=== PATIENT | female | born 1980 | race Caucasian/White ===

== ENCOUNTER 2016-09-14 19:37 | Inpatient (IN) | payer MEDICARE, MEDICAID ==
[2016-09-14] VITALS (8 sets, daily range): BP systolic 101–141; BP diastolic 59–108
[~2016-09-14] VITALS: Ht 162.6 cm; Wt 75.9 kg
[~2016-09-14 19:37] MED LIST: ACHYD1T PO; ADV1DS; ADV1DS INH; ADV1DS1 IH; ADVAIR; ADVAIR INHALER; ALBU0.8322 INH; ALBU17AE3; ALBU8.5H2 INH; ALBU8.5HRX INH; ALBUTEROL; ALBUTEROL INHALER; ALBUTEROL INHALER INH; ALBUTEROL NEB; ALBUTEROL NEBULIZER; ALEN70TA47 PO; ALPR.25T PO; ALPR0.25 PO; ALPR0.254 PO; ASCO500T6 PO; AZTH250C PO; AZTH50T PO; Acetylcysteine INH; BCTR15O EXT; BECL8.7A5 IH; BECL8.7A5 INH; BUDE0.5A2 IH; BUDE10.22 IH; BUDE6HFA IH; CALC-787 PO; CALC-80 PO; CALC600T PO; CALCIUM PO; CEFD300C PO; CEFP500T4 PO; CEFU500T5 PO; CEPH-38 PO; CEPH500C PO; CFR250T PO; CHOL10003 PO; CHOL2000 PO; CHOL5000 PO; CHOL500014 PO; CLD600T; CLOB15OI2 TOP; CLOB15OI2 TP; CYCL10TA9 PO; CYCL50TA PO; DCS100C PO; DGX.125T PO; DIGO125T PO; DILT30TA PO; DIPH25CA79 PO; DOXY100C2 PO; DOXY100C42 PO; DULO60CA6 PO; ENXP40I.4 SC; FEN12TD TD; FENT1PAT2 TOP; FENT1PAT6 TD; FENT1PAT8 TD; FEXO60TA; FLOVENT; FLUT16SP22 NS; FLUT1DIS26 IH; FLUT1DIS27 IH; FLUT1DIS3 INH; FOLI0.4T2 PO; FRSM40T PO; FURO40TA4 PO; FURO80TA3 PO; Famotidine PO; Fentanyl TD; Fluconazole PO; Folic Acid PO; GABAPENTIN PO; GFN600TCR PO; HDR2A IV; HDR2T PO; HDR4T PO; HYDR-2856 PO; HYDR-2890 PO; HYDR-3458 PO; HYDR-3720 PO; HYDR-700 PO; HYDR1CAP2 PO; HYDR2TAB31 PO; Hydroxyzine Hcl PO; IBP600T1 PO; IBUP-15 PO; IMMU10VI14; IMMU10VI14 IV; IMMU4VIA SC; INDO25CA PO; INSHRV; INSR1U SC; INSU100C4 SQ; INSU100I16 SQ; INSU100I29 SC; INSU100V3 SC; INSU100V5 SQ; INSU100V6 SC; IPRA3AMP11 INH; IPRA3AMP19 IH; Ibuprofen PO; KCL10CCR PO; LACT1CAP72 PO; LEVA1.25 IH; LEVA1.252 IH; LEVAQUIN; LEVO500T80 PO; LEVO750T24 PO; LEVO750T39 PO; LEVO750T6 PO; LEVO750T9 PO; LOSA25TA21 PO; LOSA25TA5 PO; LOSA50TA2 PO; LOSA50TA36 PO; LOSA50TA6 PO; Losartan Potassium PO; MAGN400T39 PO; MAGN400T6 PO; METH25VI19 INJ; METH25VI2 SQ; METH25VI57 SQ; METHOTREXATE PO; METO-333 PO; METO25TA2 PO; METO25TA6 PO; METO50TA2 PO; MNTL10T PO; MULT-974 PO; MULT1TAB63; MUPI22OI2 TOP; MUPI22OI2 TP; MYCO500T34 PO; NF-MYC250C; NITR-65 PO; NOVOLIN; NOVOLOG; NOVOLOG SS; NOXAFIL PO; NYST1000 PO; OMEP-10 PO; OMEP20CA12 PO; OMEP20CA6 PO; ONDA2VIA IV; ONDA4SOL2 PO; ONDA4TAB10 PO; ONDA4TAB11 PO; ONDA8TAB13 PO; OXC5T PO; OXYC-12 PO; OXYC-309 PO; OXYC1CAP3 PO; OXYC1TAB87 PO; OXYC20TA63 PO; OXYC5CAP4 PO; OXYC5TAB PO; OXYC5TAB71 PO; OXYCODONE IR PO; OXYCODONE PO; Oxycodone Hcl PO; PANT20TA2 PO; PANT40TA PO; PHENERGAN; PNV1TABL82 PO; POTA10CA43 PO; POTA10TA86 PO; POTA20TA15 PO; POTA20TA8 PO; PRD10T; PRD10T PO; PRD1T PO; PRD20T; PRD20T PO; PRD50T PO; PRD5T PO; PRED10TA22 PO; PRED20TA PO; PRED50TA PO; PRED5TAB PO; PRENATAL VIT; PRM25T PO; PROM12.59 PO; PROM25SU10 PR; PROM25SU10 RC; PROM25TA14 PO; PROP1TAB77; Pantoprazole Sodium PO; Prednisone PO; RANI75TA30 PO; RMP5C PO; RT-ALBUINH IH; SACU1TAB PO; SACU1TAB7 PO; SCOP1PAT TD; SENN-20 PO; SERT25TA PO; SINGULAIR; SPIR25TA3 PO; SPRN25T PO; SULF-222 PO; SULF1TAB23 PO; SULF1TAB35 PO; SULF1TAB38; SULF1TAB38 PO; SULF1TAB7 PO; Sodium Chloride IV; TIOT18CA IH; TIOT18CA2 INH; TIOT4MIS2 INH; TRM50T PO; Tiotropium Bromide IH; ULTRAM; UMEC1BLS IH; VICODIN 5/500; VIT.D; VITAMIN D PO; [UNRECOGNIZED DRUG - CODE] PO; [UNRECOGNIZED DRUG - OTHER]; [UNRECOGNIZED DRUG - OTHER]; [UNRECOGNIZED DRUG - OTHER]; [UNRECOGNIZED DRUG - OTHER] IH; [UNRECOGNIZED DRUG - OTHER] INH; [UNRECOGNIZED DRUG - REMARK]; albuterol HFA INH; mucomyst INH
--- OUTSIDE RECORDS SUMMARY | 2016-09-14 19:44 | XMS REPORT | Continuity of Care Document ---
Author Author [facility] Organization [facility] Address Unknown Phone Unavailable Care Team Providers Care Freight Clerk Name Role Phone Thomas Aguilar PCP [phone] Source Comments Some departments are not documenting in the electronic medical record. If you do not see the information that you expected, contact Release of Information in the Health Information Management department at [phone] for further assistance in locating additional records.[facility] Active Allergies and Adverse Reactions Allergen Noted Date Severity Reactions Comments Clindamycin 12/09/2012 HIVES Patient states she received on last admission and after 1 day of treatment developed hives Influenza Virus Vaccine 12/09/2012 HIVES, ANGIOEDEMA, EDEMA Patient states she Trival [id number] (18 Yr received the flu vaccine +) this year (oct 2012) and developed hives, swelling and throat tightness. Never had reaction to vaccine in past Morphine 11/10/2013 HIVES, RASH Penicillins 12/22/2007 HIVES, RASH Pneumococcal 23-Valent 12/24/2012 RASH Polysaccharide Vaccine Current Medications Prescription Sig. Disp. Refills Start End Date Status Date vitamins, multiple Cap Take 1 Cap by mouth 0 0 12/25/19 Active Daily. 08 mometasone (NASONEX) 50 Apply 2 Sprays to each 3 Inhaler 1 06/22/20 Active mcg/actuation nasal spray nostril as directed 12 daily. bacitracin 500 unit/g Apply to affected area 1 Container 1 06/22/20 Active topical ointment twice daily. 12 ALPRAZolam (XANAX) 0.25 Take 1 Tab by mouth three 30 Tab 0 06/22/20 Active mg tablet times daily as needed. 12 For anxiety CALCIUM CARBONATE/VITAMIN Take 1 Tab by mouth Active D3 (CALCIUM + D PO) daily. promethazine (PHENERGAN) Take 25 mg by mouth every Active 25 mg tablet 8 hours as needed. sinus rinse (NEILMED Insert 1 Packet into nose Active SINUS) Pack kit as directed daily as needed. potassium chloride SR Take 4 Tabs by mouth 120 Cap 1 12/17/19 Active (K-DUR) 10 mEq tablet daily. 14 albuterol (VENTOLIN HFA, Inhale 2 Puffs by mouth 3 Inhaler 3 04/16/20 Active PROAIR HFA) 90 every 4 hours as needed 14 mcg/actuation inhaler for Wheezing. albuterol-ipratropium Inhale 3 mL solution as 120 Ampule 11 04/16/20 Active (DUO-NEB, DUO-VENT) 0.5 directed every 6 hours as 14 mg-3 mg(2.5 mg base)/3 mL needed for Wheezing. nebulizer solution Syringe (Disposable) 1 mL 27G 5/8" TB syringe to be 12 Syringe 1 05/31 Active syrg used with Methotrexate. 14 insulin detemir(+) Inject 10 Units into Active (LEVEMIR) 100 unit/mL area(s) as directed twice soln daily before meals. cholecalciferol(+) Take 2,000 Units by mouth Active (VITAMIN D-3) 2,000 unit daily. tablet alendronate (FOSAMAX) 70 Take 70 mg by mouth every Active mg tablet 7 days. Patient takes on Saturday hydrOXYzine (ATARAX) 25 Take 50 mg by mouth at Active mg tablet bedtime daily. PANTOPRAZOLE SODIUM Take 1 Tab by mouth. Active (PROTONIX PO) Immune Globulin (Human) Inject 10 g into area(s) 300 mL 6 07/21/20 Active (IGG) (HIZENTRA) 4 as directed every 7 days. 14 gram/20 mL (20 %) soln methotrexate 25 mg/mL Inject 1 mL into area(s) 4 mL 3 01/29/20 Active injection as directed every 7 days. 15 folic acid (FOLVITE) 1 mg Take 1 Tab by mouth 90 Tab 3 01/29/20 Active tablet daily. 15 oxyCODONE (ROXICODONE) 5 Take 5 mg by mouth every Active mg tablet 4 hours as needed for Pain DIGOXIN PO Take 10 mg by mouth twice Active daily. ASCORBATE CALCIUM Take 1,000 mg by mouth. Active (VITAMIN C PO) umeclidinium-vilanterol Inhale 1 Puff by mouth 6 Each 0 05/11/20 Active (ANORO ELLIPTA) 62.5-25 daily. 15 mcg/actuation dsdv fentaNYL (DURAGESIC) 25 Apply 1 Patch to top of Active mcg/hr patch skin as directed every 72 hours metoprolol (LOPRESSOR) 25 Take 12.5 mg by mouth Active mg tablet twice daily. losartan (COZAAR) 25 mg Take 12.5 mg by mouth Active tablet daily. spironolactone Take 25 mg by mouth Active (ALDACTONE) 25 mg tablet daily. furosemide (LASIX) 40 mg Take 2 tablets by mouth Active tablet every morning and 1 tablet in the evening. predniSONE (DELTASONE) 20 Take 20 mg by mouth daily Active mg tablet with breakfast. Active Problems Problem Noted Date Mechanical breakdown of cardiac pulse generator 08/03/2016 Overview: 2016 [facility] Advisory for Premature Battery Depletion Thrush 01/28/2015 Overview: Resolved after tapering prednisone and transitioning from Advair to a steroid free Anoro. - Monitor for recurrence. Renal failure (ARF), acute on chronic (HCC) 01/28/2015 Overview: Cr 1.77 today (01/28/15). Likely multifactorial (EGPA, diuretic use, CHF, Fosamax, and Bactrim). - Rheumatology planning to lower dosing of diuretics. - If this is not helpful, will need to consider stopping Bactrim. - Would also consider stopping her Fosamax, particularly if going forward with palliative care. Chronic rhinitis 01/28/2015 Overview: Currently fairly well controlled with an RCAT score of 23. - Will continue Nasonex. Long-term current use of steroids 07/04/2014 Encounter for long-term (current) use of medications 07/04/2014 Eosinophilia 07/04/2014 Overview: EGPA. Repeat levels recently have all been <500 despite prednisone taper since being started on MTX. 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 It is possible that the IgG level is low due to Rituxan use, but we would expect this IgG level to return to normal after use, which did not happen. Blunted response to vaccination. 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 Although she did not tolerate immunomodulatory dosing of IVIg, she had been tolerating Hizentra (SQ immunoglobulin replacement therapy) without difficulty. Began having increased infections requiring higher doses of prednisone and hospitalization after stopping Hizentra at one point, doing well on it now. Last IgG level 450 01/2016 but had missed several weeks of Hizentra, currently on 10 gm weekly. - Continue Hizentra. - Will continue to monitor her frequency and severity of infections after restarting Hizentra, obtaining IgG levels every 3-6 months (orders provided). Will need to get one at her next visit, which will be back on Hizentra for over 3 months. Sepsis(995.91) 04/10/2013 Chronic combined systolic and diastolic congestive heart failure (HCC) 04/10 RUQ abdominal pain 04/10/2013 Pneumonia 04/08/2013 Recurrent infections 02/03/2013 Overview: Sinopulmonary infections, leading to exacerbations of pulmonary condition and increased steroid use. Likely partly disease and medication (immunosuppression) induced. 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 Also history of Stenotrophamonas. - Will continue Hizentra. - Now off Bactrim ppx due to lowering of steroid dose. 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 Garrett ashley Assessment & Plan: I have had a chance to review her echocardiogram. It shows continued severely decreased LV function. We discussed the results in the office today. I think that an ICD is indicated for primary prevention purposes. Her QRSd is just at 120 msec but she does have some evidence of dyssynchrony on echo. I discussed with the patient at length the procedure of biventricular ICD implantation. We talked about the rationale for the device including the fact that about 30% of patients do not receive clinical benefit from this procedure. All patients receive the significant benefit of sudden cardiac prevention. The risks, benefits, and alternatives to the procedure were reviewed with the patient. We discussed the 1:1000 risk of stroke, heart attack, and including the small risk of cardiac perforation, vessel damage, pneumothorax, infection, and bleeding. We will utilize IV contrast dye in order to view and determine optimal LV lead position within the coronary sinus. LV lead implantation was discussed at length including the approximately 5% risk of unsuccessful endocardial lead placement. In these cases, the patient would be referred for epicardial LV lead implantation. Additionally, I discussed the need for defibrillation testing at the conclusion of the procedure. Post device care and limitations were also reviewed with the patient. All questions were answered and the patient agreed to proceed. 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 In addition, she is going to get her left port out tomorrow. I'd like to wait a couple weeks to make sure we are not dealing with any infection before proceeding with biventricular ICD implantation. Finally, I'd like to keep her at her current doses of prednisone until her procedure is done. We will touch base with her physicians regarding the need for stress dose steroids. Iron deficiency anemia 12/25/2007 Uncomplicated severe persistent asthma 12/25/2007 Overview: She has an elevated IgE (566 in 12/2007) but negative specific IgE testing, so unsure if there is an allergic component. No history of skin testing. More likely attributed to Churg-Ozzy. Hypersensitivity pneumonitis panels were all negative in 2007. Xolair has been considered in the past, but given her lack of positive perennial IgE sensitivity here, it was felt she would not qualify. However, she has outside skin testing that she thinks may have been positive (we have never seen these records). Attempts to qualify her for Xolair and Mepolizumab have been rejected. Currently now on Anoro but wheezing considerably today (presumably from tapering her prednisone). Off ICS due to recurrent refractory thrush (resolved off Advair). 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 Dr. Avilez increased her prednisone back to 20 mg and if she stays on that per Dr. Encinas, they will need to put her back on Bactrim for PCP ppx. - Continue prednisone taper as per rheumatology - Continue to decrease infectious induced exacerbations with the use of Hizentra. 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 Also associated with asthma and cardiomyopathy (now with an ICD). Has failed treatment with chronic steroids, Imuran, Cellcept, and Rituxan in December 2012. High dose IVIg caused intolerable side effects. Currently on MTX and prednisone tapered to 18 mg with control of her eosinophils but still with severe complications. She has been declined for a heart/lung transplant and did not qualify for a mepolizumab study. - Continue follow up with Rheumatology ([place]), Cardiology ([facility]), and Pulmonary ([facility]). - Hope that Dr. Encinas will continue to work on getting her onto a trial of mepolizumab Respiratory failure (HCC) 12/25/2007 Resolved Problems Problem Noted Date Resolved Date ERRONEOUS ENCOUNTER--DISREGARD 06/29/2014 07/22/2014 Hypoxia 12/09/2012 01/01/2013 Dyspnea 10/02/2012 01/01/2013 Pulmonary infiltrates with eosinophilia (HCC) 12/25/2007 01/01/2013 Most Recent Encounters Date Type Specialty Providers Description 09/03/2016 Telephone Allergy,Immunology and Cynthia Brunson DO Prior Authorization - Rheumatology Hizentra 08/14/2016 Telephone Allergy,Immunology and Josiah Rogers MD Appointment Request - Rheumatology cancel 08/03/2016 Telephone Cardiology Clifton Silva RN Follow-up Phone Call - [facility] Advisory 07/31/2016 Telephone Allergy,Immunology and Cynthia Brunson DO Other - Hizentra Rheumatology 07/11/2016 Telephone Allergy,Immunology and Cynthia Brunson DO Medication Follow-up - Rheumatology Hizentra Immunizations Name Dates Previously Given Next Due FLU VACCINE >3YO 11/04/2012 Pneumococcal Vaccine 11/04/2012 (23-Leny Adult) Social History Tobacco Use Types Packs/Day Years Used Date Never Smoker Smokeless Tobacco: Never Used Alcohol Use Drinks/Week oz/Week Comments No Last Filed Vital Signs Vital Sign Reading Time Taken Blood Pressure 114/82 04/18/2016 9:55 AM CDT Pulse 93 04/18/2016 9:55 AM CDT Temperature 36.7 C (98 F) 04/10/2016 8:18 AM CDT Respiratory Rate 18 04/10/2016 8:18 AM CDT Height 1.626 m (5' 4") 04/18/2016 9:55 AM CDT Weight 80.65 kg (177 lb 12.8 oz) 04/18/2016 9:55 AM CDT Body Mass Index 30.5 04/18/2016 9:55 AM CDT Oxygen Saturation 95% 04/18/2016 9:55 AM CDT Plan of Care Health Maintenance Due Date Last Done Comments Physical (Comprehensive) 1989 Exam Pertussis Vaccine 1993 Tetanus Vaccine 1999 Dilated Eye Exam 2000 Foot Exam 2000 Microalbumin 2000 Cervical Cancer Screening 2003 Hba1c 12/08/2014 06/10/2014, 04/09/2013 Influenza Vaccine 05/17/2016 11/04/2012 Pneumonia Vaccine (Dm) Completed 11/04/2012 Results from Last 3 Months Not on file
[2016-09-14] MEDS ORDERED: RT-ALBUTEROL/IPRATROPIUM 3 ML (DUONEB) VIAL INH ONE ×2 (20:15→21:45)
[2016-09-14] MEDS ORDERED: methylPREDNISolone 125 MG (Solu-MEDROL) VIAL IVP ONE (20:15)
[2016-09-14] MEDS ORDERED: DEXAMETHASONE 4 MG/ML SDV (DECADRON) IH ONE (20:15)
--- NOTE | 2016-09-14 20:25 | ED Respiratory ---
General Chief Complaint: Respiratory Problems Stated Complaint: ELEVATED HR/LETHARGIC/NO COGNITION/SORE THROAT Nursing Triage Note: Pt to ED 10 via wheelchair. Pt's father reports pt has been lethargic today with o2 saturations in the mid 80s and heart rate in the 120s. Pt reports she has slept most of today and has only had 1 piece of toast to eat. Source: patient, family (DAD) History of Present Illness Time seen by provider: 20:05 Initial Comments PT ARRIVES VIA POV PT HAS FELT BAD SINCE YESTERDAY INCREASES SHORTNESS OF BREATH LETHARGIC TODAY--SLEPT ALL DAY AND ONLY INTAKE TODAY HAS BEEN A PIECE OF TOAST. ONLY USED NEBULIZER X 1 THIS AM TODAY HAS HAD SWEATS ALL DAY TODAY HAS LOOSE COUGH--NON-PRODUCTIVE + SORE THROAT NO SWELLING IN LEGS/ FEET / HANDS NO CHEST PAIN O2 SATS AT HOME WERE 75-88% AND HEART RATE IN 120'S AT HOME PT HAS BIPAP AT HOME PT ADMITTED 08/16-08/22 FOR [facility]--HAD CHF AT THAT TIME. PCP: DR. PHIPPS Allergies and Home Medications Allergies Coded Allergies: influenza virus vaccine ts [id number] (36 mos+) (Unverified Allergy, Severe , ANAPHYLAXIS, 01/08/15) pneumococcal vaccine (Unverified Allergy, Severe, ANAPHYLAXIS, 01/08/15) Penicillins (Verified Allergy, Mild, PER PT RXN = HIVES, CAN TAKE ROCEPHIN , 01/08/15) clindamycin (Unverified Allergy, Unknown, 01/08/15) morphine (Verified Adverse Reaction, Intermediate, RASH, PT HAS RECEIVED HYDROMORPHONE W/O ISSUE, 04/26/16) MORPHINE IV GIVEN AT ED, PT DEVELOPED RASH AND POSSIBLE HIVES metoclopramide (Verified Adverse Reaction, Unknown, 10/02/15) INCREASED FLUID RETENTION AND BRUISING Home Medications Albuterol/Ipratropium 3 Ml Nebu 3 ML INH Q6H PRN PRN WHEEZING (Reported) Alprazolam 0.25 Mg Tablet 0.25 MG PO 1200,2100 (Reported) Alprazolam 0.25 Mg Tablet 0.25 MG PO BID PRN PRN ANXIETY (Reported) Ascorbic Acid 500 Mg Tablet 500 MG PO 1200 (Reported) Calcium Carbonate/Vitamin D3 1 Each Tablet 1 TAB PO 1200 (Reported) Digoxin 125 Mcg Tablet 125 MCG PO DAILY (Reported) Fentanyl 1 Each Patch.td72 12 MCG TD EVERY 72 HOURS (Reported) Folic Acid 0.4 Mg Tablet 0.4 MG PO HS (Reported) Furosemide 40 Mg Tablet 80 MG PO DAILY (Reported) TAKES 2 (40 MG) TABLETS Furosemide 40 Mg Tablet 40 MG PO HS (Reported) Hydroxyzine HCl 25 Mg Tablet 50 MG PO HS (Reported) TAKES 2 (25MG) TABLETS Immune Globulin,Gamma(IgG) 10 Gm/50 Ml Vial IV We (Reported) Insulin Detemir 100 Unit/1 Ml Insuln.pen 10 UNITS SC BID (Reported) Lactobacillus Combo No.10 1 Each Capsule 1 CAP PO 1200 (Reported) Magnesium Oxide 400 Mg Tablet 400 MG PO BID (Reported) Methotrexate Sodium 25 Mg/1 Ml Vial 1 ML SQ We (Reported) Metoprolol Tartrate 25 Mg Tablet 12.5 MG PO BID (Reported) TAKES 1/2 (25MG) TABLET Nystatin 100,000 Unit/1 Ml Oral.susp 5 ML PO QID PRN PRN THRUSH (Reported) Omeprazole 20 Mg Capsule.dr 20 MG PO 1700 (Reported) Ondansetron 4 Mg Tab.rapdis 4 MG PO Q4H PRN PRN NAUSEA (Reported) Oxycodone HCl 5 Mg Tablet 5-10 MG PO EVERY 4-6 HOURS PRN PRN PAIN (Reported) Pnv with Ca,No.74/Iron/FA 1 Each Tablet 1 TAB PO HS (Reported) Potassium Chloride 20 Meq Tab.er.prt 20 MEQ PO BID (Reported) Prednisone 10 Mg Tab 10 MG PO DAILY (Reported) TAKES ALONG WITH 2 (20MG) TABLETS FOR A TOTAL DAILY DOSE OF 50MG Prednisone 20 Mg Tab 40 MG PO DAILY (Reported) TAKES 2 (20MG) TABLETS ALONG WITH A 10MG TABLET FOR A TOTAL DAILY DOSE OF 50MG Promethazine HCl 25 Mg Tablet 25 MG PO TID PRN PRN NAUSEA (Reported) Sacubitril/Valsartan 1 Each Tablet 1 TAB PO BID (Reported) Scopolamine 1 Each Patch.td72 1 PATCH TD Q72H (Reported) Spironolactone 25 Mg Tablet 25 MG PO DAILY (Reported) Sulfamethoxazole/Trimethoprim 1 Each Tablet 1 TAB PO MoWeFr (Reported) Umeclidinium Brm/Vilanterol Tr 1 Each Blst.w.dev 1 PUFF IH DAILY (Reported) Constitutional: diaphoresis malaise weakness EENTM: throat pain Respiratory: see HPI cough orthopnea short of breath Cardiovascular: no symptoms reportedNo chest pain, No edema Gastrointestinal: no symptoms reported Genitourinary: no symptoms reported Musculoskeletal: no symptoms reported Skin: no symptoms reported Psychiatric/Neurological: No Symptoms Reported Hematologic/Lymphatic: No Symptoms Reported Immunological/Allergic: no symptoms reported Past Hephzax-Iquuzx-Tjqhbi Hx Patient Social History Alcohol Use: Denies Use Recreational Drug Use: No Smoking Status: Never a Smoker 2nd Hand Smoke Exposure: No Recent Foreign Travel: No Contact w/Someone Who Travel: No Recent Infectious Disease Expo: No Recent Hopitalizations: Yes (08/13 for flash pulmonary edema) Physical Abuse Screen: No Sexual Abuse: No Immunizations Up To Date Tetanus Booster (TDap): Unknown PED Vaccines UTD: No Date of Pneumonia Vaccine: Dec 15, 2012 Date of Influenza Vaccine: Dec 15, 2012 Seasonal Allergies Seasonal Allergies: Yes Surgeries HX Surgeries: Yes (2 C-SECTIONS, 2 HERNIA REPAIRS, CRANIOTOMY, 3 PORTS PUT IN AND REMOVED) Surgeries: Abdominal, Section, Defibrillator, Gallbladder, Pacemaker, Vascular Surgery Respiratory Hx Respiratory Disorders: Yes (CHURG CANELO, JEWELL'S GRANULOMATOSIS. CHRONIC HYPOXIA-O2 CONTINUOUS) Respiratory Disorders: Asthma, Pneumonia, Sleep Apnea, COPD Cardiovascular Hx Cardiac Disorders: Yes (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; PACEMAKER AND DEFIBRILLATOR) Cardiac Disorders: Cardiomyopathy Neurological Hx Neurological Disorders: Yes (BRAIN SURGERY R/T MRSA ABSCESS) Neurological Disorders: Headaches /Migraines Reproductive System Hx Reproductive Disorders: No Sexually Transmitted Disease: No HIV/AIDS: No Female Reproductive Disorders: Denies Genitourinary Hx Genitourinary Disorders: No Gastrointestinal Hx Gastrointestinal Disorders: Yes Gastrointestinal Disorders: Gastroesophageal Reflux, Hiatal Hernia, Gall Bladder Disease Musculoskeletal Hx Musculoskeletal Disorders: Yes (STEROID INDUCED MUSCLE MYOPATHY, CHRONIC GENERALIZED PAIN) Musculoskeletal Disorders: Osteoporosis, Arthritis, Back Injury, Chronic Back Pain Endocrine Hx Endocrine Disorders: Yes (CHACHA SYNDROME, CHURG-CANELO SYNDROME) Endocrine Disorders: Diabetes, Insulin dep HEENT HX ENT Disorders: No Loss of Vision: Denies Hearing Impairment: Hard of Hearing Cancer Hx Cancer: No Psychosocial Hx Psychiatric Problems: Yes Behavioral Health Disorders: Sleep Difficulties, Anxiety Integumentary HX Skin/Integumentary Disorder: Yes (wound to lt posterior calf; MRSA) Skin/Integumentary Disorders: Pruritis Blood Transfusions Hx Blood Disorders: No Adverse Reaction to a Blood Tr: No Family Medical History Significant Family History: Asthma, Cancer, Diabetes, Hypertension Family Medial History: Arthritis 03 FATHER Asthma 03 MOTHER Cancer GRANDMOTHER, Onset:50's - 60 Family history: Alzheimer's disease GRANDFATHER, Onset:60 years & older Family history: Diabetes mellitus GRANDMOTHER, Onset:50's - 60 Family history: Hypertension 03 MOTHER, Onset:40's - 50 No Family History of: Stroke Physical Exam Vital Signs Vital Sign - Last 12Hours Capillary Refill : Less Than 3 Seconds General Appearance: mild distress other (LETHARGIC, FREQUENT LOOSE COUGH WITH POOR COUGH EFFORT. CUSHINGOID FEATURES) HEENT: PERRL/EOMI pharyngeal erythema (MILD) Neck: non-tender full range of motion supple normal inspection Respiratory: respiratory distress (MILD) decreased breath sounds accessory muscle use rales (BILATERALLY) rhonchi (BILATERALLY) wheezing (ON RIGHT) Cardiovascular: no edema no murmur tachycardia Gastrointestinal: non tender soft Extremities: no pedal edema Neurologic/Psychiatric: no motor/sensory deficits oriented x 3 other ( LETHARGIC) Skin: normal color warm/dry Progress/Results/Core Measures Results/Orders Lab Results Laboratory Tests Test 09/14/16 20:00 09/14/16 20:40 09/14/16 21:00 Range/Units Victoriano Test YES-POS Arterial Blood Base Excess 0.9 -2.5-2.5 MMOL/L Arterial Blood HCO3 24 23-27 MMOL/L Arterial Blood Oxygen Saturation 91 L 94-100 % Arterial Blood Partial Pressure CO2 33 L 35-45 MMHG Arterial Blood Partial Pressure O2 53 L 79-93 MMHG Arterial Blood Total CO2 25.0 21.0-31.0 MMOL/L Arterial Blood pH 7.48 H 7.37-7.43 Blood Gas Inspired Oxygen 3L Blood Gas Patient Temperature 98.0 Blood Gas Puncture Site RIGHT RADIAL Blood Gas Ventilator Setting NO Group A Streptococcus Screen NEGATIVE NEGATIVE Activated Partial Thromboplast Time 25 24-35 SEC Alanine Aminotransferase (ALT/SGPT) 36 0-55 U/L Albumin 5.1 H 3.2-4.5 G/DL Alkaline Phosphatase 159 H 40-136 U/L Anion Gap 19 H 5-14 MMOL/L Aspartate Amino Transf (AST/SGOT) 28 5-34 U/L B-Type Natriuretic Peptide 2623.5 H <100.0 PG/ML BUN/Creatinine Ratio 12 Band Neutrophils 7 % Basophils # (Auto) 0.1 0.0-0.1 10^3/uL Basophils % (Manual) 0 % Basophils (%) (Auto) 1 0-10 % Blood Morphology Comment NORMAL Blood Urea Nitrogen 12 7-18 MG/DL Calcium Level 10.3 H 8.5-10.1 MG/DL Carbon Dioxide Level 20 L 21-32 MMOL/L Chloride Level 99 98-107 MMOL/L Creatinine 0.99 0.60-1.30 MG/DL Eosinophils # (Auto) 0.4 H 0.0-0.3 10^3/uL Eosinophils % (Manual) 8 % Eosinophils (%) (Auto) 5 0-10 % Estimat Glomerular Filtration Rate > 60 Glucose Level 92 70-105 MG/DL Hematocrit 48 35-52 % Hemoglobin 16.5 H 11.5-16.0 G/DL INR Comment 1.1 0.8-1.4 Lymphocytes # (Auto) 1.1 1.0-4.0 X 10^3 Lymphocytes % (Manual) 24 % Lymphocytes (%) (Auto) 15 12-44 % Magnesium Level 1.8 1.8-2.4 MG/DL Mean Corpuscular Hemoglobin 31 25-34 PG Mean Corpuscular Hemoglobin Concent 34 32-36 G/DL Mean Corpuscular Volume 91 80-99 FL Mean Platelet Volume 11.1 H 7.4-10.4 FL Monocytes # (Auto) 1.5 H 0.0-1.0 X 10^3 Monocytes % (Manual) 15 % Monocytes (%) (Auto) 20 H 0-12 % Neutrophils # (Auto) 4.3 1.8-7.8 X 10^3 Neutrophils % (Manual) 46 % Neutrophils (%) (Auto) 58 42-75 % Platelet Count 209 130-400 10^3/uL Potassium Level 3.6 3.6-5.0 MMOL/L Prothrombin Time 13.8 12.2-14.7 SEC Red Blood Count 5.30 4.35-5.85 10^6/uL Red Cell Distribution Width 18.7 H 10.0-14.5 % Sodium Level 138 135-145 MMOL/L Total Bilirubin 2.5 H 0.1-1.0 MG/DL Total Protein 7.9 6.4-8.2 G/DL Troponin I < 0.30 <0.30 NG/ML White Blood Count 7.3 4.3-11.0 10^3/uL Micro Results Microbiology 09/14/16 Influenza Types A,B Antigen (ALCON) - Final, Complete My Orders Orders-ABHIKAREN Amaya DO O2 (09/14/16 20:05) Cbc And Manual Diff (09/14/16 20:05) Comprehensive Metabolic Panel (09/14/16 20:05) Monitor-Rhythm Ecg Trace Only (09/14/16 20:05) Saline Lock/Iv-Start (09/14/16 20:05) Arterial Blood Gas (09/14/16 20:05) Cbc With Automated Diff (09/14/16 20:05) Hcg,Qualitative Serum (09/14/16 20:05) Lactic Acid Analyzer (09/14/16 20:05) Blood Culture (09/14/16 20:05) Influenza A And B Antigens (09/14/16 20:05) Albuterol/Ipra Inhalation Soln (Duoneb I (09/14/16 20:15) Dexamethasone Injection (Decadron Inject (09/14/16 20:15) Rt Request For Service (09/14/16 20:05) Svn Sm Volume Nebulizer Rt-Rfs (09/14/16 20:05) Methylprednisolone Sod Succ (Solu-Medrol (09/14/16 20:15) Ekg Tracing (09/14/16 20:13) BNP (09/14/16 20:13) Magnesium (09/14/16 20:13) Protime With Inr (09/14/16 20:13) Partial Thromboplastin Time (09/14/16 20:13) Rapid Strep A Screen (09/14/16 20:13) Troponin I (09/14/16 20:13) Albuterol Pre-Mix Nebs (Rt) (Proventil P (09/14/16 20:51) Chest 1 View, Ap/Pa Only (09/14/16 21:09) Albuterol/Ipra Inhalation Soln (Duoneb I (09/14/16 21:45) Albuterol Pre-Mix Nebs (Rt) (Proventil P (09/14/16 21:45) Furosemide Injection (Lasix Injection) (09/14/16 22:30) Levofloxacin 750 Mg/150 Ml Iv (Levaquin (09/14/16 22:41) Catheter(Urinary) Insert & Ass (09/14/16 22:44) Medications Given in ED Current Medications Medications Dose Ordered Sig/Neisha Route Start Time Stop Time Status Last Admin Dose Admin Albuterol/ Ipratropium 3 ml ONCE ONCE INH 09/14/16 20:15 09/14/16 20:16 DC 09/14/16 20:22 3 ML Albuterol/ Ipratropium 3 ml ONCE ONCE INH 09/14/16 21:45 09/14/16 21:46 DC 09/14/16 21:37 3 ML Dexamethasone Sodium Phosphate 30 mg ONCE ONCE IH 09/14/16 20:15 09/14/16 20:16 DC 09/14/16 20:22 30 MG Furosemide 80 mg ONCE ONCE IVP 09/14/16 22:30 09/14/16 22:31 DC 09/14/16 22:43 80 MG Methylprednisolone Sodium Succinate 125 mg ONCE ONCE IVP 09/14/16 20:15 09/14/16 20:16 DC 09/14/16 21:08 125 MG Vital Signs/I&O Vital Sign - Last 12Hours 09/14/16 09/14/16 09/14/16 09/14/16 19:56 19:56 20:23 21:19 Temp 98.0 Pulse 130 102 Resp 26 40 B/P 112/82 Pulse Ox 99 98 92 100 O2 Delivery Nasal Cannula Nasal Cannula Nasal Cannula O2 Flow Rate 3 3 2 40 Blood Pressure Mean: 92 Progress Note : Progress Note O2 SATS UP TO 100% ON BIPAP LUNG SOUNDS IMPROVED AFTER NEBULIZER TREATMENTS AND STARTING ON BIPAP RESPIRATIONS LESS LABORED PT REMAINS LETHARGIC ECG Initial ECG Impression Time: 20:17 Initial ECG Rate: 117 Comment 100% VENTRICULAR PACED Diagnostic Imaging Comments CXR--CARDIOMEGALY, NO ACUTE PROCESS, PER RADIOLOGIST REPORT @ 2140 Reviewed: Reviewed by Me Departure Communication Progress Notes 2229--SPOKE WITH DR. RIBERA, [employer] MAINTE[employer]CE INSPECTOR FOR DR. PHIPPS. ACCEPTS PT FOR ADMIT. Impression Impression: Primary Impression: Acute on chronic respiratory failure Additional Impressions: Acute on chronic congestive heart failure Bronchitis Pharyngitis Disposition: ADMITTED INPATIENT Condition: Improved Decision to Admit Reason: Admit from ER (General) Decision to Admit/Date: Sep 14, 2016 Time/Decision to Admit Time: 22:30 Departure-Patient Inst. Referrals: ALBER PHIPPS MD (PCP/Family) Primary Care Physician KAREN MOE DO Sep 14, 2016 20:25
[2016-09-14 20:41] LABS: ABG BASE EXCESS 0.9 MMOL/L (-2.5-2.5); ABG HCO3 24 MMOL/L (23-27); ABG OXYGEN SATURATION 91 % (94-100); ABG PCO2 33 MMHG (35-45); ABG PH 7.48 (7.37-7.43); ABG PO2 53 MMHG (79-93)
[2016-09-14 20:46] LABS: ALLENS TEST YES-POS
[2016-09-14] MEDS ORDERED: RT-ALBUTEROL SULF 2.5 MG/3 ML PRE-MIX VIAL ONE (20:51)
[2016-09-14 21:13] LABS: BASOPHILS # (AUTO) 0.1 10^3/uL (0.0-0.1); BASOPHILS % (AUTO) 1 % (0-10); EOSINOPHILS # (AUTO) 0.4 10^3/uL (0.0-0.3); EOSINOPHILS % (AUTO) 5 % (0-10); LYMPHOCYTES # (AUTO) 1.1 X 10^3 (1.0-4.0); LYMPHOCYTES % (AUTO) 15 % (12-44); MEAN CORPUSCULAR HEMOGLOBIN 31 PG (25-34); MEAN CORPUSCULAR HGB CONC 34 G/DL (32-36); MEAN CORPUSCULAR VOLUME 91 FL (80-99); MEAN PLATELET VOLUME 11.1 FL (7.4-10.4); MONOCYTES # (AUTO) 1.5 X 10^3 (0.0-1.0); MONOCYTES % (AUTO) 20 % (0-12); NEUTROPHILS # (AUTO) 4.3 X 10^3 (1.8-7.8); NEUTROPHILS % (AUTO) 58 % (42-75); PLATELET COUNT 209 10^3/uL (130-400); RED CELL DISTRIBUTION WIDTH 18.7 % (10.0-14.5); WHITE BLOOD COUNT 7.3 10^3/uL (4.3-11.0)
[2016-09-14 21:25] LABS: BAND NEUTROPHILS 7 %; BASOPHILS % (MANUAL) 0 %; EOSINOPHILS % (MANUAL) 8 %; INR 1.1 (0.8-1.4); LYMPHOCYTES % (MANUAL) 24 %; NEUTROPHILS % (MANUAL) 46 %; PROTHROMBIN TIME PATIENT 13.8 SEC (12.2-14.7)
[2016-09-14 21:34] LABS: TROPONIN I < 0.30 NG/ML (<0.30)
[2016-09-14 21:37] LABS: ALANINE AMINOTRANSFERASE 36 U/L (0-55); ALBUMIN 5.1 G/DL (3.2-4.5); ANION GAP 19 MMOL/L (5-14); ASPARTATE AMINO TRANSFERASE 28 U/L (5-34); BILIRUBIN,TOTAL 2.5 MG/DL (0.1-1.0); BLOOD UREA NITROGEN 12 MG/DL (7-18); BUN/CREATININE RATIO 12; CALCIUM 10.3 MG/DL (8.5-10.1); CARBON DIOXIDE 20 MMOL/L (21-32); CHLORIDE 99 MMOL/L (98-107); CREATININE SERUM 0.99 MG/DL (0.60-1.30); GFR ESTIMATED > 60; GLUCOSE 92 MG/DL (70-105); MAGNESIUM 1.8 MG/DL (1.8-2.4); POTASSIUM 3.6 MMOL/L (3.6-5.0); SODIUM 138 MMOL/L (135-145); TOTAL PROTEIN 7.9 G/DL (6.4-8.2)
--- NOTE | 2016-09-14 21:38 | Diagnostic Imaging Report ---
INDICATION: Lethargy and low O2 sats. COMPARISON: 08/16/2016. EXAMINATION: Upright portable view of the chest was obtained. FINDINGS: Heart size is enlarged but is slightly less prominent than on prior study. There is no significant central venous congestion. No pneumothorax or pleural fluid is suspected. Pacer device over the right chest appears stable. The lungs are clear. IMPRESSION: Cardiomegaly without evidence of failure. No acute abnormality is suspected. Dictated by: Dictated on workstation # [id number]
[2016-09-14] MEDS ORDERED: RT-ALBUTEROL SULF 2.5 MG/3 ML PRE-MIX VIAL INH SCH (21:45)
[2016-09-14] MEDS ORDERED: FUROSEMIDE 40 MG/4 ML INJ (LASIX) IVP ONE (22:30)
[2016-09-14] MEDS ORDERED: LEVOFLOXACIN 750 MG/150 ML IV 150 ML IV STA (22:41)
[2016-09-14] MEDS ORDERED: fentaNYL INJECTION 100 MCG/2 ML AMP IVP STA (23:14)
[2016-09-15] VITALS (32 sets, daily range): BP systolic 72–124; BP diastolic 21–69
[2016-09-15] MEDS ORDERED: ACETAMINOPHEN 500 MG TAB (TYLENOL) ONE (00:09)
[2016-09-15] MEDS ORDERED: CARVEDILOL 3.125 MG (COREG) TABLET ONE (00:10)
[2016-09-15] MEDS ORDERED: 1/2 NS IV SOLUTION 0 ML IV ONE (00:10)
[2016-09-15] MEDS ORDERED: DILTIAZEM 240 MG (CARDIZEM CD) CAP PO ONE (00:10)
[2016-09-15] MEDS ORDERED: inSUlin DETERMIR 1 UNIT/0.01 ML (LEVEMIR) CHARGE PER UNIT SQ ONE (00:21)
[2016-09-15 01:00] LABS: ABG BASE EXCESS -1.9 MMOL/L (-2.5-2.5); ABG HCO3 23 MMOL/L (23-27); ABG OXYGEN SATURATION 96 % (94-100); ABG PCO2 37 MMHG (35-45); ABG PO2 76 MMHG (79-93); ABG TCO2 23.7 MMOL/L (21.0-31.0)
[2016-09-15 01:01] LABS: ALLENS TEST YES-POS; PATIENT TEMP 97.6
[2016-09-15] MEDS ORDERED: HYDROmorphone (DILAUDID) 2 MG/ML VIAL ONE (02:04)
[2016-09-15] MEDS ORDERED: CEFEPIME 2 GM/NS 50 ML IVPB IV SCH ×2 (02:15)
[2016-09-15] MEDS ORDERED: LEVOFLOXACIN 750 MG/150 ML D5W (PRE-MIX) IV SCH (02:15)
[2016-09-15] MEDS ORDERED: VANCOMYCIN 1 GM/NS 250 ML IVPB IV SCH ×2 (02:15)
[2016-09-15] MEDS ORDERED: HYDROmorphone (DILAUDID) 2 MG/ML VIAL IV PRN (02:15)
[2016-09-15] MEDS ORDERED: SODIUM CHLORIDE (ADD-VANTAGE) 250 ML ONE ×2 (02:17→11:51)
[2016-09-15] MEDS ORDERED: VANCOMYCIN 1 GM ADD-VANTAGE VIAL IV ONE ×2 (02:18→11:51)
[2016-09-15 03:20] LABS: BASOPHILS % (AUTO) 0 % (0-10); EOSINOPHILS % (AUTO) 0 % (0-10); LYMPHOCYTES # (AUTO) 0.2 X 10^3 (1.0-4.0); LYMPHOCYTES % (AUTO) 3 % (12-44); MEAN CORPUSCULAR HEMOGLOBIN 31 PG (25-34); MEAN CORPUSCULAR HGB CONC 34 G/DL (32-36); MEAN CORPUSCULAR VOLUME 91 FL (80-99); MEAN PLATELET VOLUME 10.6 FL (7.4-10.4); MONOCYTES # (AUTO) 0.2 X 10^3 (0.0-1.0); MONOCYTES % (AUTO) 3 % (0-12); NEUTROPHILS # (AUTO) 5.7 X 10^3 (1.8-7.8); NEUTROPHILS % (AUTO) 93 % (42-75); PLATELET COUNT 212 10^3/uL (130-400); RED BLOOD COUNT 4.75 10^6/uL (4.35-5.85); RED CELL DISTRIBUTION WIDTH 18.5 % (10.0-14.5); WHITE BLOOD COUNT 6.1 10^3/uL (4.3-11.0)
[2016-09-15 03:41] LABS: ALBUMIN 4.6 G/DL (3.2-4.5); BILIRUBIN,TOTAL 2.1 MG/DL (0.1-1.0); CALCIUM 9.3 MG/DL (8.5-10.1); CREATININE SERUM 1.42 MG/DL (0.60-1.30); MAGNESIUM 1.9 MG/DL (1.8-2.4); PHOSPHORUS 4.3 MG/DL (2.3-4.7); POTASSIUM 2.9 MMOL/L (3.6-5.0); TOTAL PROTEIN 6.9 G/DL (6.4-8.2)
[2016-09-15 03:51] LABS: ABG BASE EXCESS -1.1 MMOL/L (-2.5-2.5); ABG HCO3 23 MMOL/L (23-27); ABG OXYGEN SATURATION 97 % (94-100); ABG PCO2 37 MMHG (35-45); ABG PH 7.42 (7.37-7.43); ABG PO2 86 MMHG (79-93); ABG TCO2 24.4 MMOL/L (21.0-31.0)
[2016-09-15 03:52] LABS: ALLENS TEST YES-POS; PATIENT TEMP 97.2
[2016-09-15] MEDS ORDERED: NS IV 1000 ML 1,000 ML ONE (04:51)
[2016-09-15] MEDS ORDERED: NS IV 1000 ML 1,000 ML IV SCH (05:00)
[2016-09-15] MEDS: KCL 20 MEQ TAB (K-DUR) PO SCH (05:06)
[2016-09-15] MEDS: POTASSIUM CL 10MEQ/50ML IVPB 50 ML IV SCH ×6 (05:09→10:50)
[2016-09-15] MEDS: MAGNESIUM 1 GM/100 ML IVPB 100 ML IV SCH (05:09)
[2016-09-15] MEDS: RT-ALBUTEROL/IPRATROPIUM 3 ML (DUONEB) VIAL INH SCH ×5 (06:00→22:03)
[2016-09-15] MEDS: methylPREDNISolone 125 MG (Solu-MEDROL) VIAL IVP SCH ×3 (06:13→19:51)
--- NOTE | 2016-09-15 06:52 | Pulmonary Consultation ---
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 NO leukocytosis, fever, or productive cough. CXR shows no acute infiltrate. I am consulted for pulmonary management. Allergies and Home Medications Allergies Coded Allergies: influenza virus vaccine ts [id number] (36 mos+) (Unverified Allergy, Severe , ANAPHYLAXIS, 01/08/15) pneumococcal vaccine (Unverified Allergy, Severe, ANAPHYLAXIS, 01/08/15) Penicillins (Verified Allergy, Mild, PER PT RXN = HIVES, CAN TAKE ROCEPHIN , 01/08/15) clindamycin (Unverified Allergy, Unknown, 01/08/15) morphine (Verified Adverse Reaction, Intermediate, RASH, PT HAS RECEIVED HYDROMORPHONE W/O ISSUE, 04/26/16) MORPHINE IV GIVEN AT ED, PT DEVELOPED RASH AND POSSIBLE HIVES metoclopramide (Verified Adverse Reaction, Unknown, 10/02/15) INCREASED FLUID RETENTION AND BRUISING Home Medications Albuterol/Ipratropium 3 Ml Nebu 3 ML INH Q6H PRN PRN WHEEZING (Reported) Alprazolam 0.25 Mg Tablet 0.25 MG PO 1200,2100 (Reported) Alprazolam 0.25 Mg Tablet 0.25 MG PO BID PRN PRN ANXIETY (Reported) Ascorbic Acid 500 Mg Tablet 500 MG PO 1200 (Reported) Calcium Carbonate/Vitamin D3 1 Each Tablet 1 TAB PO 1200 (Reported) Digoxin 125 Mcg Tablet 125 MCG PO DAILY (Reported) Fentanyl 1 Each Patch.td72 12 MCG TD EVERY 72 HOURS (Reported) Folic Acid 0.4 Mg Tablet 0.4 MG PO HS (Reported) Furosemide 40 Mg Tablet 80 MG PO DAILY (Reported) TAKES 2 (40 MG) TABLETS Furosemide 40 Mg Tablet 40 MG PO HS (Reported) Hydroxyzine HCl 25 Mg Tablet 50 MG PO HS (Reported) TAKES 2 (25MG) TABLETS Immune Globulin,Gamma(IgG) 10 Gm/50 Ml Vial IV We (Reported) Insulin Detemir 100 Unit/1 Ml Insuln.pen 10 UNITS SC BID (Reported) Lactobacillus Combo No.10 1 Each Capsule 1 CAP PO 1200 (Reported) Magnesium Oxide 400 Mg Tablet 400 MG PO BID (Reported) Methotrexate Sodium 25 Mg/1 Ml Vial 1 ML SQ We (Reported) Metoprolol Tartrate 25 Mg Tablet 12.5 MG PO BID (Reported) TAKES 1/2 (25MG) TABLET Nystatin 100,000 Unit/1 Ml Oral.susp 5 ML PO QID PRN PRN THRUSH (Reported) Omeprazole 20 Mg Capsule.dr 20 MG PO 1700 (Reported) Ondansetron 4 Mg Tab.rapdis 4 MG PO Q4H PRN PRN NAUSEA (Reported) Oxycodone HCl 5 Mg Tablet 5-10 MG PO EVERY 4-6 HOURS PRN PRN PAIN (Reported) Pnv with Ca,No.74/Iron/FA 1 Each Tablet 1 TAB PO HS (Reported) Potassium Chloride 20 Meq Tab.er.prt 20 MEQ PO BID (Reported) Prednisone 10 Mg Tab 10 MG PO DAILY (Reported) TAKES ALONG WITH 2 (20MG) TABLETS FOR A TOTAL DAILY DOSE OF 50MG Prednisone 20 Mg Tab 40 MG PO DAILY (Reported) TAKES 2 (20MG) TABLETS ALONG WITH A 10MG TABLET FOR A TOTAL DAILY DOSE OF 50MG Promethazine HCl 25 Mg Tablet 25 MG PO TID PRN PRN NAUSEA (Reported) Sacubitril/Valsartan 1 Each Tablet 1 TAB PO BID (Reported) Scopolamine 1 Each Patch.td72 1 PATCH TD Q72H (Reported) Spironolactone 25 Mg Tablet 25 MG PO DAILY (Reported) Sulfamethoxazole/Trimethoprim 1 Each Tablet 1 TAB PO MoWeFr (Reported) Umeclidinium Brm/Vilanterol Tr 1 Each Blst.w.dev 1 PUFF IH DAILY (Reported) Past Qhbxoaw-Xjwkgr-Cssfsh Hx Patient Social History Alcohol Use: Denies Use Recreational Drug Use: No Smoking Status: Never a Smoker 2nd Hand Smoke Exposure: No Recent Foreign Travel: No Contact w/Someone Who Travel: No Recent Infectious Disease Expo: No Recent Hopitalizations: Yes (08/13 for flash pulmonary edema) Physical Abuse Screen: No Sexual Abuse: No Immunizations Up To Date Tetanus Booster (TDap): Unknown PED Vaccines UTD: No Date of Pneumonia Vaccine: Dec 15, 2012 Date of Influenza Vaccine: Dec 15, 2012 Seasonal Allergies Seasonal Allergies: Yes Surgeries HX Surgeries: Yes (2 C-SECTIONS, 2 HERNIA REPAIRS, CRANIOTOMY, 3 PORTS PUT IN AND REMOVED) Surgeries: Abdominal, Section, Defibrillator, Gallbladder, Pacemaker, Vascular Surgery Respiratory Hx Respiratory Disorders: Yes (CHURG CANELO, JEWELL'S GRANULOMATOSIS. CHRONIC HYPOXIA-O2 CONTINUOUS) Respiratory Disorders: Asthma, Pneumonia, Sleep Apnea, COPD Cardiovascular Hx Cardiac Disorders: Yes (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; PACEMAKER AND DEFIBRILLATOR) Cardiac Disorders: Cardiomyopathy Neurological Hx Neurological Disorders: Yes (BRAIN SURGERY R/T MRSA ABSCESS) Neurological Disorders: Headaches /Migraines Reproductive System Hx Reproductive Disorders: No Sexually Transmitted Disease: No HIV/AIDS: No Female Reproductive Disorders: Denies Genitourinary Hx Genitourinary Disorders: No Gastrointestinal Hx Gastrointestinal Disorders: Yes Gastrointestinal Disorders: Gastroesophageal Reflux, Hiatal Hernia, Gall Bladder Disease Musculoskeletal Hx Musculoskeletal Disorders: Yes (STEROID INDUCED MUSCLE MYOPATHY, CHRONIC GENERALIZED PAIN) Musculoskeletal Disorders: Osteoporosis, Arthritis, Back Injury, Chronic Back Pain Endocrine Hx Endocrine Disorders: Yes (CHACHA SYNDROME, CHURG-CANELO SYNDROME) Endocrine Disorders: Diabetes, Insulin dep HEENT HX ENT Disorders: No Loss of Vision: Denies Hearing Impairment: Hard of Hearing Cancer Hx Cancer: No Psychosocial Hx Psychiatric Problems: Yes Behavioral Health Disorders: Sleep Difficulties, Anxiety Integumentary HX Skin/Integumentary Disorder: Yes (wound to lt posterior calf; MRSA) Skin/Integumentary Disorders: Pruritis Blood Transfusions Hx Blood Disorders: No Adverse Reaction to a Blood Tr: No Family Medical History Significant Family History: Asthma, Cancer, Diabetes, Hypertension Family Medial History: Arthritis 03 FATHER Asthma 03 MOTHER Cancer GRANDMOTHER, Onset:50's - 60 Family history: Alzheimer's disease GRANDFATHER, Onset:60 years & older Family history: Diabetes mellitus GRANDMOTHER, Onset:50's - 60 Family history: Hypertension 03 MOTHER, Onset:40's - 50 No Family History of: Stroke Review of Systems Constitutional: : Malaise: Sweats: WeaknessNo: Chills, Fever Eyes: No: Conjunctivae inflammation, Eyelid inflammation, Other, Pain, Redness , Vision change ENT: : Nose congestionNo: Ear discharge, Ear pain, Mouth pain, Mouth swelling, Nose discharge, Nose pain, Other, Throat pain, Throat swelling Respiratory: : Cough: Dry: SOB with excertion: Shortness of breathNo: Sputum, Wheezing Cardiovascular: : Edema: Orthopnea: Palpitations: Paroxysmal Noc. Dyspnea Gastrointestinal: No: Abdominal Pain, Constipation, Diarrhea, Hematochezia, Melena, Nausea, Other, Vomiting Genitourinary: No Dysuria, No Frequency, No Incontinence, No Hematuria, No Retention, No Other Musculoskeletal: : arm pain: back pain Exam Exam Vital Signs Date Time Temp Pulse Resp B/P Pulse Ox O2 Delivery O2 Flow Rate FiO2 09/15/16 06:04 91 Nasal Cannula 4.00 09/15/16 06:00 104 28 87/56 91 NIV/Bilevel 30.00 09/15/16 05:00 133 28 74/62 95 NIV/Bilevel 30.00 09/15/16 04:15 101 30 95 30.00 09/15/16 04:00 NIV/Bilevel 30 09/15/16 04:00 97.2 101 18 95/46 NIV/Bilevel 30.00 09/15/16 03:30 101 32 83/47 92 NIV/Bilevel 30.00 09/15/16 03:17 98.0 09/15/16 03:16 99 09/15/16 03:00 106 22 124/50 96 NIV/Bilevel 30.00 09/15/16 02:53 105 17 99 35.00 09/15/16 02:30 102 36 90/54 98 NIV/Bilevel 30.00 09/15/16 02:15 107 29 82/55 98 NIV/Bilevel 30.00 09/15/16 02:00 110 30 86/58 98 NIV/Bilevel 30.00 09/15/16 01:45 106 21 79/61 98 NIV/Bilevel 30.00 09/15/16 01:43 102 09/15/16 01:30 112 9 72/51 100 NIV/Bilevel 30.00 09/15/16 01:21 118 21 120/57 100 NIV/Bilevel 30.00 09/15/16 01:20 91 NIV Bilevel 30.00 09/15/16 01:10 97.0 118 28 95 NIV/Bilevel 09/15/16 00:49 114 31 94 40 09/15/16 00:45 97.0 116 26 120/69 95 NIV/Bilevel 09/15/16 00:30 118 105/67 09/15/16 00:15 97.0 120 24 101/71 94 NIV/Bilevel 09/15/16 00:00 120 102/48 09/14/16 23:45 97.0 121 22 97/65 93 NIV/Bilevel 09/14/16 23:30 124 101/59 09/14/16 23:15 98.0 125 24 106/76 94 NIV/Bilevel 09/14/16 23:13 130 29 100 40 09/14/16 23:00 129 117/76 09/14/16 22:45 98.0 128 26 114/71 95 NIV/Bilevel 09/14/16 22:30 131 109/68 09/14/16 22:15 98.0 133 24 141/65 93 NIV/Bilevel 09/14/16 22:00 128 138/94 09/14/16 21:45 98.0 126 26 143/106 95 NIV/Bilevel 09/14/16 21:30 124 141/108 09/14/16 21:19 102 40 100 40 09/14/16 21:15 98.0 119 28 130/103 94 NIV/Bilevel 09/14/16 21:00 102 120/99 09/14/16 20:45 98.0 92 28 107/74 94 Nasal Cannula 3 09/14/16 20:30 125 103/73 09/14/16 20:23 92 Nasal Cannula 2 09/14/16 20:15 98.0 120 26 113/82 99 Nasal Cannula 3 09/14/16 19:56 98 Nasal Cannula 3 09/14/16 19:56 98.0 130 26 112/82 99 Nasal Cannula 3 I & O 09/15/16 07:00 Intake Total 600 ml Output Total 325 ml Balance 275 ml General Appearance: No Apparent Distress WD/WN HEENT: PERRL/EOMI TMs Normal Normal ENT Inspection Neck: Full Range of Motion Normal Inspection Non Tender Respiratory: Chest Non Tender No Accessory Muscle Use Crackles Decreased Breath Sounds Cardiovascular: Regular Rate, Rhythm Capillary Refill: Less Than 3 Seconds Gastrointestinal: non tender soft Neurologic/Psychiatric: Alert Skin: Normal Color Warm/Dry Lymphatic: No Adenopathy Results Lab Laboratory Tests 09/14/16 21:00 09/15/16 03:00 Assessment/Plan Assessment/Plan Churg Canelo - steroid dependent with iatrogenic immunocompromised - NOT IN ACUTE EXACERBATION leukocytosis - secondary to steroids Hypotension, tachycardia, metabolic acidosis --- pt is over diuresed -Hold lasix -continue to monitor Hypokalemia - replace Severe Cardiomyopathy EF 15% -consult cardilology Edema Clinical Quality Measures DVT/VTE Risk/Contraindication: Risk Factor Score Per Nursin RFS Level Per Nursing on Admit: 2=Moderate KRISTINE BOJORQUEZ DO Sep 15, 2016 06:52
[2016-09-15] MEDS ORDERED: FUROSEMIDE 40 MG/4 ML INJ (LASIX) IV SCH (07:00)
[2016-09-15] MEDS ORDERED: NS IV 500 ML 500 ML ONE (07:32)
--- NOTE | 2016-09-15 09:26 | History & Physicial ---
History of Present Illness History of Present Illness Reason for visit/HPI patient was brought by father by private vehicle to the emergency room. Patient stated she started really feel bad Patient can hardly move. Patient cannot eat or drink. Patient was short of breath. Surgeries brain for MRSA, 2 C-sections, 2 hernia and gallbladder. Patient's ejection fraction of 15 percent Date of Admission Sep 14, 2016 at 22:30 I consulted on this patient on 09/15/16 09:23 Attending Physician Hodan Aguilar MD Admitting Physician Hodan Aguilar MD Consult Allergies and Home Medications Allergies Coded Allergies: influenza virus vaccine ts [id number] (36 mos+) (Unverified Allergy, Severe , ANAPHYLAXIS, 01/08/15) pneumococcal vaccine (Unverified Allergy, Severe, ANAPHYLAXIS, 01/08/15) Penicillins (Verified Allergy, Mild, PER PT RXN = HIVES, CAN TAKE ROCEPHIN , 01/08/15) clindamycin (Unverified Allergy, Unknown, 01/08/15) morphine (Verified Adverse Reaction, Intermediate, RASH, PT HAS RECEIVED HYDROMORPHONE W/O ISSUE, 04/26/16) MORPHINE IV GIVEN AT ED, PT DEVELOPED RASH AND POSSIBLE HIVES metoclopramide (Verified Adverse Reaction, Unknown, 10/02/15) INCREASED FLUID RETENTION AND BRUISING Home Medications Albuterol/Ipratropium 3 Ml Nebu 3 ML INH Q6H PRN PRN WHEEZING (Reported) Alprazolam 0.25 Mg Tablet 0.25 MG PO 1200,2100 (Reported) Alprazolam 0.25 Mg Tablet 0.25 MG PO BID PRN PRN ANXIETY (Reported) Ascorbic Acid 500 Mg Tablet 500 MG PO 1200 (Reported) Calcium Carbonate/Vitamin D3 1 Each Tablet 1 TAB PO 1200 (Reported) Digoxin 125 Mcg Tablet 125 MCG PO DAILY (Reported) Fentanyl 1 Each Patch.td72 12 MCG TD EVERY 72 HOURS (Reported) Folic Acid 0.4 Mg Tablet 0.4 MG PO HS (Reported) Furosemide 40 Mg Tablet 80 MG PO DAILY (Reported) TAKES 2 (40 MG) TABLETS Furosemide 40 Mg Tablet 40 MG PO HS (Reported) Hydroxyzine HCl 25 Mg Tablet 50 MG PO HS (Reported) TAKES 2 (25MG) TABLETS Immune Globulin,Gamma(IgG) 10 Gm/50 Ml Vial IV We (Reported) Insulin Detemir 100 Unit/1 Ml Insuln.pen 10 UNITS SC BID (Reported) Lactobacillus Combo No.10 1 Each Capsule 1 CAP PO 1200 (Reported) Magnesium Oxide 400 Mg Tablet 400 MG PO BID (Reported) Methotrexate Sodium 25 Mg/1 Ml Vial 1 ML SQ We (Reported) Metoprolol Tartrate 25 Mg Tablet 12.5 MG PO BID (Reported) TAKES 1/2 (25MG) TABLET Nystatin 100,000 Unit/1 Ml Oral.susp 5 ML PO QID PRN PRN THRUSH (Reported) Omeprazole 20 Mg Capsule.dr 20 MG PO 1700 (Reported) Ondansetron 4 Mg Tab.rapdis 4 MG PO Q4H PRN PRN NAUSEA (Reported) Oxycodone HCl 5 Mg Tablet 5-10 MG PO EVERY 4-6 HOURS PRN PRN PAIN (Reported) Pnv with Ca,No.74/Iron/FA 1 Each Tablet 1 TAB PO HS (Reported) Potassium Chloride 20 Meq Tab.er.prt 20 MEQ PO BID (Reported) Prednisone 10 Mg Tab 10 MG PO DAILY (Reported) TAKES ALONG WITH 2 (20MG) TABLETS FOR A TOTAL DAILY DOSE OF 50MG Prednisone 20 Mg Tab 40 MG PO DAILY (Reported) TAKES 2 (20MG) TABLETS ALONG WITH A 10MG TABLET FOR A TOTAL DAILY DOSE OF 50MG Promethazine HCl 25 Mg Tablet 25 MG PO TID PRN PRN NAUSEA (Reported) Sacubitril/Valsartan 1 Each Tablet 1 TAB PO BID (Reported) Scopolamine 1 Each Patch.td72 1 PATCH TD Q72H (Reported) Spironolactone 25 Mg Tablet 25 MG PO DAILY (Reported) Sulfamethoxazole/Trimethoprim 1 Each Tablet 1 TAB PO MoWeFr (Reported) Umeclidinium Brm/Vilanterol Tr 1 Each Blst.w.dev 1 PUFF IH DAILY (Reported) Past Cvoajkj-Qjswel-Etngzf Hx Patient Social History Alcohol Use: Denies Use Recreational Drug Use: No Smoking Status: Never a Smoker 2nd Hand Smoke Exposure: No Physical Abuse Screen: No Sexual Abuse: No Recent Foreign Travel: No Contact w/other who traveled: No Recent Hopitalizations: Yes (08/13 for flash pulmonary edema) Recent Infectious Disease Expo: No Immunizations Up To Date Tetanus Booster (TDap): Unknown Date of Pneumonia Vaccine: Dec 15, 2012 Date of Influenza Vaccine: Dec 15, 2012 Seasonal Allergies Seasonal Allergies: Yes Surgeries HX Surgeries: Yes (2 C-SECTIONS, 2 HERNIA REPAIRS, CRANIOTOMY, 3 PORTS PUT IN AND REMOVED) Surgeries: Abdominal, Section, Defibrillator, Gallbladder, Pacemaker, Vascular Surgery Cardiovascular Hx Cardiovascular Disorders: Yes (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; PACEMAKER AND DEFIBRILLATOR) Cardiac Disorders: Cardiomyopathy Neurological Hx Neurological Disorders: Yes (BRAIN SURGERY R/T MRSA ABSCESS) Neurological Disorders: Headaches /Migraines Reproductive System Hx Reproductive Disorders: No Sexually Transmitted Disease: No HIV/AIDS: No Female Reproductive Disorders: Denies Genitourinary Hx Genitourinary Disorders: No Gastrointestinal Hx Gastrointestinal Disorders: Yes Gastrointestinal Disorders: Gastroesophageal Reflux, Hiatal Hernia, Gall Bladder Disease Musculoskeletal Hx Musculoskeletal Disorders: Yes (STEROID INDUCED MUSCLE MYOPATHY, CHRONIC GENERALIZED PAIN) Musculoskeletal Disorders: Osteoporosis, Arthritis, Back Injury, Chronic Back Pain Endocrine Hx Endocrine Disorders: Yes (CHACHA SYNDROME, CHURG-CANELO SYNDROME) Endocrine Disorders: Diabetes, Insulin dep HEENT HX ENT Disorders: No Loss of Vision: Denies Hearing Impairment: Hard of Hearing Cancer Hx Cancer: No Psychosocial Hx Psychiatric Problems: Yes Behavioral Health Disorders: Sleep Difficulties, Anxiety Integumentary HX Skin/Integumentary Disorder: Yes (wound to lt posterior calf; MRSA) Skin/Integumentary Disorders: Pruritis Blood Transfusions Hx Blood Disorders: No Adverse Reaction to a Blood Tr: No Family Medical History Significant Family History: Asthma, Cancer, Diabetes, Hypertension Family Hx: Arthritis 03 FATHER Asthma 03 MOTHER Cancer GRANDMOTHER, Onset:50's - 60 Family history: Alzheimer's disease GRANDFATHER, Onset:60 years & older Family history: Diabetes mellitus GRANDMOTHER, Onset:50's - 60 Family history: Hypertension 03 MOTHER, Onset:40's - 50 No Family History of: Stroke Constitutional: malaise weakness EENTM: no symptoms reported Respiratory: short of breath Cardiovascular: other (ejection fraction 15 percent) Gastrointestinal: no symptoms reported Genitourinary: no symptoms reported Physical Exam Vital Signs Vital Sign - Last 12Hours 09/15/16 04:00 FiO2 30 Capillary Refill : Less Than 3 Seconds General Appearance: No Apparent Distress Eyes: Bilateral Eye Normal Inspection HEENT: Normal ENT Inspection Neck: Non Tender Respiratory: Decreased Breath Sounds Cardiovascular: Regular Rate, Rhythm Gastrointestinal: Non Tender Soft Assessment/Plan Assessment and Plan acute on chronic respiratory failure. Acute on chronic congestive heart failure. Elevated lactic acid. Bronchitis. Clinical Quality Measures DVT/VTE Risk/Contraindication: Risk Factor Score Per Nursin RFS Level Per Nursing on Admit: 2=Moderate MAIRA RIBERA DO Sep 15, 2016 09:26
[2016-09-15 09:47] LABS: BILIRUBIN,URINE NEGATIVE (NEGATIVE); KETONES,URINE NEGATIVE (NEGATIVE); LEUKOCYTE ESTERASE ,URINE NEGATIVE (NEGATIVE); NITRITE,URINE NEGATIVE (NEGATIVE); PH,URINE 7 (5-9); PROTEIN,URINE NEGATIVE (NEGATIVE); UROBILINOGEN,URINE NORMAL (NORMAL)
[2016-09-15 09:55] LABS: SQUAMOUS EPITHELIAL CELL,UR 0-2 /HPF
--- NOTE | 2016-09-15 10:10 | Diagnostic Imaging Report ---
EXAMINATION: Chest radiograph, portable AP view. DATE: September 15, 2016, at 0535 hours. INDICATION: 36-year-old female, bronchitis. COMPARISON: September 14, 2016. FINDINGS: There is a right-sided cardiac-assist device with multiple leads. The leads appear intact. Stable overall appearance of the cardiomediastinal silhouette. There is no identified pneumothorax. There is no large pleural effusion. There is no identified focal airspace consolidation. IMPRESSION: No identified acute cardiopulmonary abnormality. Dictated by: Dictated on workstation # [id number]
[2016-09-15] MEDS: ENOXAPARIN 40 MG/0.4 ML (LOVENOX) SYR SC SCH (10:25)
[2016-09-15] MEDS: VANCOMYCIN 1 GM/NS 250 ML IVPB IV SCH ×2 (12:06)
[2016-09-15] MEDS ORDERED: ALPRAZolam 0.25 MG (XANAX) TAB PO PRN (12:45)
[2016-09-15] MEDS ORDERED: NYSTATIN ORAL SUSP 5 ML UDC PO PRN (12:45)
[2016-09-15] MEDS ORDERED: PROMETHAZINE 25 MG (PHENERGAN) TAB PO PRN (12:45)
[2016-09-15] MEDS ORDERED: OXYCODONE HCL PO PRN (12:45)
[2016-09-15] MEDS ORDERED: ONDANSETRON 4 MG (ZOFRAN) ORAL DISSOLVE TAB PO PRN (12:45)
--- NOTE | 2016-09-15 15:19 | Consultation-Cardiology ---
HPI-Cardiology Cardiology Consultation: Date of Consultation 09/15/16 Date of Admission Attending Physician Hodan Aguilar MD Admitting Physician Hodan Aguilar MD Consulting Physician Americo PARSONS MD HPI: Chief Complaint: shortness of breath this is a 36-year-old lady who is well-known to the cardiology service. She is a patient of Dr. Cerrato. She has history of COPD, chrug melida disease, severe LV systolic dysfunction. Her ejection fraction is below 15 percent. She presents with recurrent shortness of breath. She's improved with IV steroids. She denies any significant chest pain, syncope, near syncope. Review of Systems-Cardiology Review of Systems Constitutional: No As described under HPI, No no symptoms reported, No chills, No fever, No lightheadedness, No malaise, No tiredness, No weight loss, No weight gain, No other Eyes: No As described under HPI, No no symptoms reported, No blindness, No blurred vision, No contact lenses, No drainage, No decreased acuity, No foreign body sensation, No glasses, No inflammation, No pain, No photophobia, No previous injury, No shadows, No tunnel vision, No other, No vision change Ears/Nose/Throat: No As described under HPI, No no symptoms reported, No chronic hearing loss, No epistaxis, No ear discharge, No ear pain, No loose teeth, No mouth pain, No mouth swelling, No nasal drainage, No nose pain, No recent hearing loss, No throat pain, No throat swelling, No ulcerations, No other Respiratory: orthopnea shortness of breath Cardiovascular: No no symptoms reported, No As described under HPI, No chest pain, No edema, No irregular heart rate, No lightheadedness, No palpitations, No syncope, No other Gastrointestinal: No no symptoms reported, No As described under HPI, No abdomen distended, No abdominal pain, No blood streaked bowels, No constipation , No diarrhea, No difficulty swallowing, No nausea, No poor appetite, No poor fluid intake, No rectal bleeding, No vomiting, No other, No nausea/vomiting/ diarrhea, No stool coloration changes Genitourinary: No no symptoms reported, No As described under HPI, No burning, No dysuria, No discharge, No frequency, No flank pain, No hematuria, No incontinence, No pain, No urgency, No other, No urine frequency changes, No urine coloration changes Musculoskeletal: No no symptoms reported, No As describe under HPI, No back pain, No gout, No joint pain, No joint swelling, No muscle pain, No muscle stiffness, No neck pain, No other DBN-Flrahc-Skikdg Hx Patient Social History Alcohol Use: Denies Use Recreational Drug Use: No Smoking Status: Never a Smoker 2nd Hand Smoke Exposure: No Recent Foreign Travel: No Recent Infectious Disease Expo: No Physical Abuse Screen: No Sexual Abuse: No Immunizations Up To Date Tetanus Booster (TDap): Unknown Date of Pneumonia Vaccine: Dec 15, 2012 Date of Influenza Vaccine: Dec 15, 2012 Past Medical History PMH As described under Assessment. Family Medical History Family History: Arthritis 03 FATHER Asthma 03 MOTHER Cancer GRANDMOTHER, Onset:50's - 60 Family history: Alzheimer's disease GRANDFATHER, Onset:60 years & older Family history: Diabetes mellitus GRANDMOTHER, Onset:50's - 60 Family history: Hypertension 03 MOTHER, Onset:40's - 50 No Family History of: Stroke Allergies and Home Medications Allergies Coded Allergies: influenza virus vaccine ts 8912-1778 (36 mos+) (Unverified Allergy, Severe , ANAPHYLAXIS, 01/08/15) pneumococcal vaccine (Unverified Allergy, Severe, ANAPHYLAXIS, 01/08/15) Penicillins (Verified Allergy, Mild, PER PT RXN = HIVES, CAN TAKE ROCEPHIN , 01/08/15) clindamycin (Unverified Allergy, Unknown, 01/08/15) morphine (Verified Adverse Reaction, Intermediate, RASH, PT HAS RECEIVED HYDROMORPHONE W/O ISSUE, 04/26/16) MORPHINE IV GIVEN AT ED, PT DEVELOPED RASH AND POSSIBLE HIVES metoclopramide (Verified Adverse Reaction, Unknown, 10/02/15) INCREASED FLUID RETENTION AND BRUISING Home Medications Albuterol/Ipratropium 3 Ml Nebu 3 ML INH Q6H PRN PRN WHEEZING (Reported) Alprazolam 0.25 Mg Tablet 0.25 MG PO 1200,2100 (Reported) Alprazolam 0.25 Mg Tablet 0.25 MG PO BID PRN PRN ANXIETY (Reported) Ascorbic Acid 500 Mg Tablet 500 MG PO 1200 (Reported) Calcium Carbonate/Vitamin D3 1 Each Tablet 1 TAB PO 1200 (Reported) Digoxin 125 Mcg Tablet 125 MCG PO DAILY (Reported) Fentanyl 1 Each Patch.td72 12 MCG TD EVERY 72 HOURS (Reported) Folic Acid 0.4 Mg Tablet 0.4 MG PO HS (Reported) Furosemide 40 Mg Tablet 80 MG PO DAILY (Reported) TAKES 2 (40 MG) TABLETS Furosemide 40 Mg Tablet 40 MG PO HS (Reported) Hydroxyzine HCl 25 Mg Tablet 50 MG PO HS (Reported) TAKES 2 (25MG) TABLETS Immune Globulin,Gamma(IgG) 10 Gm/50 Ml Vial IV We (Reported) Insulin Detemir 100 Unit/1 Ml Insuln.pen 10 UNITS SC BID (Reported) Lactobacillus Combo No.10 1 Each Capsule 1 CAP PO 1200 (Reported) Magnesium Oxide 400 Mg Tablet 400 MG PO BID (Reported) Methotrexate Sodium 25 Mg/1 Ml Vial 1 ML SQ We (Reported) Metoprolol Tartrate 25 Mg Tablet 12.5 MG PO BID (Reported) TAKES 1/2 (25MG) TABLET Nystatin 100,000 Unit/1 Ml Oral.susp 5 ML PO QID PRN PRN THRUSH (Reported) Omeprazole 20 Mg Capsule.dr 20 MG PO 1700 (Reported) Ondansetron 4 Mg Tab.rapdis 4 MG PO Q4H PRN PRN NAUSEA (Reported) Oxycodone HCl 5 Mg Tablet 5-10 MG PO EVERY 4-6 HOURS PRN PRN PAIN (Reported) Pnv with Ca,No.74/Iron/FA 1 Each Tablet 1 TAB PO HS (Reported) Potassium Chloride 20 Meq Tab.er.prt 20 MEQ PO BID (Reported) Prednisone 10 Mg Tab 10 MG PO DAILY (Reported) TAKES ALONG WITH 2 (20MG) TABLETS FOR A TOTAL DAILY DOSE OF 50MG Prednisone 20 Mg Tab 40 MG PO DAILY (Reported) TAKES 2 (20MG) TABLETS ALONG WITH A 10MG TABLET FOR A TOTAL DAILY DOSE OF 50MG Promethazine HCl 25 Mg Tablet 25 MG PO TID PRN PRN NAUSEA (Reported) Sacubitril/Valsartan 1 Each Tablet 1 TAB PO BID (Reported) Scopolamine 1 Each Patch.td72 1 PATCH TD Q72H (Reported) Spironolactone 25 Mg Tablet 25 MG PO DAILY (Reported) Sulfamethoxazole/Trimethoprim 1 Each Tablet 1 TAB PO MoWeFr (Reported) Umeclidinium Brm/Vilanterol Tr 1 Each Blst.w.dev 1 PUFF IH DAILY (Reported) Physical Exam-Cardiology Physical Exam Vital Signs/I&O Vital Sign - Last 12Hours 09/15/16 09/15/16 09/15/16 09/15/16 03:30 04:00 04:00 04:15 Temp 97.2 Pulse 101 101 101 Resp 32 18 30 B/P 83/47 95/46 Pulse Ox 92 95 O2 Delivery NIV/Bilevel NIV/Bilevel NIV/Bilevel O2 Flow Rate 30.00 30.00 30.00 FiO2 30 09/15/16 09/15/16 09/15/16 09/15/16 05:00 06:00 06:04 07:00 Pulse 133 104 110 Resp 28 28 B/P 74/62 87/56 Pulse Ox 95 91 91 O2 Delivery NIV/Bilevel NIV/Bilevel Nasal Cannula O2 Flow Rate 30.00 30.00 4.00 09/15/16 09/15/16 09/15/16 09/15/16 09:00 10:01 12:00 12:00 Temp 97.7 Pulse Ox 93 88 95 O2 Delivery Nasal Cannula Nasal Cannula Nasal Cannula O2 Flow Rate 4.00 4.00 4.00 09/15/16 09/15/16 13:00 14:32 Pulse 160 Pulse Ox 88 O2 Delivery Nasal Cannula O2 Flow Rate 4.00 Capillary Refill : Less Than 3 Seconds Constitutional: No appears stated age, No AAO x 3, apparent distressNo PERRL, No well-developed, No well-nourished, No other HEENT: No PERRL, No normal ENT inspection, No TMs normal, No pharynx normal, No scleral icterus (R), No scleral icterus (L), No pale conjunctivae (R), No pale conjunctivae (L), No photophobia, No TM abnormal (R), No TM abnormal (L), No pharyngeal erythema, No tonsillar exudate, No other, No discharge, No EOMI, No hearing is well preserved, No hard of hearing, No oral hygience is good, No ulceration, No xanthelasmas are seen Neck: No non-tender, No full range of motion, No supple, No normal inspection, No carotid bruit, No limited range of motion, No lymphadenopathy (R), No lymphadenopathy (L), No tender lateral, No tender midline, No thyromegaly, No other, No carotid pulses are 2 + bilaterally, No with good upstrokes Respiratory: chest expansion is symmetric chest is bilaterally symmetric other (no wheezing) Cardiovascular: regular rate-rhythm tachycardia S1 and S2 Gastrointestinal: No tender, No soft, No round, No distended, No pulsatile mass , No organomegaly, No guarding, No rebound, No tenderness, No hernia, No mass, No audible bowel sounds, No abnormal bowel sounds, No abdominal bruits, No spleenomegaly, No other Rectal: deferred Extremities: No normal range of motion, No non-tender, No normal inspection, No pedal edema, No calf tenderness, No normal capillary refill, No pelvis stable , No calf tenderness, No inflammation, No pedal edema, No slow capillary refill , No swelling, No other, No abrasion, No clubbing, No cyanosis, No ecchymosis, No laceration, No no lower extremity edema bilateral, No significant edema, No tenderness, No wound Neurologic/Psychiatric: No nursing home administrator II-XII nml as tested, No no motor/sensory deficits, No alert, No normal mood/affect, No oriented x 3, No abnormal cerebellar tests, No abnormal nursing home administrator II-XII, No abnormal gait, No aphasia, No EOM palsy, No facial droop, No motor weakness, No sensory deficit, No depressed affect, No disoriented x 3, No other, No grossly intact, No power is 5/5 both on sides Skin: No normal color, No warm/dry, No cyanosis, No cool, No diaphoresis, No damp, No ecchymosis, No jaundice, No mottled, No pallor, No rash, No tattoos/ piercings, No ulcerations, No rash on exposed areas, No ulcerations on exposed areas, No other Data Review Labs Laboratory Tests 09/14/16 20:00: Victoriano Test YES-POS, Arterial Blood Base Excess 0.9, Arterial Blood HCO3 24, Arterial Blood Oxygen Saturation 91L, Arterial Blood Partial Pressure CO2 33L, Arterial Blood Partial Pressure O2 53L, Arterial Blood Total CO2 25.0, Arterial Blood pH 7.48H, Blood Gas Inspired Oxygen 3L, Blood Gas Patient Temperature 98.0 , Blood Gas Puncture Site RIGHT RADIAL, Blood Gas Ventilator Setting NO 09/14/16 20:40: Group A Streptococcus Screen NEGATIVE 09/14/16 21:00: Activated Partial Thromboplast Time 25, Alanine Aminotransferase (ALT/SGPT) 36, Albumin 5.1H, Alkaline Phosphatase 159H, Anion Gap 19H, Aspartate Amino Transf ( AST/SGOT) 28, B-Type Natriuretic Peptide 2623.5H, BUN/Creatinine Ratio 12, Band Neutrophils 7, Basophils # (Auto) 0.1, Basophils % (Manual) 0, Basophils (%) ( Auto) 1, Blood Morphology Comment NORMAL, Blood Urea Nitrogen 12, Calcium Level 10.3H, Carbon Dioxide Level 20L, Chloride Level 99, Creatinine 0.99, Eosinophils # (Auto) 0.4H, Eosinophils % (Manual) 8, Eosinophils (%) (Auto) 5, Estimat Glomerular Filtration Rate > 60, Glucose Level 92, Hematocrit 48, Hemoglobin 16.5H, INR Comment 1.1, Lymphocytes # (Auto) 1.1, Lymphocytes % ( Manual) 24, Lymphocytes (%) (Auto) 15, Magnesium Level 1.8, Mean Corpuscular Hemoglobin 31, Mean Corpuscular Hemoglobin Concent 34, Mean Corpuscular Volume 91, Mean Platelet Volume 11.1H, Monocytes # (Auto) 1.5H, Monocytes % (Manual) 15 , Monocytes (%) (Auto) 20H, Neutrophils # (Auto) 4.3, Neutrophils % (Manual) 46 , Neutrophils (%) (Auto) 58, Platelet Count 209, Potassium Level 3.6, Prothrombin Time 13.8, Red Blood Count 5.30, Red Cell Distribution Width 18.7H, Sodium Level 138, Total Bilirubin 2.5H, Total Protein 7.9, Troponin I < 0.30, White Blood Count 7.3 09/15/16 00:46: Victoriano Test YES-POS, Arterial Blood Base Excess -1.9, Arterial Blood HCO3 23, Arterial Blood Oxygen Saturation 96, Arterial Blood Partial Pressure CO2 37, Arterial Blood Partial Pressure O2 76L, Arterial Blood Total CO2 23.7, Arterial Blood pH 7.40, Blood Gas Inspired Oxygen 35%, Blood Gas Patient Temperature 97.6 , Blood Gas Puncture Site RIGHT RADIAL, Blood Gas Ventilator Setting NO 09/15/16 03:00: Alanine Aminotransferase (ALT/SGPT) 34, Albumin 4.6H, Alkaline Phosphatase 138H , Anion Gap 22H, Aspartate Amino Transf (AST/SGOT) 19, B-Type Natriuretic Peptide 2065.5H, BUN/Creatinine Ratio 13, Basophils # (Auto) 0.0, Basophils (%) (Auto) 0, Blood Urea Nitrogen 18, Calcium Level 9.3, Carbon Dioxide Level 18L, Chloride Level 99, Creatinine 1.42H, Eosinophils # (Auto) 0.0, Eosinophils (%) ( Auto) 0, Estimat Glomerular Filtration Rate 42, Glucose Level 231H, Hematocrit 43, Hemoglobin 14.7, Lactic Acid Level 5.6*H, Lymphocytes # (Auto) 0.2L, Lymphocytes (%) (Auto) 3L, Magnesium Level 1.9, Mean Corpuscular Hemoglobin 31, Mean Corpuscular Hemoglobin Concent 34, Mean Corpuscular Volume 91, Mean Platelet Volume 10.6H, Monocytes # (Auto) 0.2, Monocytes (%) (Auto) 3, Neutrophils # (Auto) 5.7, Neutrophils (%) (Auto) 93H, Phosphorus Level 4.3, Platelet Count 212, Potassium Level 2.9L, Red Blood Count 4.75, Red Cell Distribution Width 18.5H, Serum Test, Qualitative NEGATIVE, Sodium Level 139, Total Bilirubin 2.1H, Total Protein 6.9, Troponin I < 0.30, White Blood Count 6.1 09/15/16 03:36: Victoriano Test YES-POS, Arterial Blood Base Excess -1.1, Arterial Blood HCO3 23, Arterial Blood Oxygen Saturation 97, Arterial Blood Partial Pressure CO2 37, Arterial Blood Partial Pressure O2 86, Arterial Blood Total CO2 24.4, Arterial Blood pH 7.42, Blood Gas Inspired Oxygen 35%, Blood Gas Patient Temperature 97.2 , Blood Gas Puncture Site RIGHT RADIAL, Blood Gas Ventilator Setting NO 09/15/16 09:40: Urine Bacteria NEGATIVE, Urine Bilirubin NEGATIVE, Urine Casts NONE, Urine Clarity CLEAR, Urine Color YELLOW, Urine Crystals NONE, Urine Culture Indicated NO, Urine Glucose (UA) 2+H, Urine Ketones NEGATIVE, Urine Leukocyte Esterase NEGATIVE, Urine Mucus NEGATIVE, Urine Nitrite NEGATIVE, Urine Protein NEGATIVE, Urine RBC NONE, Urine RBC (Auto) 1+H, Urine Specific [place] 1.010L, Urine Squamous Epithelial Cells 0-2, Urine Urobilinogen NORMAL, Urine WBC NONE, Urine pH 7 09/15/16 11:13: Lactic Acid Level 4.1*H Microbiology 09/14/16 Blood Culture - Preliminary, Resulted No growth 09/14/16 Throat Culture - Preliminary, Resulted No Beta Strep isolated A/P-Cardiology Assessment/Admission Diagnosis Congestive heart failure, acute on chronic left ventricular systolic dysfunction , nonischemic cardiomyopathy COPD Churg-Ozzy syndrome Plan Congestive heart failure, acute on chronic left ventricular systolic dysfunction , nonischemic cardiomyopathy with ejection fraction 15 percent, Hypoxemia, elevated BNP, no significant pulmonary edema, started on IV Lasix. was given IV steroids for COPD exacerbation. Generalized weakness and loss of energy. Nausea and vomiting, abdominal pain, has been having her symptoms for the last month on and off, currently feeling better. History of pedal edema with venous stasis ulcer, her edema is better, the ulcer is healing slowly. History of sinus tachycardia, still borderline tachycardic. 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 Reactive airway disease, Churg-Ozzy disease. Patient was evaluated in the past for possible cardiopulmonary transplant. 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 Chronic renal insufficiency. Continue to monitor renal function Thank you for your consultation. Please call me if you have any questions. Onofre Parsosn MD, FACP, FACC, FSCAI, FHRS, CCDS Interventional Cardiology Cardiac Electrophysiology Vascular Medicine and Endovascular Interventions Clinical Quality Measures DVT/VTE Risk/Contraindication: Risk Factor Score Per Nursin RFS Level Per Nursing on Admit: 2=Moderate Contraindications-Mechi: Other *list below* Americo PARSONS MD Sep 15, 2016 3:19 pm
[2016-09-15] MEDS ORDERED: OMEPRAZOLE 20 MG (PriLOSEC) CAP NON-FORMULARY PO SCH (17:00)
[2016-09-15] MEDS: PANTOPRAZOLE 20 MG TABLET (PROTONIX) PO SCH (19:39)
[2016-09-15] MEDS ORDERED: NON-FORMULARY MEDICATION 1 EA EA (Sacubitril/Valsartan (Entresto 49 mg-51 mg Tablet) 1 TAB PO SCH (21:00)
[2016-09-15] MEDS: MAGNESIUM OXIDE (MAG-OX)400 MG TAB PO SCH (21:22)
[2016-09-15] MEDS: ALPRAZolam 0.25 MG (XANAX) TAB PO SCH (21:22)
[2016-09-15] MEDS: SACUBITRIL/VALSARTAN 24/26 MG (ENTRESTO) TABLET PO SCH (21:26)
[2016-09-15] MEDS ORDERED: TROUGH ORDER-PHARMACY XX NR (23:00)
[2016-09-15] MEDS: LEVOFLOXACIN 750 MG/150 ML D5W (PRE-MIX) IV SCH (23:26)
[2016-09-16] VITALS (21 sets, daily range): BP systolic 80–110; BP diastolic 41–73
[2016-09-16] MEDS ORDERED: VANCOMYCIN 1 GM ADD-VANTAGE VIAL IV ONE (00:31)
[2016-09-16] MEDS ORDERED: SODIUM CHLORIDE (ADD-VANTAGE) 250 ML ONE (00:31)
[2016-09-16] MEDS: VANCOMYCIN 1 GM/NS 250 ML IVPB IV SCH ×2 (00:40)
[2016-09-16] MEDS: methylPREDNISolone 125 MG (Solu-MEDROL) VIAL IVP SCH ×2 (00:41→06:14)
[2016-09-16] MEDS: RT-ALBUTEROL/IPRATROPIUM 3 ML (DUONEB) VIAL INH SCH ×6 (01:55→22:38)
[2016-09-16] MEDS ORDERED: CEFEPIME 2 GM/NS 50 ML IVPB IV SCH ×2 (02:00)
[2016-09-16 04:10] LABS: BASOPHILS % (AUTO) 0 % (0-10); EOSINOPHILS % (AUTO) 0 % (0-10); LYMPHOCYTES # (AUTO) 0.3 X 10^3 (1.0-4.0); LYMPHOCYTES % (AUTO) 2 % (12-44); MEAN CORPUSCULAR HEMOGLOBIN 31 PG (25-34); MEAN CORPUSCULAR HGB CONC 34 G/DL (32-36); MEAN CORPUSCULAR VOLUME 90 FL (80-99); MEAN PLATELET VOLUME 11.5 FL (7.4-10.4); MONOCYTES # (AUTO) 1.2 X 10^3 (0.0-1.0); MONOCYTES % (AUTO) 7 % (0-12); NEUTROPHILS # (AUTO) 14.6 X 10^3 (1.8-7.8); NEUTROPHILS % (AUTO) 91 % (42-75); PLATELET COUNT 202 10^3/uL (130-400); RED BLOOD COUNT 4.39 10^6/uL (4.35-5.85); RED CELL DISTRIBUTION WIDTH 18.4 % (10.0-14.5)
[2016-09-16 04:32] LABS: CALCIUM 8.6 MG/DL (8.5-10.1); CREATININE SERUM 1.08 MG/DL (0.60-1.30); MAGNESIUM 1.5 MG/DL (1.8-2.4); PHOSPHORUS 2.9 MG/DL (2.3-4.7)
[2016-09-16] MEDS: POTASSIUM CL 10MEQ/50ML IVPB 50 ML IV SCH ×5 (05:22→13:48)
[2016-09-16] MEDS: KCL 20 MEQ TAB (K-DUR) PO SCH (05:23)
[2016-09-16] MEDS: MAGNESIUM 1 GM/100 ML IVPB 100 ML IV SCH (05:23)
[2016-09-16] MEDS ORDERED: MAGNESIUM 1 GM/100 ML IVPB 100 ML IV ONE (06:30)
--- NOTE | 2016-09-16 07:13 | Diagnostic Imaging Report ---
EXAMINATION: Chest radiograph, portable AP view. DATE: September 16, 2016, at 0504 hours. INDICATION: 36-year-old female, acute/ chronic respiratory failure. COMPARISON: September 15, 2016. FINDINGS: Stable overall appearance of the cardiomediastinal silhouette. There is no identified pneumothorax. There is no large pleural effusion. There is no definite focal airspace consolidation. Areas of opacity overlying the left lung base may potentially relate to overlap of soft tissues. There is obscuration of the right lung relating to the overlying material. There is a right-sided cardiac-assist device with leads. IMPRESSION: No definite acute cardiopulmonary abnormality noted. Dictated by: Dictated on workstation # [id number]
[2016-09-16] MEDS ORDERED: predniSONE 20 MG TAB PO SCH (08:00)
[2016-09-16] MEDS ORDERED: predniSONE 10 MG TAB PO SCH (08:00)
--- NOTE | 2016-09-16 08:10 | Pulmonary Progress Note ---
Subjective Subjective/Events-last exam PT is doing better. Exam Exam Vital Signs Date Time Temp Pulse Resp B/P Pulse Ox O2 Delivery O2 Flow Rate FiO2 09/16/16 06:13 96 19 94 30.00 09/16/16 06:00 88 21 85/41 93 NIV/Bilevel 30.00 09/16/16 05:00 90 19 87/54 94 NIV/Bilevel 30.00 09/16/16 04:00 88 23 80/50 96 NIV/Bilevel 30.00 09/16/16 04:00 97.3 09/16/16 04:00 95 NIV/Bilevel 30 09/16/16 03:50 94 21 96 30.00 09/16/16 01:55 122 28 93 30.00 09/16/16 01:00 98 09/16/16 01:00 98 25 93/55 91 NIV/Bilevel 30.00 09/16/16 00:00 97.6 09/16/16 00:00 92 Nasal Cannula 3.50 09/16/16 00:00 104 27 88/48 89 Nasal Cannula 3.50 09/15/16 23:00 107 28 97/67 93 Nasal Cannula 3.50 09/15/16 22:03 91 Nasal Cannula 4.00 09/15/16 22:00 102 17 92/54 91 Nasal Cannula 3.50 09/15/16 21:00 101 23 111/62 91 NIV/Bilevel 3.50 09/15/16 20:00 97.8 100 23 91/54 92 Nasal Cannula 3.50 09/15/16 20:00 93 Nasal Cannula 4.00 09/15/16 19:00 105 09/15/16 19:00 105 16 99/54 90 Nasal Cannula 3.50 09/15/16 18:51 90 Nasal Cannula 4.00 09/15/16 18:00 30 84/62 88 NIV/Bilevel 30.00 09/15/16 17:00 29 92/58 100 NIV/Bilevel 30.00 09/15/16 16:00 95 Nasal Cannula 4.00 09/15/16 16:00 109 31 92/67 88 NIV/Bilevel 30.00 09/15/16 15:45 131 29 97/49 90 NIV/Bilevel 30.00 09/15/16 14:32 88 Nasal Cannula 4.00 09/15/16 14:00 100 12 106/54 98 NIV/Bilevel 30.00 09/15/16 13:00 24 108/61 93 NIV/Bilevel 30.00 09/15/16 13:00 160 09/15/16 12:00 95 Nasal Cannula 4.00 09/15/16 12:00 97.7 09/15/16 11:00 99 26 86/55 97 NIV/Bilevel 30.00 09/15/16 10:01 88 Nasal Cannula 4.00 09/15/16 10:00 103 23 92/57 87 NIV/Bilevel 30.00 09/15/16 09:00 98 25 89/45 98 NIV/Bilevel 30.00 09/15/16 09:00 93 Nasal Cannula 4.00 I & O 09/16/16 07:00 Intake Total 3100 ml Output Total 4550 ml Balance -1450 ml General Appearance: No Apparent Distress WD/WN HEENT: PERRL/EOMI TMs Normal Normal ENT Inspection Neck: Full Range of Motion Normal Inspection Non Tender Respiratory: Chest Non Tender No Accessory Muscle Use Crackles Decreased Breath Sounds Cardiovascular: Regular Rate, Rhythm Capillary Refill: Less Than 3 Seconds Gastrointestinal: non tender soft Neurologic/Psychiatric: Alert Skin: Normal Color Warm/Dry Lymphatic: No Adenopathy Results Lab Laboratory Tests 09/14/16 21:00 09/15/16 03:00 09/15/16 11:13 09/16/16 03:29 Assessment/Plan Assessment/Plan 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 Clinical Quality Measures DVT/VTE Risk/Contraindication: Risk Factor Score Per Nursin RFS Level Per Nursing on Admit: 2=Moderate Contraindications-Mechi: Other *list below* KRISTINE BOJORQUEZ DO Sep 16, 2016 08:09
--- NOTE | 2016-09-16 08:47 | Progress Note (SOAP) ---
Subjective Subjective/Events-last exam patient looking better but still not feeling good. White blood cell count 16,000 due to steroids. Churg-Ozzy syndrome. Severe cardiomyopathy. Chest x-ray nothing new Objective Exam Vital Signs Date Time Temp Pulse Resp B/P Pulse Ox O2 Delivery O2 Flow Rate FiO2 09/16/16 06:13 96 19 94 30.00 09/16/16 06:00 88 21 85/41 93 NIV/Bilevel 30.00 09/16/16 05:00 90 19 87/54 94 NIV/Bilevel 30.00 09/16/16 04:00 88 23 80/50 96 NIV/Bilevel 30.00 09/16/16 04:00 97.3 09/16/16 04:00 95 NIV/Bilevel 30 09/16/16 03:50 94 21 96 30.00 09/16/16 01:55 122 28 93 30.00 09/16/16 01:00 98 09/16/16 01:00 98 25 93/55 91 NIV/Bilevel 30.00 09/16/16 00:00 97.6 09/16/16 00:00 92 Nasal Cannula 3.50 09/16/16 00:00 104 27 88/48 89 Nasal Cannula 3.50 09/15/16 23:00 107 28 97/67 93 Nasal Cannula 3.50 09/15/16 22:03 91 Nasal Cannula 4.00 09/15/16 22:00 102 17 92/54 91 Nasal Cannula 3.50 09/15/16 21:00 101 23 111/62 91 NIV/Bilevel 3.50 09/15/16 20:00 97.8 100 23 91/54 92 Nasal Cannula 3.50 09/15/16 20:00 93 Nasal Cannula 4.00 09/15/16 19:00 105 09/15/16 19:00 105 16 99/54 90 Nasal Cannula 3.50 09/15/16 18:51 90 Nasal Cannula 4.00 09/15/16 18:00 30 84/62 88 NIV/Bilevel 30.00 09/15/16 17:00 29 92/58 100 NIV/Bilevel 30.00 09/15/16 16:00 95 Nasal Cannula 4.00 09/15/16 16:00 109 31 92/67 88 NIV/Bilevel 30.00 09/15/16 15:45 131 29 97/49 90 NIV/Bilevel 30.00 09/15/16 14:32 88 Nasal Cannula 4.00 09/15/16 14:00 100 12 106/54 98 NIV/Bilevel 30.00 09/15/16 13:00 24 108/61 93 NIV/Bilevel 30.00 09/15/16 13:00 160 09/15/16 12:00 95 Nasal Cannula 4.00 09/15/16 12:00 97.7 09/15/16 11:00 99 26 86/55 97 NIV/Bilevel 30.00 09/15/16 10:01 88 Nasal Cannula 4.00 09/15/16 10:00 103 23 92/57 87 NIV/Bilevel 30.00 09/15/16 09:00 98 25 89/45 98 NIV/Bilevel 30.00 09/15/16 09:00 93 Nasal Cannula 4.00 I & O 09/16/16 07:00 Intake Total 3100 ml Output Total 4550 ml Balance -1450 ml Capillary Refill : Less Than 3 Seconds General Appearance: No Apparent Distress WD/WN HEENT: Normal ENT Inspection Neck: Normal Inspection Respiratory: No Accessory Muscle Use No Respiratory Distress Cardiovascular: Regular Rate, Rhythm Results Lab Laboratory Tests 09/15/16 11:13 09/16/16 03:29 Laboratory Tests 09/15/16 09:40: Urine Bacteria NEGATIVE, Urine Bilirubin NEGATIVE, Urine Casts NONE, Urine Clarity CLEAR, Urine Color YELLOW, Urine Crystals NONE, Urine Culture Indicated NO, Urine Glucose (UA) 2+H, Urine Ketones NEGATIVE, Urine Leukocyte Esterase NEGATIVE, Urine Mucus NEGATIVE, Urine Nitrite NEGATIVE, Urine Protein NEGATIVE, Urine RBC NONE, Urine RBC (Auto) 1+H, Urine Specific Andrews 1.010L, Urine Squamous Epithelial Cells 0-2, Urine Urobilinogen NORMAL, Urine WBC NONE, Urine pH 7 09/15/16 11:13: Lactic Acid Level 4.1*H, Potassium Level 3.4L 09/15/16 22:57: Vancomycin Level Trough 18.1 09/16/16 03:29: Potassium Level 3.0L, Anion Gap 16H, BUN/Creatinine Ratio 16, Basophils # (Auto ) 0.0, Basophils (%) (Auto) 0, Blood Urea Nitrogen 17, Calcium Level 8.6, Carbon Dioxide Level 19L, Chloride Level 106, Creatinine 1.08, Eosinophils # ( Auto) 0.0, Eosinophils (%) (Auto) 0, Estimat Glomerular Filtration Rate 58, Glucose Level 200H, Hematocrit 40, Hemoglobin 13.5, Lymphocytes # (Auto) 0.3L, Lymphocytes (%) (Auto) 2L, Magnesium Level 1.5L, Mean Corpuscular Hemoglobin 31 , Mean Corpuscular Hemoglobin Concent 34, Mean Corpuscular Volume 90, Mean Platelet Volume 11.5H, Monocytes # (Auto) 1.2H, Monocytes (%) (Auto) 7, Neutrophils # (Auto) 14.6H, Neutrophils (%) (Auto) 91H, Phosphorus Level 2.9, Platelet Count 202, Red Blood Count 4.39, Red Cell Distribution Width 18.4H, Sodium Level 141, White Blood Count 16.0H Microbiology 09/14/16 Blood Culture - Preliminary, Resulted No growth 09/14/16 Throat Culture - Preliminary, Resulted No Beta Strep isolated Assessment/Plan Assessment/Plan Assess & Plan/Chief Complaint respiratory infection. Leukocytosis due to steroids. Churg-Ozzy. Diagnosis/Problems: Clinical Quality Measures DVT/VTE Risk/Contraindication: Risk Factor Score Per Nursin RFS Level Per Nursing on Admit: 2=Moderate Contraindications-Mechi: Other *list below* MAIRA RIBERA DO Sep 16, 2016 08:47
[2016-09-16] MEDS ORDERED: NS IV 500 ML 500 ML ONE (09:22)
[2016-09-16] MEDS: DIGOXIN 0.125 MG (LANOXIN) TAB PO SCH (09:50)
[2016-09-16] MEDS: SACUBITRIL/VALSARTAN 24/26 MG (ENTRESTO) TABLET PO SCH ×2 (09:50→20:25)
[2016-09-16] MEDS: MAGNESIUM OXIDE (MAG-OX)400 MG TAB PO SCH ×2 (09:50→20:25)
[2016-09-16] MEDS: ENOXAPARIN 40 MG/0.4 ML (LOVENOX) SYR SC SCH (09:51)
[2016-09-16] MEDS: fentaNYL PATCH 12 MCG (DURAGESIC) TD SCH (09:51)
[2016-09-16] MEDS: FENTANYL PATCH REMOVAL TP SCH (09:59)
[2016-09-16] MEDS ORDERED: TROUGH ORDER-PHARMACY XX NR (11:00)
[2016-09-16] MEDS ORDERED: NON-FORMULARY MEDICATION 1 EA EA (Lactobacillus Combo No.10 (Probiotic) 1 CAP) PO SCH (12:00)
--- NOTE | 2016-09-16 13:40 | Cardiology Progress Note ---
Cardiology SOAP Progress Note Subjective: Shortness of breath Objective: I&O/Vital Signs Vital Sign - Last 12Hours 09/16/16 09/16/16 09/16/16 09/16/16 01:55 03:50 04:00 04:00 Temp 97.3 Pulse 122 94 Resp 28 21 Pulse Ox 93 96 95 O2 Delivery NIV/Bilevel O2 Flow Rate 30.00 30.00 FiO2 30 09/16/16 09/16/16 09/16/16 09/16/16 04:00 05:00 06:00 06:13 Pulse 88 90 88 96 Resp 23 19 21 19 B/P 80/50 87/54 85/41 Pulse Ox 96 94 93 94 O2 Delivery NIV/Bilevel NIV/Bilevel NIV/Bilevel O2 Flow Rate 30.00 30.00 30.00 30.00 09/16/16 09/16/16 09/16/16 09/16/16 07:00 07:00 08:00 08:00 Pulse 91 89 92 Resp 21 23 B/P 85/48 94/57 Pulse Ox 94 94 95 O2 Delivery NIV/Bilevel Nasal Cannula NIV/Bilevel O2 Flow Rate 30.00 3.50 FiO2 30 09/16/16 09/16/16 09/16/16 09/16/16 09:00 10:00 10:16 11:00 Pulse 93 105 93 Resp 20 22 22 B/P 93/67 110/73 98/63 Pulse Ox 90 90 96 98 O2 Delivery Nasal Cannula Nasal Cannula Nasal Cannula Nasal Cannula O2 Flow Rate 3.50 3.50 4.00 3.50 09/16/16 12:00 Pulse 88 Resp 12 B/P 105/71 Pulse Ox 99 O2 Delivery Nasal Cannula O2 Flow Rate 3.50 Intake and Output 09/16/16 00:00 Intake Total 900 ml Output Total 2550 ml Balance -1650 ml Weight (Pounds): 160 Weight (Ounces): 5.0 Weight (Calculated Kilograms): [id number] Constitutional: No appears stated age, No AAO x 3, apparent distressNo PERRL, No well-developed, No well-nourished, No other Respiratory: chest expansion is symmetric chest is bilaterally symmetric wheezing other (no wheezing) Cardiovascular: regular rate-rhythm tachycardia S1 and S2 Gastrointestional: No tender, No soft, No round, No distended, No pulsatile mass, No organomegaly, No guarding, No rebound, No tenderness, No hernia, No mass, No audible bowel sounds, No abnormal bowel sounds, No abdominal bruits, No spleenomegaly, No other Extremities: No normal range of motion, No non-tender, No normal inspection, No pedal edema, No calf tenderness, No normal capillary refill, No pelvis stable , No calf tenderness, No inflammation, No pedal edema, No slow capillary refill , No swelling, No other, No abrasion, No clubbing, No cyanosis, No ecchymosis, No laceration, No no lower extremity edema bilateral, No significant edema, No tenderness, No wound Neurologic/Psychiatric: No can runner II-XII nml as tested, No no motor/sensory deficits, No alert, No normal mood/affect, No oriented x 3, No abnormal cerebellar tests, No abnormal can runner II-XII, No abnormal gait, No aphasia, No EOM palsy, No facial droop, No motor weakness, No sensory deficit, No depressed affect, No disoriented x 3, No other, No grossly intact, No power is 5/5 both on sides Skin: No normal color, No warm/dry, No cyanosis, No cool, No diaphoresis, No damp, No ecchymosis, No jaundice, No mottled, No pallor, No rash, No tattoos/ piercings, No ulcerations, No rash on exposed areas, No ulcerations on exposed areas, No other Results/Procedures: Labs Laboratory Tests 09/15/16 22:57: Vancomycin Level Trough 18.1 09/16/16 03:29: Anion Gap 16H, BUN/Creatinine Ratio 16, Basophils # (Auto) 0.0, Basophils (%) ( Auto) 0, Blood Urea Nitrogen 17, Calcium Level 8.6, Carbon Dioxide Level 19L, Chloride Level 106, Creatinine 1.08, Eosinophils # (Auto) 0.0, Eosinophils (%) ( Auto) 0, Estimat Glomerular Filtration Rate 58, Glucose Level 200H, Hematocrit 40, Hemoglobin 13.5, Lymphocytes # (Auto) 0.3L, Lymphocytes (%) (Auto) 2L, Magnesium Level 1.5L, Mean Corpuscular Hemoglobin 31, Mean Corpuscular Hemoglobin Concent 34, Mean Corpuscular Volume 90, Mean Platelet Volume 11.5H, Monocytes # (Auto) 1.2H, Monocytes (%) (Auto) 7, Neutrophils # (Auto) 14.6H, Neutrophils (%) (Auto) 91H, Phosphorus Level 2.9, Platelet Count 202, Potassium Level 3.0L, Red Blood Count 4.39, Red Cell Distribution Width 18.4H, Sodium Level 141, White Blood Count 16.0H 09/16/16 09:05: Lactic Acid Level 1.0 09/16/16 10:55: Vancomycin Level Trough 22.7H Microbiology 09/14/16 Blood Culture - Preliminary, Resulted No growth 09/14/16 Throat Culture - Final, Complete No Beta Strep isolated A/P: Assessment/Dx: Congestive heart failure, acute on chronic left ventricle systolic heart failure , COPD exacerbation Plan: Congestive heart failure, acute on chronic left ventricular systolic dysfunction , nonischemic cardiomyopathy with ejection fraction 15 percent, Hypoxemia, elevated BNP, no significant pulmonary edema, started on IV Lasix. was given IV steroids for COPD exacerbation. Generalized weakness and loss of energy. Nausea and vomiting, abdominal pain, has been having her symptoms for the last month on and off, currently feeling better. History of pedal edema with venous stasis ulcer, her edema is better, the ulcer is healing slowly. History of sinus tachycardia, still borderline tachycardic. 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 Reactive airway disease, Churg-Ozzy disease. Patient was evaluated in the past for possible cardiopulmonary transplant. 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 Chronic renal insufficiency. Continue to monitor renal function Thank you for your consultation. Please call me if you have any questions. Onofre Parsons MD, FACP, FACC, FSCAI, FHRS, CCDS Interventional Cardiology Cardiac Electrophysiology Vascular Medicine and Endovascular Interventions Americo PARSONS MD Sep 16, 2016 1:39 pm
[2016-09-16] MEDS: ALPRAZolam 0.25 MG (XANAX) TAB PO SCH ×2 (13:46→20:25)
[2016-09-16] MEDS: ASCORBIC ACID (VIT C) 500 MG TABLET PO SCH (13:46)
[2016-09-16] MEDS: LACTOBACILLUS Acidoph/Bulgar (LACTINEX/FLORANEX) TAB PO SCH (13:47)
[2016-09-16] MEDS: CEFEPIME 2 GM/NS 50 ML IVPB IV SCH ×2 (13:48)
[2016-09-16] MEDS ORDERED: FUROSEMIDE 40 MG (LASIX) TAB PO SCH (15:15)
[2016-09-16] MEDS ORDERED: CATHETER FLUSH 10 ML SYR IV PRN (16:00)
[2016-09-16] MEDS ORDERED: FUROSEMIDE 40 MG (LASIX) TAB ONE (16:01)
[2016-09-16] MEDS: PANTOPRAZOLE 20 MG TABLET (PROTONIX) PO SCH (16:10)
[2016-09-16] MEDS: FUROSEMIDE 40 MG (LASIX) TAB PO SCH (16:13)
[2016-09-16] MEDS: LEVOFLOXACIN 750 MG/150 ML D5W (PRE-MIX) IV SCH (23:54)
[2016-09-16] MEDS: VANCOMYCIN 750 MG/NS 250 ML IVPB IV SCH ×2 (23:57)
[2016-09-17] VITALS (7 sets, daily range): BP systolic 87–136; BP diastolic 52–66
[2016-09-17] MEDS: CEFEPIME 2 GM/NS 50 ML IVPB IV SCH ×4 (02:37→13:04)
[2016-09-17] MEDS: RT-ALBUTEROL/IPRATROPIUM 3 ML (DUONEB) VIAL INH SCH ×6 (02:51→22:28)
[2016-09-17 07:53] LABS: BASOPHILS % (AUTO) 0 % (0-10); EOSINOPHILS % (AUTO) 0 % (0-10); LYMPHOCYTES # (AUTO) 0.6 X 10^3 (1.0-4.0); LYMPHOCYTES % (AUTO) 4 % (12-44); MEAN CORPUSCULAR HEMOGLOBIN 31 PG (25-34); MEAN CORPUSCULAR HGB CONC 34 G/DL (32-36); MEAN CORPUSCULAR VOLUME 92 FL (80-99); MEAN PLATELET VOLUME 11.7 FL (7.4-10.4); MONOCYTES # (AUTO) 1.3 X 10^3 (0.0-1.0); MONOCYTES % (AUTO) 8 % (0-12); NEUTROPHILS # (AUTO) 14.3 X 10^3 (1.8-7.8); NEUTROPHILS % (AUTO) 89 % (42-75); PLATELET COUNT 192 10^3/uL (130-400); RED CELL DISTRIBUTION WIDTH 18.6 % (10.0-14.5); WHITE BLOOD COUNT 16.2 10^3/uL (4.3-11.0)
[2016-09-17] MEDS ORDERED: predniSONE 10 MG TAB PO SCH (08:00)
[2016-09-17] MEDS ORDERED: predniSONE 20 MG TAB PO SCH (08:00)
[2016-09-17 08:12] LABS: BAND NEUTROPHILS 1 %; CALCIUM 8.9 MG/DL (8.5-10.1); CREATININE SERUM 1.06 MG/DL (0.60-1.30); MAGNESIUM 2.3 MG/DL (1.8-2.4); NEUTROPHILS % (MANUAL) 87 %; PHOSPHORUS 3.4 MG/DL (2.3-4.7); POTASSIUM 3.9 MMOL/L (3.6-5.0)
[2016-09-17 08:13] LABS: ANISOCYTOSIS MODERATE; BASOPHILS % (MANUAL) 0 %; EOSINOPHILS % (MANUAL) 0 %; LYMPHOCYTES % (MANUAL) 5 %
--- NOTE | 2016-09-17 08:31 | Pulmonary Progress Note ---
Subjective Subjective/Events-last exam No complications noted. complains of loose nonproductive cough. Exam Exam Vital Signs Date Time Temp Pulse Resp B/P Pulse Ox O2 Delivery O2 Flow Rate FiO2 09/17/16 07:57 98 Nasal Cannula 5.00 09/17/16 04:00 98.3 84 18 91/52 98 Nasal Cannula 4.50 09/17/16 02:51 98 Nasal Cannula 5.00 09/17/16 01:00 85 09/17/16 00:48 97.5 85 18 98/66 95 Nasal Cannula 4.50 09/17/16 00:45 NIV/Bilevel 09/17/16 00:02 96.9 18 87/54 96 Nasal Cannula 4.50 09/16/16 22:38 96 Nasal Cannula 5.00 09/16/16 20:00 104 19 98/67 98 Nasal Cannula 3.50 09/16/16 20:00 95 NIV/Bilevel 30 09/16/16 19:00 98 09/16/16 18:33 99 Nasal Cannula 5.00 09/16/16 18:00 98 24 90/68 99 Nasal Cannula 3.50 09/16/16 17:00 106 20 87/50 97 Nasal Cannula 3.50 09/16/16 16:41 97.6 09/16/16 16:00 85 12 87/50 98 Nasal Cannula 3.50 09/16/16 15:00 82 22 98/61 98 Nasal Cannula 3.50 09/16/16 14:32 96 Nasal Cannula 4.00 09/16/16 14:00 102 22 103/60 89 Nasal Cannula 3.50 09/16/16 13:00 95 09/16/16 13:00 90 12 93/63 92 Nasal Cannula 3.50 09/16/16 12:00 88 12 105/71 99 Nasal Cannula 3.50 09/16/16 11:00 93 22 98/63 98 Nasal Cannula 3.50 09/16/16 10:16 96 Nasal Cannula 4.00 09/16/16 10:00 105 22 110/73 90 Nasal Cannula 3.50 09/16/16 09:00 93 20 93/67 90 Nasal Cannula 3.50 I & O 09/17/16 07:00 Intake Total 2000 ml Output Total 1650 ml Balance 350 ml General Appearance: No Apparent Distress WD/WN HEENT: Normal ENT Inspection Neck: Normal Inspection Respiratory: No Accessory Muscle Use No Respiratory Distress Cardiovascular: Regular Rate, Rhythm Capillary Refill: Less Than 3 Seconds Gastrointestinal: non tender soft Neurologic/Psychiatric: Alert Oriented x3 Skin: Normal Color Warm/Dry Lymphatic: No Adenopathy Results Lab Laboratory Tests 09/15/16 11:13 09/16/16 03:29 09/16/16 16:12 09/17/16 07:15 Assessment/Plan Assessment/Plan Diana Preciado - steroid dependent with iatrogenic immunocompromised - NOT IN ACUTE EXACERBATION continue prednisone -restart home methotrexate leukocytosis - secondary to steroids Severe Cardiomyopathy EF 15% -cardilology following -restart lasix Edema Clinical Quality Measures DVT/VTE Risk/Contraindication: Risk Factor Score Per Nursin RFS Level Per Nursing on Admit: 2=Moderate Contraindications-Mechi: Other *list below* KRISTINE BOJORQUEZ DO Sep 17, 2016 08:31
[2016-09-17] MEDS: FUROSEMIDE 40 MG (LASIX) TAB PO SCH (08:35)
[2016-09-17] MEDS: SACUBITRIL/VALSARTAN 24/26 MG (ENTRESTO) TABLET PO SCH ×2 (08:42→20:38)
[2016-09-17] MEDS: DIGOXIN 0.125 MG (LANOXIN) TAB PO SCH (08:43)
[2016-09-17] MEDS: ENOXAPARIN 40 MG/0.4 ML (LOVENOX) SYR SC SCH (08:43)
[2016-09-17] MEDS: MAGNESIUM OXIDE (MAG-OX)400 MG TAB PO SCH ×2 (08:43→20:38)
[2016-09-17] MEDS ORDERED: FUROSEMIDE 40 MG (LASIX) TAB PO SCH (09:00)
--- NOTE | 2016-09-17 09:05 | Diagnostic Imaging Report ---
INDICATION: Respiratory failure. COMPARISON: 09/16/2016. FINDINGS: Enlargement of the cardiac silhouette is unchanged. No gross overdistention of the vascularity. No focal pneumonia or convincing evidence of edema. No pleural fluid is identified. IMPRESSION: Stable enlargement of the cardiac silhouette. Dictated by: Dictated on workstation # [id number]
--- NOTE | 2016-09-17 10:42 | Progress Note (SOAP) ---
Subjective Subjective/Events-last exam YESENIA IS A 36 Y/O FEMALE WHO IS KNOWN TO ME FROM CLINIC AND HER MULTIPLE HOSPITALIZATIONS. SHE PRESENTED WITH HEART FAILURE, WEAKNESS, DYSPNEA. 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 TODAY SHE STATES THAT SHE IS FEELING MORE FATIGUED, IS WONDERING ABOUT BEING ON IV PAIN MEDICATION, AND IS HAVING INCREASING COUGH. Review of Systems General: Fatigue Malaise HEENT: No Head Aches, No Sinus Congestion, No Sore Throat Pulmonary: Dyspnea Cough Cardiovascular: : EdemaNo: Chest Pain Gastrointestinal: No: Abdominal Pain, Nausea Genitourinary: No Dysuria Musculoskeletal: : back pain: leg pain Neurological: : WeaknessNo: Confusion Objective Exam Vital Signs Date Time Temp Pulse Resp B/P Pulse Ox O2 Delivery O2 Flow Rate FiO2 09/17/16 10:35 98 Nasal Cannula 5.00 09/17/16 08:41 Nasal Cannula 5.00 09/17/16 08:10 97.6 71 14 89/54 95 Nasal Cannula 4.50 09/17/16 07:57 98 Nasal Cannula 5.00 09/17/16 06:51 80 09/17/16 04:00 98.3 84 18 91/52 98 Nasal Cannula 4.50 09/17/16 02:51 98 Nasal Cannula 5.00 09/17/16 01:00 85 09/17/16 00:48 97.5 85 18 98/66 95 Nasal Cannula 4.50 09/17/16 00:45 NIV/Bilevel 09/17/16 00:02 96.9 18 87/54 96 Nasal Cannula 4.50 09/16/16 22:38 96 Nasal Cannula 5.00 09/16/16 20:00 104 19 98/67 98 Nasal Cannula 3.50 09/16/16 20:00 95 NIV/Bilevel 30 09/16/16 19:00 98 09/16/16 18:33 99 Nasal Cannula 5.00 09/16/16 18:00 98 24 90/68 99 Nasal Cannula 3.50 09/16/16 17:00 106 20 87/50 97 Nasal Cannula 3.50 09/16/16 16:41 97.6 09/16/16 16:00 85 12 87/50 98 Nasal Cannula 3.50 09/16/16 15:00 82 22 98/61 98 Nasal Cannula 3.50 09/16/16 14:32 96 Nasal Cannula 4.00 09/16/16 14:00 102 22 103/60 89 Nasal Cannula 3.50 09/16/16 13:00 95 09/16/16 13:00 90 12 93/63 92 Nasal Cannula 3.50 09/16/16 12:00 88 12 105/71 99 Nasal Cannula 3.50 09/16/16 11:00 93 22 98/63 98 Nasal Cannula 3.50 I & O 09/17/16 07:00 Intake Total 2000 ml Output Total 1650 ml Balance 350 ml Capillary Refill : Less Than 3 Seconds General Appearance: No Apparent Distress WD/WN HEENT: PERRL/EOMI Pharynx Normal Neck: Full Range of Motion Supple Respiratory: Crackles Decreased Breath Sounds Rhonci Wheezing Cardiovascular: Regular Rate, Rhythm Systolic Murmur Gastrointestinal: normal bowel sounds non tender soft no organomegaly no pulsatile mass Extremity: Normal Capillary Refill Non Tender No Calf Tenderness Pedal Edema Neurologic/Psychiatric: Alert Oriented x3 No Motor/Sensory Deficits Skin: Warm/Dry Lymphatic: No Adenopathy Results Lab Laboratory Tests 09/16/16 10:55: Vancomycin Level Trough 22.7H 09/16/16 16:12: Potassium Level 3.9 09/16/16 21:35: Glucometer 206H 09/17/16 06:01: Glucometer 153H 09/17/16 07:15: Anion Gap 9, Anisocytosis MODERATE, BUN/Creatinine Ratio 20, Band Neutrophils 1 , Basophils # (Auto) 0.0, Basophils % (Manual) 0, Basophils (%) (Auto) 0, Blood Urea Nitrogen 21H, Calcium Level 8.9, Carbon Dioxide Level 26, Chloride Level 105, Creatinine 1.06, Eosinophils # (Auto) 0.0, Eosinophils % (Manual) 0, Eosinophils (%) (Auto) 0, Estimat Glomerular Filtration Rate 59, Glucose Level 166H, Hematocrit 40, Hemoglobin 13.7, Lymphocytes # (Auto) 0.6L, Lymphocytes % ( Manual) 5, Lymphocytes (%) (Auto) 4L, Magnesium Level 2.3, Mean Corpuscular Hemoglobin 31, Mean Corpuscular Hemoglobin Concent 34, Mean Corpuscular Volume 92, Mean Platelet Volume 11.7H, Monocytes # (Auto) 1.3H, Monocytes % (Manual) 7 , Monocytes (%) (Auto) 8, Neutrophils # (Auto) 14.3H, Neutrophils % (Manual) 87 , Neutrophils (%) (Auto) 89H, Phosphorus Level 3.4, Platelet Count 192, Potassium Level 3.9, Red Blood Count 4.40, Red Cell Distribution Width 18.6H, Sodium Level 140, White Blood Count 16.2H Microbiology 09/14/16 Blood Culture - Preliminary, Resulted No growth 09/14/16 Throat Culture - Final, Complete No Beta Strep isolated Assessment/Plan Assessment/Plan Assess & Plan/Chief Complaint PNEUMONIA CONGESTIVE HEART FAILURE EXACERBATION CARDIOMYOPATHY CHRONIC NAUSEA CHURG-CANELO ATRIAL FIBRILLATION CHRONIC IMMUNE SUPPRESSION THERAPY ESOPHAGEAL REFLUX CHRONIC PAIN SYNDROME STEROID INDUCED DIABETES MELLITUS CHRONIC OXYGEN THERAPY NOCTURNAL APNEA PNEUMONIA - PT ON PNEUMONIA PROTOCOL WITH PSEUDOMONAL COVERAGE CHF - ACUTE ON CHRONIC LEFT SIDED SYSTOLIC FAILURE - CONTINUE WITH IV LASIX, MONITOR BNP CLOSELY. CONSULT TO CARDIOLOGY CARDIOMYOPATHY, CHURG-CANELO -PROGRESSIVE SYMPTOMS - PT HAS BEEN DECLINED X 2 FOR HEART LUNG TRANSPLANT, WILL CALL [facility] TOMORROW TO DISCUSS RE-EVAL FOR HEART LUNG TRANSPLANT PROGRAM. - THEY WERE NOT IN CLINIC TODAY WHEN I CALLED. ATRIAL FIBRILLATION - RESTARTED DIGOXIN, CONTINUE SUPPORTIVE CARE. NAUSEA - SUSPECT PART OF HER NAUSEA IS DUE TO ANASARCA SHE HAS BEEN ON NAUSEA MEDS WITHOUT MUCH IMPROVEMENT IN HER SYMPTOMS, CONTINUE WITH SUPPORTIVE CARE, STARTED IV ZOFRAN AND IV PHENERGAN. CHRONIC IMMUNOSUPPRESSION - CONTINUE WITH STEROID - BUT WILL CHANGE TO SOLUMEDROL FOR THE NEXT FEW DAYS, THEN RESUME PREVIOUS DOSING OF ORAL STEROIDS. STEROID INDUCED DIABETES MELLITUS - CHECK FSBS, RESTART HOME INSULIN THERAPY. 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
[2016-09-17] MEDS: VANCOMYCIN 750 MG/NS 250 ML IVPB IV SCH ×2 (11:47)
[2016-09-17] MEDS: LACTOBACILLUS Acidoph/Bulgar (LACTINEX/FLORANEX) TAB PO SCH ×3 (11:47→20:38)
[2016-09-17] MEDS: methylPREDNISolone 40 MG/ML (Solu-MEDROL) VIAL IV SCH ×2 (11:47→17:12)
[2016-09-17] MEDS: ALPRAZolam 0.25 MG (XANAX) TAB PO SCH ×2 (11:48→20:41)
[2016-09-17] MEDS: ASCORBIC ACID (VIT C) 500 MG TABLET PO SCH (11:48)
--- NOTE | 2016-09-17 13:41 | Cardiology Progress Note ---
Cardiology SOAP Progress Note Subjective: shortness of breath Objective: I&O/Vital Signs Vital Sign - Last 12Hours 09/17/16 09/17/16 09/17/16 09/17/16 08:41 10:35 12:50 12:59 Temp 97.3 Pulse 82 78 Resp 18 B/P 108/52 Pulse Ox 98 96 O2 Delivery Nasal Cannula Nasal Cannula Nasal Cannula O2 Flow Rate 5.00 5.00 5.00 09/17/16 09/17/16 09/17/16 09/17/16 14:17 16:00 18:29 19:00 Temp 97.8 Pulse 85 89 Resp 18 B/P 136/59 Pulse Ox 98 96 98 O2 Delivery Nasal Cannula Nasal Cannula Nasal Cannula O2 Flow Rate 5.00 5.00 5.00 Intake and Output 09/17/16 00:00 Intake Total 1150 ml Output Total 1650 ml Balance -500 ml Weight (Pounds): 161 Weight (Ounces): 4.0 Weight (Calculated Kilograms): [id number] Constitutional: No appears stated age, No AAO x 3, apparent distressNo PERRL, No well-developed, No well-nourished, No other Respiratory: chest expansion is symmetric chest is bilaterally symmetric rhonchi wheezing other (no wheezing) Cardiovascular: regular rate-rhythm tachycardia S1 and S2 Gastrointestional: No tender, No soft, No round, No distended, No pulsatile mass, No organomegaly, No guarding, No rebound, No tenderness, No hernia, No mass, No audible bowel sounds, No abnormal bowel sounds, No abdominal bruits, No spleenomegaly, No other Extremities: No normal range of motion, No non-tender, No normal inspection, No pedal edema, No calf tenderness, No normal capillary refill, No pelvis stable , No calf tenderness, No inflammation, No pedal edema, No slow capillary refill , No swelling, No other, No abrasion, No clubbing, No cyanosis, No ecchymosis, No laceration, No no lower extremity edema bilateral, No significant edema, No tenderness, No wound Neurologic/Psychiatric: No electrotype caster II-XII nml as tested, No no motor/sensory deficits, No alert, No normal mood/affect, No oriented x 3, No abnormal cerebellar tests, No abnormal electrotype caster II-XII, No abnormal gait, No aphasia, No EOM palsy, No facial droop, No motor weakness, No sensory deficit, No depressed affect, No disoriented x 3, No other, No grossly intact, No power is 5/5 both on sides Skin: No normal color, No warm/dry, No cyanosis, No cool, No diaphoresis, No damp, No ecchymosis, No jaundice, No mottled, No pallor, No rash, No tattoos/ piercings, No ulcerations, No rash on exposed areas, No ulcerations on exposed areas, No other Results/Procedures: Labs Laboratory Tests 09/16/16 21:35: Glucometer 206H 09/17/16 06:01: Glucometer 153H 09/17/16 07:15: Anion Gap 9, Anisocytosis MODERATE, BUN/Creatinine Ratio 20, Band Neutrophils 1 , Basophils # (Auto) 0.0, Basophils % (Manual) 0, Basophils (%) (Auto) 0, Blood Urea Nitrogen 21H, Calcium Level 8.9, Carbon Dioxide Level 26, Chloride Level 105, Creatinine 1.06, Eosinophils # (Auto) 0.0, Eosinophils % (Manual) 0, Eosinophils (%) (Auto) 0, Estimat Glomerular Filtration Rate 59, Glucose Level 166H, Hematocrit 40, Hemoglobin 13.7, Lymphocytes # (Auto) 0.6L, Lymphocytes % ( Manual) 5, Lymphocytes (%) (Auto) 4L, Magnesium Level 2.3, Mean Corpuscular Hemoglobin 31, Mean Corpuscular Hemoglobin Concent 34, Mean Corpuscular Volume 92, Mean Platelet Volume 11.7H, Monocytes # (Auto) 1.3H, Monocytes % (Manual) 7 , Monocytes (%) (Auto) 8, Neutrophils # (Auto) 14.3H, Neutrophils % (Manual) 87 , Neutrophils (%) (Auto) 89H, Phosphorus Level 3.4, Platelet Count 192, Potassium Level 3.9, Red Blood Count 4.40, Red Cell Distribution Width 18.6H, Sodium Level 140, White Blood Count 16.2H 09/17/16 11:44: Glucometer 244H 09/17/16 16:44: Glucometer 217H Microbiology 09/14/16 Blood Culture - Preliminary, Resulted No growth 09/14/16 Throat Culture - Final, Complete No Beta Strep isolated A/P: Assessment/Dx: Congestive heart failure, acute on chronic left ventricle systolic heart failure , COPD exacerbation Plan: Congestive heart failure, acute on chronic left ventricular systolic dysfunction , nonischemic cardiomyopathy with ejection fraction 15 percent, Hypoxemia, elevated BNP, no significant pulmonary edema, started on IV Lasix. was given IV steroids for COPD exacerbation. I believe her current admission is more COPD exacerbation rather then florid pulmonary edema. Generalized weakness and loss of energy. Nausea and vomiting, abdominal pain, has been having her symptoms for the last month on and off, currently feeling better. History of pedal edema with venous stasis ulcer, her edema is better, the ulcer is healing slowly. History of sinus tachycardia, still borderline tachycardic. 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 Reactive airway disease, Churg-Ozzy disease. Patient was evaluated in the past for possible cardiopulmonary transplant. [place] syndrome secondary to chronic steroid use. Chronic renal insufficiency. Continue to monitor renal function Americo CORONEL MD Sep 17, 2016 1:41 pm Americo CORONEL MD Sep 17, 2016 1:41 pm
[2016-09-17] MEDS: PANTOPRAZOLE 20 MG TABLET (PROTONIX) PO SCH (16:21)
[2016-09-17] MEDS ORDERED: NON-FORMULARY MEDICATION 1 EA EA (Folic Acid 0.4 MG) PO SCH (21:00)
[2016-09-17] MEDS ORDERED: NON-FORMULARY MEDICATION 1 EA EA (Hydroxyzine HCl 50 MG) PO SCH (21:00)
[2016-09-17] MEDS ORDERED: NON-FORMULARY MEDICATION 1 EA EA (Insulin Detemir (Levemir Flextouch) 10 UNITS) SC SCH (21:00)
[2016-09-17] MEDS ORDERED: inSUlin DETERMIR 1 UNIT/0.01 ML (LEVEMIR) CHARGE PER UNIT SQ ONE (22:07)
[2016-09-17] MEDS ORDERED: hydrOXYzine (VISTARIL) 25 MG CAP ONE (22:08)
[2016-09-17] MEDS: FOLIC ACID 1 MG TAB PO SCH (22:18)
[2016-09-17] MEDS: hydrOXYzine (VISTARIL) 25 MG CAP PO SCH (22:19)
[2016-09-17] MEDS: inSUlin DETERMIR 1 UNIT/0.01 ML (LEVEMIR) CHARGE PER UNIT SQ SCH (22:22)
[2016-09-17] MEDS ORDERED: TROUGH ORDER-PHARMACY XX NR (23:00)
[2016-09-17] MEDS: LEVOFLOXACIN 750 MG/150 ML D5W (PRE-MIX) IV SCH (23:44)
[2016-09-18] VITALS (7 sets, daily range): BP systolic 94–119; BP diastolic 52–64
[2016-09-18] MEDS: methylPREDNISolone 40 MG/ML (Solu-MEDROL) VIAL IV SCH ×4 (00:53→17:17)
[2016-09-18] MEDS: VANCOMYCIN 750 MG/NS 250 ML IVPB IV SCH ×4 (01:17→12:32)
[2016-09-18] MEDS: RT-ALBUTEROL/IPRATROPIUM 3 ML (DUONEB) VIAL INH SCH ×6 (02:02→22:53)
[2016-09-18] MEDS: CEFEPIME 2 GM/NS 50 ML IVPB IV SCH ×4 (02:29→14:35)
[2016-09-18 06:44] LABS: BASOPHILS % (AUTO) 0 % (0-10); EOSINOPHILS % (AUTO) 0 % (0-10); LYMPHOCYTES # (AUTO) 0.4 X 10^3 (1.0-4.0); LYMPHOCYTES % (AUTO) 3 % (12-44); MEAN CORPUSCULAR HEMOGLOBIN 31 PG (25-34); MEAN CORPUSCULAR HGB CONC 34 G/DL (32-36); MEAN CORPUSCULAR VOLUME 93 FL (80-99); MEAN PLATELET VOLUME 12.2 FL (7.4-10.4); MONOCYTES # (AUTO) 0.4 X 10^3 (0.0-1.0); MONOCYTES % (AUTO) 3 % (0-12); NEUTROPHILS # (AUTO) 12.7 X 10^3 (1.8-7.8); NEUTROPHILS % (AUTO) 94 % (42-75); PLATELET COUNT 164 10^3/uL (130-400); RED BLOOD COUNT 4.52 10^6/uL (4.35-5.85); RED CELL DISTRIBUTION WIDTH 18.5 % (10.0-14.5); WHITE BLOOD COUNT 13.5 10^3/uL (4.3-11.0)
[2016-09-18 07:06] LABS: ANION GAP 11 MMOL/L (5-14); BLOOD UREA NITROGEN 24 MG/DL (7-18); BUN/CREATININE RATIO 26; CALCIUM 9.1 MG/DL (8.5-10.1); CARBON DIOXIDE 23 MMOL/L (21-32); CHLORIDE 106 MMOL/L (98-107); CREATININE SERUM 0.91 MG/DL (0.60-1.30); GFR ESTIMATED > 60; GLUCOSE 165 MG/DL (70-105); MAGNESIUM 2.5 MG/DL (1.8-2.4); PHOSPHORUS 3.1 MG/DL (2.3-4.7); POTASSIUM 4.1 MMOL/L (3.6-5.0); SODIUM 140 MMOL/L (135-145)
--- NOTE | 2016-09-18 07:44 | Progress Note (SOAP) ---
Subjective Subjective/Events-last exam PT IS A 36 Y/O FEMALE WHO IS KNOWN TO ME FROM HER MULTIPLE HOSPITALIZATIONS. SHE STATES THAT SHE IS FEELING FATIGUED, HAS SIGNIFICANT COUGHING, AND WORSENING GENERALIZED PAIN. Review of Systems General: Fatigue Malaise HEENT: No Head Aches Pulmonary: Dyspnea Cough Cardiovascular: : EdemaNo: Chest Pain, Palpitations Gastrointestinal: : NauseaNo: Abdominal Pain Genitourinary: No Dysuria, Frequency Musculoskeletal: : back pain: leg pain Neurological: : WeaknessNo: Confusion Objective Exam Vital Signs Date Time Temp Pulse Resp B/P Pulse Ox O2 Delivery O2 Flow Rate FiO2 09/18/16 06:44 99 Nasal Cannula 5.00 09/18/16 02:03 98 Nasal Cannula 5.00 09/18/16 00:58 82 09/18/16 00:00 97.9 95 18 97/64 98 Nasal Cannula 5.00 09/17/16 22:29 78 13 98 30.00 09/17/16 20:39 97.8 90 18 101/57 98 Nasal Cannula 4.50 09/17/16 20:30 Nasal Cannula 5.00 09/17/16 19:00 89 09/17/16 18:29 98 Nasal Cannula 5.00 09/17/16 16:00 97.8 85 18 136/59 96 Nasal Cannula 5.00 09/17/16 14:17 98 Nasal Cannula 5.00 09/17/16 12:59 78 09/17/16 12:50 97.3 82 18 108/52 96 Nasal Cannula 5.00 09/17/16 10:35 98 Nasal Cannula 5.00 09/17/16 08:41 Nasal Cannula 5.00 09/17/16 08:10 97.6 71 14 89/54 95 Nasal Cannula 4.50 09/17/16 07:57 98 Nasal Cannula 5.00 I & O 09/18/16 07:00 Intake Total 1440 ml Output Total 750 ml Balance 690 ml Capillary Refill : Less Than 3 Seconds General Appearance: WD/WN Mild Distress HEENT: PERRL/EOMI Neck: Full Range of Motion Supple Respiratory: Chest Non Tender Crackles Decreased Breath Sounds Rhonci Wheezing Cardiovascular: Regular Rate, Rhythm Gastrointestinal: normal bowel sounds non tender soft no organomegaly no pulsatile mass Extremity: Pedal Edema (TRACE) Neurologic/Psychiatric: Alert Oriented x3 No Motor/Sensory Deficits Normal Mood/Affect Skin: Warm/Dry Lymphatic: No Adenopathy Results Lab Laboratory Tests 09/17/16 11:44: Glucometer 244H 09/17/16 16:44: Glucometer 217H 09/17/16 21:45: Glucometer 240H 09/17/16 23:02: Vancomycin Level Trough 15.2 09/18/16 05:25: Anion Gap 11, BUN/Creatinine Ratio 26, Basophils # (Auto) 0.0, Basophils (%) ( Auto) 0, Blood Urea Nitrogen 24H, Calcium Level 9.1, Carbon Dioxide Level 23, Chloride Level 106, Creatinine 0.91, Eosinophils # (Auto) 0.0, Eosinophils (%) ( Auto) 0, Estimat Glomerular Filtration Rate > 60, Glucose Level 165H, Hematocrit 42, Hemoglobin 14.1, Lymphocytes # (Auto) 0.4L, Lymphocytes (%) (Auto ) 3L, Magnesium Level 2.5H, Mean Corpuscular Hemoglobin 31, Mean Corpuscular Hemoglobin Concent 34, Mean Corpuscular Volume 93, Mean Platelet Volume 12.2H, Monocytes # (Auto) 0.4, Monocytes (%) (Auto) 3, Neutrophils # (Auto) 12.7H, Neutrophils (%) (Auto) 94H, Phosphorus Level 3.1, Platelet Count 164, Potassium Level 4.1, Red Blood Count 4.52, Red Cell Distribution Width 18.5H, Sodium Level 140, White Blood Count 13.5H Microbiology 09/14/16 Blood Culture - Preliminary, Resulted No growth 09/14/16 Throat Culture - Final, Complete No Beta Strep isolated Assessment/Plan Assessment/Plan Assess & Plan/Chief Complaint PNEUMONIA CONGESTIVE HEART FAILURE EXACERBATION CARDIOMYOPATHY CHRONIC NAUSEA CHURG-CANELO ATRIAL FIBRILLATION CHRONIC IMMUNE SUPPRESSION THERAPY ESOPHAGEAL REFLUX CHRONIC PAIN SYNDROME STEROID INDUCED DIABETES MELLITUS CHRONIC OXYGEN THERAPY NOCTURNAL APNEA PNEUMONIA - PT ON PNEUMONIA PROTOCOL WITH PSEUDOMONAL COVERAGE DR. BOJORQUEZ CAME INTO THE ROOM I WAS EXAMINING AND INTERVIEWING YESENIA, WE DISCUSSED HER TREATMENTS AND HER PREVIOUS TREATMENT WITH MUCOMYST AND HER COMFORT WITH THE USE OF THIS MEDICATION. HE REQUESTED THAT I START THE PT ON MUCOMYST BREATHING TREATMENTS Q 6 HOURS FOR BREAKING UP OF HER THICK MUCUS AND HOPEFULLY IMPROVING THE CLEARING OF HER INFECTION. CHF - ACUTE ON CHRONIC LEFT SIDED SYSTOLIC FAILURE - CONTINUE WITH IV LASIX, MONITOR BNP CLOSELY. CONSULT TO CARDIOLOGY CARDIOMYOPATHY, CHURG-CANELO -PROGRESSIVE SYMPTOMS - PT HAS BEEN DECLINED X 2 FOR HEART LUNG TRANSPLANT, WILL CALL [facility] TO DISCUSS RE-EVAL FOR HEART LUNG TRANSPLANT PROGRAM. ATRIAL FIBRILLATION - RESTARTED DIGOXIN, CONTINUE SUPPORTIVE CARE. NAUSEA - SUSPECT PART OF HER NAUSEA IS DUE TO ANASARCA SHE HAS BEEN ON NAUSEA MEDS WITHOUT MUCH IMPROVEMENT IN HER SYMPTOMS, CONTINUE WITH SUPPORTIVE CARE, STARTED IV ZOFRAN AND IV PHENERGAN. CHRONIC IMMUNOSUPPRESSION - CONTINUE WITH STEROID - BUT WILL CHANGE TO SOLUMEDROL FOR THE NEXT FEW DAYS, THEN RESUME PREVIOUS DOSING OF ORAL STEROIDS. STEROID INDUCED DIABETES MELLITUS - CHECK FSBS, RESTART HOME INSULIN THERAPY. 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
[2016-09-18] MEDS ORDERED: PATIENT MAY USE OWN MED,SINGLE MED PO SCH (07:45)
--- NOTE | 2016-09-18 07:45 | Pulmonary Progress Note ---
Subjective Subjective/Events-last exam pt is still very coarse sounding. SOB is stable Exam Exam Vital Signs Date Time Temp Pulse Resp B/P Pulse Ox O2 Delivery O2 Flow Rate FiO2 09/18/16 06:44 99 Nasal Cannula 5.00 09/18/16 02:03 98 Nasal Cannula 5.00 09/18/16 00:58 82 09/18/16 00:00 97.9 95 18 97/64 98 Nasal Cannula 5.00 09/17/16 22:29 78 13 98 30.00 09/17/16 20:39 97.8 90 18 101/57 98 Nasal Cannula 4.50 09/17/16 20:30 Nasal Cannula 5.00 09/17/16 19:00 89 09/17/16 18:29 98 Nasal Cannula 5.00 09/17/16 16:00 97.8 85 18 136/59 96 Nasal Cannula 5.00 09/17/16 14:17 98 Nasal Cannula 5.00 09/17/16 12:59 78 09/17/16 12:50 97.3 82 18 108/52 96 Nasal Cannula 5.00 09/17/16 10:35 98 Nasal Cannula 5.00 09/17/16 08:41 Nasal Cannula 5.00 09/17/16 08:10 97.6 71 14 89/54 95 Nasal Cannula 4.50 09/17/16 07:57 98 Nasal Cannula 5.00 I & O 09/18/16 07:00 Intake Total 1890 ml Output Total 750 ml Balance 1140 ml General Appearance: No Apparent Distress WD/WN HEENT: PERRL/EOMI Pharynx Normal Neck: Full Range of Motion Supple Respiratory: Crackles Decreased Breath Sounds Rhonci Wheezing Cardiovascular: Regular Rate, Rhythm Systolic Murmur Capillary Refill: Less Than 3 Seconds Gastrointestinal: normal bowel sounds non tender soft no organomegaly no pulsatile mass Extremity: Normal Capillary Refill Non Tender No Calf Tenderness Pedal Edema Neurologic/Psychiatric: Alert Oriented x3 No Motor/Sensory Deficits Skin: Warm/Dry Lymphatic: No Adenopathy Results Lab Laboratory Tests 09/16/16 16:12 09/17/16 07:15 09/18/16 05:25 Assessment/Plan Assessment/Plan Churg Ozzy - steroid dependent with iatrogenic immunocompromised - NOT IN ACUTE EXACERBATION continue prednisone -methotrexate, IVIG -Start mucomyst with SVNs leukocytosis - secondary to steroids Severe Cardiomyopathy EF 15% -cardilology following -lasix Edema Clinical Quality Measures DVT/VTE Risk/Contraindication: Risk Factor Score Per Nursin RFS Level Per Nursing on Admit: 2=Moderate Contraindications-Mechi: Other *list below* KRISTINE BOJORQUEZ DO Sep 18, 2016 07:45
--- NOTE | 2016-09-18 08:31 | Diagnostic Imaging Report ---
INDICATION: Acute on chronic respiratory failure. CHF. COMPARISON: 09/17/2016. FINDINGS: A single frontal radiograph view of the chest was obtained and demonstrates persistent marked cardiomegaly. The pulmonary vasculature, however, appears to be within normal limits on today's exam. The right lung is clear. There is poor visualization of the left hemidiaphragm. This may be related to overlying bony and soft tissue structures; however, there is suggestion of underlying air bronchograms. There is no pneumothorax on either side. The bony structures show no gross acute abnormalities. IMPRESSION: 1. Stable cardiomegaly. 2. Findings suggestive of infiltrate within the left lower lung versus superimposition of bony and soft tissue structures. A lateral view may be of benefit. Dictated by: Dictated on workstation # [id number]
[2016-09-18] MEDS ORDERED: NON-FORMULARY MEDICATION 1 EA EA (Umeclidinium Brm/Vilanterol Tr (Anoro Ellipta 62.5-25 Mc IH SCH (09:00)
[2016-09-18] MEDS: SPIRONOLACTONE 25 MG (ALDACTONE) TAB PO SCH (09:43)
[2016-09-18] MEDS: DIGOXIN 0.125 MG (LANOXIN) TAB PO SCH (09:43)
[2016-09-18] MEDS: inSUlin DETERMIR 1 UNIT/0.01 ML (LEVEMIR) CHARGE PER UNIT SQ SCH ×2 (09:43→23:08)
[2016-09-18] MEDS: ENOXAPARIN 40 MG/0.4 ML (LOVENOX) SYR SC SCH (09:43)
[2016-09-18] MEDS: LACTOBACILLUS Acidoph/Bulgar (LACTINEX/FLORANEX) TAB PO SCH ×4 (09:43→21:01)
[2016-09-18] MEDS: MAGNESIUM OXIDE (MAG-OX)400 MG TAB PO SCH ×2 (09:44→21:00)
[2016-09-18] MEDS: FUROSEMIDE 40 MG (LASIX) TAB PO SCH (09:44)
[2016-09-18] MEDS: SACUBITRIL/VALSARTAN 24/26 MG (ENTRESTO) TABLET PO SCH ×2 (09:44→21:01)
[2016-09-18] MEDS: HYDROmorphone (DILAUDID) 2 MG/ML VIAL IVP PRN ×3 (10:00→21:00)
[2016-09-18] MEDS: aCETylcysteine 20% (MUCOMYST) 30ML SOLN VIAL INH SCH ×3 (10:39→22:01)
[2016-09-18] MEDS ORDERED: CALCIUM CARB + VIT D 600 MG (CALCARB + D) TAB PO SCH (12:00)
[2016-09-18] MEDS: ALPRAZolam 0.25 MG (XANAX) TAB PO SCH ×2 (12:31→21:01)
[2016-09-18] MEDS: ASCORBIC ACID (VIT C) 500 MG TABLET PO SCH (12:31)
[2016-09-18] MEDS: inSUlin (REGULAR) HUMAN 1 UNIT/0.01 ML (CHARGE PER UNIT) SC SCH ×3 (12:32→23:07)
[2016-09-18] MEDS: PANTOPRAZOLE 20 MG TABLET (PROTONIX) PO SCH (17:16)
[2016-09-18] MEDS ORDERED: PRENATAL VITAMIN 1 EA TAB PO SCH (21:00)
[2016-09-18] MEDS ORDERED: [UNRECOGNIZED DRUG - REMARK] PO SCH (21:00)
[2016-09-18] MEDS: hydrOXYzine (VISTARIL) 25 MG CAP PO SCH (21:01)
[2016-09-18] MEDS: FOLIC ACID 1 MG TAB PO SCH (21:01)
[2016-09-18] MEDS: LEVOFLOXACIN 750 MG/150 ML D5W (PRE-MIX) IV SCH (23:08)
[2016-09-19] MEDS: methylPREDNISolone 40 MG/ML (Solu-MEDROL) VIAL IV SCH ×2 (00:42→05:26)
[2016-09-19] MEDS: VANCOMYCIN 750 MG/NS 250 ML IVPB IV SCH ×2 (00:43)
[2016-09-19 00:55] VITALS: BP 87/49
[2016-09-19] MEDS: CEFEPIME 2 GM/NS 50 ML IVPB IV SCH ×2 (01:56)
[2016-09-19 02:01] VITALS: BP 102/51
[2016-09-19] MEDS: HYDROmorphone (DILAUDID) 2 MG/ML VIAL IVP PRN ×2 (02:18→06:55)
[2016-09-19] MEDS: RT-ALBUTEROL/IPRATROPIUM 3 ML (DUONEB) VIAL INH SCH ×3 (02:22→10:09)
[2016-09-19 05:48] LABS: BASOPHILS % (AUTO) 0 % (0-10); EOSINOPHILS % (AUTO) 0 % (0-10); LYMPHOCYTES # (AUTO) 0.4 X 10^3 (1.0-4.0); LYMPHOCYTES % (AUTO) 2 % (12-44); MEAN CORPUSCULAR HEMOGLOBIN 31 PG (25-34); MEAN CORPUSCULAR HGB CONC 34 G/DL (32-36); MEAN CORPUSCULAR VOLUME 92 FL (80-99); MEAN PLATELET VOLUME 11.8 FL (7.4-10.4); MONOCYTES # (AUTO) 0.6 X 10^3 (0.0-1.0); MONOCYTES % (AUTO) 4 % (0-12); NEUTROPHILS # (AUTO) 14.6 X 10^3 (1.8-7.8); NEUTROPHILS % (AUTO) 94 % (42-75); PLATELET COUNT 161 10^3/uL (130-400); RED BLOOD COUNT 4.36 10^6/uL (4.35-5.85); RED CELL DISTRIBUTION WIDTH 18.2 % (10.0-14.5); WHITE BLOOD COUNT 15.6 10^3/uL (4.3-11.0)
[2016-09-19] MEDS: inSUlin (REGULAR) HUMAN 1 UNIT/0.01 ML (CHARGE PER UNIT) SC SCH (06:00)
[2016-09-19 06:08] LABS: CALCIUM 9.1 MG/DL (8.5-10.1); CREATININE SERUM 1.18 MG/DL (0.60-1.30); MAGNESIUM 2.5 MG/DL (1.8-2.4); PHOSPHORUS 3.5 MG/DL (2.3-4.7); POTASSIUM 4.1 MMOL/L (3.6-5.0)
[2016-09-19 06:28] VITALS: BP 95/50
[2016-09-19] MEDS: aCETylcysteine 20% (MUCOMYST) 30ML SOLN VIAL INH SCH (06:36)
[2016-09-19 07:42] VITALS: BP 92/52
[2016-09-19] MEDS ORDERED: TRIM/SULFAMETH 160/800 (SEPTRA DS) TAB PO SCH (07:45)
--- NOTE | 2016-09-19 07:52 | Progress Note (SOAP) ---
Subjective Subjective/Events-last exam see discharge summary Objective Exam Vital Signs Date Time Temp Pulse Resp B/P Pulse Ox O2 Delivery O2 Flow Rate FiO2 09/19/16 06:39 99 Nasal Cannula 3.00 09/19/16 06:28 97.0 79 20 95/50 96 Nasal Cannula 3.00 09/19/16 02:22 96 Nasal Cannula 3.00 09/19/16 02:01 95 102/51 09/19/16 01:00 90 09/19/16 00:55 97.0 93 20 87/49 97 Nasal Cannula 3.00 09/18/16 22:01 97 Nasal Cannula 3.00 09/18/16 21:00 Nasal Cannula 3.00 09/18/16 20:38 97.6 102 22 119/55 97 Nasal Cannula 3.00 09/18/16 19:00 117 09/18/16 18:49 95 Nasal Cannula 3.00 09/18/16 16:00 98.7 97 16 94/52 97 Nasal Cannula 5.00 09/18/16 14:41 98 Nasal Cannula 3.00 09/18/16 12:54 93 09/18/16 12:00 98.9 95 16 108/54 97 Nasal Cannula 5.00 09/18/16 10:43 98 Nasal Cannula 5.00 09/18/16 09:00 Nasal Cannula 5.00 09/18/16 08:00 97.0 71 20 100/56 99 Nasal Cannula 5.00 I & O 09/19/16 07:00 Intake Total 2290 ml Output Total 2300 ml Balance -10 ml Capillary Refill : Less Than 3 Seconds General Appearance: WD/WN Results Lab Laboratory Tests 09/18/16 11:13: Glucometer 314H 09/18/16 15:42: Glucometer 162H 09/18/16 21:33: Glucometer 209H 09/19/16 05:10: Anion Gap 9, BUN/Creatinine Ratio 26, Basophils # (Auto) 0.0, Basophils (%) ( Auto) 0, Blood Urea Nitrogen 31H, Calcium Level 9.1, Carbon Dioxide Level 25, Chloride Level 103, Creatinine 1.18, Eosinophils # (Auto) 0.0, Eosinophils (%) ( Auto) 0, Estimat Glomerular Filtration Rate 52, Glucose Level 138H, Hematocrit 40, Hemoglobin 13.4, Lymphocytes # (Auto) 0.4L, Lymphocytes (%) (Auto) 2L, Magnesium Level 2.5H, Mean Corpuscular Hemoglobin 31, Mean Corpuscular Hemoglobin Concent 34, Mean Corpuscular Volume 92, Mean Platelet Volume 11.8H, Monocytes # (Auto) 0.6, Monocytes (%) (Auto) 4, Neutrophils # (Auto) 14.6H, Neutrophils (%) (Auto) 94H, Phosphorus Level 3.5, Platelet Count 161, Potassium Level 4.1, Red Blood Count 4.36, Red Cell Distribution Width 18.2H, Sodium Level 137, White Blood Count 15.6H Microbiology 09/14/16 Blood Culture - Preliminary, Resulted No growth 09/17/16 Gram Stain - Final, Resulted 09/17/16 Sputum Culture - Preliminary, Resulted Usual/normal milind isolated. Assessment/Plan Assessment/Plan Assess & Plan/Chief Complaint see discharge summary PNEUMONIA CONGESTIVE HEART FAILURE EXACERBATION CARDIOMYOPATHY CHRONIC NAUSEA CHURG-CANELO ATRIAL FIBRILLATION CHRONIC IMMUNE SUPPRESSION THERAPY ESOPHAGEAL REFLUX CHRONIC PAIN SYNDROME STEROID INDUCED DIABETES MELLITUS CHRONIC OXYGEN THERAPY NOCTURNAL APNEA PNEUMONIA - PT ON PNEUMONIA PROTOCOL WITH PSEUDOMONAL COVERAGE DR. BOJORQUEZ CAME INTO THE ROOM I WAS EXAMINING AND INTERVIEWING YESENIA, WE DISCUSSED HER TREATMENTS AND HER PREVIOUS TREATMENT WITH MUCOMYST AND HER COMFORT WITH THE USE OF THIS MEDICATION. HE REQUESTED THAT I START THE PT ON MUCOMYST BREATHING TREATMENTS Q 6 HOURS FOR BREAKING UP OF HER THICK MUCUS AND HOPEFULLY IMPROVING THE CLEARING OF HER INFECTION. CHF - ACUTE ON CHRONIC LEFT SIDED SYSTOLIC FAILURE - CONTINUE WITH IV LASIX, MONITOR BNP CLOSELY. CONSULT TO CARDIOLOGY CARDIOMYOPATHY, CHURG-CANELO -PROGRESSIVE SYMPTOMS - PT HAS BEEN DECLINED X 2 FOR HEART LUNG TRANSPLANT, WILL CALL [facility] TO DISCUSS RE-EVAL FOR HEART LUNG TRANSPLANT PROGRAM. ATRIAL FIBRILLATION - RESTARTED DIGOXIN, CONTINUE SUPPORTIVE CARE. NAUSEA - SUSPECT PART OF HER NAUSEA IS DUE TO ANASARCA SHE HAS BEEN ON NAUSEA MEDS WITHOUT MUCH IMPROVEMENT IN HER SYMPTOMS, CONTINUE WITH SUPPORTIVE CARE, STARTED IV ZOFRAN AND IV PHENERGAN. CHRONIC IMMUNOSUPPRESSION - CONTINUE WITH STEROID - BUT WILL CHANGE TO SOLUMEDROL FOR THE NEXT FEW DAYS, THEN RESUME PREVIOUS DOSING OF ORAL STEROIDS. STEROID INDUCED DIABETES MELLITUS - CHECK FSBS, RESTART HOME INSULIN THERAPY. GERD - RESTART PROTONIX PO CHRONIC PAIN - KEEP ON HOME MEDS - CONCERN FOR TOO MUCH BLOOD PRESSURE LOWERING IF PT IS STARTED ON DILAUDID RECHECKER YESENIA WANTS TO BE A FULL CODE, SHE WILL BE ON ANTICOAGULATION, AND SCD'S Diagnosis/Problems: Clinical Quality Measures DVT/VTE Risk/Contraindication: Risk Factor Score Per Nursin RFS Level Per Nursing on Admit: 2=Moderate Contraindications-Mechi: Other *list below* ALBER PHIPPS MD Sep 19, 2016 07:52
--- NOTE | 2016-09-19 07:53 | Pulmonary Progress Note ---
Subjective Subjective/Events-last exam No complications noted. Exam Exam Vital Signs Date Time Temp Pulse Resp B/P Pulse Ox O2 Delivery O2 Flow Rate FiO2 09/19/16 06:39 99 Nasal Cannula 3.00 09/19/16 06:28 97.0 79 20 95/50 96 Nasal Cannula 3.00 09/19/16 02:22 96 Nasal Cannula 3.00 09/19/16 02:01 95 102/51 09/19/16 01:00 90 09/19/16 00:55 97.0 93 20 87/49 97 Nasal Cannula 3.00 09/18/16 22:01 97 Nasal Cannula 3.00 09/18/16 21:00 Nasal Cannula 3.00 09/18/16 20:38 97.6 102 22 119/55 97 Nasal Cannula 3.00 09/18/16 19:00 117 09/18/16 18:49 95 Nasal Cannula 3.00 09/18/16 16:00 98.7 97 16 94/52 97 Nasal Cannula 5.00 09/18/16 14:41 98 Nasal Cannula 3.00 09/18/16 12:54 93 09/18/16 12:00 98.9 95 16 108/54 97 Nasal Cannula 5.00 09/18/16 10:43 98 Nasal Cannula 5.00 09/18/16 09:00 Nasal Cannula 5.00 09/18/16 08:00 97.0 71 20 100/56 99 Nasal Cannula 5.00 I & O 09/19/16 07:00 Intake Total 2290 ml Output Total 2300 ml Balance -10 ml General Appearance: WD/WN Mild Distress HEENT: PERRL/EOMI Neck: Full Range of Motion Supple Respiratory: Chest Non Tender Crackles Decreased Breath Sounds Rhonci Wheezing Cardiovascular: Regular Rate, Rhythm Capillary Refill: Less Than 3 Seconds Gastrointestinal: normal bowel sounds non tender soft no organomegaly no pulsatile mass Extremity: Pedal Edema (TRACE) Neurologic/Psychiatric: Alert Oriented x3 No Motor/Sensory Deficits Normal Mood/Affect Skin: Warm/Dry Lymphatic: No Adenopathy Results Lab Laboratory Tests 09/18/16 05:25 09/19/16 05:10 Assessment/Plan Assessment/Plan Churg Ozzy - steroid dependent with iatrogenic immunocompromised - continue prednisone -methotrexate, IVIG - mucomyst with SVNs leukocytosis - - Repeat CXR -Pt is currently on broadspectrum Abx Severe Cardiomyopathy EF 15% -cardilology following -lasix Edema Clinical Quality Measures DVT/VTE Risk/Contraindication: Risk Factor Score Per Nursin RFS Level Per Nursing on Admit: 2=Moderate Contraindications-Mechi: Other *list below* KRISTINE BOJOQRUEZ DO Sep 19, 2016 07:53
--- NOTE | 2016-09-19 08:42 | Cardiology Progress Note ---
Subjective Subjective/Events-last exam Patient is sitting up in bed. Complains of productive cough with thick sputum and dyspnea. Denies any CP. Denies palpitations of lightheadedness. Review of Systems General: No Night Sweats, No Fatigue, No Malaise HEENT: No Visual Changes, No Dysphasia, No Sore Throat Pulmonary: Dyspnea Cough Pleuritic Chest Pain Cardiovascular: : EdemaNo: Chest Pain, Palpitations, Paroxysmal Noc. Dyspnea Gastrointestinal: : NauseaNo: Abdominal Pain, Vomiting Genitourinary: No Dysuria, No Frequency Musculoskeletal: No: back pain, neck pain Neurological: : WeaknessNo: Change in speech, Confusion, Numbness Objective-Cardiology Exam Last Set of Vital Signs Vital Signs 09/16/16 09/19/16 09/19/16 20:00 07:42 10:11 Temp 98.1 Pulse 81 Resp 16 B/P 92/52 Pulse Ox 100 O2 Delivery Nasal Cannula O2 Flow Rate 3.00 FiO2 30 Capillary Refill : Less Than 3 Seconds I&O Intake and Output 09/19/16 00:00 Intake Total 2190 ml Output Total 2000 ml Balance 190 ml Intake Oral 1740 ml IV Total 450 ml Output Urine Total 2000 ml # Voids 2 General: Alert, Oriented X3, Cooperative HEENT: Atraumatic, PERRLA Neck: Supple, No JVD Lungs: Other (coarse BS throughout. Bilat rhonchi) Heart: Normal S1, Normal S2, Other (Slightly tachycardic) Abdomen: Normal Bowel Sounds, Soft, No Tenderness Extremities: No Clubbing, No Cyanosis, Other (Trace edema BLE) Skin: No Rashes, No Significant Lesion Neuro: Normal Speech, Cranial Nerves 3-12 NL Psych/Mental Status: Mental Status NL, Mood NL Results Lab Laboratory Tests 09/19/16 05:10 A/P-Cardiology Admission Diagnosis CHF Pneumonia Churg-Ozzy Sinus tachycardia Assessment/Plan Congestive heart failure, acute on chronic left ventricular systolic dysfunction , nonischemic cardiomyopathy with ejection fraction 15 percent, Hypoxemia, elevated BNP, no significant pulmonary edema, started on IV Lasix. was given IV steroids for COPD exacerbation. I believe her current admission is more COPD exacerbation rather than pulmonary edema. Pneumonia- on broad spectrum ABX. Started on Mucomyst. Managed by Dr. Encinas and Dr. Aguilar. Generalized weakness and loss of energy. Nausea and vomiting, abdominal pain, has been having her symptoms for the last month on and off, currently feeling better. History of pedal edema with venous stasis ulcer, her edema is better, the ulcer is healing slowly. History of sinus tachycardia, still borderline tachycardic. 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 Reactive airway disease, Churg-Ozzy disease. Patient was evaluated in the past for possible cardiopulmonary transplant. [place] syndrome secondary to chronic steroid use. Chronic renal insufficiency. Continue to monitor renal function Patient was seen and evaluated with Yen, sitting in bed, still having shortness of breath with bilateral rhonchi and wheezing, admitted for congestive heart failure. Event since admission were reviewed. Patient was admitted for fluid overload in addition to pneumonia. She is receiving antibiotic and being transferred to swing bed. Continue with aggressive diuretics with IV Lasix, monitor electrolytes closely. Continue to monitor blood pressure, continue antibiotics. Clinical Quality Measures DVT/VTE Risk/Contraindication: Risk Factor Score Per Nursin RFS Level Per Nursing on Admit: 2=Moderate Contraindications-Mechi: Other *list below* YEN MCKEON Sep 19, 2016 08:42 ТАТЬЯНА ROGERS MD Sep 19, 2016 17:42
[2016-09-19] MEDS ORDERED: METHOTREXATE 50 MG/2 ML PF SQ SCH (09:00)
[2016-09-19] MEDS ORDERED: [UNRECOGNIZED DRUG - OTHER] IV SCH (09:00)
[2016-09-19] MEDS: LACTOBACILLUS Acidoph/Bulgar (LACTINEX/FLORANEX) TAB PO SCH (09:18)
[2016-09-19] MEDS: DIGOXIN 0.125 MG (LANOXIN) TAB PO SCH (09:19)
[2016-09-19] MEDS: MAGNESIUM OXIDE (MAG-OX)400 MG TAB PO SCH (09:19)
[2016-09-19] MEDS: SPIRONOLACTONE 25 MG (ALDACTONE) TAB PO SCH (09:19)
[2016-09-19] MEDS: SACUBITRIL/VALSARTAN 24/26 MG (ENTRESTO) TABLET PO SCH (09:19)
[2016-09-19] MEDS: fentaNYL PATCH 12 MCG (DURAGESIC) TD SCH (09:19)
[2016-09-19] MEDS: ENOXAPARIN 40 MG/0.4 ML (LOVENOX) SYR SC SCH (09:20)
[2016-09-19] MEDS: FUROSEMIDE 40 MG (LASIX) TAB PO SCH (09:20)
[2016-09-19] MEDS: inSUlin DETERMIR 1 UNIT/0.01 ML (LEVEMIR) CHARGE PER UNIT SQ SCH (09:20)
--- NOTE | 2016-09-19 09:21 | Diagnostic Imaging Report ---
INDICATION: Pneumonia, followup. TECHNIQUE: Two view chest at 8:55 AM. CORRELATION STUDY: 09/18/2016. FINDINGS: The right-sided tri-chamber pacemaker remains in place. There is stable severity cardiac enlargement. The pulmonary vasculature is within normal limits. There is suggestion of minimal likely atelectasis versus less likely infiltrate in the right infrahilar region. The left lung is relatively clear on followup. There is accentuated kyphotic curvature with a compressed lower thoracic vertebral body. IMPRESSION: 1. Stable cardiac enlargement without failure. 2. There may be very minimal right infrahilar atelectasis. 3. Otherwise, no noel lobar infiltrate. Dictated by: Dictated on workstation # [id number]
[2016-09-19] MEDS: FENTANYL PATCH REMOVAL TP SCH (09:27)
--- NOTE | 2016-09-19 10:17 | Discharge Summary ---
Diagnosis/Chief Complaint Date of Admission Sep 14, 2016 at 22:30 Date of Discharge Discharge Date: Sep 19, 2016 Admission Diagnosis Admission Diagnosis acute on chronic respiratory failure. Acute on chronic congestive heart failure. Elevated lactic acid. Bronchitis. Discharge Diagnosis PNEUMONIA CONGESTIVE HEART FAILURE EXACERBATION CARDIOMYOPATHY CHRONIC NAUSEA CHURG-CANELO ATRIAL FIBRILLATION CHRONIC IMMUNE SUPPRESSION THERAPY ESOPHAGEAL REFLUX CHRONIC PAIN SYNDROME STEROID INDUCED DIABETES MELLITUS CHRONIC OXYGEN THERAPY NOCTURNAL APNEA Reason Hospital Visit PT IS A 36 Y/O FEMALE WHO HAS CHURG CANELO - HX OF CARDIOMYOPATHY WITH EJECTION FRACTION AROUND 5-10%, AND HAS BEEN DENIED X 2-3 TIMES BY [facility]. SHE HAS HISTORY OF PSEUDOMONAL PNEUMONIA, AND FREQUENT HOSPITALIZATIONS FOR PNEUMONIA WELL HEART FAILURE. Discharge Summary Discharge Physical Examination Allergies: Coded Allergies: influenza virus vaccine ts [id number] (36 mos+) (Unverified Allergy, Severe , ANAPHYLAXIS, 01/08/15) pneumococcal vaccine (Unverified Allergy, Severe, ANAPHYLAXIS, 01/08/15) Penicillins (Verified Allergy, Mild, PER PT RXN = HIVES, CAN TAKE ROCEPHIN , 01/08/15) clindamycin (Unverified Allergy, Unknown, 01/08/15) morphine (Verified Adverse Reaction, Intermediate, RASH, PT HAS RECEIVED HYDROMORPHONE W/O ISSUE, 04/26/16) MORPHINE IV GIVEN AT ED, PT DEVELOPED RASH AND POSSIBLE HIVES metoclopramide (Verified Adverse Reaction, Unknown, 10/02/15) INCREASED FLUID RETENTION AND BRUISING Vitals & I&Os Vital Signs Date Time Temp Pulse Resp B/P Pulse Ox O2 Delivery O2 Flow Rate FiO2 09/19/16 10:11 100 Nasal Cannula 3.00 09/19/16 07:42 98.1 81 16 92/52 09/16/16 20:00 30 General Appearance: Alert, Oriented X3, Cooperative HEENT: Atraumatic, PERRLA Respiratory: Other (coarse BS throughout. Bilat rhonchi) Cardiovascular: Normal S1, Normal S2, Other (Slightly tachycardic) Abdominal: Normal Bowel Sounds, Soft, No Tenderness Extremities: No Clubbing, No Cyanosis, Other (Trace edema BLE) Skin: No Rashes, No Significant Lesion Neuro: Normal Speech, Cranial Nerves 3-12 NL Psych/Mental Status: Mental Status NL, Mood NL Hospital Course PNEUMONIA CONGESTIVE HEART FAILURE EXACERBATION CARDIOMYOPATHY CHRONIC NAUSEA CHURG-CANELO ATRIAL FIBRILLATION CHRONIC IMMUNE SUPPRESSION THERAPY ESOPHAGEAL REFLUX CHRONIC PAIN SYNDROME STEROID INDUCED DIABETES MELLITUS CHRONIC OXYGEN THERAPY NOCTURNAL APNEA PNEUMONIA - PT ON PNEUMONIA PROTOCOL WITH PSEUDOMONAL COVERAGE DR. BOJORQUEZ CAME INTO THE ROOM I WAS EXAMINING AND INTERVIEWING YESENIA, WE DISCUSSED HER TREATMENTS AND HER PREVIOUS TREATMENT WITH MUCOMYST AND HER COMFORT WITH THE USE OF THIS MEDICATION. HE REQUESTED THAT I START THE PT ON MUCOMYST BREATHING TREATMENTS Q 6 HOURS FOR BREAKING UP OF HER THICK MUCUS AND HOPEFULLY IMPROVING THE CLEARING OF HER INFECTION. CHF - ACUTE ON CHRONIC LEFT SIDED SYSTOLIC FAILURE - CONTINUE WITH IV LASIX, MONITOR BNP CLOSELY. CONSULT TO CARDIOLOGY CARDIOMYOPATHY, CHURG-CANELO -PROGRESSIVE SYMPTOMS - PT HAS BEEN DECLINED X 2 FOR HEART LUNG TRANSPLANT, WILL CALL [facility] TO DISCUSS RE-EVAL FOR HEART LUNG TRANSPLANT PROGRAM. ATRIAL FIBRILLATION - RESTARTED DIGOXIN, CONTINUE SUPPORTIVE CARE. NAUSEA - SUSPECT PART OF HER NAUSEA IS DUE TO ANASARCA SHE HAS BEEN ON NAUSEA MEDS WITHOUT MUCH IMPROVEMENT IN HER SYMPTOMS, CONTINUE WITH SUPPORTIVE CARE, STARTED IV ZOFRAN AND IV PHENERGAN. CHRONIC IMMUNOSUPPRESSION - CONTINUE WITH STEROID - BUT WILL CHANGE TO SOLUMEDROL FOR THE NEXT FEW DAYS, THEN RESUME PREVIOUS DOSING OF ORAL STEROIDS. STEROID INDUCED DIABETES MELLITUS - CHECK FSBS, RESTART HOME INSULIN THERAPY. GERD - RESTART PROTONIX PO CHRONIC PAIN - KEEP ON HOME MEDS - CONCERN FOR TOO MUCH BLOOD PRESSURE LOWERING IF PT IS STARTED ON DILAUDID CASE MANAGER YESENIA WANTS TO BE A FULL CODE, SHE WILL BE ON ANTICOAGULATION, AND SCD'S DISCHARGE TO SWING BED TODAY Pending Labs Laboratory Tests 09/19/16 05:10: Anion Gap 9, BUN/Creatinine Ratio 26, Basophils # (Auto) 0.0, Basophils (%) ( Auto) 0, Blood Urea Nitrogen 31, Calcium Level 9.1, Carbon Dioxide Level 25, Chloride Level 103, Creatinine 1.18, Eosinophils # (Auto) 0.0, Eosinophils (%) ( Auto) 0, Estimat Glomerular Filtration Rate 52, Glucose Level 138, Hematocrit 40 , Hemoglobin 13.4, Lymphocytes # (Auto) 0.4, Lymphocytes (%) (Auto) 2, Magnesium Level 2.5, Mean Corpuscular Hemoglobin 31, Mean Corpuscular Hemoglobin Concent 34, Mean Corpuscular Volume 92, Mean Platelet Volume 11.8, Monocytes # (Auto) 0.6, Monocytes (%) (Auto) 4, Neutrophils # (Auto) 14.6, Neutrophils (%) (Auto) 94, Phosphorus Level 3.5, Platelet Count 161, Potassium Level 4.1, Red Blood Count 4.36, Red Cell Distribution Width 18.2, Sodium Level 137, White Blood Count 15.6 09/19/16 11:08: Glucometer 289 Discharge Condition at discharge IMPROVING Instructions to patient/family Please see electonic discharge instructions given to patient. Discharge Medications Reviewed and agree with Discharge Medication list on patient's Discharge Instruction sheet Clinical Quality Measures DVT/VTE Risk/Contraindication: Risk Factor Score Per Nursin RFS Level Per Nursing on Admit: 2=Moderate Contraindications-Mechi: Other *list below* ALBER PHIPPS MD Sep 19, 2016 10:17
--- NOTE | 2016-09-21 09:21 | ECHOCARDIOGRAPHY REPORT ---
PROCEDURE PHYSICIAN: ANDRE CORONEL DATE OF PROCEDURE: 09/15/2016 TWO DIMENSIONAL ECHOCARDIOGRAM REPORT PRIMARY PHYSICIAN: OTHER PHYSICIAN: REFERRING PHYSICIAN: ORDERING PHYSICIAN: Dr. Encinas ATTENDING PHYSICIAN: Dr. Aguilar FAMILY PHYSICIAN: READING PHYSICIAN: INDICATION FOR THE PROCEDURE: Shortness of breath. MEASUREMENTS DERIVED VALUES LV DIAMETER (LAX) NORMALS NORMALS Diastolic (3.6-5.2) Eject. Fract. (60%+/-6%) Systolic (2.3-3.9) Diastolic Vol. % Shortening (0.22-0.42) Systolic Vol. Aortic Root IVS THICKNESS Diastolic (0.6-1.1) LVPW THICKNESS Diastolic (0.6-1.1) LA DIAMETER Systolic (2.1-3.7) FINDINGS: 1. Sinus rhythm. 2. Left atrial enlargement is noted. Left atrial diameter is 4.5 cm. 3. Aortic root is normal. 4. Left ventricular systolic function is significantly reduced. LV EF is 10%. LVH is not present. 5. Left ventricle enlargement is noted with a diameter of 6.3 cm. Global hypokinesis is present. 6. There is no pericardial effusion. 7. Diastolic dysfunction is present. 8. IVC diameter is 1.3 cm. VALVULAR STRUCTURE OF THE HEART: 1. There is mild tricuspid regurgitation with RVSP of 30 mmHg. 2. Mild mitral regurgitation. 3. Mild aortic insufficiency is noted. CONCLUSION: 1. Severely reduced LV function with an EF of 10%. 2. Dilated LV and enlarged left atrium. 3. Diastolic dysfunction. 4. No significant valvular heart disease. Job ID: [id number] Dictated Date: 09/20/2016 21:04:21 Bead Picker Date: 09/21/2016 09:17:07 / funmi
[2016-09-21] MEDS ORDERED: NS IV 1000 ML 1,000 ML ONE (21:42)
== END 2016-09-19 10:19 | disposition swing bed (61) | DRG 189 ==
LOC: EDUNIT# 19:37 → ER 19:39 → ICU 22:30 → 4TH 09-17 00:25
PROVIDERS: ADMIT Family Medicine; ATTEND Family Medicine
DX: J96.01 Acute respiratory failure with hypoxia (principal); I50.23 Acute on chronic systolic (congestive) heart failure; J44.0 Chronic obstructive pulmonary disease with (acute) lower respiratory infection; J44.1 Chronic obstructive pulmonary disease with (acute) exacerbation; J02.9 Acute pharyngitis, unspecified; I42.9 Cardiomyopathy, unspecified; M30.1 Polyarteritis with lung involvement [Churg-Strauss]; M31.30 Wegener's granulomatosis without renal involvement; E24.2 Drug-induced Cushing's syndrome; G72.0 Drug-induced myopathy; L97.229 Non-pressure chronic ulcer of left calf with unspecified severity; E11.9 Type 2 diabetes mellitus without complications; I87.2 Venous insufficiency (chronic) (peripheral); N18.9 Chronic kidney disease, unspecified; K21.9 Gastro-esophageal reflux disease without esophagitis; M81.0 Age-related osteoporosis without current pathological fracture; F41.9 Anxiety disorder, unspecified; T38.0X5A Adverse effect of glucocorticoids and synthetic analogues, initial encounter; Z99.81 Dependence on supplemental oxygen; Z79.52 Long term (current) use of systemic steroids; Z95.810 Presence of automatic (implantable) cardiac defibrillator; Z79.4 Long term (current) use of insulin; E87.6 Hypokalemia
CPT/HCPCS: 36415; 51702; 71010; 71020; 80048; 80053; 80202; 81000; 82805; 82962; 83605; 83735; 83880; 84100; 84132; 84484; 84703; 85007; 85025; 85027; 85610; 85730; 87040; 87070; 87205; 87430; 87804; 93005; 93041; 93306; 94640; 94660; 94664; 94760; 96365; 96367; 96375

== ENCOUNTER 2016-09-19 08:56 | Inpatient (IN) | payer MEDICARE, MEDICAID ==
[~2016-09-19] VITALS: Ht 162.6 cm; Wt 75.1 kg
[2016-09-19] MEDS ORDERED: ONDANSETRON 4 MG (ZOFRAN) ORAL DISSOLVE TAB PO PRN (10:30)
[2016-09-19] MEDS ORDERED: LEVOFLOXACIN 750 MG/150 ML IV 150 ML IV SCH (10:30)
[2016-09-19] MEDS ORDERED: PROMETHAZINE 25 MG (PHENERGAN) TAB PO PRN (10:30)
[2016-09-19] MEDS ORDERED: PATIENT MAY USE OWN MED,SINGLE MED PO SCH (10:30)
[2016-09-19] MEDS ORDERED: TRIM/SULFAMETH 160/800 (SEPTRA DS) TAB PO SCH (10:30)
[2016-09-19] MEDS ORDERED: CEFEPIME INJECTION 2,000 MG in NORMAL SALINE (BAXTER MINI) 50 ML IV SCH (10:30)
[2016-09-19] MEDS ORDERED: NYSTATIN ORAL SUSP 5 ML UDC PO PRN (10:30)
--- OUTSIDE RECORDS SUMMARY | 2016-09-19 11:00 | XMS REPORT | Continuity of Care Document ---
Author Author [facility] Organization [facility] Address Unknown Phone Unavailable Care Team Providers Care Social Insurance Administrator Name Role Phone Thomas Aguilar PCP [phone] Source Comments Some departments are not documenting in the electronic medical record. If you do not see the information that you expected, contact Release of Information in the Health Information Management department at [phone] for further assistance in locating additional records.[facility] Active Allergies and Adverse Reactions Allergen Noted Date Severity Reactions Comments Clindamycin 12/09/2012 HIVES Patient states she received on last admission and after 1 day of treatment developed hives Influenza Virus Vaccine 12/09/2012 HIVES, ANGIOEDEMA, EDEMA Patient states she Trival [id number] (18 Yr received the flu vaccine +) [...] of cardiac pulse generator 08/03/2016 Overview: 2016 [facility] Advisory for Premature Battery Depletion Thrush [...] on MTX. 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 Garrett ashley Assessment & Plan: [...] off Advair). 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 Dr. Avilez increased her prednisone back [...]
--- NOTE | 2016-09-19 11:48 | Physical Therapy Evaluation ---
PT Evaluation-General Medical Diagnosis Admission Date Sep 19, 2016 at 10:19 Medical Diagnosis: Chronic Resp failure Onset Date: Sep 15, 2016 Therapy Diagnosis Therapy Diagnosis: weakness Height/Weight Height (Feet): 5 Height (Inches): 4.00 Weight (Pounds): 167 Weight (Ounces): 5.0 Precautions Precautions/Isolations: Standard Precautions Referral Physician: Lauren Reason for Referral: Evaluation/Treatment Medical History Pertinent Medical History: Arthritis, COPD, DM, Heart Failure Additional Medical History Churg-Ozzy disease, Burdick syndrome, pacemaker/defibrillator, CHF. Current History Pt reports she presented to ED with low BP and generalized not feeling well. Was admitted to ICU and reports she became congested and also had pneumonia. Pt transferred to [facility] for continued medical management and therapy services to promote functional mobility and strength. Reviewed History: Yes Social History Home: Single Level Current Living Status: Other Family (parents) Prior/Core FIM Prior Level of Function Functional [place] Measure 0=Not Assessed/NA 4=Minimal Assistance 1=Total Assistance 5=Supervision or Setup 2=Maximal Assistance 6=Modified [place] 3=Moderate Assistance 7=Complete [place] Bed Mobility: 7 Transfers (B,C,W/C) (FIM): 7 Gait: [address] but is active in the community and does ambulate community distances. O2 dependent. PT Current Subjective Pt reports she will be here a few more days for medical management. Reports she is up in her room without assist and plans to shower a bit later. Denies use/need for FWW. Pain Numeric Pain Scale: 0-No Pain Location: No Pain Reported Mental Status Patient Orientation: Person, Place, Time, Situation Attachments: Oxygen (3 l/min via nasas cannula) Transfers Functional [place] Measure 0=Not Assessed/NA 4=Minimal Assistance 1=Total Assistance 5=Supervision or Setup 2=Maximal Assistance 6=Modified [place] 3=Moderate Assistance 7=Complete IndependenceIRFPAI Quality Coding Scale 6 Independent with activity with or without an assistive device 5 Patient requires set up or clean up by helper. Patient completes activity by themselves 4 Supervision or touching assist (CGA). [place] provide cues , steadying assist 3 The helper provides less than half the effort to complete the activity 2 The helper provides more than half the effort to complete the activity 1 Dependent. The helper does all the effort to complete an activity 7 Patient refused to complete or attempt activity 9 The patient did not perform the activity before the current illness or injury 88 Not attempted due to Medical conditions or safety concerns Transfers (B, C, W/C) (FIM): 5 Supine to/from Sit: 5 Sit to/from Stand: 5 Bed to/from Chair: 5 Sit to Lying (QC): 5 Lying-Sitting/Side of Bed(QC): 5 Sit to Stand (QC): 5 Chair/Aix-gc-Tisnb Xfer(QC): 5 supervision for all mobility and transfers for safety concerns and due to this being the first time patient seen by this clinician. Gait Training Does the Patient Walk?: Yes Distance (FIM): 3=150 ft Distance: 150 Walk 50 ft with 2 Turns(QC): 5 (supervision; in room with multiple turns. ) Walk 150 ft (QC): 5 Gait Level of Assist: 5 Gait Assistive Device: None pt manages oxygen tubing without assist; no AD needed; pt able to ambulate in small space in room without LOB. Wheelchair Training Wheel 50 ft with 2 turns (QC): 9 Wheel 150 ft (QC): 9 Balance Balance Sitting Static: Normal Balance Sitting Dynamic: Normal Balance-Standing Static: Good Balance Standing Dynamic: Good Neuromuscular B LE ROM is grossly WFL throughout; LE strength is grossly 4/5 throughout but functional for all transfers and gait; she does demonstrate intact reflexes and coordination. Treatments Ambulation in room with pt managing oxygen tubing without assist; discussed safety in room and with oxygen tubing. Pt toileted and stood at sink all SBA with no noted safety concerns. Pt able to bend to pick oxygen tubing off the floor without LOB noted. Pt able to straighten bed sheets with supervision only. Assessment Current Status: Good Progress This patient will benefit from short term skilled PT services to promote functional mobility for optimal lung health as well as education on safety and functional act tolerance to allow her to return home at her OF. PT Diamond Powder Technician Goals Penitentiary Goals PT Penitentiary Goals Time Frame: Sep 26, 2016 Transfers (B,C,W/C) (FIM): 7 Sit to Lying (QC): 6 Lying-Sitting on Side/Bed(QC): 6 Sit to Stand (QC): 6 Rollin Chair/Oyn-yn-Dnljo Xfer(QC): 6 Does the Patient Walk: Yes Gait (FIM): 7 Gait distance (FIM): 3=150 ft Walk 50ft with 2 Turns (QC): 6 Walk 150 ft (QC): 6 Gait Assistive Device: None Does the Pt use WC or Scooter?: No LTG are set so that pt in indep with all functional mobility to return home. PT Plan Problem List Problem List: Activity Tolerance, Functional Strength, Safety, Balance, Gait Treatment/Plan Treatment Plan: Continue Plan of Care Treatment Plan: Bed Mobility, Education, Functional Activity Ted, Functional Strength, Gait Treatment Duration: Sep 26, 2016 # of days/week 5 Visits Per Week: 5 Pt/Family Agrees w/Plan: Yes Safety Risks/Education Patient Education: Transfer Techniques, Safety Issues Teaching Recipient: Patient Teaching Methods: Discussion Response to Teaching: Return Demonstration Time/GCodes Time In: 1120 Time Out: 1150 Total Billed Treatment Time: 30 Total Billed Treatment visit EVMODC 15 GT 15 JACQUELINE COX PT Sep 19, 2016 11:48
[2016-09-19 12:00] VITALS: BP 103/58
[2016-09-19] MEDS ORDERED: SODIUM CHLORIDE IV SCH (12:00)
[2016-09-19] MEDS ORDERED: VANCOMYCIN ADD VANTAGE IV SCH (12:00)
[2016-09-19] MEDS ORDERED: HYDROmorphone (DILAUDID) 2 MG/ML VIAL ONE (12:03)
[2016-09-19] MEDS: HYDROmorphone (DILAUDID) 2 MG/ML VIAL IVP PRN ×3 (12:21→20:20)
[2016-09-19] MEDS: CATHETER FLUSH 10 ML SYR IV PRN ×3 (12:34→17:06)
[2016-09-19] MEDS: methylPREDNISolone 40 MG/ML (Solu-MEDROL) VIAL IV SCH ×2 (12:34→17:06)
[2016-09-19] MEDS: CALCIUM CARB + VIT D 600 MG (CALCARB + D) TAB PO SCH (12:38)
[2016-09-19] MEDS: ALPRAZolam 0.25 MG (XANAX) TAB PO SCH ×2 (12:38→20:11)
[2016-09-19] MEDS: ASCORBIC ACID (VIT C) 500 MG TABLET PO SCH (12:38)
[2016-09-19] MEDS: LACTOBACILLUS Acidoph/Bulgar (LACTINEX/FLORANEX) TAB PO SCH ×3 (12:38→20:12)
[2016-09-19] MEDS: inSUlin (REGULAR) HUMAN 1 UNIT/0.01 ML (CHARGE PER UNIT) SC SCH ×3 (12:40→21:48)
[2016-09-19] MEDS: aCETylcysteine 20% (MUCOMYST) 30ML SOLN VIAL INH SCH ×2 (13:13→18:42)
[2016-09-19] MEDS: RT-ALBUTEROL/IPRATROPIUM 3 ML (DUONEB) VIAL INH SCH ×2 (13:13→18:42)
[2016-09-19] MEDS: CEFEPIME INJECTION 2,000 MG in NORMAL SALINE (BAXTER MINI) 50 ML IV SCH (14:13)
[2016-09-19 16:00] VITALS: BP 107/57
[2016-09-19] MEDS: PANTOPRAZOLE 20 MG TABLET (PROTONIX) PO SCH (16:53)
[2016-09-19] MEDS: MAGNESIUM OXIDE (MAG-OX)400 MG TAB PO SCH (17:06)
[2016-09-19] MEDS: HIZENTRA SC SCH (18:23)
[2016-09-19 19:10] VITALS: BP 101/55
[2016-09-19] MEDS: PRENATAL VITAMIN 1 EA TAB PO SCH (20:11)
[2016-09-19] MEDS: FOLIC ACID 1 MG TAB PO SCH (20:11)
[2016-09-19] MEDS: SACUBITRIL/VALSARTAN 24/26 MG (ENTRESTO) TABLET PO SCH (20:12)
[2016-09-19] MEDS: hydrOXYzine (VISTARIL) 25 MG CAP PO SCH (20:12)
[2016-09-19] MEDS: inSUlin DETERMIR 1 UNIT/0.01 ML (LEVEMIR) CHARGE PER UNIT SQ SCH (21:49)
[2016-09-19] MEDS: LEVOFLOXACIN 750 MG/150 ML IV 150 ML IV SCH (23:11)
[2016-09-20] MEDS: methylPREDNISolone 40 MG/ML (Solu-MEDROL) VIAL IV SCH ×4 (00:41→18:31)
[2016-09-20 00:55] VITALS: BP 102/51
[2016-09-20] MEDS: HYDROmorphone (DILAUDID) 2 MG/ML VIAL IVP PRN ×6 (00:59→22:49)
[2016-09-20] MEDS: CEFEPIME INJECTION 2,000 MG in NORMAL SALINE (BAXTER MINI) 50 ML IV SCH ×2 (01:00→14:13)
[2016-09-20] MEDS: RT-ALBUTEROL/IPRATROPIUM 3 ML (DUONEB) VIAL INH SCH ×6 (02:25→21:59)
[2016-09-20] MEDS: aCETylcysteine 20% (MUCOMYST) 30ML SOLN VIAL INH SCH ×4 (02:27→21:59)
[2016-09-20 04:45] VITALS: BP 101/58
[2016-09-20] MEDS: inSUlin (REGULAR) HUMAN 1 UNIT/0.01 ML (CHARGE PER UNIT) SC SCH ×4 (05:38→21:33)
[2016-09-20] MEDS: MAGNESIUM OXIDE (MAG-OX)400 MG TAB PO SCH ×2 (06:40→16:50)
[2016-09-20 08:00] VITALS: BP 92/50
--- NOTE | 2016-09-20 08:31 | Progress Note (SOAP) ---
Subjective Subjective/Events-last exam PT REPORTS THAT SHE IS FEELING SHORT OF BREATH, ABOUT THE SAME ON PREVIOUS DAYS, SHE DOES FEEL LIKE SHE IS GAINING A LITTLE MORE ENERGY OVER THE PAST FEW DAYS. STILL COMPLAINING OF PAIN IN BACK, LEGS, ETC Review of Systems General: Fatigue Malaise HEENT: No Head Aches Pulmonary: Dyspnea Cough Cardiovascular: No: Chest Pain Gastrointestinal: No: Abdominal Pain, Nausea Objective Exam Vital Signs Date Time Temp Pulse Resp B/P Pulse Ox O2 Delivery O2 Flow Rate FiO2 09/20/16 06:26 Nasal Cannula 3.00 09/20/16 04:45 97.0 69 18 101/58 94 Nasal Cannula 3.00 09/20/16 02:28 98 Nasal Cannula 3.00 09/20/16 00:55 96.7 68 16 102/51 99 Nasal Cannula 3.00 09/19/16 20:53 Nasal Cannula 3.00 09/19/16 19:10 97.3 86 24 101/55 96 Nasal Cannula 3.00 09/19/16 19:00 83 09/19/16 18:42 98 Nasal Cannula 3.00 09/19/16 16:00 97.3 88 22 107/57 97 Nasal Cannula 3.00 09/19/16 13:14 99 Nasal Cannula 3.00 09/19/16 13:06 Nasal Cannula 4.00 09/19/16 12:19 83 09/19/16 12:00 98.2 84 20 103/58 95 Nasal Cannula 3.00 I & O 09/20/16 07:00 Intake Total 2015 ml Output Total 2860 ml Balance -845 ml Capillary Refill : General Appearance: WD/WN HEENT: PERRL/EOMI Neck: Full Range of Motion Supple Respiratory: Chest Non Tender Decreased Breath Sounds Rhonci Wheezing Cardiovascular: Regular Rate, Rhythm Gastrointestinal: normal bowel sounds non tender soft no organomegaly no pulsatile mass Extremity: Pedal Edema Neurologic/Psychiatric: Alert Oriented x3 Skin: Warm/Dry Lymphatic: No Adenopathy Results Lab Laboratory Tests 09/19/16 15:59: Glucometer 153H 09/19/16 21:37: Glucometer 176H 09/20/16 05:25: Glucometer 129H Assessment/Plan Assessment/Plan Assess & Plan/Chief Complaint PNEUMONIA CONGESTIVE HEART FAILURE EXACERBATION CARDIOMYOPATHY CHRONIC NAUSEA CHURG-CANELO ATRIAL FIBRILLATION CHRONIC IMMUNE SUPPRESSION THERAPY ESOPHAGEAL REFLUX CHRONIC PAIN SYNDROME STEROID INDUCED DIABETES MELLITUS CHRONIC OXYGEN THERAPY NOCTURNAL APNEA PNEUMONIA - PT ON PNEUMONIA PROTOCOL WITH PSEUDOMONAL COVERAGE, CONTINUE WITH MUCOMYST CHF - ACUTE ON CHRONIC LEFT SIDED SYSTOLIC FAILURE - CONTINUE WITH IV LASIX, MONITOR BNP CLOSELY. CARDIOMYOPATHY, CHURG-CANELO -PROGRESSIVE SYMPTOMS - PT HAS BEEN DECLINED X 2 FOR HEART LUNG TRANSPLANT, WILL CALL [employer] TO DISCUSS RE-EVAL FOR HEART LUNG TRANSPLANT PROGRAM. ATRIAL FIBRILLATION - RESTARTED DIGOXIN, CONTINUE SUPPORTIVE CARE. NAUSEA - SUSPECT PART OF HER NAUSEA IS DUE TO ANASARCA SHE HAS BEEN ON NAUSEA MEDS WITHOUT MUCH IMPROVEMENT IN HER SYMPTOMS, CONTINUE WITH SUPPORTIVE CARE, STARTED IV ZOFRAN AND IV PHENERGAN. CHRONIC IMMUNOSUPPRESSION - CONTINUE WITH STEROID - RESUME PREVIOUS DOSING OF ORAL STEROIDS. STEROID INDUCED DIABETES MELLITUS - CHECK FSBS, RESTARTED HOME INSULIN THERAPY. GERD - RESTARTED PROTONIX PO CHRONIC PAIN - KEEP ON HOME MEDS - AND PRN IV DILAUDID TODAY - I TALKED TO YESENIA ABOUT HER CODE STATUS. [employer] IS NOT INTERESTED IN RE-EVALUATION OF YESENIA, SHE HAS BEEN REJECTED 3 TIMES BY THEIR TRANSPLANT PROGRAM AND WILL NOT BE RECONSIDERED DUE TO HER DEBILITATED STATUS AND EXTENSIVE AND PROGRESSIVE DISEASE PROCESS. SHE HAS VERBALIZED THAT SHE DOES NOT WANT TO BE A FULL CODE, SHE WILL LEAVE HER DEFIBRILLATOR IN PLACE, AND IF IT DOES NOT WORK TO RESTART HER HEART, SHE WOULD LIKE TO PASS AWAY NATURALLY. Diagnosis/Problems: Clinical Quality Measures DVT/VTE Risk/Contraindication: Contraindications-Mechi: Other *list below* Other: vascular disease of legs ALBER PHIPPS MD Sep 20, 2016 08:31
[2016-09-20] MEDS: inSUlin DETERMIR 1 UNIT/0.01 ML (LEVEMIR) CHARGE PER UNIT SQ SCH ×2 (08:44→21:33)
[2016-09-20] MEDS: FUROSEMIDE 40 MG (LASIX) TAB PO SCH (08:45)
[2016-09-20] MEDS: DIGOXIN 0.125 MG (LANOXIN) TAB PO SCH (08:45)
[2016-09-20] MEDS: LACTOBACILLUS Acidoph/Bulgar (LACTINEX/FLORANEX) TAB PO SCH ×4 (08:45→21:30)
[2016-09-20] MEDS: ENOXAPARIN 40 MG/0.4 ML (LOVENOX) SYR SC SCH (08:45)
[2016-09-20] MEDS: SACUBITRIL/VALSARTAN 24/26 MG (ENTRESTO) TABLET PO SCH ×2 (08:45→21:32)
[2016-09-20] MEDS: SPIRONOLACTONE 25 MG (ALDACTONE) TAB PO SCH (08:45)
[2016-09-20] MEDS: CATHETER FLUSH 10 ML SYR IV PRN ×3 (09:38→18:31)
[2016-09-20] MEDS: CALCIUM CARB + VIT D 600 MG (CALCARB + D) TAB PO SCH (11:53)
[2016-09-20] MEDS: ASCORBIC ACID (VIT C) 500 MG TABLET PO SCH (11:53)
[2016-09-20] MEDS: ALPRAZolam 0.25 MG (XANAX) TAB PO SCH ×2 (11:54→21:30)
--- NOTE | 2016-09-20 12:46 | Physical Therapy Daily Note ---
PT Daily Note-Current Subjective Pt sitting up in bed upon arrival. Pt reports feeling pretty good but may not go home until Saturday. Pt agrees to PT. Pain Numeric Pain Scale: 0-No Pain Location: No Pain Reported Mental Status Patient Orientation: Person, Place, Time, Situation Attachments: Oxygen Transfers Functional [place] Measure 0=Not Assessed/NA 4=Minimal Assistance 1=Total Assistance 5=Supervision or Setup 2=Maximal Assistance 6=Modified [place] 3=Moderate Assistance 7=Complete IndependenceIRFPAI Quality Coding Scale 6 Independent with activity with or without an assistive device 5 Patient requires set up or clean up by helper. Patient completes activity by themselves 4 Supervision or touching assist (CGA). [place] provide cues , steadying assist 3 The helper provides less than half the effort to complete the activity 2 The helper provides more than half the effort to complete the activity 1 Dependent. The helper does all the effort to complete an activity 7 Patient refused to complete or attempt activity 9 The patient did not perform the activity before the current illness or injury 88 Not attempted due to Medical conditions or safety concerns Transfers (B, C, W/C) (FIM): 6 Scootin Roll Left to Right (QC): 6 Supine to/from Sit: 6 Sit to/from Stand: 6 Sit to Lying (QC): 6 Sit to Stand (QC): 6 Chair/Kuq-xs-Eskxh Xfer(QC): 6 Bed to/from Chair: 6 Weight Bearing Weight Bearing Restriction: Full Weight Bearing Location Restriction: LE Bilateral Gait Training Does the Patient Walk?: Yes Gait (FIM): 6 Distance (FIM): 3=150 ft Distance: 350' Walk 50 ft with 2 Turns(QC): 6 Walk 150 ft (QC): 6 Gait Level of Assist: 6 Gait Persons Needed: 1 Gait Assistive Device: None Pt walks with normalized gait pattern. Pt walks w/o AD and is able to pull her own O2 tank. Treatments Pt transfers from sitting in bed to standing w/o AD at Mod I. Pt uses restroom independently before walking. Pt requests mask for face when walking in hallway. Pt ambulates in hallway w/o AD at Mod I and is able to pull her own O2 tank. Pt able to complete turns as well as hot die picker O2 line independently and safely with no LOB during ambulation. Pt returns to room when fatigued. Pt asks a few questions regarding her sodium intake and lunch that has just arrived. PT assists pt with where to find information on sodium in her menu and on lunch order form. Pt is left with all needs met at end of tx. Assessment Current Status: Good Progress Pt is getting stronger and more independent with transfers and mobility. No safety concerns at this time. PT Halfway Goals Forensic Chemist Goals PT Halfway Goals Time Frame: Sep 26, 2016 Transfers (B,C,W/C) (FIM): 7 Sit to Lying (QC): 6 Lying-Sitting on Side/Bed(QC): 6 Sit to Stand (QC): 6 Rollin Chair/Etr-fx-Omdrs Xfer(QC): 6 Does the Patient Walk: Yes Gait (FIM): 7 Gait distance (FIM): 3=150 ft Walk 50ft with 2 Turns (QC): 6 Walk 150 ft (QC): 6 Gait Assistive Device: None Does the Pt use WC or Scooter?: No PT Plan Problem List Problem List: Activity Tolerance, Functional Strength, Gait Treatment/Plan Treatment Plan: Continue Plan of Care Treatment Plan: Bed Mobility, Education, Functional Activity Ted, Functional Strength, Gait Treatment Duration: Sep 26, 2016 Visits Per Week: 5 Safety Risks/Education Patient Education: Gait Training, Transfer Techniques, Correct Positioning, Safety Issues Teaching Recipient: Patient Teaching Methods: Discussion Response to Teaching: Verbalize Understanding Time/GCodes Time In: 1210 Time Out: 1240 Total Billed Treatment Time: 30 Total Billed Treatment visit, FA (10m) & GT (20m) PEGGY WARREN POTATO PEELING MACHINE OPERATOR Sep 20, 2016 12:46
--- NOTE | 2016-09-20 13:45 | Cardiology Progress Note ---
Subjective Subjective/Events-last exam Patient is sitting up in bed. No new complaints. Denies any CP. Continues to complain of dyspnea with productive cough. Review of Systems General: No Night Sweats, Fatigue MalaiseNo Appetite HEENT: No Visual Changes, No Dysphasia, No Sore Throat Pulmonary: Dyspnea Cough Cardiovascular: No: Chest Pain, Edema, Palpitations, Paroxysmal Noc. Dyspnea Gastrointestinal: : NauseaNo: Abdominal Pain, Vomiting Genitourinary: No Dysuria, No Frequency Musculoskeletal: No: back pain, neck pain Neurological: : WeaknessNo: Change in speech, Confusion, Numbness Objective-Cardiology Exam Last Set of Vital Signs Vital Signs 09/20/16 09/20/16 08:00 10:48 Temp 98.4 Pulse 82 Resp 16 B/P 92/50 Pulse Ox 97 O2 Delivery Nasal Cannula O2 Flow Rate 3.00 Capillary Refill : I&O Bad tableGeneral: Alert, Oriented X3, Cooperative HEENT: Atraumatic, PERRLA Neck: Supple, No JVD, No Thyromegaly Lungs: Other (rhonchi thoughout ) Heart: Regular Rate, Normal S1, Normal S2 Abdomen: Normal Bowel Sounds Extremities: No Clubbing, No Cyanosis Skin: No Rashes, No Breakdown Neuro: Normal Gait, Normal Speech Psych/Mental Status: Mental Status NL, Mood NL A/P-Cardiology Admission Diagnosis CHF Pneumonia Churg-Ozzy Sinus tachycardia Assessment/Plan Congestive heart failure, acute on chronic left ventricular systolic dysfunction , nonischemic cardiomyopathy with ejection fraction 15 percent, Hypoxemia, elevated BNP, no significant pulmonary edema, continue on Lasix. Was given IV steroids for COPD exacerbation. I believe her current admission is more COPD exacerbation rather than pulmonary edema. Pneumonia- on broad spectrum ABX. Started on Mucomyst. Managed by Dr. Encinas and Dr. Aguilar. Generalized weakness and loss of energy. Nausea and vomiting, abdominal pain, has been having her symptoms for the last month on and off, currently feeling better. History of pedal edema with venous stasis ulcer, her edema is better, the ulcer is healing slowly. History of sinus tachycardia, still borderline tachycardic. 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 Reactive airway disease, Churg-Ozzy disease. Patient was evaluated in the past for possible cardiopulmonary transplant. 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 Chronic renal insufficiency. Continue to monitor renal function Clinical Quality Measures DVT/VTE Risk/Contraindication: Contraindications-Mechi: Other *list below* Other: vascular disease of legs JANE MCKEON Sep 20, 2016 13:45
[2016-09-20] MEDS: UMECLIDINIUM BRM IH SCH (15:00)
[2016-09-20] MEDS: VILANTEROL TR IH SCH (15:00)
[2016-09-20] MEDS: PANTOPRAZOLE 20 MG TABLET (PROTONIX) PO SCH (16:55)
--- NOTE | 2016-09-20 17:15 | Cardiology Progress Note ---
Subjective Subjective/Events-last exam Patient is in bed, still having shortness of breath, reporting overall some improvement. Mild edema. Review of Systems General: No Chills, No Night Sweats, No Fatigue, No Malaise, No Appetite, No Other HEENT: No Head Aches, No Visual Changes, No Eye Pain, No Ear Pain, No Dysphasia , No Sinus Congestion, No Post Nasal Drip, No Sore Throat, No Other Pulmonary: Dyspnea CoughNo Pleuritic Chest Pain, No Other Cardiovascular: : EdemaNo: Chest Pain, Lt Headedness, Orthopnea, Other, Palpitations, Paroxysmal Noc. Dyspnea Objective-Cardiology Exam Last Set of Vital Signs Vital Signs 09/20/16 09/20/16 08:00 15:02 Temp 98.4 Pulse 82 Resp 16 B/P 92/50 Pulse Ox 96 O2 Delivery Nasal Cannula O2 Flow Rate 3.00 Capillary Refill : I&O Bad tableGeneral: Alert, Oriented X3, Cooperative HEENT: Atraumatic, PERRLA Neck: Supple, No JVD, No Thyromegaly Lungs: Other (rhonchi thoughout ) Heart: Regular Rate, Normal S1, Normal S2 Abdomen: Normal Bowel Sounds Extremities: No Clubbing, No Cyanosis Skin: No Rashes, No Breakdown Neuro: Normal Gait, Normal Speech Psych/Mental Status: Mental Status NL, Mood NL A/P-Cardiology Admission Diagnosis CHF Pneumonia Churg-Ozzy Sinus tachycardia Assessment/Plan Congestive heart failure, acute on chronic left ventricular systolic dysfunction , nonischemic cardiomyopathy with ejection fraction 15 percent, Hypoxemia, elevated BNP, no significant pulmonary edema, continue on Lasix. Was given IV steroids for COPD exacerbation. Continue to monitor at this time. Pneumonia- on broad spectrum ABX. Started on Mucomyst. Managed by Dr. Encinas and Dr. Aguilar. Generalized weakness and loss of energy. Nausea and vomiting, abdominal pain, has been having her symptoms for the last month on and off, currently feeling better. History of pedal edema with venous stasis ulcer, her edema is better, the ulcer is healing slowly. History of sinus tachycardia, still borderline tachycardic. 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 Reactive airway disease, Churg-Ozzy disease. Patient was evaluated in the past for possible cardiopulmonary transplant. 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 Chronic renal insufficiency. Continue to monitor renal function Clinical Quality Measures DVT/VTE Risk/Contraindication: Contraindications-Mechi: Other *list below* Other: vascular disease of legs ТАТЬЯНА ROGERS MD Sep 20, 2016 17:15
[2016-09-20 19:05] VITALS: BP 92/63
[2016-09-20] MEDS: PRENATAL VITAMIN 1 EA TAB PO SCH (21:30)
[2016-09-20] MEDS: hydrOXYzine (VISTARIL) 25 MG CAP PO SCH (21:30)
[2016-09-20] MEDS: FOLIC ACID 1 MG TAB PO SCH (21:31)
[2016-09-20] MEDS: LEVOFLOXACIN 750 MG/150 ML IV 150 ML IV SCH (22:54)
[2016-09-21] MEDS: methylPREDNISolone 40 MG/ML (Solu-MEDROL) VIAL IV SCH ×2 (00:29→06:34)
[2016-09-21] MEDS: CEFEPIME INJECTION 2,000 MG in NORMAL SALINE (BAXTER MINI) 50 ML IV SCH ×2 (01:57→13:32)
[2016-09-21] MEDS: aCETylcysteine 20% (MUCOMYST) 30ML SOLN VIAL INH SCH ×4 (03:10→21:51)
[2016-09-21] MEDS: RT-ALBUTEROL/IPRATROPIUM 3 ML (DUONEB) VIAL INH SCH ×6 (03:10→21:50)
[2016-09-21] MEDS: HYDROmorphone (DILAUDID) 2 MG/ML VIAL IVP PRN ×5 (05:36→23:36)
[2016-09-21] MEDS: inSUlin (REGULAR) HUMAN 1 UNIT/0.01 ML (CHARGE PER UNIT) SC SCH ×4 (06:35→21:26)
[2016-09-21] MEDS: MAGNESIUM OXIDE (MAG-OX)400 MG TAB PO SCH ×2 (06:35→16:15)
[2016-09-21] MEDS: TRIM/SULFAMETH 160/800 (SEPTRA DS) TAB PO SCH (06:35)
[2016-09-21] MEDS: inSUlin DETERMIR 1 UNIT/0.01 ML (LEVEMIR) CHARGE PER UNIT SQ SCH ×2 (08:28→21:26)
[2016-09-21] MEDS: DIGOXIN 0.125 MG (LANOXIN) TAB PO SCH (08:28)
[2016-09-21] MEDS: FUROSEMIDE 40 MG (LASIX) TAB PO SCH (08:28)
[2016-09-21] MEDS: LACTOBACILLUS Acidoph/Bulgar (LACTINEX/FLORANEX) TAB PO SCH ×4 (08:28→21:19)
[2016-09-21] MEDS: predniSONE 20 MG TAB PO SCH (08:28)
[2016-09-21] MEDS: SPIRONOLACTONE 25 MG (ALDACTONE) TAB PO SCH (08:28)
[2016-09-21] MEDS: predniSONE 10 MG TAB PO SCH (08:28)
[2016-09-21] MEDS: SACUBITRIL/VALSARTAN 24/26 MG (ENTRESTO) TABLET PO SCH ×2 (08:28→21:26)
[2016-09-21 08:30] VITALS: BP 97/54
[2016-09-21] MEDS: ENOXAPARIN 40 MG/0.4 ML (LOVENOX) SYR SC SCH (08:30)
--- NOTE | 2016-09-21 09:17 | Cardiology Progress Note ---
Subjective Subjective/Events-last exam patient is laying down in bed, feeling better, still having some shortness of breath and wheezing, still having some cough. Review of Systems General: No Chills, No Night Sweats, Fatigue MalaiseNo Appetite, No Other HEENT: No Head Aches, No Visual Changes, No Eye Pain, No Ear Pain, No Dysphasia , No Sinus Congestion, No Post Nasal Drip, No Sore Throat, No Other Pulmonary: Dyspnea CoughNo Pleuritic Chest Pain, No Other Cardiovascular: No: Chest Pain, Edema, Lt Headedness, Orthopnea, Other, Palpitations, Paroxysmal Noc. Dyspnea Objective-Cardiology Exam Last Set of Vital Signs Vital Signs 09/20/16 09/21/16 19:05 07:05 Temp 98.9 Pulse 87 Resp 16 B/P 92/63 Pulse Ox 98 O2 Delivery Nasal Cannula O2 Flow Rate 3.00 Capillary Refill : I&O Intake and Output 09/21/16 00:00 Intake Total 2000 ml Output Total 1860 ml Balance 140 ml Intake Oral 1750 ml IV Total 250 ml Output Urine Total 1860 ml # Voids 2 # Bowel Movements 1 General: Alert, Oriented X3, Cooperative HEENT: Atraumatic, PERRLA Neck: Supple, No JVD, No Thyromegaly Lungs: Other (, bilateral rhonchi, expiratory wheezing) Heart: Regular Rate, Normal S1, Normal S2 Abdomen: Normal Bowel Sounds Extremities: No Clubbing, No Cyanosis Skin: No Rashes, No Breakdown Neuro: Normal Gait, Normal Speech Psych/Mental Status: Mental Status NL, Mood NL Results Lab Laboratory Tests Test 09/20/16 11:29 09/20/16 15:42 09/20/16 20:36 09/21/16 06:17 Range/Units Glucometer 307 H 245 H 164 H 167 H 70-110 MG/DL A/P-Cardiology Admission Diagnosis CHF Pneumonia Churg-Ozzy Sinus tachycardia Assessment/Plan Congestive heart failure, acute on chronic left ventricular systolic dysfunction , nonischemic cardiomyopathy with ejection fraction 15 percent, Hypoxemia, elevated BNP, no significant pulmonary edema, continue on Lasix. Was given IV steroids for COPD exacerbation. Continue to monitor at this time. I will reevaluate metabolic profile and CBC in a.m. Pneumonia- on broad spectrum ABX. Started on Mucomyst. Managed by Dr. Encinas and Dr. Aguilar, repeat chest x-ray in the morning Generalized weakness and loss of energy. Receiving physical and occupational therapy Nausea and vomiting, abdominal pain, has been having her symptoms for the last month on and off, currently feeling better. History of pedal edema with venous stasis ulcer, her edema is better, the ulcer is healing slowly. History of sinus tachycardia, still borderline tachycardic. 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 Reactive airway disease, Churg-Ozzy disease. Patient was evaluated in the past for possible cardiopulmonary transplant. 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 Chronic renal insufficiency. Continue to monitor renal function Clinical Quality Measures DVT/VTE Risk/Contraindication: Contraindications-Mechi: Other *list below* Other: vascular disease of legs ТАТЬЯНА ROGERS MD Sep 21, 2016 09:17
--- NOTE | 2016-09-21 10:19 | Physical Therapy Daily Note ---
PT Daily Note-Current Subjective Patient is very agreeable to participate with PT. Patient states she has been up in hallway independently in the evenings. Pain Numeric Pain Scale: 0-No Pain Location: No Pain Reported Mental Status Patient Orientation: Normal For Age Attachments: Oxygen (3L) Transfers Functional [place] Measure 0=Not Assessed/NA 4=Minimal Assistance 1=Total Assistance 5=Supervision or Setup 2=Maximal Assistance 6=Modified [place] 3=Moderate Assistance 7=Complete IndependenceIRFPAI Quality Coding Scale 6 Independent with activity with or without an assistive device 5 Patient requires set up or clean up by helper. Patient completes activity by themselves 4 Supervision or touching assist (CGA). [place] provide cues , steadying assist 3 The helper provides less than half the effort to complete the activity 2 The helper provides more than half the effort to complete the activity 1 Dependent. The helper does all the effort to complete an activity 7 Patient refused to complete or attempt activity 9 The patient did not perform the activity before the current illness or injury 88 Not attempted due to Medical conditions or safety concerns Transfers (B, C, W/C) (FIM): 7 Scootin Roll Left to Right (QC): 7 Supine to/from Sit: 7 Sit to/from Stand: 7 Sit to Lying (QC): 6 Sit to Stand (QC): 6 Chair/[id number]-[id number] Xfer(QC): 6 Gait Training Does the Patient Walk?: Yes Gait (FIM): 7 Distance (FIM): 3=150 ft Distance: 800' Walk 50 ft with 2 Turns(QC): 6 Walk 150 ft (QC): 6 Gait Level of Assist: 7 Gait Assistive Device: None patient pulled O2 tank independently; gait is safe and functional Assessment Patient is currently at independent LOF with all functional mobility. Patient plans dismissal 09/22/16. PT Instrumentation Technician Goals Instrumentation Technician Goals PT Instrumentation Technician Goals Time Frame: Sep 26, 2016 Transfers (B,C,W/C) (FIM): 7 (met 09/21/16) Sit to Lying (QC): 6 (met 09/21/16) Lying-Sitting on Side/Bed(QC): 6 (met 09/21/16) Sit to Stand (QC): 6 (met 09/21/16) Rollin (met 09/21/16) Chair/[id number]-Biqfb Xfer(QC): 6 (met 09/21/16) Does the Patient Walk: Yes Gait (FIM): 7 (met 09/21/16) Gait distance (FIM): 3=150 ft Walk 50ft with 2 Turns (QC): 6 (met 09/21/16) Walk 150 ft (QC): 6 (met 09/21/16) Gait Assistive Device: None Does the Pt use WC or Scooter?: No PT Plan Treatment/Plan Treatment Plan: Continue Plan of Care Treatment Plan: Bed Mobility, Education, Functional Activity Ted, Functional Strength, Gait Treatment Duration: Sep 26, 2016 Visits Per Week: 5 Safety Risks/Education Patient Education: Disease Process Teaching Recipient: Patient Teaching Methods: Discussion Response to Teaching: Verbalize Understanding Time/GCodes Time In: 955 Time Out: 1010 Total Billed Treatment Time: 15 Total Billed Treatment 1 visit FA 15 min JAXSON BEARD PT Sep 21, 2016 10:19
--- NOTE | 2016-09-21 10:49 | Progress Note (SOAP) ---
Subjective Subjective/Events-last exam THE PATIENT REPORTS THAT SHE IS FEELING BETTER TODAY COMPARED TO A FEW DAYS AGO. SHE STATES THAT HER COUGH HAS IMPROVED, SHE IS USING THE INCENTIVE SPIROMETER MORE FREQUENTLY AND HAS IMPROVED HER DEEP BREATHING. Review of Systems General: No Chills, No Night Sweats, Fatigue HEENT: No Head Aches Pulmonary: Dyspnea Cough Cardiovascular: No: Chest Pain Gastrointestinal: No: Abdominal Pain, Nausea Genitourinary: No Dysuria Musculoskeletal: : back pain: leg pain Neurological: : Weakness Objective Exam Vital Signs Date Time Temp Pulse Resp B/P Pulse Ox O2 Delivery O2 Flow Rate FiO2 09/21/16 09:00 97 Nasal Cannula 3.00 09/21/16 08:30 97.0 76 22 97/54 97 Nasal Cannula 3.00 09/21/16 07:05 98 09/21/16 07:05 98 Nasal Cannula 3.00 09/21/16 03:10 96 Nasal Cannula 3.00 09/20/16 22:00 96 Nasal Cannula 3.00 09/20/16 21:00 Nasal Cannula 3.00 09/20/16 19:26 96 Nasal Cannula 3.00 09/20/16 19:05 98.9 87 16 92/63 96 Nasal Cannula 3.00 09/20/16 15:02 96 Nasal Cannula 3.00 I & O 09/21/16 07:00 Intake Total 1850 ml Output Total 2400 ml Balance -550 ml Capillary Refill : General Appearance: No Apparent Distress WD/WN Neck: Full Range of Motion Respiratory: Crackles Decreased Breath Sounds Rhonci Wheezing Cardiovascular: Regular Rate, Rhythm Systolic Murmur Gastrointestinal: normal bowel sounds non tender soft no organomegaly no pulsatile mass Extremity: Pedal Edema Neurologic/Psychiatric: Alert Oriented x3 No Motor/Sensory Deficits Normal Mood/Affect Skin: Warm/Dry Lymphatic: No Adenopathy Results Lab Laboratory Tests 09/20/16 11:29: Glucometer 307H 09/20/16 15:42: Glucometer 245H 09/20/16 20:36: Glucometer 164H 09/21/16 06:17: Glucometer 167H Assessment/Plan Assessment/Plan Assess & Plan/Chief Complaint PNEUMONIA CONGESTIVE HEART FAILURE EXACERBATION CARDIOMYOPATHY CHRONIC NAUSEA CHURG-CANELO ATRIAL FIBRILLATION CHRONIC IMMUNE SUPPRESSION THERAPY ESOPHAGEAL REFLUX CHRONIC PAIN SYNDROME STEROID INDUCED DIABETES MELLITUS CHRONIC OXYGEN THERAPY NOCTURNAL APNEA PNEUMONIA - PT ON PNEUMONIA PROTOCOL WITH PSEUDOMONAL COVERAGE, CONTINUE WITH MUCOMYST CHF - ACUTE ON CHRONIC LEFT SIDED SYSTOLIC FAILURE - CONTINUE WITH IV LASIX, MONITOR BNP CLOSELY. CARDIOMYOPATHY, CHURG-CANELO -PROGRESSIVE SYMPTOMS - PT HAS BEEN DECLINED X 2 FOR HEART LUNG TRANSPLANT, WILL CALL [facility] TO DISCUSS RE-EVAL FOR HEART LUNG TRANSPLANT PROGRAM. ATRIAL FIBRILLATION - RESTARTED DIGOXIN, CONTINUE SUPPORTIVE CARE. NAUSEA - SUSPECT PART OF HER NAUSEA IS DUE TO ANASARCA SHE HAS BEEN ON NAUSEA MEDS WITHOUT MUCH IMPROVEMENT IN HER SYMPTOMS, CONTINUE WITH SUPPORTIVE CARE, STARTED IV ZOFRAN AND IV PHENERGAN. CHRONIC IMMUNOSUPPRESSION - CONTINUE WITH STEROID - RESUME PREVIOUS DOSING OF ORAL STEROIDS. STEROID INDUCED DIABETES MELLITUS - CHECK FSBS, RESTARTED HOME INSULIN THERAPY. GERD - RESTARTED PROTONIX PO CHRONIC PAIN - KEEP ON HOME MEDS - AND PRN IV DILAUDID TODAY - I TALKED TO YESENIA ABOUT HER CODE STATUS. [facility] IS NOT INTERESTED IN RE-EVALUATION OF YESENIA, SHE HAS BEEN REJECTED 3 TIMES BY THEIR TRANSPLANT PROGRAM AND WILL NOT BE RECONSIDERED DUE TO HER DEBILITATED STATUS AND EXTENSIVE AND PROGRESSIVE DISEASE PROCESS. SHE HAS VERBALIZED THAT SHE DOES NOT WANT TO BE A FULL CODE, SHE WILL LEAVE HER DEFIBRILLATOR IN PLACE, AND IF IT DOES NOT WORK TO RESTART HER HEART, SHE WOULD LIKE TO PASS AWAY NATURALLY. Diagnosis/Problems: Clinical Quality Measures DVT/VTE Risk/Contraindication: Contraindications-Mechi: Other *list below* Other: vascular disease of legs ALBER PHIPPS MD Sep 21, 2016 10:49
[2016-09-21] MEDS: VILANTEROL TR IH SCH (10:56)
[2016-09-21] MEDS: UMECLIDINIUM BRM IH SCH (10:56)
[2016-09-21] MEDS: CALCIUM CARB + VIT D 600 MG (CALCARB + D) TAB PO SCH (11:14)
[2016-09-21] MEDS: ASCORBIC ACID (VIT C) 500 MG TABLET PO SCH (11:14)
[2016-09-21] MEDS: ALPRAZolam 0.25 MG (XANAX) TAB PO SCH ×2 (11:14→21:19)
[2016-09-21] MEDS: PANTOPRAZOLE 20 MG TABLET (PROTONIX) PO SCH (16:16)
[2016-09-21 18:00] VITALS: BP 108/95
[2016-09-21 20:00] VITALS: BP 122/84
[2016-09-21] MEDS: PRENATAL VITAMIN 1 EA TAB PO SCH (21:19)
[2016-09-21] MEDS: FOLIC ACID 1 MG TAB PO SCH (21:19)
[2016-09-21] MEDS: hydrOXYzine (VISTARIL) 25 MG CAP PO SCH (21:19)
[2016-09-22] MEDS: CEFEPIME INJECTION 2,000 MG in NORMAL SALINE (BAXTER MINI) 50 ML IV SCH ×2 (02:33→14:37)
[2016-09-22] MEDS: aCETylcysteine 20% (MUCOMYST) 30ML SOLN VIAL INH SCH ×3 (03:04→19:12)
[2016-09-22] MEDS: RT-ALBUTEROL/IPRATROPIUM 3 ML (DUONEB) VIAL INH SCH ×6 (03:04→22:28)
[2016-09-22 05:33] LABS: MEAN PLATELET VOLUME 11.6 FL (7.4-10.4); RED BLOOD COUNT 4.4 10^6/uL (4.35-5.85); RED CELL DISTRIBUTION WIDTH 16.9 % (10.0-14.5); WHITE BLOOD COUNT 12.7 10^3/uL (4.3-11.0)
[2016-09-22 05:53] LABS: ALANINE AMINOTRANSFERASE 24 U/L (0-55); ALBUMIN 3.2 G/DL (3.2-4.5); ANION GAP 8 MMOL/L (5-14); ASPARTATE AMINO TRANSFERASE 23 U/L (5-34); BILIRUBIN,TOTAL 0.6 MG/DL (0.1-1.0); BLOOD UREA NITROGEN 32 MG/DL (7-18); BUN/CREATININE RATIO 36; CALCIUM 8.3 MG/DL (8.5-10.1); CARBON DIOXIDE 31 MMOL/L (21-32); CHLORIDE 98 MMOL/L (98-107); CREATININE SERUM 0.88 MG/DL (0.60-1.30); GFR ESTIMATED > 60; GLUCOSE 119 MG/DL (70-105); POTASSIUM 2.8 MMOL/L (3.6-5.0); SODIUM 137 MMOL/L (135-145); TOTAL PROTEIN 4.6 G/DL (6.4-8.2)
[2016-09-22] MEDS: inSUlin (REGULAR) HUMAN 1 UNIT/0.01 ML (CHARGE PER UNIT) SC SCH ×4 (05:58→21:17)
[2016-09-22] MEDS: HYDROmorphone (DILAUDID) 2 MG/ML VIAL IVP PRN ×5 (06:32→23:54)
[2016-09-22] MEDS: MAGNESIUM OXIDE (MAG-OX)400 MG TAB PO SCH ×2 (06:32→16:35)
[2016-09-22 08:00] VITALS: BP 90/55
[2016-09-22] MEDS: DIGOXIN 0.125 MG (LANOXIN) TAB PO SCH (09:37)
[2016-09-22] MEDS: SPIRONOLACTONE 25 MG (ALDACTONE) TAB PO SCH ×2 (09:38→10:27)
[2016-09-22] MEDS: LACTOBACILLUS Acidoph/Bulgar (LACTINEX/FLORANEX) TAB PO SCH ×4 (09:38→20:47)
[2016-09-22] MEDS: FUROSEMIDE 40 MG (LASIX) TAB PO SCH (09:38)
[2016-09-22] MEDS: predniSONE 20 MG TAB PO SCH (09:38)
[2016-09-22] MEDS: predniSONE 10 MG TAB PO SCH (09:38)
[2016-09-22] MEDS: ENOXAPARIN 40 MG/0.4 ML (LOVENOX) SYR SC SCH (09:39)
[2016-09-22] MEDS: inSUlin DETERMIR 1 UNIT/0.01 ML (LEVEMIR) CHARGE PER UNIT SQ SCH ×2 (09:40→20:47)
[2016-09-22] MEDS ORDERED: KCL 20 MEQ TAB (K-DUR) PO ONE (10:00)
--- NOTE | 2016-09-22 10:02 | Progress Note (SOAP) ---
Subjective Subjective/Events-last exam YESENIA REPORTS THAT HER SHORTNESS OF BREATH IS BETTER. SHE REPORTS THAT SHE IS USING HER INCENTIVE SPIROMETRY - SHE IS ABLE TO GET UP TO 1250 ON HER SPIROMETER AND IS USING THIS MORE EFFECTIVELY SINCE SHE STARTED THE MUCOMYST BREATHING TREATMENTS. SHE DENIES CHEST PAIN, ABDOMINAL PAIN, DENIES ANY OTHER ACUTE COMPLAINTS TODAY. Review of Systems General: Fatigue HEENT: No Head Aches Pulmonary: Dyspnea Cough Cardiovascular: No: Chest Pain Gastrointestinal: No: Abdominal Pain, Constipation, Diarrhea, Nausea Genitourinary: No Dysuria Musculoskeletal: No: back pain Neurological: : Weakness Objective Exam Vital Signs Date Time Temp Pulse Resp B/P Pulse Ox O2 Delivery O2 Flow Rate FiO2 09/22/16 08:00 96.9 69 16 90/55 96 Nasal Cannula 3.00 09/22/16 07:10 97 Nasal Cannula 3.00 09/22/16 03:04 97 Nasal Cannula 3.00 09/21/16 21:51 98 Nasal Cannula 3.00 09/21/16 21:30 Nasal Cannula 3.00 09/21/16 20:00 94 122/84 09/21/16 19:24 97 Nasal Cannula 3.00 09/21/16 18:00 98.8 88 20 108/95 97 Nasal Cannula 3.00 09/21/16 14:53 96 Nasal Cannula 3.00 09/21/16 10:56 97 Nasal Cannula 3.00 09/21/16 10:46 97 Nasal Cannula 3.00 I & O 09/22/16 07:00 Intake Total 1780 ml Output Total 3100 ml Balance -1320 ml Capillary Refill : General Appearance: No Apparent Distress WD/WN HEENT: PERRL/EOMI Neck: Full Range of Motion Supple Respiratory: Chest Non Tender Crackles Rhonci Wheezing Cardiovascular: Regular Rate, Rhythm Gastrointestinal: normal bowel sounds non tender soft no organomegaly no pulsatile mass Extremity: Pedal Edema (RACE) Neurologic/Psychiatric: Alert Oriented x3 No Motor/Sensory Deficits Normal Mood/Affect Skin: Warm/Dry Lymphatic: No Adenopathy Results Lab Laboratory Tests 09/21/16 11:14: Glucometer 206H 09/21/16 15:48: Glucometer 188H 09/22/16 05:24: Alanine Aminotransferase (ALT/SGPT) 24, Albumin 3.2, Alkaline Phosphatase 63, Anion Gap 8, Aspartate Amino Transf (AST/SGOT) 23, BUN/Creatinine Ratio 36, Blood Urea Nitrogen 32H, Calcium Level 8.3L, Carbon Dioxide Level 31, Chloride Level 98, Creatinine 0.88, Estimat Glomerular Filtration Rate > 60, Glucose Level 119H, Hematocrit 40, Hemoglobin 13.4, Mean Corpuscular Hemoglobin 31, Mean Corpuscular Hemoglobin Concent 34, Mean Corpuscular Volume 90, Mean Platelet Volume 11.6H, Platelet Count 163, Potassium Level 2.8L, Red Blood Count 4.40, Red Cell Distribution Width 16.9H, Sodium Level 137, Total Bilirubin 0.6, Total Protein 4.6L, White Blood Count 12.7H Assessment/Plan Assessment/Plan Assess & Plan/Chief Complaint PNEUMONIA CONGESTIVE HEART FAILURE EXACERBATION CARDIOMYOPATHY CHRONIC NAUSEA CHURG-CANELO ATRIAL FIBRILLATION CHRONIC IMMUNE SUPPRESSION THERAPY ESOPHAGEAL REFLUX CHRONIC PAIN SYNDROME STEROID INDUCED DIABETES MELLITUS CHRONIC OXYGEN THERAPY NOCTURNAL APNEA PNEUMONIA - PT ON PNEUMONIA PROTOCOL WITH PSEUDOMONAL COVERAGE - CONTINUE WITH CURRENT TREATMENT, MUCOMYST BREATHING TREATMENTS. CHF - ACUTE ON CHRONIC LEFT SIDED SYSTOLIC FAILURE - CONTINUE WITH IV LASIX CARDIOMYOPATHY, CHURG-CANELO -PROGRESSIVE SYMPTOMS - PT HAS BEEN DECLINED X 3 FOR HEART LUNG TRANSPLANT [facility] NOT INTERESTED IN CONSIDERATION OF YESENIA FOR HEART-LUNG TRANSPLANT. ATRIAL FIBRILLATION - RESTARTED DIGOXIN, CONTINUE SUPPORTIVE CARE. NAUSEA - SUSPECT PART OF HER NAUSEA IS DUE TO ANASARCA SHE HAS BEEN ON NAUSEA MEDS WITHOUT MUCH IMPROVEMENT IN HER SYMPTOMS, CONTINUE WITH SUPPORTIVE CARE, STARTED IV ZOFRAN AND IV PHENERGAN. CHRONIC IMMUNOSUPPRESSION - CONTINUE WITH STEROID STEROID INDUCED DIABETES MELLITUS - CHECK FSBS, RESTARTED HOME INSULIN THERAPY. 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
[2016-09-22] MEDS: fentaNYL PATCH 12 MCG (DURAGESIC) TD SCH (10:13)
[2016-09-22] MEDS: FENTANYL PATCH REMOVAL TP SCH (10:20)
[2016-09-22] MEDS: ASCORBIC ACID (VIT C) 500 MG TABLET PO SCH (11:44)
[2016-09-22] MEDS: CALCIUM CARB + VIT D 600 MG (CALCARB + D) TAB PO SCH (11:44)
[2016-09-22] MEDS: ALPRAZolam 0.25 MG (XANAX) TAB PO SCH ×2 (11:44→20:47)
[2016-09-22] MEDS: SACUBITRIL/VALSARTAN 24/26 MG (ENTRESTO) TABLET PO SCH ×2 (12:19→20:47)
--- NOTE | 2016-09-22 15:13 | Diagnostic Imaging Report ---
INDICATION: Shortness of air. TECHNIQUE: Two view chest 9:44 AM CORRELATION STUDY: 09/19/2016 FINDINGS: Right-sided multi-chamber pacemaker is stable. Stable cardiac enlargement. Vasculature within normal limits. Mediastinum is unremarkable. Lungs overall relatively clear. Visualized osseous structures are unremarkable. IMPRESSION: 1. Stable cardiac enlargement. Vasculature roughly normal. Dictated by: Dictated on workstation # [id number]
[2016-09-22] MEDS: PANTOPRAZOLE 20 MG TABLET (PROTONIX) PO SCH (16:34)
[2016-09-22 20:00] VITALS: BP 96/56
[2016-09-22] MEDS: hydrOXYzine (VISTARIL) 25 MG CAP PO SCH (20:47)
[2016-09-22] MEDS: FOLIC ACID 1 MG TAB PO SCH (20:47)
[2016-09-22] MEDS: PRENATAL VITAMIN 1 EA TAB PO SCH (20:47)
[2016-09-23] MEDS: aCETylcysteine 20% (MUCOMYST) 30ML SOLN VIAL INH SCH ×4 (02:28→19:10)
[2016-09-23] MEDS: RT-ALBUTEROL/IPRATROPIUM 3 ML (DUONEB) VIAL INH SCH ×6 (02:29→22:24)
[2016-09-23] MEDS: CEFEPIME INJECTION 2,000 MG in NORMAL SALINE (BAXTER MINI) 50 ML IV SCH ×2 (03:20→13:33)
[2016-09-23] MEDS: HYDROmorphone (DILAUDID) 2 MG/ML VIAL IVP PRN ×5 (04:20→20:58)
[2016-09-23 05:29] LABS: MEAN PLATELET VOLUME 11.8 FL (7.4-10.4); RED BLOOD COUNT 4.31 10^6/uL (4.35-5.85); RED CELL DISTRIBUTION WIDTH 16.7 % (10.0-14.5); WHITE BLOOD COUNT 13.2 10^3/uL (4.3-11.0)
[2016-09-23] MEDS: inSUlin (REGULAR) HUMAN 1 UNIT/0.01 ML (CHARGE PER UNIT) SC SCH ×4 (06:00→20:46)
[2016-09-23 06:15] LABS: ALANINE AMINOTRANSFERASE 35 U/L (0-55); ALBUMIN 3.2 G/DL (3.2-4.5); ANION GAP 10 MMOL/L (5-14); ASPARTATE AMINO TRANSFERASE 25 U/L (5-34); BILIRUBIN,TOTAL 0.8 MG/DL (0.1-1.0); BLOOD UREA NITROGEN 31 MG/DL (7-18); BUN/CREATININE RATIO 37; CALCIUM 8.3 MG/DL (8.5-10.1); CARBON DIOXIDE 29 MMOL/L (21-32); CHLORIDE 98 MMOL/L (98-107); CREATININE SERUM 0.83 MG/DL (0.60-1.30); GFR ESTIMATED > 60; GLUCOSE 122 MG/DL (70-105); MAGNESIUM 2.4 MG/DL (1.8-2.4); POTASSIUM 2.7 MMOL/L (3.6-5.0); SODIUM 137 MMOL/L (135-145); TOTAL PROTEIN 4.9 G/DL (6.4-8.2)
[2016-09-23] MEDS: MAGNESIUM OXIDE (MAG-OX)400 MG TAB PO SCH ×2 (06:25→16:10)
[2016-09-23] MEDS: KCL 20 MEQ TAB (K-DUR) PO SCH (06:25)
[2016-09-23] MEDS: UMECLIDINIUM BRM IH SCH ×2 (07:22→09:00)
[2016-09-23] MEDS: VILANTEROL TR IH SCH ×2 (07:22→09:00)
[2016-09-23 08:00] VITALS: BP 91/49
[2016-09-23] MEDS ORDERED: NS IV 500 ML 500 ML IV SCH ×2 (08:00→18:00)
[2016-09-23] MEDS: POTASSIUM CL 10MEQ/50ML IVPB 50 ML IV SCH ×7 (08:34→22:58)
[2016-09-23] MEDS: predniSONE 20 MG TAB PO SCH (08:35)
[2016-09-23] MEDS: DIGOXIN 0.125 MG (LANOXIN) TAB PO SCH (08:35)
[2016-09-23] MEDS: SACUBITRIL/VALSARTAN 24/26 MG (ENTRESTO) TABLET PO SCH ×2 (08:35→20:46)
[2016-09-23] MEDS: predniSONE 10 MG TAB PO SCH (08:35)
[2016-09-23] MEDS: LACTOBACILLUS Acidoph/Bulgar (LACTINEX/FLORANEX) TAB PO SCH ×4 (08:35→20:46)
[2016-09-23] MEDS: inSUlin DETERMIR 1 UNIT/0.01 ML (LEVEMIR) CHARGE PER UNIT SQ SCH ×2 (08:36→20:46)
[2016-09-23] MEDS: FUROSEMIDE 40 MG (LASIX) TAB PO SCH (08:36)
[2016-09-23] MEDS: ENOXAPARIN 40 MG/0.4 ML (LOVENOX) SYR SC SCH (08:36)
--- NOTE | 2016-09-23 10:09 | Progress Note (SOAP) ---
Subjective Subjective/Events-last exam PT REPORTS THAT SHE STARTED TO HAVE QUITE A BIT OF NAUSEA THIS MORNING AFTER THE POTASSIUM WAS STARTED - SHE STATES THAT THE BURNING FROM THE POTASSIUM CAUSED SIGNIFICANT NAUSEA. SHE IS ALSO IN QUITE A BIT OF PAIN AND IS WONDERING ABOUT INCREASE IN PAIN MEDICATION. Review of Systems General: Fatigue HEENT: No Head Aches Pulmonary: Dyspnea Cough Cardiovascular: No: Chest Pain Gastrointestinal: : NauseaNo: Abdominal Pain Genitourinary: No Dysuria, Frequency Musculoskeletal: : back pain: leg pain Neurological: : Weakness Objective Exam Vital Signs Date Time Temp Pulse Resp B/P Pulse Ox O2 Delivery O2 Flow Rate FiO2 09/23/16 08:00 98.7 82 20 91/49 96 Nasal Cannula 3.00 09/23/16 07:16 96 Nasal Cannula 3.00 09/23/16 02:30 97 Nasal Cannula 3.00 09/22/16 22:28 97 Nasal Cannula 3.00 09/22/16 21:00 Nasal Cannula 3.00 09/22/16 20:00 97.6 98 18 96/56 95 Nasal Cannula 3.00 09/22/16 19:13 97 Nasal Cannula 3.00 09/22/16 15:40 93 Nasal Cannula 3.00 09/22/16 11:21 93 Nasal Cannula 3.00 I & O 09/23/16 07:00 Intake Total 2080 ml Output Total 2530 ml Balance -450 ml Capillary Refill : General Appearance: No Apparent Distress WD/WN HEENT: PERRL/EOMI Pharynx Normal Neck: Full Range of Motion Supple Respiratory: Chest Non Tender Decreased Breath Sounds Rhonci Wheezing Cardiovascular: Regular Rate, Rhythm Gastrointestinal: normal bowel sounds non tender soft no organomegaly no pulsatile mass Extremity: Normal Capillary Refill No Calf Tenderness No Pedal Edema Neurologic/Psychiatric: Alert Oriented x3 No Motor/Sensory Deficits Normal Mood/Affect cork insulator II-XII Norm as Tested Skin: Warm/Dry Lymphatic: No Adenopathy Results Lab Laboratory Tests 09/22/16 10:59: Glucometer 82 09/22/16 16:16: Glucometer 205H 09/22/16 20:42: Glucometer 172H 09/23/16 05:15: Alanine Aminotransferase (ALT/SGPT) 35, Albumin 3.2, Alkaline Phosphatase 65, Anion Gap 10, Aspartate Amino Transf (AST/SGOT) 25, BUN/Creatinine Ratio 37, Blood Urea Nitrogen 31H, Calcium Level 8.3L, Carbon Dioxide Level 29, Chloride Level 98, Creatinine 0.83, Estimat Glomerular Filtration Rate > 60, Glucose Level 122H, Hematocrit 38, Hemoglobin 13.2, Magnesium Level 2.4, Mean Corpuscular Hemoglobin 31, Mean Corpuscular Hemoglobin Concent 34, Mean Corpuscular Volume 89, Mean Platelet Volume 11.8H, Platelet Count 153, Potassium Level 2.7L, Red Blood Count 4.31L, Red Cell Distribution Width 16.7H, Sodium Level 137, Total Bilirubin 0.8, Total Protein 4.9L, White Blood Count 13.2H Assessment/Plan Assessment/Plan Assess & Plan/Chief Complaint PNEUMONIA CONGESTIVE HEART FAILURE EXACERBATION CARDIOMYOPATHY CHRONIC NAUSEA CHURG-CANELO ATRIAL FIBRILLATION CHRONIC IMMUNE SUPPRESSION THERAPY ESOPHAGEAL REFLUX CHRONIC PAIN SYNDROME STEROID INDUCED DIABETES MELLITUS CHRONIC OXYGEN THERAPY NOCTURNAL APNEA PNEUMONIA - PT ON PNEUMONIA PROTOCOL WITH PSEUDOMONAL COVERAGE - CONTINUE WITH CURRENT TREATMENT, MUCOMYST BREATHING TREATMENTS. CHF - ACUTE ON CHRONIC LEFT SIDED SYSTOLIC FAILURE - CONTINUE WITH IV LASIX CARDIOMYOPATHY, CHURG-CANELO -PROGRESSIVE SYMPTOMS - PT HAS BEEN DECLINED X 3 FOR HEART LUNG TRANSPLANT [facility] NOT INTERESTED IN CONSIDERATION OF YESENIA FOR HEART-LUNG TRANSPLANT. ATRIAL FIBRILLATION - RESTARTED DIGOXIN, CONTINUE SUPPORTIVE CARE. NAUSEA - SUSPECT PART OF HER NAUSEA IS DUE TO ANASARCA SHE HAS BEEN ON NAUSEA MEDS WITHOUT MUCH IMPROVEMENT IN HER SYMPTOMS, CONTINUE WITH SUPPORTIVE CARE, STARTED IV ZOFRAN AND IV PHENERGAN. CHRONIC IMMUNOSUPPRESSION - CONTINUE WITH STEROID STEROID INDUCED DIABETES MELLITUS - CHECK FSBS, RESTARTED HOME INSULIN THERAPY. GERD - RESTARTED PROTONIX PO CHRONIC PAIN - KEEP ON HOME MEDS - AND PRN IV DILAUDID - INCREASE FROM Q4H TO Q3H HYPONATREMIA - IV POTASSIUM YESENIA WANTS TO BE A FULL CODE, SHE WILL BE ON ANTICOAGULATION, AND SCD'S Diagnosis/Problems: Clinical Quality Measures DVT/VTE Risk/Contraindication: Contraindications-Mechi: Other *list below* Other: vascular disease of legs ALBER PHIPPS MD Sep 23, 2016 10:08
[2016-09-23] MEDS ORDERED: NS IV 500 ML 500 ML IV ONE ×2 (10:19→18:00)
--- NOTE | 2016-09-23 10:58 | Cardiology Progress Note ---
Subjective Subjective/Events-last exam patient is sitting in bed, feeling better, denied any chest pain, still having shortness of breath and cough Review of Systems General: No Chills, No Night Sweats, No Fatigue, No Malaise, No Appetite, No Other HEENT: No Head Aches, No Visual Changes, No Eye Pain, No Ear Pain, No Dysphasia , No Sinus Congestion, No Post Nasal Drip, No Sore Throat, No Other Pulmonary: Dyspnea CoughNo Pleuritic Chest Pain, No Other Cardiovascular: : EdemaNo: Chest Pain, Lt Headedness, Orthopnea, Other, Palpitations, Paroxysmal Noc. Dyspnea Objective-Cardiology Exam Last Set of Vital Signs Vital Signs 09/23/16 09/23/16 08:00 10:29 Temp 98.7 Pulse 82 Resp 20 B/P 91/49 Pulse Ox 98 O2 Delivery Nasal Cannula O2 Flow Rate 3.00 Capillary Refill : I&O Intake and Output 09/23/16 00:00 Intake Total 1620 ml Output Total 2630 ml Balance -1010 ml Intake Oral 1570 ml IV Total 50 ml Output Urine Total 2630 ml # Bowel Movements 1 General: Alert, Oriented X3, Cooperative HEENT: Atraumatic, PERRLA Neck: Supple, No JVD, No Thyromegaly Lungs: Other (Bilateral rhonchi, expiratory wheezing) Heart: Regular Rate, Normal S1, Normal S2 Abdomen: Normal Bowel Sounds Extremities: No Clubbing, No Cyanosis Skin: No Rashes, No Breakdown Neuro: Normal Gait, Normal Speech Psych/Mental Status: Mental Status NL, Mood NL Results Lab Laboratory Tests 09/23/16 05:15 A/P-Cardiology Admission Diagnosis CHF Pneumonia Churg-Ozzy Sinus tachycardia Assessment/Plan Congestive heart failure, acute on chronic left ventricular systolic dysfunction , nonischemic cardiomyopathy with ejection fraction 15 percent, Hypoxemia, elevated BNP, no significant pulmonary edema, continue on Lasix. Was given IV steroids for COPD exacerbation, slow improvement. Continue to monitor. Continue current medication Pneumonia- on broad spectrum ABX. Started on Mucomyst. Managed by Dr. Encinas and Dr. Aguilar Hypokalemia, receiving potassium, monitor electrolytes. Generalized weakness and loss of energy. Receiving physical and occupational therapy Nausea and vomiting, abdominal pain, has been having her symptoms for the last month on and off, currently feeling better. History of pedal edema with venous stasis ulcer, improved, ulcer is healed. Edema is better. History of sinus tachycardia, still borderline tachycardic. 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 Reactive airway disease, Churg-Ozzy disease. Patient was evaluated in the past for possible cardiopulmonary transplant. 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 Chronic renal insufficiency. Continue to monitor renal function Clinical Quality Measures DVT/VTE Risk/Contraindication: Contraindications-Mechi: Other *list below* Other: vascular disease of legs ТТАЬЯНА ROGERS MD Sep 23, 2016 10:58
[2016-09-23] MEDS: ASCORBIC ACID (VIT C) 500 MG TABLET PO SCH (11:45)
[2016-09-23] MEDS: ALPRAZolam 0.25 MG (XANAX) TAB PO SCH ×2 (11:45→20:46)
[2016-09-23] MEDS: CALCIUM CARB + VIT D 600 MG (CALCARB + D) TAB PO SCH (11:45)
[2016-09-23] MEDS: PANTOPRAZOLE 20 MG TABLET (PROTONIX) PO SCH (16:10)
[2016-09-23] MEDS: CATHETER FLUSH 10 ML SYR IV PRN ×2 (16:28→20:59)
[2016-09-23 20:00] VITALS: BP 100/62
[2016-09-23] MEDS: hydrOXYzine (VISTARIL) 25 MG CAP PO SCH (20:45)
[2016-09-23] MEDS: FOLIC ACID 1 MG TAB PO SCH (20:45)
[2016-09-23] MEDS: PRENATAL VITAMIN 1 EA TAB PO SCH (20:46)
[2016-09-24] MEDS: HYDROmorphone (DILAUDID) 2 MG/ML VIAL IVP PRN ×8 (00:19→23:22)
[2016-09-24] MEDS: POTASSIUM CL 10MEQ/50ML IVPB 50 ML IV SCH (00:19)
[2016-09-24] MEDS: RT-ALBUTEROL/IPRATROPIUM 3 ML (DUONEB) VIAL INH SCH ×8 (02:12→22:22)
[2016-09-24] MEDS: aCETylcysteine 20% (MUCOMYST) 30ML SOLN VIAL INH SCH ×4 (02:12→19:35)
[2016-09-24] MEDS: CEFEPIME INJECTION 2,000 MG in NORMAL SALINE (BAXTER MINI) 50 ML IV SCH (02:27)
[2016-09-24] MEDS: inSUlin (REGULAR) HUMAN 1 UNIT/0.01 ML (CHARGE PER UNIT) SC SCH ×4 (06:00→21:00)
[2016-09-24] MEDS: TRIM/SULFAMETH 160/800 (SEPTRA DS) TAB PO SCH (06:14)
[2016-09-24] MEDS: MAGNESIUM OXIDE (MAG-OX)400 MG TAB PO SCH ×2 (06:14→16:13)
[2016-09-24] MEDS: KCL 20 MEQ TAB (K-DUR) PO SCH (06:14)
[2016-09-24 06:43] LABS: ANION GAP 10 MMOL/L (5-14); BLOOD UREA NITROGEN 24 MG/DL (7-18); BUN/CREATININE RATIO 29; CALCIUM 8.5 MG/DL (8.5-10.1); CARBON DIOXIDE 27 MMOL/L (21-32); CHLORIDE 100 MMOL/L (98-107); CREATININE SERUM 0.82 MG/DL (0.60-1.30); GFR ESTIMATED > 60; GLUCOSE 116 MG/DL (70-105); SODIUM 137 MMOL/L (135-145)
[2016-09-24 08:00] VITALS: BP 102/60
--- NOTE | 2016-09-24 08:30 | Cardiology Progress Note ---
Subjective Subjective/Events-last exam Patient is in bed. No new complaints. Continues to have productive cough. States dyspnea is somewhat improved. Review of Systems General: No Night Sweats, Fatigue MalaiseNo Appetite HEENT: No Visual Changes, No Dysphasia, No Sore Throat Pulmonary: Dyspnea Cough Cardiovascular: No: Chest Pain, Edema, Palpitations, Paroxysmal Noc. Dyspnea Gastrointestinal: : NauseaNo: Abdominal Pain, Vomiting Genitourinary: No Dysuria, No Frequency Musculoskeletal: No: back pain, neck pain Neurological: : WeaknessNo: Change in speech, Confusion, Numbness Objective-Cardiology Exam Last Set of Vital Signs Vital Signs 09/23/16 09/24/16 20:00 06:54 Temp 97.7 Pulse 82 Resp 20 B/P 100/62 Pulse Ox 98 O2 Delivery Nasal Cannula O2 Flow Rate 3.00 Capillary Refill : I&O Bad tableGeneral: Alert, Oriented X3, Cooperative HEENT: Atraumatic, PERRLA Neck: Supple, No JVD, No Thyromegaly Lungs: Other (Bilateral rhonchi, expiratory wheezing) Heart: Regular Rate, Normal S1, Normal S2 Abdomen: Normal Bowel Sounds Extremities: No Clubbing, No Cyanosis Skin: No Rashes, No Breakdown Neuro: Normal Gait, Normal Speech Psych/Mental Status: Mental Status NL, Mood NL Results Lab Laboratory Tests 09/24/16 05:59 A/P-Cardiology Admission Diagnosis CHF Pneumonia Churg-Ozzy Sinus tachycardia Assessment/Plan Congestive heart failure, acute on chronic left ventricular systolic dysfunction , nonischemic cardiomyopathy with ejection fraction 15 percent, Hypoxemia, elevated BNP, no significant pulmonary edema, continue on Lasix. Was given IV steroids for COPD exacerbation, slow improvement. Continue to monitor. Continue current medication Pneumonia- on broad spectrum ABX. Started on Mucomyst. Managed by Dr. Encinas and Dr. Aguilar Hypokalemia, receiving potassium, monitor electrolytes. Generalized weakness and loss of energy. Receiving physical and occupational therapy Nausea and vomiting, abdominal pain, has been having her symptoms for the last month on and off, currently feeling better. History of pedal edema with venous stasis ulcer, improved, ulcer is healed. Edema is better. History of sinus tachycardia, still borderline tachycardic. Continue to monitor. 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 Reactive airway disease, Churg-Ozzy disease. Patient was evaluated in the past for possible cardiopulmonary transplant. 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 Chronic renal insufficiency. Continue to monitor renal function Clinical Quality Measures DVT/VTE Risk/Contraindication: Contraindications-Mechi: Other *list below* Other: vascular disease of legs JANE MCKEON Sep 24, 2016 08:30
[2016-09-24] MEDS: LACTOBACILLUS Acidoph/Bulgar (LACTINEX/FLORANEX) TAB PO SCH ×4 (08:48→21:10)
[2016-09-24] MEDS: inSUlin DETERMIR 1 UNIT/0.01 ML (LEVEMIR) CHARGE PER UNIT SQ SCH ×2 (08:48→21:11)
[2016-09-24] MEDS: FUROSEMIDE 40 MG (LASIX) TAB PO SCH (08:48)
[2016-09-24] MEDS: SACUBITRIL/VALSARTAN 24/26 MG (ENTRESTO) TABLET PO SCH ×2 (08:48→21:11)
[2016-09-24] MEDS: ENOXAPARIN 40 MG/0.4 ML (LOVENOX) SYR SC SCH (08:48)
[2016-09-24] MEDS: DIGOXIN 0.125 MG (LANOXIN) TAB PO SCH (08:48)
[2016-09-24] MEDS: predniSONE 20 MG TAB PO SCH (08:48)
[2016-09-24] MEDS: predniSONE 10 MG TAB PO SCH (08:48)
[2016-09-24] MEDS: CATHETER FLUSH 10 ML SYR IV PRN ×3 (09:16→15:24)
--- NOTE | 2016-09-24 09:25 | Cardiology Progress Note ---
Subjective Subjective/Events-last exam patient is laying down in bed, feeling better, still having cough and shortness of breath. Still wheezing. No chest pain, no edema Review of Systems General: No Chills, No Night Sweats, Fatigue MalaiseNo Appetite, No Other HEENT: No Head Aches, No Visual Changes, No Eye Pain, No Ear Pain, No Dysphasia , No Sinus Congestion, No Post Nasal Drip, No Sore Throat, No Other Pulmonary: Dyspnea CoughNo Pleuritic Chest Pain, No Other Cardiovascular: No: Chest Pain, Edema, Lt Headedness, Orthopnea, Other, Palpitations, Paroxysmal Noc. Dyspnea Objective-Cardiology Exam Last Set of Vital Signs Vital Signs 09/23/16 09/24/16 20:00 06:54 Temp 97.7 Pulse 82 Resp 20 B/P 100/62 Pulse Ox 98 O2 Delivery Nasal Cannula O2 Flow Rate 3.00 Capillary Refill : I&O Bad tableGeneral: Alert, Oriented X3, Cooperative HEENT: Atraumatic, PERRLA Neck: Supple, No JVD, No Thyromegaly Lungs: Other (Bilateral rhonchi, expiratory wheezing) Heart: Regular Rate, Normal S1, Normal S2 Abdomen: Normal Bowel Sounds Extremities: No Clubbing, No Cyanosis Skin: No Rashes, No Breakdown Neuro: Normal Gait, Normal Speech Psych/Mental Status: Mental Status NL, Mood NL Results Lab Laboratory Tests 09/24/16 05:59 A/P-Cardiology Admission Diagnosis CHF Pneumonia Churg-Ozzy Sinus tachycardia Assessment/Plan Congestive heart failure, acute on chronic left ventricular systolic dysfunction , nonischemic cardiomyopathy with ejection fraction 15 percent, Hypoxemia, elevated BNP, no significant pulmonary edema, responding slowly to steroids. Continue to monitor. Hypokalemia, monitor closely, replace potassium. Pneumonia- on broad spectrum ABX. Started on Mucomyst. Managed by Dr. Encinas and Dr. Aguilar Generalized weakness and loss of energy. Receiving physical and occupational therapy Nausea and vomiting, abdominal pain, has been having her symptoms for the last month on and off, currently feeling better. History of pedal edema with venous stasis ulcer, improved, ulcer is healed. Edema is better. History of sinus tachycardia, still borderline tachycardic. Continue to monitor. 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 Reactive airway disease, Churg-Ozzy disease. Patient was evaluated in the past for possible cardiopulmonary transplant. [place] syndrome secondary to chronic steroid use. Chronic renal insufficiency. Continue to monitor renal function Clinical Quality Measures DVT/VTE Risk/Contraindication: Contraindications-Mechi: Other *list below* Other: vascular disease of legs ТАТЬЯНА ROGERS MD Sep 24, 2016 09:25
[2016-09-24] MEDS ORDERED: KCL 20 MEQ TAB (K-DUR) PO NR (09:30)
--- NOTE | 2016-09-24 10:08 | Physical Therapy Daily Note ---
PT Daily Note-Current Subjective Patient agrees to PT. Pain Numeric Pain Scale: 0-No Pain Location: No Pain Reported Mental Status Patient Orientation: Normal For Age Attachments: Oxygen (2-3L) Transfers Functional [place] Measure 0=Not Assessed/NA 4=Minimal Assistance 1=Total Assistance 5=Supervision or Setup 2=Maximal Assistance 6=Modified [place] 3=Moderate Assistance 7=Complete IndependenceIRFPAI Quality Coding Scale 6 Independent with activity with or without an assistive device 5 Patient requires set up or clean up by helper. Patient completes activity by themselves 4 Supervision or touching assist (CGA). [place] provide cues , steadying assist 3 The helper provides less than half the effort to complete the activity 2 The helper provides more than half the effort to complete the activity 1 Dependent. The helper does all the effort to complete an activity 7 Patient refused to complete or attempt activity 9 The patient did not perform the activity before the current illness or injury 88 Not attempted due to Medical conditions or safety concerns Transfers (B, C, W/C) (FIM): 7 Scootin Roll Left to Right (QC): 6 Supine to/from Sit: 7 Sit to/from Stand: 7 Sit to Lying (QC): 6 Sit to Stand (QC): 6 Gait Training Does the Patient Walk?: Yes Gait (FIM): 7 Distance (FIM): 3=150 ft Distance: >1000' Walk 50 ft with 2 Turns(QC): 6 Walk 150 ft (QC): 6 Gait Level of Assist: 7 Gait Assistive Device: None Patient is safe and functional; noted decreased valerie due to diminished lung capacity Assessment PT consulted with Dr. Aguilar and PT to dismiss patient from services due to independent LOF. Goals met. PT Chief Sustainability Officer Goals Half-Way Goals PT Half-Way Goals Time Frame: Sep 26, 2016 Transfers (B,C,W/C) (FIM): 7 (met 09/21/16) Sit to Lying (QC): 6 (met 09/21/16) Lying-Sitting on Side/Bed(QC): 6 (met 09/21/16) Sit to Stand (QC): 6 (met 09/21/16) Rollin (met 09/21/16) Chair/[id number]-[id number] Xfer(QC): 6 (met 09/21/16) Does the Patient Walk: Yes Gait (FIM): 7 (met 09/21/16) Gait distance (FIM): 3=150 ft Walk 50ft with 2 Turns (QC): 6 (met 09/21/16) Walk 150 ft (QC): 6 (met 09/21/16) Gait Assistive Device: None Does the Pt use WC or Scooter?: No PT Plan Treatment/Plan Treatment Plan: Discontinue PT, goals met Treatment Plan: Bed Mobility, Education, Functional Activity Ted, Functional Strength, Gait Treatment Duration: Sep 26, 2016 Visits Per Week: 5 Time/GCodes Time In: 931 Time Out: 954 Total Billed Treatment Time: 23 Total Billed Treatment 1 visit FA x 2 23 min JAXSON BEARD PT Sep 24, 2016 10:08
--- NOTE | 2016-09-24 10:09 | Therapy Team Discharge Summary ---
Therapy Discharge Summary Discharge Recommendations Date of Discharge 09/24/16 Physical Therapy Patient has improved with cardiopulmonary function with display in increase activity. PT consulted with Dr. Aguilar and PT to dismiss patient from services due to independent LOF. Goals met. PT Energy Project Manager Goals Energy Project Manager Goals PT Energy Project Manager Goals Time Frame: Sep 26, 2016 Transfers (B,C,W/C) (FIM): 7 (met 09/21/16) Sit to Lying (QC): 6 (met 09/21/16) Lying-Sitting on Side/Bed(QC): 6 (met 09/21/16) Sit to Stand (QC): 6 (met 09/21/16) Rollin (met 09/21/16) Chair/[id number]-Mubox Xfer(QC): 6 (met 09/21/16) Does the Patient Walk: Yes Gait (FIM): 7 (met 09/21/16) Gait distance (FIM): 3=150 ft Walk 50ft with 2 Turns (QC): 6 (met 09/21/16) Walk 150 ft (QC): 6 (met 09/21/16) Gait Assistive Device: None Does the Pt use WC or Scooter?: No OT Half-Way Goals Energy Project Manager Goals 1=Demonstrate adherence to instructed precautions during ADL tasks. 2=Patient will verbalize/demonstrate understanding of assistive devices/ modifications for ADL. 3=Patient will improve strength/tolerance for activity to enable patient to perform ADL's. JAXSON BEARD PT Sep 24, 2016 10:09
--- NOTE | 2016-09-24 10:53 | Progress Note (SOAP) ---
Subjective Subjective/Events-last exam PT REPORTS THAT SHE IS FEELING BETTER TODAY, SHE WAS ABLE TO WALK IN THE HALLWAY TODAY WITH LESS SHORTNESS OF BREATH THAN PREVIOUSLY. SHE IS STILL HAVING THICK MUCUS FROM COUGHING. SHE IS WORRIED ABOUT THE DRY PATCH OF SKIN ON HER 5TH TOE ON LEFT FOOT. SHE STATES THAT HER MOM IS SICK AT HOME AND SHE IS WORRIED ABOUT GOING HOME INTO A SICK HOUSE. Review of Systems General: No Chills, No Fatigue, No Malaise HEENT: No Head Aches Pulmonary: Dyspnea Cough Cardiovascular: No: Chest Pain, Edema Gastrointestinal: No: Abdominal Pain, Nausea Genitourinary: No Dysuria Musculoskeletal: : back pain: leg pain Neurological: No: Confusion, Weakness SKIN LESION LEFT 5TH TOE Objective Exam Vital Signs Date Time Temp Pulse Resp B/P Pulse Ox O2 Delivery O2 Flow Rate FiO2 09/24/16 10:40 98 Nasal Cannula 3.00 09/24/16 09:00 Nasal Cannula 3.00 09/24/16 06:54 98 09/24/16 06:54 98 Nasal Cannula 3.00 09/24/16 02:13 96 Nasal Cannula 3.00 09/23/16 22:24 98 Nasal Cannula 3.00 09/23/16 21:00 Nasal Cannula 3.00 09/23/16 20:00 97.7 82 20 100/62 96 Nasal Cannula 3.00 09/23/16 19:11 98 Nasal Cannula 3.00 09/23/16 15:10 97 Nasal Cannula 3.00 I & O 09/24/16 07:00 Intake Total 2506 ml Output Total 2800 ml Balance -294 ml Capillary Refill : General Appearance: No Apparent Distress WD/WN HEENT: PERRL/EOMI Pharynx Normal Neck: Full Range of Motion Supple Respiratory: Chest Non Tender Decreased Breath Sounds Rhonci Wheezing Cardiovascular: Regular Rate, Rhythm Gastrointestinal: normal bowel sounds non tender soft no organomegaly no pulsatile mass Extremity: Normal Capillary Refill No Pedal Edema Neurologic/Psychiatric: Alert Oriented x3 No Motor/Sensory Deficits Normal Mood/Affect Skin: Warm/Dry Other (DRY PATCH OF SKIN OVER LEFT 5TH TOE) Lymphatic: No Adenopathy Results Lab Laboratory Tests 09/23/16 11:05: Glucometer 156H 09/23/16 15:32: Glucometer 188H 09/23/16 20:06: Glucometer 183H 09/24/16 05:59: Anion Gap 10, BUN/Creatinine Ratio 29, Blood Urea Nitrogen 24H, Calcium Level 8.5, Carbon Dioxide Level 27, Chloride Level 100, Creatinine 0.82, Estimat Glomerular Filtration Rate > 60, Glucose Level 116H, Potassium Level 3.0L, Sodium Level 137 09/24/16 06:02: Glucometer 116H Assessment/Plan Assessment/Plan Assess & Plan/Chief Complaint PNEUMONIA CONGESTIVE HEART FAILURE EXACERBATION CARDIOMYOPATHY CHRONIC NAUSEA CHURG-CANELO ATRIAL FIBRILLATION CHRONIC IMMUNE SUPPRESSION THERAPY ESOPHAGEAL REFLUX CHRONIC PAIN SYNDROME STEROID INDUCED DIABETES MELLITUS CHRONIC OXYGEN THERAPY NOCTURNAL APNEA SKIN LESION -RASH PNEUMONIA - PT ON PNEUMONIA PROTOCOL WITH PSEUDOMONAL COVERAGE, CONTINUE WITH MUCOMYST CHF - ACUTE ON CHRONIC LEFT SIDED SYSTOLIC FAILURE - CONTINUE WITH IV LASIX, MONITOR BNP CLOSELY. CARDIOMYOPATHY, CHURG-CANELO -PROGRESSIVE SYMPTOMS - PT HAS BEEN DECLINED X 2 FOR HEART LUNG TRANSPLANT, WILL CALL [facility] TO DISCUSS RE-EVAL FOR HEART LUNG TRANSPLANT PROGRAM. ATRIAL FIBRILLATION - RESTARTED DIGOXIN, CONTINUE SUPPORTIVE CARE. NAUSEA - SUSPECT PART OF HER NAUSEA IS DUE TO ANASARCA SHE HAS BEEN ON NAUSEA MEDS WITHOUT MUCH IMPROVEMENT IN HER SYMPTOMS, CONTINUE WITH SUPPORTIVE CARE, STARTED IV ZOFRAN AND IV PHENERGAN. CHRONIC IMMUNOSUPPRESSION - CONTINUE WITH STEROID - RESUME PREVIOUS DOSING OF ORAL STEROIDS. STEROID INDUCED DIABETES MELLITUS - CHECK FSBS, RESTARTED HOME INSULIN THERAPY. GERD - RESTARTED PROTONIX PO CHRONIC PAIN - KEEP ON HOME MEDS - AND PRN IV DILAUDID Q3 HOURS RASH - RX FOR CLOBETASOL ON SKIN LESION I TALKED TO YESENIA ABOUT HER CODE STATUS. [facility] IS NOT INTERESTED IN RE -EVALUATION OF YESENIA, SHE HAS BEEN REJECTED 3 TIMES BY THEIR TRANSPLANT PROGRAM AND WILL NOT BE RECONSIDERED DUE TO HER DEBILITATED STATUS AND EXTENSIVE AND PROGRESSIVE DISEASE PROCESS. SHE HAS VERBALIZED THAT SHE DOES NOT WANT TO BE A FULL CODE, SHE WILL LEAVE HER DEFIBRILLATOR IN PLACE, AND IF IT DOES NOT WORK TO RESTART HER HEART, SHE WOULD LIKE TO PASS AWAY NATURALLY. Diagnosis/Problems: Clinical Quality Measures DVT/VTE Risk/Contraindication: Contraindications-Mechi: Other *list below* Other: vascular disease of legs ALBER PHIPPS MD Sep 24, 2016 10:53
[2016-09-24] MEDS: ASCORBIC ACID (VIT C) 500 MG TABLET PO SCH (12:15)
[2016-09-24] MEDS: CALCIUM CARB + VIT D 600 MG (CALCARB + D) TAB PO SCH (12:15)
[2016-09-24] MEDS: CLOBETASOL 0.05% TP SCH ×2 (12:15→21:12)
[2016-09-24] MEDS: ALPRAZolam 0.25 MG (XANAX) TAB PO SCH ×2 (12:15→21:11)
[2016-09-24] MEDS: PANTOPRAZOLE 20 MG TABLET (PROTONIX) PO SCH (16:13)
[2016-09-24] MEDS: ALPRAZolam 0.25 MG (XANAX) TAB PO PRN (16:18)
[2016-09-24 20:00] VITALS: BP 110/53
[2016-09-24] MEDS: PRENATAL VITAMIN 1 EA TAB PO SCH (21:10)
[2016-09-24] MEDS: FOLIC ACID 1 MG TAB PO SCH (21:10)
[2016-09-24] MEDS: hydrOXYzine (VISTARIL) 25 MG CAP PO SCH (21:11)
[2016-09-25] MEDS: aCETylcysteine 20% (MUCOMYST) 30ML SOLN VIAL INH SCH ×4 (03:20→22:48)
[2016-09-25] MEDS: RT-ALBUTEROL/IPRATROPIUM 3 ML (DUONEB) VIAL INH SCH ×6 (03:20→22:48)
[2016-09-25] MEDS: HYDROmorphone (DILAUDID) 2 MG/ML VIAL IVP PRN ×6 (03:38→19:58)
[2016-09-25 05:25] LABS: MEAN PLATELET VOLUME 11.8 FL (7.4-10.4); RED BLOOD COUNT 3.78 10^6/uL (4.35-5.85); RED CELL DISTRIBUTION WIDTH 16.8 % (10.0-14.5); WHITE BLOOD COUNT 8.8 10^3/uL (4.3-11.0)
[2016-09-25 05:44] LABS: ALANINE AMINOTRANSFERASE 42 U/L (0-55); ALBUMIN 3.1 G/DL (3.2-4.5); ANION GAP 7 MMOL/L (5-14); ASPARTATE AMINO TRANSFERASE 24 U/L (5-34); BILIRUBIN,TOTAL 0.5 MG/DL (0.1-1.0); BLOOD UREA NITROGEN 34 MG/DL (7-18); BUN/CREATININE RATIO 43; CALCIUM 8.4 MG/DL (8.5-10.1); CARBON DIOXIDE 29 MMOL/L (21-32); CHLORIDE 103 MMOL/L (98-107); GFR ESTIMATED > 60; GLUCOSE 105 MG/DL (70-105); POTASSIUM 3.1 MMOL/L (3.6-5.0); SODIUM 139 MMOL/L (135-145); TOTAL PROTEIN 4.8 G/DL (6.4-8.2)
[2016-09-25] MEDS: inSUlin (REGULAR) HUMAN 1 UNIT/0.01 ML (CHARGE PER UNIT) SC SCH ×4 (05:53→21:06)
[2016-09-25] MEDS: KCL 20 MEQ TAB (K-DUR) PO SCH ×2 (06:42→09:08)
[2016-09-25] MEDS: MAGNESIUM OXIDE (MAG-OX)400 MG TAB PO SCH ×2 (06:42→16:32)
[2016-09-25] MEDS: VILANTEROL TR IH SCH (07:32)
[2016-09-25] MEDS: UMECLIDINIUM BRM IH SCH (07:32)
[2016-09-25 08:00] VITALS: BP 96/61
--- NOTE | 2016-09-25 09:05 | Cardiology Progress Note ---
Subjective Subjective/Events-last exam Patient sitting up in bed. Continues to complain of productive cough. States dyspnea continues to gradually improve. Denies any CP. Review of Systems General: No Night Sweats, No Fatigue, No Malaise HEENT: No Visual Changes, No Dysphasia, No Sore Throat Pulmonary: Dyspnea Cough Cardiovascular: : EdemaNo: Chest Pain, Orthopnea, Palpitations, Paroxysmal Noc. Dyspnea Gastrointestinal: : NauseaNo: Abdominal Pain, Vomiting Genitourinary: No Dysuria, No Frequency Musculoskeletal: No: back pain, neck pain Neurological: No: Change in speech, Confusion, Numbness, Weakness Objective-Cardiology Exam Last Set of Vital Signs Vital Signs 09/25/16 08:00 Temp 97.2 Pulse 83 Resp 20 B/P 96/61 Pulse Ox 98 O2 Delivery Nasal Cannula O2 Flow Rate 3.00 Capillary Refill : I&O Bad tableGeneral: Alert, Oriented X3, Cooperative HEENT: Atraumatic, PERRLA Neck: Supple, No JVD, No Thyromegaly Lungs: Other (Bilateral rhonchi, expiratory wheezing) Heart: Regular Rate, Normal S1, Normal S2 Abdomen: Normal Bowel Sounds Extremities: No Clubbing, No Cyanosis Skin: No Rashes, No Breakdown Neuro: Normal Gait, Normal Speech Psych/Mental Status: Mental Status NL, Mood NL Results Lab Laboratory Tests 09/25/16 05:15 A/P-Cardiology Admission Diagnosis CHF Pneumonia Churg-Ozzy Sinus tachycardia Assessment/Plan Congestive heart failure, acute on chronic left ventricular systolic dysfunction , nonischemic cardiomyopathy with ejection fraction 15 percent, Hypoxemia, elevated BNP, no significant pulmonary edema, responding slowly to steroids. Continue to monitor. Hypokalemia, monitor closely, replace potassium. Pneumonia- on broad spectrum ABX. Started on Mucomyst. Managed by Dr. Encinas and Dr. Aguilar Generalized weakness and loss of energy. Receiving physical and occupational therapy Nausea and vomiting, abdominal pain, has been having her symptoms for the last month on and off, currently feeling better. History of pedal edema with venous stasis ulcer, improved, ulcer is healed. Edema is better. History of sinus tachycardia, Continue to monitor. 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 Reactive airway disease, Churg-Ozzy disease. Patient was evaluated in the past for possible cardiopulmonary transplant. 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 Chronic renal insufficiency. Continue to monitor renal function Clinical Quality Measures DVT/VTE Risk/Contraindication: Contraindications-Mechi: Other *list below* Other: vascular disease of legs JANE MCKEON Sep 25, 2016 09:05
[2016-09-25] MEDS: SACUBITRIL/VALSARTAN 24/26 MG (ENTRESTO) TABLET PO SCH ×2 (09:08→21:05)
[2016-09-25] MEDS: ENOXAPARIN 40 MG/0.4 ML (LOVENOX) SYR SC SCH (09:08)
[2016-09-25] MEDS: DIGOXIN 0.125 MG (LANOXIN) TAB PO SCH (09:08)
[2016-09-25] MEDS: FUROSEMIDE 40 MG (LASIX) TAB PO SCH (09:08)
[2016-09-25] MEDS: predniSONE 10 MG TAB PO SCH (09:08)
[2016-09-25] MEDS: predniSONE 20 MG TAB PO SCH (09:08)
[2016-09-25] MEDS: LACTOBACILLUS Acidoph/Bulgar (LACTINEX/FLORANEX) TAB PO SCH ×4 (09:08→21:06)
[2016-09-25] MEDS: fentaNYL PATCH 12 MCG (DURAGESIC) TD SCH (09:09)
[2016-09-25] MEDS: CLOBETASOL 0.05% TP SCH ×2 (09:09→21:06)
[2016-09-25] MEDS: inSUlin DETERMIR 1 UNIT/0.01 ML (LEVEMIR) CHARGE PER UNIT SQ SCH ×2 (09:09→21:06)
[2016-09-25] MEDS: FENTANYL PATCH REMOVAL TP SCH (09:12)
--- NOTE | 2016-09-25 09:31 | Progress Note (SOAP) ---
Subjective Subjective/Events-last exam PT REPORTS THAT SHE IS FEELING BETTER, BUT STILL SOMEWHAT WEAK. HER FATHER REPORTS THAT THERE IS A LOT OF ILLNESS IN THEIR HOME AND WITH YESENIA' S CHRONIC IMMUNOSUPPRESSION - SHE IS AT GREAT RISK TO GO HOME. PT'S POTASSIUM STILL LOW, DID NOT RESPOND WELL TO ORAL POTASSIUM YESTERDAY. Review of Systems General: Fatigue Pulmonary: Dyspnea Cough Gastrointestinal: No: Abdominal Pain, Nausea Neurological: No: Confusion SKIN LESION LEFT 5TH TOE Objective Exam Vital Signs Date Time Temp Pulse Resp B/P Pulse Ox O2 Delivery O2 Flow Rate FiO2 09/25/16 08:00 97.2 83 20 96/61 98 Nasal Cannula 3.00 09/25/16 07:30 98 Nasal Cannula 3.00 09/25/16 03:20 94 Nasal Cannula 3.00 09/24/16 22:23 98 Nasal Cannula 3.00 09/24/16 21:00 Nasal Cannula 3.00 09/24/16 20:00 98.0 86 20 110/53 96 Nasal Cannula 3.00 09/24/16 19:35 98 Nasal Cannula 3.00 09/24/16 13:42 97 Nasal Cannula 3.00 09/24/16 10:40 98 Nasal Cannula 3.00 I & O 09/25/16 07:00 Intake Total 2530 ml Output Total 2200 ml Balance 330 ml Capillary Refill : General Appearance: No Apparent Distress WD/WN HEENT: PERRL/EOMI Neck: Supple Respiratory: Chest Non Tender Decreased Breath Sounds Rhonci Wheezing Cardiovascular: Regular Rate, Rhythm Gastrointestinal: normal bowel sounds non tender soft no organomegaly no pulsatile mass Extremity: No Pedal Edema Neurologic/Psychiatric: Alert Oriented x3 No Motor/Sensory Deficits Normal Mood/Affect Other comments SKIN LESION OF FOOT ON DORSUM OF LEFT FOOT AT 5TH TOE - DRY SKIN Results Lab Laboratory Tests 09/24/16 11:28: Glucometer 142H 09/24/16 15:35: Glucometer 223H 09/24/16 20:47: Glucometer 131H 09/25/16 05:15: Alanine Aminotransferase (ALT/SGPT) 42, Albumin 3.1L, Alkaline Phosphatase 66, Anion Gap 7, Aspartate Amino Transf (AST/SGOT) 24, BUN/Creatinine Ratio 43, Blood Urea Nitrogen 34H, Calcium Level 8.4L, Carbon Dioxide Level 29, Chloride Level 103, Creatinine 0.80, Estimat Glomerular Filtration Rate > 60, Glucose Level 105, Hematocrit 35, Hemoglobin 11.6, Mean Corpuscular Hemoglobin 31, Mean Corpuscular Hemoglobin Concent 34, Mean Corpuscular Volume 91, Mean Platelet Volume 11.8H, Platelet Count 145, Potassium Level 3.1L, Red Blood Count 3.78L, Red Cell Distribution Width 16.8H, Sodium Level 139, Total Bilirubin 0.5, Total Protein 4.8L, White Blood Count 8.8 Assessment/Plan Assessment/Plan Assess & Plan/Chief Complaint PNEUMONIA CONGESTIVE HEART FAILURE EXACERBATION CARDIOMYOPATHY CHRONIC NAUSEA CHURG-CANELO ATRIAL FIBRILLATION CHRONIC IMMUNE SUPPRESSION THERAPY ESOPHAGEAL REFLUX CHRONIC PAIN SYNDROME STEROID INDUCED DIABETES MELLITUS CHRONIC OXYGEN THERAPY NOCTURNAL APNEA SKIN LESION -RASH PNEUMONIA - PT ON PNEUMONIA PROTOCOL WITH PSEUDOMONAL COVERAGE, CONTINUE WITH MUCOMYST CHF - ACUTE ON CHRONIC LEFT SIDED SYSTOLIC FAILURE - CONTINUE WITH IV LASIX, MONITOR BNP CLOSELY. CARDIOMYOPATHY, CHURG-CANELO -PROGRESSIVE SYMPTOMS - PT HAS BEEN DECLINED X 2 FOR HEART LUNG TRANSPLANT, WILL CALL [facility] TO DISCUSS RE-EVAL FOR HEART LUNG TRANSPLANT PROGRAM. ATRIAL FIBRILLATION - RESTARTED DIGOXIN, CONTINUE SUPPORTIVE CARE. NAUSEA - SUSPECT PART OF HER NAUSEA IS DUE TO ANASARCA SHE HAS BEEN ON NAUSEA MEDS WITHOUT MUCH IMPROVEMENT IN HER SYMPTOMS, CONTINUE WITH SUPPORTIVE CARE, STARTED IV ZOFRAN AND IV PHENERGAN. CHRONIC IMMUNOSUPPRESSION - CONTINUE WITH STEROID - RESUMED PREVIOUS DOSING OF ORAL STEROIDS. STEROID INDUCED DIABETES MELLITUS - CHECK FSBS, RESTARTED HOME INSULIN THERAPY. GERD - RESTARTED PROTONIX PO CHRONIC PAIN - KEEP ON HOME MEDS - AND PRN IV DILAUDID Q3 HOURS RASH - RX FOR CLOBETASOL ON SKIN LESION HYPOKALEMIA - ON ORAL POTASSIUM WELL IV POTASSIUM, CHECK LABS I TALKED TO YESENIA ABOUT HER CODE STATUS. [facility] IS NOT INTERESTED IN RE -EVALUATION OF YESENIA, SHE HAS BEEN REJECTED 3 TIMES BY THEIR TRANSPLANT PROGRAM AND WILL NOT BE RECONSIDERED DUE TO HER DEBILITATED STATUS AND EXTENSIVE AND PROGRESSIVE DISEASE PROCESS. SHE HAS VERBALIZED THAT SHE DOES NOT WANT TO BE A FULL CODE, SHE WILL LEAVE HER DEFIBRILLATOR IN PLACE, AND IF IT DOES NOT WORK TO RESTART HER HEART, SHE WOULD LIKE TO PASS AWAY NATURALLY. Diagnosis/Problems: Clinical Quality Measures DVT/VTE Risk/Contraindication: Contraindications-Mechi: Other *list below* Other: vascular disease of legs ALBER PHIPPS MD Sep 25, 2016 09:31
[2016-09-25] MEDS: CALCIUM CARB + VIT D 600 MG (CALCARB + D) TAB PO SCH (11:57)
[2016-09-25] MEDS: ASCORBIC ACID (VIT C) 500 MG TABLET PO SCH (11:57)
[2016-09-25] MEDS: ALPRAZolam 0.25 MG (XANAX) TAB PO SCH ×2 (11:58→21:05)
[2016-09-25] MEDS ORDERED: NS IV 500 ML 500 ML IV SCH (15:15)
--- NOTE | 2016-09-25 16:26 | Cardiology Progress Note ---
Subjective Subjective/Events-last exam patient is laying down in bed, feeling better, still having cough and shortness of breath Review of Systems General: No Chills, No Night Sweats, No Fatigue, No Malaise, No Appetite, No Other HEENT: No Head Aches, No Visual Changes, No Eye Pain, No Ear Pain, No Dysphasia , No Sinus Congestion, No Post Nasal Drip, No Sore Throat, No Other Pulmonary: Dyspnea CoughNo Pleuritic Chest Pain, No Other Cardiovascular: : EdemaNo: Chest Pain, Lt Headedness, Orthopnea, Other, Palpitations, Paroxysmal Noc. Dyspnea Objective-Cardiology Exam Last Set of Vital Signs Vital Signs 09/25/16 09/25/16 08:00 15:43 Temp 97.2 Pulse 83 Resp 20 B/P 96/61 Pulse Ox 97 O2 Delivery Nasal Cannula O2 Flow Rate 3.00 Capillary Refill : I&O Bad tableGeneral: Alert, Oriented X3, Cooperative HEENT: Atraumatic, PERRLA Neck: Supple, No JVD, No Thyromegaly Lungs: Other (Bilateral rhonchi, expiratory wheezing) Heart: Regular Rate, Normal S1, Normal S2 Abdomen: Normal Bowel Sounds Extremities: No Clubbing, No Cyanosis Skin: No Rashes, No Breakdown Neuro: Normal Gait, Normal Speech Psych/Mental Status: Mental Status NL, Mood NL Results Lab Laboratory Tests 09/25/16 05:15 A/P-Cardiology Admission Diagnosis CHF Pneumonia Churg-Ozzy Sinus tachycardia Assessment/Plan Congestive heart failure, acute on chronic left ventricular systolic dysfunction , nonischemic cardiomyopathy with ejection fraction 15 percent, Hypoxemia, elevated BNP, no significant pulmonary edema, responding slowly to steroids. Continue to monitor. Hypokalemia, tinea to replace potassium and monitor Pneumonia- on broad spectrum ABX. Started on Mucomyst. Managed by Dr. Encinas and Dr. Aguilar Generalized weakness and loss of energy. Receiving physical and occupational therapy Nausea and vomiting, abdominal pain, has been having her symptoms for the last month on and off, currently feeling better. History of pedal edema with venous stasis ulcer, improved, ulcer is healed. Edema is better. History of sinus tachycardia, Continue to monitor. 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 Reactive airway disease, Churg-Ozzy disease. Patient was evaluated in the past for possible cardiopulmonary transplant. 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 Chronic renal insufficiency. Continue to monitor renal function Clinical Quality Measures DVT/VTE Risk/Contraindication: Contraindications-Mechi: Other *list below* Other: vascular disease of legs ТАТЬЯНА ROGERS MD Sep 25, 2016 16:26
[2016-09-25] MEDS: POTASSIUM CL 10MEQ/50ML IVPB 50 ML IV SCH ×2 (16:32→19:34)
[2016-09-25] MEDS: PANTOPRAZOLE 20 MG TABLET (PROTONIX) PO SCH (17:27)
[2016-09-25] MEDS: ALPRAZolam 0.25 MG (XANAX) TAB PO PRN (17:30)
[2016-09-25 19:10] VITALS: BP 104/53
[2016-09-25] MEDS: hydrOXYzine (VISTARIL) 25 MG CAP PO SCH (21:05)
[2016-09-25] MEDS: PRENATAL VITAMIN 1 EA TAB PO SCH (21:06)
[2016-09-25] MEDS: FOLIC ACID 1 MG TAB PO SCH (21:09)
[2016-09-26] MEDS: HYDROmorphone (DILAUDID) 2 MG/ML VIAL IVP PRN ×8 (00:58→23:50)
[2016-09-26] MEDS: RT-ALBUTEROL/IPRATROPIUM 3 ML (DUONEB) VIAL INH SCH ×6 (02:13→22:14)
[2016-09-26 05:35] LABS: ANION GAP 10 MMOL/L (5-14); BLOOD UREA NITROGEN 30 MG/DL (7-18); BUN/CREATININE RATIO 39; CALCIUM 8.5 MG/DL (8.5-10.1); CARBON DIOXIDE 27 MMOL/L (21-32); CHLORIDE 101 MMOL/L (98-107); CREATININE SERUM 0.76 MG/DL (0.60-1.30); GFR ESTIMATED > 60; GLUCOSE 125 MG/DL (70-105); SODIUM 138 MMOL/L (135-145)
[2016-09-26] MEDS: inSUlin (REGULAR) HUMAN 1 UNIT/0.01 ML (CHARGE PER UNIT) SC SCH ×4 (06:00→21:00)
[2016-09-26] MEDS: MAGNESIUM OXIDE (MAG-OX)400 MG TAB PO SCH ×2 (06:15→17:06)
[2016-09-26] MEDS: TRIM/SULFAMETH 160/800 (SEPTRA DS) TAB PO SCH (06:15)
[2016-09-26] MEDS: KCL 20 MEQ TAB (K-DUR) PO SCH (06:15)
[2016-09-26] MEDS: aCETylcysteine 20% (MUCOMYST) 30ML SOLN VIAL INH SCH ×3 (07:07→18:42)
[2016-09-26 08:00] VITALS: BP 101/70
[2016-09-26] MEDS: DIGOXIN 0.125 MG (LANOXIN) TAB PO SCH (08:08)
[2016-09-26] MEDS: SACUBITRIL/VALSARTAN 24/26 MG (ENTRESTO) TABLET PO SCH ×2 (08:08→21:24)
[2016-09-26] MEDS: LACTOBACILLUS Acidoph/Bulgar (LACTINEX/FLORANEX) TAB PO SCH ×4 (08:09→21:23)
[2016-09-26] MEDS: FUROSEMIDE 40 MG (LASIX) TAB PO SCH (08:09)
[2016-09-26] MEDS: predniSONE 20 MG TAB PO SCH (08:09)
[2016-09-26] MEDS: inSUlin DETERMIR 1 UNIT/0.01 ML (LEVEMIR) CHARGE PER UNIT SQ SCH ×2 (08:09→21:23)
[2016-09-26] MEDS: CLOBETASOL 0.05% TP SCH ×2 (08:09→21:24)
[2016-09-26] MEDS: predniSONE 10 MG TAB PO SCH (08:09)
[2016-09-26] MEDS: POTASSIUM CL 10MEQ/50ML IVPB 50 ML IV SCH ×6 (08:10→23:02)
[2016-09-26] MEDS ORDERED: NS IV 500 ML 500 ML IV SCH (08:15)
[2016-09-26] MEDS ORDERED: METHOTREXATE 50 MG/2 ML PF SQ SCH (09:00)
[2016-09-26] MEDS: UMECLIDINIUM BRM IH SCH (09:00)
[2016-09-26] MEDS: VILANTEROL TR IH SCH (09:00)
[2016-09-26] MEDS: ENOXAPARIN 40 MG/0.4 ML (LOVENOX) SYR SC SCH (09:41)
--- NOTE | 2016-09-26 10:17 | Cardiology Progress Note ---
Subjective Subjective/Events-last exam Patient is sitting up in bed. Continues to have productive cough. Denies any CP or dizziness. Review of Systems General: No Night Sweats, No Fatigue, No Malaise HEENT: No Visual Changes, No Dysphasia, No Sore Throat Pulmonary: Dyspnea Cough Cardiovascular: No: Chest Pain, Edema, Palpitations, Paroxysmal Noc. Dyspnea Gastrointestinal: : NauseaNo: Abdominal Pain, Vomiting Genitourinary: No Dysuria, No Frequency Musculoskeletal: No: back pain, neck pain Neurological: No: Change in speech, Confusion, Numbness, Weakness Objective-Cardiology Exam Last Set of Vital Signs Vital Signs 09/25/16 09/26/16 19:10 07:13 Temp 98.6 Pulse 62 Resp 22 B/P 104/53 Pulse Ox 98 O2 Delivery Nasal Cannula O2 Flow Rate 3.00 Capillary Refill : I&O Intake and Output 09/26/16 00:00 Intake Total 2300 ml Output Total 2300 ml Balance 0 ml Intake Oral 2000 ml IV Total 300 ml Output Urine Total 2300 ml # Voids 2 General: Alert, Oriented X3, Cooperative HEENT: Atraumatic, PERRLA Neck: Supple, No JVD, No Thyromegaly Lungs: Other (Bilateral rhonchi, expiratory wheezing) Heart: Regular Rate, Normal S1, Normal S2 Abdomen: Normal Bowel Sounds Extremities: No Clubbing, No Cyanosis Skin: No Rashes, No Breakdown Neuro: Normal Gait, Normal Speech Psych/Mental Status: Mental Status NL, Mood NL Results Lab Laboratory Tests 09/26/16 04:45 A/P-Cardiology Admission Diagnosis CHF Pneumonia Churg-Ozzy Sinus tachycardia Assessment/Plan Congestive heart failure, acute on chronic left ventricular systolic dysfunction , nonischemic cardiomyopathy with ejection fraction 15 percent, Hypoxemia, elevated BNP, no significant pulmonary edema, responding slowly to steroids. Continue to monitor. Hypokalemia, receiving IV Potassium. Continue to replace and monitor. Pneumonia- on broad spectrum ABX. Started on Mucomyst. Managed by Dr. Encinas and Dr. Aguilar Generalized weakness and loss of energy. Receiving physical and occupational therapy Nausea and vomiting, abdominal pain, has been having her symptoms for the last month on and off, currently feeling better. History of pedal edema with venous stasis ulcer, improved, ulcer is healed. Edema is better. History of sinus tachycardia, Continue to monitor. 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 Reactive airway disease, Churg-Ozzy disease. Patient was evaluated in the past for possible cardiopulmonary transplant. 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 Chronic renal insufficiency. Continue to monitor renal function Clinical Quality Measures DVT/VTE Risk/Contraindication: Contraindications-Mechi: Other *list below* Other: vascular disease of legs JANE MCKEON Sep 26, 2016 10:17
[2016-09-26] MEDS: HIZENTRA SC SCH (10:35)
[2016-09-26] MEDS: ALPRAZolam 0.25 MG (XANAX) TAB PO SCH ×2 (12:17→21:23)
[2016-09-26] MEDS: ASCORBIC ACID (VIT C) 500 MG TABLET PO SCH (12:17)
[2016-09-26] MEDS: CALCIUM CARB + VIT D 600 MG (CALCARB + D) TAB PO SCH (12:17)
--- NOTE | 2016-09-26 14:08 | Cardiology Progress Note ---
Subjective Subjective/Events-last exam patient is laying down in bed, still having some shortness of breath and cough. No chest pain. Discussed diet and increasing potassium intake with her diet. Limiting fluid intake, she has been doing excellent on her fluid balance Review of Systems General: No Chills, No Night Sweats, No Fatigue, No Malaise, No Appetite, No Other HEENT: No Head Aches, No Visual Changes, No Eye Pain, No Ear Pain, No Dysphasia , No Sinus Congestion, No Post Nasal Drip, No Sore Throat, No Other Pulmonary: Dyspnea CoughNo Pleuritic Chest Pain, No Other Cardiovascular: : EdemaNo: Chest Pain, Lt Headedness, Orthopnea, Other, Palpitations, Paroxysmal Noc. Dyspnea Objective-Cardiology Exam Last Set of Vital Signs Vital Signs 09/26/16 09/26/16 08:00 10:43 Temp 97.8 Pulse 55 Resp 20 B/P 101/70 Pulse Ox 98 O2 Delivery Nasal Cannula O2 Flow Rate 3.00 Capillary Refill : I&O Intake and Output 09/26/16 00:00 Intake Total 2300 ml Output Total 2300 ml Balance 0 ml Intake Oral 2000 ml IV Total 300 ml Output Urine Total 2300 ml # Voids 2 General: Alert, Oriented X3, Cooperative HEENT: Atraumatic, PERRLA Neck: Supple, No JVD, No Thyromegaly Lungs: Other (Bilateral rhonchi, expiratory wheezing) Heart: Regular Rate, Normal S1, Normal S2 Abdomen: Normal Bowel Sounds Extremities: No Clubbing, No Cyanosis Skin: No Rashes, No Breakdown Neuro: Normal Gait, Normal Speech Psych/Mental Status: Mental Status NL, Mood NL Results Lab Laboratory Tests 09/26/16 04:45 A/P-Cardiology Admission Diagnosis CHF Pneumonia Churg-Ozzy Sinus tachycardia Assessment/Plan Congestive heart failure, acute on chronic left ventricular systolic dysfunction , nonischemic cardiomyopathy with ejection fraction 15 percent, Hypoxemia, elevated BNP, no significant pulmonary edema, responding slowly to steroids. Continue to monitor. Hypokalemia, receiving IV Potassium. Continue to replace and monitor. Pneumonia- on broad spectrum ABX. Started on Mucomyst. Managed by Dr. Encinas and Dr. Aguilar Generalized weakness and loss of energy. Receiving physical and occupational therapy Nausea and vomiting, abdominal pain, has been having her symptoms for the last month on and off, currently feeling better. History of pedal edema with venous stasis ulcer, improved, ulcer is healed. Edema is better. History of sinus tachycardia, Continue to monitor. 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 Reactive airway disease, Churg-Ozzy disease. Patient was evaluated in the past for possible cardiopulmonary transplant. 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 Chronic renal insufficiency. Continue to monitor renal function Clinical Quality Measures DVT/VTE Risk/Contraindication: Contraindications-Mechi: Other *list below* Other: vascular disease of legs ТАТЬЯНА ROGERS MD Sep 26, 2016 14:08
[2016-09-26] MEDS: PANTOPRAZOLE 20 MG TABLET (PROTONIX) PO SCH (17:06)
[2016-09-26 19:05] VITALS: BP 100/67
[2016-09-26] MEDS ORDERED: NS IV 500 ML 1,000 ML ONE (20:12)
[2016-09-26] MEDS: FOLIC ACID 1 MG TAB PO SCH (21:24)
[2016-09-26] MEDS: hydrOXYzine (VISTARIL) 25 MG CAP PO SCH (21:24)
[2016-09-26] MEDS: PRENATAL VITAMIN 1 EA TAB PO SCH (21:24)
[2016-09-27] MEDS: aCETylcysteine 20% (MUCOMYST) 30ML SOLN VIAL INH SCH ×4 (02:19→21:15)
[2016-09-27] MEDS: RT-ALBUTEROL/IPRATROPIUM 3 ML (DUONEB) VIAL INH SCH ×6 (02:19→21:15)
[2016-09-27] MEDS: HYDROmorphone (DILAUDID) 2 MG/ML VIAL IVP PRN ×6 (04:04→21:41)
[2016-09-27 05:51] LABS: ANION GAP 8 MMOL/L (5-14); BLOOD UREA NITROGEN 27 MG/DL (7-18); BUN/CREATININE RATIO 37; CALCIUM 8.4 MG/DL (8.5-10.1); CARBON DIOXIDE 28 MMOL/L (21-32); CHLORIDE 102 MMOL/L (98-107); CREATININE SERUM 0.73 MG/DL (0.60-1.30); GFR ESTIMATED > 60; GLUCOSE 82 MG/DL (70-105); POTASSIUM 3.7 MMOL/L (3.6-5.0); SODIUM 138 MMOL/L (135-145)
[2016-09-27] MEDS: inSUlin (REGULAR) HUMAN 1 UNIT/0.01 ML (CHARGE PER UNIT) SC SCH ×4 (06:00→20:35)
[2016-09-27] MEDS: MAGNESIUM OXIDE (MAG-OX)400 MG TAB PO SCH ×2 (06:11→17:21)
[2016-09-27] MEDS: KCL 20 MEQ TAB (K-DUR) PO SCH (06:11)
[2016-09-27] MEDS: VILANTEROL TR IH SCH (07:09)
[2016-09-27] MEDS: UMECLIDINIUM BRM IH SCH (07:09)
--- NOTE | 2016-09-27 07:28 | Cardiology Progress Note ---
Subjective Subjective/Events-last exam patient is in bed, feeling better, still having cough and shortness of breath. Review of Systems General: No Chills, No Night Sweats, No Fatigue, No Malaise, No Appetite, No Other HEENT: No Head Aches, No Visual Changes, No Eye Pain, No Ear Pain, No Dysphasia , No Sinus Congestion, No Post Nasal Drip, No Sore Throat, No Other Pulmonary: Dyspnea CoughNo Pleuritic Chest Pain, No Other Cardiovascular: No: Chest Pain, Edema, Lt Headedness, Orthopnea, Other, Palpitations, Paroxysmal Noc. Dyspnea Objective-Cardiology Exam Last Set of Vital Signs Vital Signs 09/26/16 09/27/16 09/27/16 19:05 07:12 07:13 Temp 97.5 Pulse 84 Resp 18 B/P 100/67 Pulse Ox 99 O2 Delivery Nasal Cannula O2 Flow Rate 3.00 Capillary Refill : I&O Intake and Output 09/27/16 00:00 Intake Total 2640 ml Output Total 4500 ml Balance -1860 ml Intake Oral 2440 ml IV Total 200 ml Output Urine Total 4500 ml # Bowel Movements 2 General: Alert, Oriented X3, Cooperative HEENT: Atraumatic, PERRLA Neck: Supple, No JVD, No Thyromegaly Lungs: Other (Bilateral rhonchi, expiratory wheezing) Heart: Regular Rate, Normal S1, Normal S2 Abdomen: Normal Bowel Sounds Extremities: No Clubbing, No Cyanosis Skin: No Rashes, No Breakdown Neuro: Normal Gait, Normal Speech Psych/Mental Status: Mental Status NL, Mood NL Results Lab Laboratory Tests 09/27/16 05:08 A/P-Cardiology Admission Diagnosis CHF Pneumonia Churg-Ozzy Sinus tachycardia Assessment/Plan Congestive heart failure, acute on chronic left ventricular systolic dysfunction , nonischemic cardiomyopathy with ejection fraction 15 percent, Hypoxemia, elevated BNP, no significant pulmonary edema, responding slowly to steroids. Continue to monitor. Pneumonia- on broad spectrum ABX. Started on Mucomyst. Managed by Dr. Encinas and Dr. Aguilar Generalized weakness and loss of energy. Receiving physical and occupational therapy Nausea and vomiting, abdominal pain, has been having her symptoms for the last month on and off, currently feeling better. History of pedal edema with venous stasis ulcer, improved, ulcer is healed. Edema is better. History of sinus tachycardia, Continue to monitor. 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 Reactive airway disease, Churg-Ozzy disease. Patient was evaluated in the past for possible cardiopulmonary transplant. 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 Chronic renal insufficiency. Continue to monitor renal function Clinical Quality Measures DVT/VTE Risk/Contraindication: Contraindications-Mechi: Other *list below* Other: vascular disease of legs ТАТЬЯНА ROGERS MD Sep 27, 2016 07:28
[2016-09-27 08:00] VITALS: BP 101/54
[2016-09-27] MEDS: FUROSEMIDE 40 MG (LASIX) TAB PO SCH (08:43)
[2016-09-27] MEDS: predniSONE 20 MG TAB PO SCH (08:43)
[2016-09-27] MEDS: DIGOXIN 0.125 MG (LANOXIN) TAB PO SCH (08:43)
[2016-09-27] MEDS: LACTOBACILLUS Acidoph/Bulgar (LACTINEX/FLORANEX) TAB PO SCH ×4 (08:43→21:42)
[2016-09-27] MEDS: ENOXAPARIN 40 MG/0.4 ML (LOVENOX) SYR SC SCH (08:44)
[2016-09-27] MEDS: predniSONE 10 MG TAB PO SCH (08:44)
[2016-09-27] MEDS: inSUlin DETERMIR 1 UNIT/0.01 ML (LEVEMIR) CHARGE PER UNIT SQ SCH ×2 (08:47→21:42)
--- NOTE | 2016-09-27 09:26 | Progress Note (SOAP) ---
Subjective Subjective/Events-last exam PT REPORTS THAT SHE IS HAVING SIGNIFICANT SPUTUM PRODUCTION, THICK PHLEGM. SHE STATES THAT HER FATIGUE HAS IMPROVED. Review of Systems General: Fatigue HEENT: No Head Aches, No Dysphasia, No Sore Throat Pulmonary: Dyspnea Cough Cardiovascular: No: Chest Pain Gastrointestinal: No: Abdominal Pain, Nausea Neurological: : Weakness SKIN LESION LEFT 5TH TOE Objective Exam Vital Signs Date Time Temp Pulse Resp B/P Pulse Ox O2 Delivery O2 Flow Rate FiO2 09/27/16 08:00 97.7 72 20 101/54 100 Nasal Cannula 3.00 09/27/16 07:13 99 09/27/16 07:12 99 Nasal Cannula 3.00 09/27/16 07:09 99 Nasal Cannula 3.00 09/27/16 02:20 98 Nasal Cannula 3.00 09/26/16 22:15 98 Nasal Cannula 3.00 09/26/16 20:25 Nasal Cannula 3.00 09/26/16 19:05 97.5 84 18 100/67 97 Nasal Cannula 3.00 09/26/16 18:43 98 Nasal Cannula 3.00 09/26/16 14:30 98 Nasal Cannula 3.00 09/26/16 10:43 98 Nasal Cannula 3.00 I & O 09/27/16 07:00 Intake Total 3600 ml Output Total 4100 ml Balance -500 ml Capillary Refill : General Appearance: No Apparent Distress WD/WN HEENT: PERRL/EOMI Pharynx Normal Neck: Full Range of Motion Respiratory: Decreased Breath Sounds Cardiovascular: Regular Rate, Rhythm Gastrointestinal: normal bowel sounds non tender soft no organomegaly no pulsatile mass Extremity: No Pedal Edema Neurologic/Psychiatric: Alert Oriented x3 No Motor/Sensory Deficits Skin: Normal Color Warm/Dry Lymphatic: No Adenopathy Results Lab Laboratory Tests 09/26/16 11:04: Glucometer 124H 09/26/16 15:49: Glucometer 173H 09/26/16 21:00: Glucometer 142H 09/27/16 05:08: Anion Gap 8, BUN/Creatinine Ratio 37, Blood Urea Nitrogen 27H, Calcium Level 8.4L, Carbon Dioxide Level 28, Chloride Level 102, Creatinine 0.73, Estimat Glomerular Filtration Rate > 60, Glucose Level 82, Potassium Level 3.7, Sodium Level 138 Assessment/Plan Assessment/Plan Assess & Plan/Chief Complaint PNEUMONIA CONGESTIVE HEART FAILURE EXACERBATION CARDIOMYOPATHY CHRONIC NAUSEA CHURG-CANELO ATRIAL FIBRILLATION CHRONIC IMMUNE SUPPRESSION THERAPY ESOPHAGEAL REFLUX CHRONIC PAIN SYNDROME STEROID INDUCED DIABETES MELLITUS CHRONIC OXYGEN THERAPY NOCTURNAL APNEA SKIN LESION -RASH PNEUMONIA -PT FINISHED ANTIBIOTICS CONTINUE WITH MUCOMYST CHF - ACUTE ON CHRONIC LEFT SIDED SYSTOLIC FAILURE - CONTINUE WITH LASIX ORALLY , MONITOR BNP CLOSELY. CARDIOMYOPATHY, CHURG-CANELO -PROGRESSIVE SYMPTOMS - PT HAS BEEN DECLINED X 2 FOR HEART LUNG TRANSPLANT, WILL CALL [facility] TO DISCUSS RE-EVAL FOR HEART LUNG TRANSPLANT PROGRAM. ATRIAL FIBRILLATION - RESTARTED DIGOXIN, CONTINUE SUPPORTIVE CARE. NAUSEA - SUSPECT PART OF HER NAUSEA IS DUE TO ANASARCA SHE HAS BEEN ON NAUSEA MEDS WITHOUT MUCH IMPROVEMENT IN HER SYMPTOMS, CONTINUE WITH SUPPORTIVE CARE, STARTED IV ZOFRAN AND IV PHENERGAN. CHRONIC IMMUNOSUPPRESSION - CONTINUE WITH STEROID - RESUMED PREVIOUS DOSING OF ORAL STEROIDS. STEROID INDUCED DIABETES MELLITUS - CHECK FSBS, RESTARTED HOME INSULIN THERAPY. GERD - RESTARTED PROTONIX PO CHRONIC PAIN - KEEP ON HOME MEDS - AND PRN IV DILAUDID Q3 HOURS RASH - RX FOR CLOBETASOL ON SKIN LESION HYPOKALEMIA - ON ORAL POTASSIUM WELL IV POTASSIUM, CHECK LABS I TALKED TO YESENIA ABOUT HER CODE STATUS. [facility] IS NOT INTERESTED IN RE -EVALUATION OF YESENIA, SHE HAS BEEN REJECTED 3 TIMES BY THEIR TRANSPLANT PROGRAM AND WILL NOT BE RECONSIDERED DUE TO HER DEBILITATED STATUS AND EXTENSIVE AND PROGRESSIVE DISEASE PROCESS. SHE HAS VERBALIZED THAT SHE DOES NOT WANT TO BE A FULL CODE, SHE WILL LEAVE HER DEFIBRILLATOR IN PLACE, AND IF IT DOES NOT WORK TO RESTART HER HEART, SHE WOULD LIKE TO PASS AWAY NATURALLY. Diagnosis/Problems: Clinical Quality Measures DVT/VTE Risk/Contraindication: Contraindications-Mechi: Other *list below* Other: vascular disease of legs ALBER PHIPPS MD Sep 27, 2016 09:26
[2016-09-27] MEDS: SACUBITRIL/VALSARTAN 24/26 MG (ENTRESTO) TABLET PO SCH ×2 (10:16→21:42)
[2016-09-27] MEDS: CLOBETASOL 0.05% TP SCH ×2 (10:16→21:43)
[2016-09-27 12:00] VITALS: BP 102/66
[2016-09-27] MEDS: CALCIUM CARB + VIT D 600 MG (CALCARB + D) TAB PO SCH (12:17)
[2016-09-27] MEDS: ASCORBIC ACID (VIT C) 500 MG TABLET PO SCH (12:17)
[2016-09-27] MEDS: ALPRAZolam 0.25 MG (XANAX) TAB PO SCH ×2 (12:17→21:42)
[2016-09-27] MEDS: CATHETER FLUSH 10 ML SYR IV PRN (15:08)
[2016-09-27] MEDS: PANTOPRAZOLE 20 MG TABLET (PROTONIX) PO SCH (17:21)
[2016-09-27 19:35] VITALS: BP 95/63
[2016-09-27] MEDS: PRENATAL VITAMIN 1 EA TAB PO SCH (21:42)
[2016-09-27] MEDS: FOLIC ACID 1 MG TAB PO SCH (21:42)
[2016-09-27] MEDS: hydrOXYzine (VISTARIL) 25 MG CAP PO SCH (21:42)
[2016-09-28] MEDS: aCETylcysteine 20% (MUCOMYST) 30ML SOLN VIAL INH SCH ×2 (02:45→07:16)
[2016-09-28] MEDS: RT-ALBUTEROL/IPRATROPIUM 3 ML (DUONEB) VIAL INH SCH ×2 (02:45→07:12)
[2016-09-28] MEDS: inSUlin (REGULAR) HUMAN 1 UNIT/0.01 ML (CHARGE PER UNIT) SC SCH (06:00)
[2016-09-28] MEDS: TRIM/SULFAMETH 160/800 (SEPTRA DS) TAB PO SCH (07:04)
[2016-09-28] MEDS: MAGNESIUM OXIDE (MAG-OX)400 MG TAB PO SCH (07:05)
[2016-09-28] MEDS: KCL 20 MEQ TAB (K-DUR) PO SCH (07:05)
[2016-09-28] MEDS: VILANTEROL TR IH SCH (07:13)
[2016-09-28] MEDS: UMECLIDINIUM BRM IH SCH (07:13)
[2016-09-28 08:00] VITALS: BP 102/69
[2016-09-28] MEDS: predniSONE 20 MG TAB PO SCH (08:34)
[2016-09-28] MEDS: LACTOBACILLUS Acidoph/Bulgar (LACTINEX/FLORANEX) TAB PO SCH (08:34)
[2016-09-28] MEDS: FUROSEMIDE 40 MG (LASIX) TAB PO SCH (08:34)
[2016-09-28] MEDS: SACUBITRIL/VALSARTAN 24/26 MG (ENTRESTO) TABLET PO SCH (08:34)
[2016-09-28] MEDS: DIGOXIN 0.125 MG (LANOXIN) TAB PO SCH (08:34)
[2016-09-28] MEDS: predniSONE 10 MG TAB PO SCH (08:34)
[2016-09-28] MEDS: inSUlin DETERMIR 1 UNIT/0.01 ML (LEVEMIR) CHARGE PER UNIT SQ SCH (08:35)
[2016-09-28] MEDS: fentaNYL PATCH 12 MCG (DURAGESIC) TD SCH (08:35)
[2016-09-28] MEDS: CLOBETASOL 0.05% TP SCH (08:37)
[2016-09-28] MEDS: FENTANYL PATCH REMOVAL TP SCH (08:38)
[2016-09-28] MEDS ORDERED: ACET200V4 INH (09:04)
[2016-09-28] MEDS ORDERED: OXYC5TAB71 PO (09:04)
[2016-09-28] MEDS ORDERED: FENT1PAT6 TD (09:04)
[2016-09-28] MEDS ORDERED: ALPR0.254 PO (09:04)
--- NOTE | 2016-09-28 09:10 | Discharge Inst-Complex ---
PDI Med Rec & Follow Up Appt. New Medications: Acetylcysteine (Acetylcysteine) 200 Mg/1 Ml Vial 0 ML INH RTQ6HR #120 Ref 11 VIAL Changed Medications: Alprazolam (Alprazolam) 0.25 Mg Tablet 0.25 MG PO 1200,2100 ONE TWICE DAILY AND BID PRN UNCONTROLLED ANXIETY OR AIR HUNGER #90 TAB (Medication details modified) Continued Medications: Albuterol/Ipratropium (Duoneb Rt) 3 Ml Nebu 3 ML INH Q6H PRN WHEEZING Alprazolam (Xanax) 0.25 Mg Tablet 0.25 MG PO BID PRN ANXIETY TAB Ascorbic Acid (Vitamin C) 500 Mg Tablet 500 MG PO 1200 TAB Calcium Carbonate/Vitamin D3 (Calcium 600 + D Caplet) 1 Each Tablet 1 TAB PO 1200 TAB Digoxin (Digoxin) 125 Mcg Tablet 125 MCG PO DAILY TAB Fentanyl (Fentanyl Patch 12 MCG) 1 Each Patch.td72 12 MCG TD EVERY 72 HOURS #10 PATCH (This prescription has been renewed) Folic Acid (Folic Acid) 0.4 Mg Tablet 0.4 MG PO HS TAB Furosemide (Furosemide) 40 Mg Tablet 80 MG PO DAILY TAKES 2 (40 MG) TABLETS Furosemide (Furosemide) 40 Mg Tablet 40 MG PO HS Hydroxyzine HCl (Hydroxyzine HCl) 25 Mg Tablet 50 MG PO HS TAKES 2 (25MG) TABLETS TAB Immune Globulin,Gamma(IgG) (Hizentra) 10 Gm/50 Ml Vial IV We EA Insulin Detemir (Levemir Flextouch) 100 Unit/1 Ml Insuln.pen 10 UNITS SC BID EA Lactobacillus Combo No.10 (Probiotic) 1 Each Capsule 1 CAP PO 1200 CAP Magnesium Oxide (Magnesium Oxide) 400 Mg Tablet 400 MG PO BID TAB Methotrexate Sodium (Methotrexate) 25 Mg/1 Ml Vial 1 ML SQ We EA Metoprolol Tartrate (Metoprolol Tartrate) 25 Mg Tablet 12.5 MG PO BID TAKES 1/2 (25MG) TABLET TAB Nystatin (Nystatin) 100,000 Unit/1 Ml Oral.susp 5 ML PO QID PRN THRUSH EA Omeprazole (Omeprazole) 20 Mg Capsule.dr 20 MG PO 1700 CAP Ondansetron (Ondansetron Odt) 4 Mg Tab.rapdis 4 MG PO Q4H PRN NAUSEA TAB Oxycodone HCl (Oxycodone HCl) 5 Mg Tablet 5-10 MG PO EVERY 4-6 HOURS PRN PAIN #180 TAB (This prescription has been renewed ) Pnv with Ca,No.74/Iron/FA (Vol-Plus Tablet) 1 Each Tablet 1 TAB PO HS TAB Potassium Chloride (Potassium Chloride) 20 Meq Tab.er.prt 20 MEQ PO BID TAB Prednisone (Prednisone) 10 Mg Tab 10 MG PO DAILY TAKES ALONG WITH 2 (20MG) TABLETS FOR A TOTAL DAILY DOSE OF 50MG TAB Prednisone (Prednisone) 20 Mg Tab 40 MG PO DAILY TAKES 2 (20MG) TABLETS ALONG WITH A 10MG TABLET FOR A TOTAL DAILY DOSE OF 50MG TAB Promethazine HCl (Promethazine Tablet) 25 Mg Tablet 25 MG PO TID PRN NAUSEA TAB Sacubitril/Valsartan (Entresto 49 mg-51 mg Tablet) 1 Each Tablet 1 TAB PO BID TAB Scopolamine (Transderm-Scop) 1 Each Patch.td72 1 PATCH TD Q72H PATCH Spironolactone (Spironolactone) 25 Mg Tablet 25 MG PO DAILY TAB Sulfamethoxazole/Trimethoprim (Sulfamethoxazole-Tmp Ds Tablet) 1 Each Tablet 1 TAB PO MoWeFr TAB Umeclidinium Brm/Vilanterol Tr (Anoro Ellipta 62.5-25 Mcg INH) 1 Each Blst.w.dev 1 PUFF IH DAILY Prescription: Transmitted to Pharmacy Patient Instructions: APPT AT [facility] ON 10/08/16 AT 3:00PM Activity, Diet and PDI Resume Normal Activity: Yes Driving Instructions: No Driving/Refer to Symptoms to Reoprt to : Appetite Changes, Constipation(Persistant), Fever Over 101 Degrees F, Pain/Pressure in Chest, Heart Beat Irreg/Pounding, Pain/ Pressure in Shoulder, Nausea/Vomiting, Shortness of Breath For Problems or Questions: Contact Your Physician, Go to Emergency Room Infection Signs and Symptoms: Temperature Above 101 F ALBER PHIPPS MD Sep 28, 2016 09:09
--- NOTE | 2016-09-28 09:10 | Discharge Summary ---
Diagnosis/Chief Complaint Date of Admission Sep 19, 2016 at 10:19 Date of Discharge Discharge Date: Sep 28, 2016 Discharge Time: 929 Admission Diagnosis Admission Diagnosis PNEUMONIA CONGESTIVE HEART FAILURE EXACERBATION CARDIOMYOPATHY CHRONIC NAUSEA CHURG-CANELO ATRIAL FIBRILLATION CHRONIC IMMUNE SUPPRESSION THERAPY ESOPHAGEAL REFLUX CHRONIC PAIN SYNDROME STEROID INDUCED DIABETES MELLITUS CHRONIC OXYGEN THERAPY NOCTURNAL APNEA SKIN LESION -RASH Discharge Diagnosis PNEUMONIA CONGESTIVE HEART FAILURE EXACERBATION CARDIOMYOPATHY CHRONIC NAUSEA CHURG-CANELO ATRIAL FIBRILLATION CHRONIC IMMUNE SUPPRESSION THERAPY ESOPHAGEAL REFLUX CHRONIC PAIN SYNDROME STEROID INDUCED DIABETES MELLITUS CHRONIC OXYGEN THERAPY NOCTURNAL APNEA SKIN LESION -RASH Reason Hospital Visit PT WAS ADMITTED TO THE HOSPITAL AFTER HAVING FEVER AT HOME, COUGH, DYSPNEA, AND WORSENING ILLNESS. Discharge Summary Consultations ТАТЬЯНА ROGERS MD Discharge Physical Examination Allergies: Coded Allergies: influenza virus vaccine ts [id number] (36 mos+) (Unverified Allergy, Severe , ANAPHYLAXIS, 01/08/15) pneumococcal vaccine (Unverified Allergy, Severe, ANAPHYLAXIS, 01/08/15) Penicillins (Verified Allergy, Mild, PER PT RXN = HIVES, CAN TAKE ROCEPHIN , 01/08/15) clindamycin (Unverified Allergy, Unknown, 01/08/15) morphine (Verified Adverse Reaction, Intermediate, RASH, PT HAS RECEIVED HYDROMORPHONE W/O ISSUE, 04/26/16) MORPHINE IV GIVEN AT ED, PT DEVELOPED RASH AND POSSIBLE HIVES metoclopramide (Verified Adverse Reaction, Unknown, 10/02/15) INCREASED FLUID RETENTION AND BRUISING Vitals & I&Os General Appearance: Alert, Oriented X3, Cooperative HEENT: Atraumatic, PERRLA Respiratory: Other (Bilateral rhonchi, expiratory wheezing) Cardiovascular: Regular Rate, Normal S1, Normal S2 Abdominal: Normal Bowel Sounds Extremities: No Clubbing, No Cyanosis Skin: No Rashes, No Breakdown Neuro: Normal Gait, Normal Speech Psych/Mental Status: Mental Status NL, Mood NL Hospital Course PNEUMONIA CONGESTIVE HEART FAILURE EXACERBATION CARDIOMYOPATHY CHRONIC NAUSEA CHURG-CANELO ATRIAL FIBRILLATION CHRONIC IMMUNE SUPPRESSION THERAPY ESOPHAGEAL REFLUX CHRONIC PAIN SYNDROME STEROID INDUCED DIABETES MELLITUS CHRONIC OXYGEN THERAPY NOCTURNAL APNEA SKIN LESION -RASH PNEUMONIA -PT FINISHED ANTIBIOTICS CONTINUE WITH MUCOMYST CHF - ACUTE ON CHRONIC LEFT SIDED SYSTOLIC FAILURE - CONTINUE WITH LASIX ORALLY , MONITOR BNP CLOSELY. CARDIOMYOPATHY, CHURG-CANELO -PROGRESSIVE SYMPTOMS - PT HAS BEEN DECLINED X 2 FOR HEART LUNG TRANSPLANT, WILL CALL [facility] TO DISCUSS RE-EVAL FOR HEART LUNG TRANSPLANT PROGRAM. ATRIAL FIBRILLATION - RESTARTED DIGOXIN, CONTINUE SUPPORTIVE CARE. NAUSEA - SUSPECT PART OF HER NAUSEA IS DUE TO ANASARCA SHE HAS BEEN ON NAUSEA MEDS WITHOUT MUCH IMPROVEMENT IN HER SYMPTOMS, CONTINUE WITH SUPPORTIVE CARE, STARTED IV ZOFRAN AND IV PHENERGAN. CHRONIC IMMUNOSUPPRESSION - CONTINUE WITH STEROID - RESUMED PREVIOUS DOSING OF ORAL STEROIDS. STEROID INDUCED DIABETES MELLITUS - CHECK FSBS, RESTARTED HOME INSULIN THERAPY. GERD - RESTARTED PROTONIX PO CHRONIC PAIN - KEEP ON HOME MEDS ON DISCHARGE RASH - RX FOR CLOBETASOL ON SKIN LESION HYPOKALEMIA - ON ORAL POTASSIUM FOR REPLACEMENT AND CONTINUE WITH REPEAT LABS I TALKED TO YESENIA ABOUT HER CODE STATUS. [facility] IS NOT INTERESTED IN RE -EVALUATION OF YESENIA, SHE HAS BEEN REJECTED 3 TIMES BY THEIR TRANSPLANT PROGRAM AND WILL NOT BE RECONSIDERED DUE TO HER DEBILITATED STATUS AND EXTENSIVE AND PROGRESSIVE DISEASE PROCESS. SHE HAS VERBALIZED THAT SHE DOES NOT WANT TO BE A FULL CODE, SHE WILL LEAVE HER DEFIBRILLATOR IN PLACE, AND IF IT DOES NOT WORK TO RESTART HER HEART, SHE WOULD LIKE TO PASS AWAY NATURALLY. Pending Labs Discharge Condition at discharge IMPROVED Instructions to patient/family Please see electonic discharge instructions given to patient. Discharge Medications Reviewed and agree with Discharge Medication list on patient's Discharge Instruction sheet Clinical Quality Measures DVT/VTE Risk/Contraindication: Contraindications-Mechi: Other *list below* Other: vascular disease of legs ALBER PHIPPS MD Sep 28, 2016 09:10
[2016-09-28] MEDS: ENOXAPARIN 40 MG/0.4 ML (LOVENOX) SYR SC SCH (09:30)
[2016-09-28] MEDS: HYDROmorphone (DILAUDID) 2 MG/ML VIAL IVP PRN (09:57)
[2016-09-28 11:00] VITALS: BP 102/69
== END 2016-09-28 11:00 | disposition home or self-care (01) | DRG 190 ==
LOC: 4TH 10:19
PROVIDERS: ADMIT Family Medicine; ATTEND Family Medicine
DX: J44.1 Chronic obstructive pulmonary disease with (acute) exacerbation (principal); I50.23 Acute on chronic systolic (congestive) heart failure; J44.0 Chronic obstructive pulmonary disease with (acute) lower respiratory infection; J18.9 Pneumonia, unspecified organism; I42.9 Cardiomyopathy, unspecified; I48.91 Unspecified atrial fibrillation; M30.1 Polyarteritis with lung involvement [Churg-Strauss]; K21.9 Gastro-esophageal reflux disease without esophagitis; E09.9 Drug or chemical induced diabetes mellitus without complications; Z66 Do not resuscitate; E24.2 Drug-induced Cushing's syndrome; I87.2 Venous insufficiency (chronic) (peripheral); E87.1 Hypo-osmolality and hyponatremia; E87.6 Hypokalemia; R06.81 Apnea, not elsewhere classified; Z99.81 Dependence on supplemental oxygen; Z95.810 Presence of automatic (implantable) cardiac defibrillator; L97.229 Non-pressure chronic ulcer of left calf with unspecified severity; N18.9 Chronic kidney disease, unspecified; R21 Rash and other nonspecific skin eruption; L98.9 Disorder of the skin and subcutaneous tissue, unspecified
CPT/HCPCS: 36415; 71020; 80048; 80053; 82962; 83735; 85027; 94640; 94664; 94760

== ENCOUNTER 2016-11-09 13:31 | Emergency (ER) | payer MEDICARE, MEDICAID ==
[~2016-11-09] VITALS: Ht 162.6 cm; Wt 74.8 kg
[~2016-11-09 13:31] MED LIST changes: +ACET200V4 INH
--- OUTSIDE RECORDS SUMMARY | 2016-11-09 13:40 | XMS REPORT | Continuity of Care Document ---
Author Author [facility] Organization [facility] Address Unknown Phone Unavailable Care Team Providers Care Supervisor [employer] Name Role Phone Thomas Aguilar PCP [phone] Source Comments Some departments are not documenting in the electronic medical record. If you do not see the information that you expected, contact Release of Information in the Health Information Management department at [phone] for further assistance in locating additional records.[facility] Active Allergies and Adverse Reactions Allergen Noted Date Severity Reactions Comments Clindamycin 12/09/2012 HIVES Patient states she received on last admission and after 1 day of treatment developed hives Influenza Virus Vaccine 12/09/2012 HIVES, ANGIOEDEMA, EDEMA Patient states she Trival [id number] (18 Yr received the flu vaccine +) [...] of cardiac pulse generator 08/03/2016 Overview: 2016 [facility] Advisory for Premature Battery Depletion Thrush 01/28/2015 [...] on MTX. DM (diabetes mellitus) (HCC) 06/10/2014 group home current use of systemic steroids 12/28/2013 Abdominal pain 12/11/2013 Nausea & vomiting 12/11/2013 Overview: Associated with abdominal pain, worrisome for pancreatitis vs other give ongoing status. 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 Garrett ashley Assessment & Plan: [...] off Advair). 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 Dr. Avilez increased her prednisone back to [...] Rogers MD Appointment Request - Rheumatology cancel Immunizations Name Dates Previously Given Next Due [...]
[2016-11-09] MEDS ORDERED: NS IV 1000 ML 1,000 ML IV ONE (14:21)
[2016-11-09 15:15] LABS: ALBUMIN 4.2 G/DL (3.2-4.5); BILIRUBIN,TOTAL 1.2 MG/DL (0.1-1.0); CALCIUM 9.3 MG/DL (8.5-10.1); CREATININE SERUM 1.1 MG/DL (0.60-1.30); MAGNESIUM 2.2 MG/DL (1.8-2.4); TOTAL PROTEIN 6.6 G/DL (6.4-8.2)
--- NOTE | 2016-11-09 16:17 | Diagnostic Imaging Report ---
INDICATION: Cough and congestion. COMPARISON: 09/22/2016. FINDINGS: Stable marked cardiomegaly with right pectoral transvenous biventricular pacemaker/ICD. Increased pulmonary vascular congestion and central hilar indistinctness. No pleural effusion. Patchy opacities in the right middle lobe are noted. No pneumothorax. IMPRESSION: Cardiomegaly with pulmonary venous hypertension and probable early interstitial edema. However, if there is concern for an infectious process, the hazy opacities in the right middle lobe may be due to pneumonia rather than edema. Dictated by: Dictated on workstation # [id number]
[2016-11-09] MEDS ORDERED: fentaNYL INJECTION 100 MCG/2 ML AMP IVP ONE ×2 (16:30→18:30)
[2016-11-09] MEDS ORDERED: ONDANSETRON 4 MG/2 ML (SDV) Z0FRAN IVP ONE (16:30)
--- NOTE | 2016-11-09 16:34 | ED General ---
General Chief Complaint: Cough/Cold/Flu Symptoms Stated Complaint: NAUSEA BODYACHES/FEVER Nursing Triage Note: c/o cough/congestion/bodyaches/nausea. Vomited x 2 today. No known fever. Nursing Sepsis Screen: No Definite Risk Source of Information: Patient Exam Limitations: No Limitations History of Present Illness Time Seen by Provider: 14:10 Initial Comments Patient has had several days of cough, congestion, body aches, nausea, and vomiting. She was started on Tamiflu by her primary care provider. After 4 days she had no improvement and stop the Tamiflu. 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 The cough started yesterday and is productive. She complains of hot and cold sweats. She has taken numerous medications for nausea including Phenergan, Zofran, and Reglan but still is having trouble. She is also wearing a scopolamine patch. She denies diarrhea. Allergies and Home Medications Allergies Coded Allergies: influenza virus vaccine ts 7466-1649 (36 mos+) (Unverified Allergy, Severe , ANAPHYLAXIS, 01/08/15) pneumococcal vaccine (Unverified Allergy, Severe, ANAPHYLAXIS, 01/08/15) Penicillins (Verified Allergy, Mild, PER PT RXN = HIVES, CAN TAKE ROCEPHIN , 01/08/15) clindamycin (Unverified Allergy, Unknown, 01/08/15) morphine (Verified Adverse Reaction, Intermediate, RASH, PT HAS RECEIVED HYDROMORPHONE W/O ISSUE, 04/26/16) MORPHINE IV GIVEN AT ED, PT DEVELOPED RASH AND POSSIBLE HIVES metoclopramide (Verified Adverse Reaction, Unknown, 10/02/15) INCREASED FLUID RETENTION AND BRUISING Home Medications Acetylcysteine 200 Mg/1 Ml Vial #120 0 ML INH RTQ6HR Prescribed by: ALBER PHIPPS on 09/28/16 0904 Albuterol/Ipratropium 3 Ml Nebu 3 ML INH Q6H PRN PRN WHEEZING (Reported) Alprazolam 0.25 Mg Tablet 0.25 MG PO BID PRN PRN ANXIETY (Reported) Alprazolam 0.25 Mg Tablet #90 0.25 MG PO 1200,2100 ONE TWICE DAILY AND BID PRN UNCONTROLLED ANXIETY OR AIR 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 Prescribed by: ALBER PHIPPS on 09/28/16 0904 Ascorbic Acid 500 Mg Tablet 500 MG PO 1200 (Reported) Calcium Carbonate/Vitamin D3 1 Each Tablet 1 TAB PO 1200 (Reported) Digoxin 125 Mcg Tablet 125 MCG PO DAILY (Reported) Fentanyl 1 Each Patch.td72 #10 12 MCG TD EVERY 72 HOURS Prescribed by: ALBER PHIPPS on 09/28/16 0904 Folic Acid 0.4 Mg Tablet 0.4 MG PO HS (Reported) Furosemide 40 Mg Tablet 80 MG PO DAILY (Reported) TAKES 2 (40 MG) TABLETS Furosemide 40 Mg Tablet 40 MG PO HS (Reported) Hydroxyzine HCl 25 Mg Tablet 50 MG PO HS (Reported) TAKES 2 (25MG) TABLETS Immune Globulin,Gamma(IgG) 10 Gm/50 Ml Vial IV We (Reported) Insulin Detemir 100 Unit/1 Ml Insuln.pen 10 UNITS SC BID (Reported) Lactobacillus Combo No.10 1 Each Capsule 1 CAP PO 1200 (Reported) Magnesium Oxide 400 Mg Tablet 400 MG PO BID (Reported) Methotrexate Sodium 25 Mg/1 Ml Vial 1 ML SQ We (Reported) Metoprolol Tartrate 25 Mg Tablet 12.5 MG PO BID (Reported) TAKES 1/2 (25MG) TABLET Nystatin 100,000 Unit/1 Ml Oral.susp 5 ML PO QID PRN PRN THRUSH (Reported) Omeprazole 20 Mg Capsule.dr 20 MG PO 1700 (Reported) Ondansetron 4 Mg Tab.rapdis 4 MG PO Q4H PRN PRN NAUSEA (Reported) Oxycodone HCl 5 Mg Tablet #180 5-10 MG PO EVERY 4-6 HOURS PRN PRN PAIN Prescribed by: ALBER PHIPPS on 09/28/16 0904 Pnv with Ca,No.74/Iron/FA 1 Each Tablet 1 TAB PO HS (Reported) Potassium Chloride 20 Meq Tab.er.prt 20 MEQ PO BID (Reported) Prednisone 10 Mg Tab 10 MG PO DAILY (Reported) TAKES ALONG WITH 2 (20MG) TABLETS FOR A TOTAL DAILY DOSE OF 50MG Prednisone 20 Mg Tab 40 MG PO DAILY (Reported) TAKES 2 (20MG) TABLETS ALONG WITH A 10MG TABLET FOR A TOTAL DAILY DOSE OF 50MG Promethazine HCl 25 Mg Tablet 25 MG PO TID PRN PRN NAUSEA (Reported) Sacubitril/Valsartan 1 Each Tablet 1 TAB PO BID (Reported) Scopolamine 1 Each Patch.td72 1 PATCH TD Q72H (Reported) Spironolactone 25 Mg Tablet 25 MG PO DAILY (Reported) Sulfamethoxazole/Trimethoprim 1 Each Tablet 1 TAB PO MoWeFr (Reported) Umeclidinium Brm/Vilanterol Tr 1 Each Blst.w.dev 1 PUFF IH DAILY (Reported) Constitutional: see HPI EENTM: see HPI Respiratory: see HPI Cardiovascular: no symptoms reported Gastrointestinal: see HPI Genitourinary: no symptoms reported Musculoskeletal: see HPI muscle pain Skin: no symptoms reported Psychiatric/Neurological: No Symptoms Reported Hematologic/Lymphatic: No Symptoms Reported Past Qyeehup-Ufbrcr-Uyufbs Hx Patient Social History Alcohol Use: Denies Use Recreational Drug Use: No Smoking Status: Never a Smoker 2nd Hand Smoke Exposure: No Recent Foreign Travel: No Contact w/Someone Who Travel: No Recent Infectious Disease Expo: No Recent Hopitalizations: Yes (08/13 for flash pulmonary edema) Immunizations Up To Date Tetanus Booster (TDap): Unknown PED Vaccines UTD: No Date of Pneumonia Vaccine: Dec 15, 2012 Date of Influenza Vaccine: Dec 15, 2012 Seasonal Allergies Seasonal Allergies: Yes Surgeries HX Surgeries: Yes (2 C-SECTIONS, 2 HERNIA REPAIRS, CRANIOTOMY, 3 PORTS PUT IN AND REMOVED) Surgeries: Abdominal, Section, Defibrillator, Gallbladder, Pacemaker, Vascular Surgery Respiratory Hx Respiratory Disorders: Yes (Churg-Canelo disease) Respiratory Disorders: Asthma, Pneumonia, Sleep Apnea, COPD Cardiovascular Hx Cardiac Disorders: Yes (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; PACEMAKER AND DEFIBRILLATOR) Cardiac Disorders: Cardiomyopathy Neurological Hx Neurological Disorders: Yes (BRAIN SURGERY R/T MRSA ABSCESS) Neurological Disorders: Headaches /Migraines Reproductive System Hx Reproductive Disorders: No Sexually Transmitted Disease: No HIV/AIDS: No Female Reproductive Disorders: Denies Genitourinary Hx Genitourinary Disorders: No Gastrointestinal Hx Gastrointestinal Disorders: Yes Gastrointestinal Disorders: Gastroesophageal Reflux, Hiatal Hernia, Gall Bladder Disease Musculoskeletal Hx Musculoskeletal Disorders: Yes (STEROID INDUCED MUSCLE MYOPATHY, CHRONIC GENERALIZED PAIN) Musculoskeletal Disorders: Osteoporosis, Arthritis, Back Injury, Chronic Back Pain Endocrine Hx Endocrine Disorders: Yes (CHACHA SYNDROME, CHURG-CANELO SYNDROME) Endocrine Disorders: Diabetes, Insulin dep HEENT HX ENT Disorders: No Loss of Vision: Denies Hearing Impairment: Hard of Hearing Cancer Hx Cancer: No Psychosocial Hx Psychiatric Problems: Yes Behavioral Health Disorders: Sleep Difficulties, Anxiety Integumentary HX Skin/Integumentary Disorder: Yes (wound to lt posterior calf; MRSA) Skin/Integumentary Disorders: Pruritis Blood Transfusions Hx Blood Disorders: No Adverse Reaction to a Blood Tr: No Family Medical History Significant Family History: Asthma, Cancer, Diabetes, Hypertension Family Medial History: Arthritis 03 FATHER Asthma 03 MOTHER Cancer GRANDMOTHER, Onset:50's - 60 Family history: Alzheimer's disease GRANDFATHER, Onset:60 years & older Family history: Diabetes mellitus GRANDMOTHER, Onset:50's - 60 Family history: Hypertension 03 MOTHER, Onset:40's - 50 No Family History of: Stroke Physical Exam Vital Signs Vital Sign - Last 12Hours 11/09/16 13:54 Temp 97.5 Pulse 97 Resp 28 B/P 122/ Pulse Ox 96 O2 Delivery Room Air Capillary Refill : Less Than 3 Seconds General Appearance: WD/WN Mild Distress HEENT: PERRL/EOMI Other (oropharynx is dry) Neck: Normal Inspection Respiratory: No Accessory Muscle Use No Respiratory Distress Wheezing (subtle terminal wheeze) Cardiovascular: No Edema No Murmur Tachycardia Gastrointestinal: Normal Bowel Sounds Soft Tenderness (minimal epigastric) Extremity: Normal Inspection No Pedal Edema Neurologic/Psychiatric: Alert Oriented x3 No Motor/Sensory Deficits Normal Mood/Affect academic assistant II-XII Norm as Tested Skin: Normal Color Warm/Dry Progress/Results/Core Measures Results/Orders Lab Results Laboratory Tests Test 11/09/16 14:50 11/09/16 16:43 Range/Units Alanine Aminotransferase (ALT/SGPT) 22 0-55 U/L Albumin 4.2 3.2-4.5 G/DL Alkaline Phosphatase 116 40-136 U/L Anion Gap 10 5-14 MMOL/L Aspartate Amino Transf (AST/SGOT) 26 5-34 U/L B-Type Natriuretic Peptide 3073.5 H <100.0 PG/ML BUN/Creatinine Ratio 10 Basophils # (Auto) 0.1 0.0-0.1 10^3/uL Basophils (%) (Auto) 1 0-10 % Blood Urea Nitrogen 11 7-18 MG/DL C-Reactive Protein High Sensitivity 0.82 H 0.00-0.50 MG/DL Calcium Level 9.3 8.5-10.1 MG/DL Carbon Dioxide Level 23 21-32 MMOL/L Chloride Level 104 98-107 MMOL/L Creatinine 1.10 0.60-1.30 MG/DL Eosinophils # (Auto) 0.7 H 0.0-0.3 10^3/uL Eosinophils (%) (Auto) 11 H 0-10 % Estimat Glomerular Filtration Rate 57 Glucose Level 119 H 70-105 MG/DL Hematocrit 35 35-52 % Hemoglobin 11.2 L 11.5-16.0 G/DL Lymphocytes # (Auto) 1.4 1.0-4.0 X 10^3 Lymphocytes (%) (Auto) 20 12-44 % Magnesium Level 2.2 1.8-2.4 MG/DL Mean Corpuscular Hemoglobin 30 25-34 PG Mean Corpuscular Hemoglobin Concent 33 32-36 G/DL Mean Corpuscular Volume 94 80-99 FL Mean Platelet Volume 12.5 H 7.4-10.4 FL Monocytes # (Auto) 0.7 0.0-1.0 X 10^3 Monocytes (%) (Auto) 10 0-12 % Neutrophils # (Auto) 4.2 1.8-7.8 X 10^3 Neutrophils (%) (Auto) 59 42-75 % Platelet Count 213 130-400 10^3/uL Potassium Level 4.0 3.6-5.0 MMOL/L Red Blood Count 3.69 L 4.35-5.85 10^6/uL Red Cell Distribution Width 14.9 H 10.0-14.5 % Sodium Level 137 135-145 MMOL/L Total Bilirubin 1.2 H 0.1-1.0 MG/DL Total Protein 6.6 6.4-8.2 G/DL White Blood Count 7.0 4.3-11.0 10^3/uL Urine Bacteria MODERATE H /HPF Urine Bilirubin NEGATIVE NEGATIVE Urine Casts NONE /LPF Urine Clarity CLEAR Urine Color YELLOW Urine Crystals NONE /LPF Urine Culture Indicated NO Urine Glucose (UA) NEGATIVE NEGATIVE Urine Ketones NEGATIVE NEGATIVE Urine Leukocyte Esterase 1+ H NEGATIVE Urine Mucus NEGATIVE /LPF Urine Nitrite NEGATIVE NEGATIVE Urine Protein 3+ H NEGATIVE Urine RBC 2-5 H /HPF Urine RBC (Auto) 2+ H NEGATIVE Urine Specific [place] 1.025 H 1.016-1.022 Urine Squamous Epithelial Cells 25-50 H /HPF Urine Urobilinogen 1 NORMAL MG/DL Urine WBC 2-5 /HPF Urine pH 6 5-9 Micro Results Microbiology 11/09/16 Influenza Types A,B Antigen (ALCON) - Final, Complete My Orders Orders-TRUMAN LEE MD Comprehensive Metabolic Panel (11/09/16 14:21) Magnesium (11/09/16 14:21) Ua Culture If Indicated (11/09/16 14:21) Influenza A And B Antigens (11/09/16 14:21) Chest Pa/Lat (2 View) (11/09/16 14:21) Saline Lock/Iv-Start (11/09/16 14:21) Ns Iv 1000 Ml (Sodium Chloride 0.9%) (11/09/16 14:21) Ondansetron Injection (Zofran Injectio (11/09/16 16:30) Fentanyl Injection (Sublimaze Injection (11/09/16 16:30) BNP (11/09/16 16:29) Cbc With Automated Diff (11/09/16 16:29) Hs C Reactive Protein (11/09/16 16:29) Promethazine Injection (Phenergan Injec (11/09/16 18:30) Fentanyl Injection (Sublimaze Injection (11/09/16 18:30) Medications Given in ED Vital Signs/I&O Progress Note #1: Time: 16:33 Progress Note Patient was initially felt to be volume depleted due to persistent vomiting, dry mouth, and mildly elevated heart rate. Patient did therefore receive a liter of IV fluids. However, x-ray results question the presence of pulmonary edema. Additional labs were ordered to help sort through the chest x-ray findings including CRP, BNP, and CBC. Patient has had continued nausea and vomiting and complains of generalized pain. Fentanyl and Zofran were ordered. Progress Note #2: Progress Note Follow up labs revealed no evidence for bacterial infection. BNP was elevated however. Patient was not in respiratory distress. She had no exam findings consistent with pulmonary edema (no pulmonary crackles, diminished lung sounds, or lower extremity edema). We discussed taking an extra dose of Lasix at home if she starts to feel fluid overloaded or has increased shortness of breath. We also discussed potentially increasing her prednisone for a few days as a stress dose while she is ill. I discussed the sequence of medications to take for treatment of nausea. Patient was having some rebound nausea prior to dismissal. She was given Phenergan IV and an additional dose of fentanyl for generalized pain. Diagnostic Imaging Diagonstic Imaging: Xray Plain Films/CT/US/NM/MRI: chest Comments Chest x-ray viewed by me and report reviewed. See report below: NAME: YESENIA [facility]RA [facility] REC#: [id number] PT STATUS: REG ER : 1980 PHYSICIAN: TRUMAN LEE MD ADMIT DATE: 11/09/16/ER Signed Date of Exam: 11/09/16 CHEST PA/LAT (2 VIEW) INDICATION: Cough and congestion. COMPARISON: 09/22/2016. FINDINGS: Stable marked cardiomegaly with right pectoral transvenous biventricular pacemaker/ICD. Increased pulmonary vascular congestion and central hilar indistinctness. No pleural effusion. Patchy opacities in the right middle lobe are noted. No pneumothorax. IMPRESSION: Cardiomegaly with pulmonary venous hypertension and probable early interstitial edema. However, if there is concern for an infectious process, the hazy opacities in the right middle lobe may be due to pneumonia rather than edema. Dictated by: Dictated on workstation # [id number] Dict: 11/09/16 1614 Trans: 11/09/16 1706 [facility] [id number] Interpreted by: ERIN JOSE MD Electronically signed by:ERIN JOSE MD 11/09/16 1709 Departure Communication Communication Impression Impression: Primary Impression: Viral upper respiratory illness Additional Impressions: Nausea and vomiting Qualified Code: R11.2 - Nausea with vomiting, unspecified Churg-Canelo syndrome Pulmonary edema Qualified Code: J81.0 - Acute pulmonary edema Disposition: 01 HOME, SELF-CARE Condition: Stable Departure-Patient Inst. Decision time for Depature: 18:15 Referrals: ALBER PHIPPS MD (PCP/Family) Primary Care Physician Patient Instructions: NO INSTRUCTIONS GIVEN Add. Discharge Instructions: For nausea consider taking your medications and this order: Zofran sublingual, followed 15 minutes later by Reglan orally. If that does not resolve your nausea, then take the promethazine suppository. If you develop worsening shortness of breath or feel fluid overloaded, take one extra dose of Lasix and potassium. Consider stress dosing your steroids by increasing your prednisone dose to 40 mg for 2 or 3 days. Return to care if symptoms worsen. All discharge instructions reviewed with patient and/or family. Voiced understanding. Copy Copies To 1: ALBER PHIPPS MD, JOSHUA T MD Nov 09, 2016 16:34 nausea, then take the promethazine suppository. If you develop worsening shortness of breath or feel fluid overloaded, take one extra dose of Lasix and potassium. Consider stress dosing your steroids by increasing your prednisone dose to 40 mg for 2 or 3 days. Return to care if symptoms worsen. All discharge instructions reviewed with patient and/or family. Voiced understanding. TRUMAN LEE MD Nov 09, 2016 16:34
[2016-11-09 16:48] LABS: BILIRUBIN,URINE NEGATIVE (NEGATIVE); KETONES,URINE NEGATIVE (NEGATIVE); LEUKOCYTE ESTERASE ,URINE 1+ (NEGATIVE); NITRITE,URINE NEGATIVE (NEGATIVE); PH,URINE 6 (5-9); PROTEIN,URINE 3+ (NEGATIVE); UROBILINOGEN,URINE 1 MG/DL (NORMAL)
[2016-11-09 17:09] LABS: BASOPHILS # (AUTO) 0.1 10^3/uL (0.0-0.1); BASOPHILS % (AUTO) 1 % (0-10); EOSINOPHILS # (AUTO) 0.7 10^3/uL (0.0-0.3); EOSINOPHILS % (AUTO) 11 % (0-10); LYMPHOCYTES # (AUTO) 1.4 X 10^3 (1.0-4.0); LYMPHOCYTES % (AUTO) 20 % (12-44); MEAN CORPUSCULAR HEMOGLOBIN 30 PG (25-34); MEAN CORPUSCULAR HGB CONC 33 G/DL (32-36); MEAN CORPUSCULAR VOLUME 94 FL (80-99); MEAN PLATELET VOLUME 12.5 FL (7.4-10.4); MONOCYTES # (AUTO) 0.7 X 10^3 (0.0-1.0); MONOCYTES % (AUTO) 10 % (0-12); NEUTROPHILS # (AUTO) 4.2 X 10^3 (1.8-7.8); NEUTROPHILS % (AUTO) 59 % (42-75); PLATELET COUNT 213 10^3/uL (130-400); RED BLOOD COUNT 3.69 10^6/uL (4.35-5.85); RED CELL DISTRIBUTION WIDTH 14.9 % (10.0-14.5)
[2016-11-09 17:14] LABS: SQUAMOUS EPITHELIAL CELL,UR 25-50 /HPF
[2016-11-09] MEDS ORDERED: PROMETHAZINE INJ 25 MG/ML (PHENERGAN) AMP IVP ONE (18:30)
[2016-11-09 19:00] VITALS: BP 128/70
[2016-11-30] MEDS ORDERED: FENT1PAT6 TD (09:48)
[2016-11-30] MEDS ORDERED: PRD10T PO (09:48)
[2016-11-30] MEDS ORDERED: OXYC5TAB71 PO (09:48)
[2016-11-30] MEDS ORDERED: INSU100V3 SC (09:48)
[2016-11-30] MEDS ORDERED: BETA15CR37 TOP (09:48)
== END 2016-11-09 19:00 | disposition home or self-care (01) ==
LOC: EDUNIT# 13:31 → ER 13:34
DX: J06.9 Acute upper respiratory infection, unspecified (principal); R11.2 Nausea with vomiting, unspecified; M30.1 Polyarteritis with lung involvement [Churg-Strauss]; J81.1 Chronic pulmonary edema; I25.10 Atherosclerotic heart disease of native coronary artery without angina pectoris; J44.9 Chronic obstructive pulmonary disease, unspecified; E11.9 Type 2 diabetes mellitus without complications; Z79.4 Long term (current) use of insulin; Z79.899 Other long term (current) drug therapy; Z79.810 Long term (current) use of selective estrogen receptor modulators (SERMs)
CPT/HCPCS: 36415; 71020; 80053; 81000; 83735; 83880; 85025; 86141; 87804; 96361; 96374; 96375; 96376

== ENCOUNTER 2016-11-12 14:55 | Inpatient (IN) | payer MEDICARE, MEDICAID ==
[~2016-11-12] VITALS: Ht 162.6 cm; Wt 74.4 kg
--- OUTSIDE RECORDS SUMMARY | 2016-11-12 15:02 | XMS REPORT | Continuity of Care Document ---
Author Author [facility] Organization [facility] Address Unknown Phone Unavailable Care Team Providers Care Inspector [employer] Name Role Phone Thomas Aguilar PCP [phone] Source Comments Some departments are not documenting in the electronic medical record. If you do not see the information that you expected, contact Release of Information in the Health Information Management department at [phone] for further assistance in locating additional records.[facility] Active Allergies and Adverse Reactions Allergen Noted Date Severity Reactions Comments Clindamycin 12/09/2012 HIVES Patient states she received on last admission and after 1 day of treatment developed hives Influenza Virus Vaccine 12/09/2012 HIVES, ANGIOEDEMA, EDEMA Patient states she Trival [id number] (18 Yr received the flu vaccine +) [...] of cardiac pulse generator 08/03/2016 Overview: 2016 [facility] Advisory for Premature Battery Depletion Thrush [...] on MTX. DM (diabetes mellitus) (HCC) 06/10/2014 [facility] current use of systemic steroids 12/28/2013 Abdominal pain 12/11/2013 Nausea & vomiting 12/11/2013 Overview: Associated with abdominal pain, worrisome for pancreatitis vs other give ongoing status. 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 Garrett ashley Assessment & Plan: [...] off Advair). 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 Dr. Avilez increased her prednisone back to [...]
[2016-11-12] MEDS ORDERED: fentaNYL INJECTION 100 MCG/2 ML AMP IVP STA (15:17)
--- NOTE | 2016-11-12 15:29 | ED General ---
General Chief Complaint: Cough/Cold/Flu Symptoms Stated Complaint: SOA Nursing Triage Note: TO ED PER W/C WITH 02 ON REPORTS FOR APX 2 WEEKS HAS HAD COUGH CONGESTION BODY ACHES THAT PAIN MEDS NOT HELPING. WAS SEEN IN ED ON SATURDAY Nursing Sepsis Screen: No Definite Risk Source of Information: Patient Exam Limitations: No Limitations History of Present Illness Time Seen by Provider: 15:05 Initial Comments Here with report of increasing shortness of breath and cough with congestion and body aches. Seen last Saturday for the same and discharged home. Today returns for increasing abdominal pain, cough and congestion. Denies fevers. Denies vomiting but does have nausea. She is coughing up thick sputum. Timing/Duration: 1 Week, Getting Worse Severity: Moderate Associated Systoms: CoughNo Fever/Chills, Nausea/Vomiting Shortness of Air Weakness Allergies and Home Medications Allergies Coded Allergies: influenza virus vaccine ts [id number] (36 mos+) (Unverified Allergy, Severe , ANAPHYLAXIS, 01/08/15) pneumococcal vaccine (Unverified Allergy, Severe, ANAPHYLAXIS, 01/08/15) Penicillins (Verified Allergy, Mild, PER PT RXN = HIVES, CAN TAKE ROCEPHIN , 01/08/15) clindamycin (Unverified Allergy, Unknown, 01/08/15) morphine (Verified Adverse Reaction, Intermediate, RASH, PT HAS RECEIVED HYDROMORPHONE W/O ISSUE, 04/26/16) MORPHINE IV GIVEN AT ED, PT DEVELOPED RASH AND POSSIBLE HIVES metoclopramide (Verified Adverse Reaction, Unknown, 10/02/15) INCREASED FLUID RETENTION AND BRUISING Home Medications Acetylcysteine 200 Mg/1 Ml Vial #120 0 ML INH RTQ6HR Prescribed by: ALBER AGUILAR on 09/28/16 0904 Albuterol/Ipratropium 3 Ml Nebu 3 ML INH Q6H PRN PRN WHEEZING (Reported) Alprazolam 0.25 Mg Tablet 0.25 MG PO BID PRN PRN ANXIETY (Reported) Alprazolam 0.25 Mg Tablet #90 0.25 MG PO 1200,2100 ONE TWICE DAILY AND BID PRN UNCONTROLLED ANXIETY OR AIR HUNGER Prescribed by: ALBER AGUILAR on 09/28/16 0904 Ascorbic Acid 500 Mg Tablet 500 MG PO 1200 (Reported) Calcium Carbonate/Vitamin D3 1 Each Tablet 1 TAB PO 1200 (Reported) Digoxin 125 Mcg Tablet 125 MCG PO DAILY (Reported) Fentanyl 1 Each Patch.td72 #10 12 MCG TD EVERY 72 HOURS Prescribed by: ALBER AGUILAR on 09/28/16 0904 Folic Acid 0.4 Mg Tablet 0.4 MG PO HS (Reported) Furosemide 40 Mg Tablet 80 MG PO DAILY (Reported) TAKES 2 (40 MG) TABLETS Furosemide 40 Mg Tablet 40 MG PO HS (Reported) Hydroxyzine HCl 25 Mg Tablet 50 MG PO HS (Reported) TAKES 2 (25MG) TABLETS Immune Globulin,Gamma(IgG) 10 Gm/50 Ml Vial IV We (Reported) Insulin Detemir 100 Unit/1 Ml Insuln.pen 10 UNITS SC BID (Reported) Lactobacillus Combo No.10 1 Each Capsule 1 CAP PO 1200 (Reported) Magnesium Oxide 400 Mg Tablet 400 MG PO BID (Reported) Methotrexate Sodium 25 Mg/1 Ml Vial 1 ML SQ We (Reported) Metoprolol Tartrate 25 Mg Tablet 12.5 MG PO BID (Reported) TAKES 1/2 (25MG) TABLET Nystatin 100,000 Unit/1 Ml Oral.susp 5 ML PO QID PRN PRN THRUSH (Reported) Omeprazole 20 Mg Capsule.dr 20 MG PO 1700 (Reported) Ondansetron 4 Mg Tab.rapdis 4 MG PO Q4H PRN PRN NAUSEA (Reported) Oxycodone HCl 5 Mg Tablet #180 5-10 MG PO EVERY 4-6 HOURS PRN PRN PAIN Prescribed by: ALBER AGUILAR on 09/28/16 0904 Pnv with Ca,No.74/Iron/FA 1 Each Tablet 1 TAB PO HS (Reported) Potassium Chloride 20 Meq Tab.er.prt 20 MEQ PO BID (Reported) Prednisone 10 Mg Tab 10 MG PO DAILY (Reported) TAKES ALONG WITH 2 (20MG) TABLETS FOR A TOTAL DAILY DOSE OF 50MG Prednisone 20 Mg Tab 40 MG PO DAILY (Reported) TAKES 2 (20MG) TABLETS ALONG WITH A 10MG TABLET FOR A TOTAL DAILY DOSE OF 50MG Promethazine HCl 25 Mg Tablet 25 MG PO TID PRN PRN NAUSEA (Reported) Sacubitril/Valsartan 1 Each Tablet 1 TAB PO BID (Reported) Scopolamine 1 Each Patch.td72 1 PATCH TD Q72H (Reported) Spironolactone 25 Mg Tablet 25 MG PO DAILY (Reported) Sulfamethoxazole/Trimethoprim 1 Each Tablet 1 TAB PO MoWeFr (Reported) Umeclidinium Brm/Vilanterol Tr 1 Each Blst.w.dev 1 PUFF IH DAILY (Reported) Constitutional: see HPINo chills, No fever EENTM: no symptoms reported Respiratory: see HPI cough dyspnea on exertion phlegm short of breath wheezing Cardiovascular: no symptoms reported Gastrointestinal: see HPI abdominal painNo diarrhea, nauseaNo vomiting Genitourinary: No dysuria, No pain : Yes Musculoskeletal: no symptoms reported Skin: no symptoms reported All Other Systems Reviewed Negative Unless Noted: Yes Past Oqeznvu-Dkgfce-Amjpmy Hx Patient Social History Alcohol Use: Denies Use Recreational Drug Use: No Smoking Status: Never a Smoker 2nd Hand Smoke Exposure: No Recent Foreign Travel: No Contact w/Someone Who Travel: No Recent Infectious Disease Expo: No Recent Hopitalizations: Yes (08/13 for flash pulmonary edema) Immunizations Up To Date Tetanus Booster (TDap): Unknown PED Vaccines UTD: No Date of Pneumonia Vaccine: Dec 15, 2012 Date of Influenza Vaccine: Dec 15, 2012 Seasonal Allergies Seasonal Allergies: Yes Surgeries HX Surgeries: Yes (2 C-SECTIONS, 2 HERNIA REPAIRS, CRANIOTOMY, 3 PORTS PUT IN AND REMOVED) Surgeries: Abdominal, Section, Defibrillator, Gallbladder, Pacemaker, Vascular Surgery Respiratory Hx Respiratory Disorders: Yes (Churg-Canelo disease) Respiratory Disorders: Asthma, Pneumonia, Sleep Apnea, COPD Cardiovascular Hx Cardiac Disorders: Yes (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; PACEMAKER AND DEFIBRILLATOR) Cardiac Disorders: Cardiomyopathy Neurological Hx Neurological Disorders: Yes (BRAIN SURGERY R/T MRSA ABSCESS) Neurological Disorders: Headaches /Migraines Reproductive System Hx Reproductive Disorders: No Sexually Transmitted Disease: No HIV/AIDS: No Female Reproductive Disorders: Denies Genitourinary Hx Genitourinary Disorders: No Gastrointestinal Hx Gastrointestinal Disorders: Yes Gastrointestinal Disorders: Gastroesophageal Reflux, Hiatal Hernia, Gall Bladder Disease Musculoskeletal Hx Musculoskeletal Disorders: Yes (STEROID INDUCED MUSCLE MYOPATHY, CHRONIC GENERALIZED PAIN) Musculoskeletal Disorders: Osteoporosis, Arthritis, Back Injury, Chronic Back Pain Endocrine Hx Endocrine Disorders: Yes (CHACHA SYNDROME, CHURG-CANELO SYNDROME) Endocrine Disorders: Diabetes, Insulin dep HEENT HX ENT Disorders: No Loss of Vision: Denies Hearing Impairment: Hard of Hearing Cancer Hx Cancer: No Psychosocial Hx Psychiatric Problems: Yes Behavioral Health Disorders: Sleep Difficulties, Anxiety Integumentary HX Skin/Integumentary Disorder: Yes (wound to lt posterior calf; MRSA) Skin/Integumentary Disorders: Pruritis Blood Transfusions Hx Blood Disorders: No Adverse Reaction to a Blood Tr: No Reviewed Nursing Assessment Reviewed/Agree w Nursing PMH: Yes Family Medical History Significant Family History: Asthma, Cancer, Diabetes, Hypertension Family Medial History: Arthritis 03 FATHER Asthma 03 MOTHER Cancer GRANDMOTHER, Onset:50's - 60 Family history: Alzheimer's disease GRANDFATHER, Onset:60 years & older Family history: Diabetes mellitus GRANDMOTHER, Onset:50's - 60 Family history: Hypertension 03 MOTHER, Onset:40's - 50 Physical Exam Vital Signs Vital Sign - Last 12Hours 11/12/16 14:59 Temp 98.4 Pulse 100 Resp 20 B/P 126/84 Capillary Refill : Less Than 3 Seconds General Appearance: No Apparent Distress WD/WN HEENT: PERRL/EOMI Pharynx Normal Neck: Non Tender Supple Respiratory: No Accessory Muscle Use No Respiratory Distress Crackles Rhonci Wheezing Cardiovascular: No Murmur Tachycardia Gastrointestinal: SoftNo Mass, No Rebound, Tenderness (epigastric mild) Back: Normal Inspection No CVA Tenderness No Vertebral Tenderness Extremity: Normal Range of Motion Non Tender Neurologic/Psychiatric: Alert Oriented x3 Skin: Normal Color Warm/Dry Progress/Results/Core Measures Results/Orders Lab Results Laboratory Tests Test 11/12/16 15:11 11/12/16 15:45 11/12/16 16:30 Range/Units Alanine Aminotransferase (ALT/SGPT) 18 0-55 U/L Albumin 4.1 3.2-4.5 G/DL Alkaline Phosphatase 143 H 40-136 U/L Anion Gap 15 H 5-14 MMOL/L Aspartate Amino Transf (AST/SGOT) 28 5-34 U/L BUN/Creatinine Ratio 16 Blood Urea Nitrogen 16 7-18 MG/DL Calcium Level 9.4 8.5-10.1 MG/DL Carbon Dioxide Level 18 L 21-32 MMOL/L Chloride Level 104 98-107 MMOL/L Creatinine 0.97 0.60-1.30 MG/DL Direct Bilirubin 0.9 H 0.0-0.3 MG/DL Estimat Glomerular Filtration Rate > 60 Glucose Level 89 70-105 MG/DL Indirect Bilirubin 1.2 MG/DL Potassium Level 4.5 3.6-5.0 MMOL/L Sodium Level 137 135-145 MMOL/L Total Bilirubin 2.1 H 0.1-1.0 MG/DL Total Protein 6.6 6.4-8.2 G/DL B-Type Natriuretic Peptide 2787.7 H <100.0 PG/ML Basophils # (Auto) 0.0 0.0-0.1 10^3/uL Basophils (%) (Auto) 0 0-10 % Eosinophils # (Auto) 0.4 H 0.0-0.3 10^3/uL Eosinophils (%) (Auto) 6 0-10 % Hematocrit 36 35-52 % Hemoglobin 11.7 11.5-16.0 G/DL Lymphocytes # (Auto) 0.6 L 1.0-4.0 X 10^3 Lymphocytes (%) (Auto) 8 L 12-44 % Mean Corpuscular Hemoglobin 30 25-34 PG Mean Corpuscular Hemoglobin Concent 33 32-36 G/DL Mean Corpuscular Volume 92 80-99 FL Mean Platelet Volume 12.1 H 7.4-10.4 FL Monocytes # (Auto) 0.6 0.0-1.0 X 10^3 Monocytes (%) (Auto) 8 0-12 % Neutrophils # (Auto) 6.0 1.8-7.8 X 10^3 Neutrophils (%) (Auto) 78 H 42-75 % Platelet Count 184 130-400 10^3/uL Red Blood Count 3.86 L 4.35-5.85 10^6/uL Red Cell Distribution Width 14.8 H 10.0-14.5 % White Blood Count 7.7 4.3-11.0 10^3/uL Lactic Acid Level 1.5 0.5-2.0 MMOL/L My Orders Orders-DERRICK RUSH MD Chest Pa/Lat (2 View) (11/12/16 15:16) Sputum Culture (11/12/16 15:16) Liver Panel (11/12/16 15:16) Fentanyl Injection (Sublimaze Injection (11/12/16 15:17) Ondansetron Injection (Zofran Injectio (11/12/16 15:30) Lactic Acid Analyzer (11/12/16 16:11) Blood Culture (11/12/16 16:11) Levofloxacin 750 Mg/150 Ml Iv (Levaquin (11/12/16 17:05) Hydromorphone Injection (Dilaudid Inject (11/12/16 17:05) Ondansetron Injection (Zofran Injectio (11/12/16 17:15) Medications Given in ED Current Medications Medications Dose Ordered Sig/Neisha Route Start Time Stop Time Status Last Admin Dose Admin Ondansetron HCl 4 mg ONCE ONCE IVP 11/12/16 15:30 11/12/16 15:31 DC 11/12/16 15:29 4 MG Vital Signs/I&O Vital Sign - Last 12Hours 11/12/16 14:59 Temp 98.4 Pulse 100 Resp 20 B/P 126/84 Blood Pressure Mean: 98 Progress Note : Progress Note Seen and evaluated. IV, labs, chest x-ray, sputum culture, Zofran 4 mg IV and fentanyl 50 g IV ordered. Monitor patient. 1700: All findings reviewed. Patient has findings of right-sided pneumonia that has progressed since 3 days ago. Patient has significant chronic lung disease and rolled prior hospitalization and IV antibiotics. Case discussed with Dr. Aguilar who agrees. Admit, inpatient status. Levaquin 750 mg IV. She will require 3 drug combination and we will use meropenem protocol due to penicillin allergy. Dilaudid 1 mg IV and Zofran 4 mg IV ordered. Discussed with patient who agrees with plan. Admit, inpatient status. Diagnostic Imaging Diagonstic Imaging: Xray Plain Films/CT/US/NM/MRI: chest Comments NAME: YESENIA [facility]EDRA [facility] REC#: [id number] PT STATUS: REG ER : 1980 PHYSICIAN: DERRICK RUSH MD ADMIT DATE: 11/12/16/ER Signed Date of Exam: 11/12/16 CHEST PA/LAT (2 VIEW) PA and lateral views of the chest. COMPARISON: 11/09/2016. FINDINGS: The cardiac size is markedly enlarged. There are perihilar infiltrates on the right side increased from the prior exam. Minimal background vascular congestion. There is no effusion or pneumothorax. Cardiac pacer with three cardiac leads is seen. Surgical clips in the upper right abdomen noted. There is a compression fracture in the lower thoracic spine similar to February 2016. IMPRESSION: Cardiomegaly with minimal vascular congestion. Worsening right perihilar infiltrates likely related to pneumonia. Dictated by: Dictated on workstation # [id number] Dict: 11/12/16 1600 Trans: 11/12/16 1647 [id number] Interpreted by: ZHOU CARLSON MD Electronically signed by:ZHOU CARLSON MD 11/12/16 1650 Reviewed: Reviewed by Me Departure Communication Time/Spoke to Admitting Phy: 17:00 Impression Impression: Primary Impression: Pneumonia Qualified Code: J18.9 - Pneumonia, unspecified organism Additional Impression: Churg-Canelo disease Disposition: ADMITTED INPATIENT Condition: Stable Decision to Admit Reason: Admit from ER (General) Decision to Admit/Date: Nov 12, 2016 Time/Decision to Admit Time: 17:00 Departure-Patient Inst. Referrals: ALBER AGUILAR MD (PCP/Family) Primary Care Physician DERRICK RUSH MD Nov 12, 2016 15:29
[2016-11-12] MEDS ORDERED: ONDANSETRON 4 MG/2 ML (SDV) Z0FRAN IVP ONE ×2 (15:30→17:15)
[2016-11-12 15:52] LABS: ALANINE AMINOTRANSFERASE 18 U/L (0-55); ALBUMIN 4.1 G/DL (3.2-4.5); ANION GAP 15 MMOL/L (5-14); ASPARTATE AMINO TRANSFERASE 28 U/L (5-34); BILIRUBIN,DIRECT 0.9 MG/DL (0.0-0.3); BILIRUBIN,INDIRECT 1.2 MG/DL; BILIRUBIN,TOTAL 2.1 MG/DL (0.1-1.0); BLOOD UREA NITROGEN 16 MG/DL (7-18); BUN/CREATININE RATIO 16; CALCIUM 9.4 MG/DL (8.5-10.1); CARBON DIOXIDE 18 MMOL/L (21-32); CHLORIDE 104 MMOL/L (98-107); CREATININE SERUM 0.97 MG/DL (0.60-1.30); GFR ESTIMATED > 60; GLUCOSE 89 MG/DL (70-105); POTASSIUM 4.5 MMOL/L (3.6-5.0); TOTAL PROTEIN 6.6 G/DL (6.4-8.2)
[2016-11-12 15:57] LABS: SODIUM 137 MMOL/L (135-145)
[2016-11-12 16:10] LABS: BASOPHILS % (AUTO) 0 % (0-10); EOSINOPHILS # (AUTO) 0.4 10^3/uL (0.0-0.3); EOSINOPHILS % (AUTO) 6 % (0-10); LYMPHOCYTES # (AUTO) 0.6 X 10^3 (1.0-4.0); LYMPHOCYTES % (AUTO) 8 % (12-44); MEAN CORPUSCULAR HEMOGLOBIN 30 PG (25-34); MEAN CORPUSCULAR HGB CONC 33 G/DL (32-36); MEAN CORPUSCULAR VOLUME 92 FL (80-99); MEAN PLATELET VOLUME 12.1 FL (7.4-10.4); MONOCYTES # (AUTO) 0.6 X 10^3 (0.0-1.0); MONOCYTES % (AUTO) 8 % (0-12); NEUTROPHILS % (AUTO) 78 % (42-75); PLATELET COUNT 184 10^3/uL (130-400); RED BLOOD COUNT 3.86 10^6/uL (4.35-5.85); RED CELL DISTRIBUTION WIDTH 14.8 % (10.0-14.5); WHITE BLOOD COUNT 7.7 10^3/uL (4.3-11.0)
--- NOTE | 2016-11-12 16:10 | Diagnostic Imaging Report ---
PA and lateral views of the chest. COMPARISON: 11/09/2016. FINDINGS: The cardiac size is markedly enlarged. There are perihilar infiltrates on the right side increased from the prior exam. Minimal background vascular congestion. There is no effusion or pneumothorax. Cardiac pacer with three cardiac leads is seen. Surgical clips in the upper right abdomen noted. There is a compression fracture in the lower thoracic spine similar to February 2016. IMPRESSION: Cardiomegaly with minimal vascular congestion. Worsening right perihilar infiltrates likely related to pneumonia. Dictated by: Dictated on workstation # [id number]
[2016-11-12] MEDS ORDERED: HYDROmorphone (DILAUDID) 2 MG/ML VIAL IVP STA (17:05)
[2016-11-12] MEDS ORDERED: LEVOFLOXACIN 750 MG/150 ML IV 150 ML IV STA (17:05)
[2016-11-12] MEDS: MEROPENEM 500 MG/NS 100 ML IVPB IV SCH ×4 (18:00→23:51)
[2016-11-12] MEDS ORDERED: CATHETER FLUSH 10 ML SYR IV PRN (18:15)
--- NOTE | 2016-11-12 18:26 | History & Physicial ---
History of Present Illness History of Present Illness Reason for visit/HPI PT IS A 36 Y/O FEMALE WHO IS KNOWN TO ME FROM CLINIC. SHE PRESENTED TO THE HOSPITAL WITH DYSPNEA, COUGH, WEAKNESS. SHE HAS HISTORY OF CHURG CANELO AND HAS RECURRENT HOSPITALIZATIONS DUE TO HER CHRONIC ILLNESS OF EOSINOPHILIC VASCULITIS AND CARDIOMYOPATHY. CHEST XRAY FROM THE EMERGENCY DEPT SHOWS RIGHT BASILAR PNEUMONIA. Date of Admission Nov 12, 2016 at 17:15 I consulted on this patient on 11/12/16 18:26 Attending Physician Alber Aguilar MD Admitting Physician Alber Aguilar MD Consult Allergies and Home Medications Allergies Coded Allergies: influenza virus vaccine ts [id number] (36 mos+) (Unverified Allergy, Severe , ANAPHYLAXIS, 01/08/15) pneumococcal vaccine (Unverified Allergy, Severe, ANAPHYLAXIS, 01/08/15) Penicillins (Verified Allergy, Mild, PER PT RXN = HIVES, CAN TAKE ROCEPHIN , 01/08/15) clindamycin (Unverified Allergy, Unknown, 01/08/15) morphine (Verified Adverse Reaction, Intermediate, RASH, PT HAS RECEIVED HYDROMORPHONE W/O ISSUE, 04/26/16) MORPHINE IV GIVEN AT ED, PT DEVELOPED RASH AND POSSIBLE HIVES metoclopramide (Verified Adverse Reaction, Unknown, 10/02/15) INCREASED FLUID RETENTION AND BRUISING Home Medications Acetylcysteine 200 Mg/1 Ml Vial #120 0 ML INH RTQ6HR Prescribed by: ALBER AGUILAR on 09/28/16 0904 Albuterol/Ipratropium 3 Ml Nebu 3 ML INH Q6H PRN PRN WHEEZING (Reported) Alprazolam 0.25 Mg Tablet 0.25 MG PO BID PRN PRN ANXIETY (Reported) Alprazolam 0.25 Mg Tablet #90 0.25 MG PO 1200,2100 ONE TWICE DAILY AND BID PRN UNCONTROLLED ANXIETY OR AIR HUNGER Prescribed by: ALBER AGUILAR on 09/28/16 0904 Ascorbic Acid 500 Mg Tablet 500 MG PO 1200 (Reported) Calcium Carbonate/Vitamin D3 1 Each Tablet 1 TAB PO 1200 (Reported) Digoxin 125 Mcg Tablet 125 MCG PO DAILY (Reported) Fentanyl 1 Each Patch.td72 #10 12 MCG TD EVERY 72 HOURS Prescribed by: ALBER AGUILAR on 09/28/16 0904 Folic Acid 0.4 Mg Tablet 0.4 MG PO HS (Reported) Furosemide 40 Mg Tablet 80 MG PO DAILY (Reported) TAKES 2 (40 MG) TABLETS Furosemide 40 Mg Tablet 40 MG PO HS (Reported) Hydroxyzine HCl 25 Mg Tablet 50 MG PO HS (Reported) TAKES 2 (25MG) TABLETS Immune Globulin,Gamma(IgG) 10 Gm/50 Ml Vial IV We (Reported) Insulin Detemir 100 Unit/1 Ml Insuln.pen 10 UNITS SC BID (Reported) Lactobacillus Combo No.10 1 Each Capsule 1 CAP PO 1200 (Reported) Magnesium Oxide 400 Mg Tablet 400 MG PO BID (Reported) Methotrexate Sodium 25 Mg/1 Ml Vial 1 ML SQ We (Reported) Metoprolol Tartrate 25 Mg Tablet 12.5 MG PO BID (Reported) TAKES 1/2 (25MG) TABLET Nystatin 100,000 Unit/1 Ml Oral.susp 5 ML PO QID PRN PRN THRUSH (Reported) Omeprazole 20 Mg Capsule.dr 20 MG PO 1700 (Reported) Ondansetron 4 Mg Tab.rapdis 4 MG PO Q4H PRN PRN NAUSEA (Reported) Oxycodone HCl 5 Mg Tablet #180 5-10 MG PO EVERY 4-6 HOURS PRN PRN PAIN Prescribed by: ALBER AGUILAR on 09/28/16 0904 Pnv with Ca,No.74/Iron/FA 1 Each Tablet 1 TAB PO HS (Reported) Potassium Chloride 20 Meq Tab.er.prt 20 MEQ PO BID (Reported) Prednisone 10 Mg Tab 10 MG PO DAILY (Reported) TAKES ALONG WITH 2 (20MG) TABLETS FOR A TOTAL DAILY DOSE OF 50MG Prednisone 20 Mg Tab 40 MG PO DAILY (Reported) TAKES 2 (20MG) TABLETS ALONG WITH A 10MG TABLET FOR A TOTAL DAILY DOSE OF 50MG Promethazine HCl 25 Mg Tablet 25 MG PO TID PRN PRN NAUSEA (Reported) Sacubitril/Valsartan 1 Each Tablet 1 TAB PO BID (Reported) Scopolamine 1 Each Patch.td72 1 PATCH TD Q72H (Reported) Spironolactone 25 Mg Tablet 25 MG PO DAILY (Reported) Sulfamethoxazole/Trimethoprim 1 Each Tablet 1 TAB PO MoWeFr (Reported) Umeclidinium Brm/Vilanterol Tr 1 Each Blst.w.dev 1 PUFF IH DAILY (Reported) Past Hfffnhl-Vacoiu-Ytimys Hx Patient Social History Marrital Status: Living Status: LIVES WITH FAMILY AND HER CHILDREN Employed/Student: unemployed Alcohol Use: Denies Use Recreational Drug Use: No Smoking Status: Never a Smoker 2nd Hand Smoke Exposure: No Physical Abuse Screen: No Sexual Abuse: No Recent Foreign Travel: No Contact w/other who traveled: No Recent Hopitalizations: Yes (08/13 for flash pulmonary edema) Recent Infectious Disease Expo: No Immunizations Up To Date Tetanus Booster (TDap): Unknown Date of Pneumonia Vaccine: Dec 15, 2012 Date of Influenza Vaccine: Dec 15, 2012 Seasonal Allergies Seasonal Allergies: Yes Surgeries HX Surgeries: Yes (2 C-SECTIONS, 2 HERNIA REPAIRS, CRANIOTOMY, 3 PORTS PUT IN AND REMOVED) Surgeries: Abdominal, Section, Defibrillator, Gallbladder, Pacemaker, Vascular Surgery Respiratory Hx Respiratory Disorders: Yes (Churg-Canelo disease) Cardiovascular Hx Cardiovascular Disorders: Yes (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; PACEMAKER AND DEFIBRILLATOR) Cardiac Disorders: Cardiomyopathy Neurological Hx Neurological Disorders: Yes (BRAIN SURGERY R/T MRSA ABSCESS) Neurological Disorders: Headaches /Migraines Reproductive System : No Hx Reproductive Disorders: No Sexually Transmitted Disease: No HIV/AIDS: No Female Reproductive Disorders: Denies Genitourinary Hx Genitourinary Disorders: No Gastrointestinal Hx Gastrointestinal Disorders: Yes Gastrointestinal Disorders: Gastroesophageal Reflux, Hiatal Hernia, Gall Bladder Disease Musculoskeletal Hx Musculoskeletal Disorders: Yes (STEROID INDUCED MUSCLE MYOPATHY, CHRONIC GENERALIZED PAIN) Musculoskeletal Disorders: Osteoporosis, Arthritis, Back Injury, Chronic Back Pain Endocrine Hx Endocrine Disorders: Yes (CHACHA SYNDROME, CHURG-CANELO SYNDROME) Endocrine Disorders: Diabetes, Insulin dep HEENT HX ENT Disorders: No Loss of Vision: Denies Hearing Impairment: Hard of Hearing Cancer Hx Cancer: No Psychosocial Hx Psychiatric Problems: Yes Behavioral Health Disorders: Sleep Difficulties, Anxiety Integumentary HX Skin/Integumentary Disorder: Yes (wound to lt posterior calf; MRSA) Skin/Integumentary Disorders: Pruritis Blood Transfusions Hx Blood Disorders: No Adverse Reaction to a Blood Tr: No Reviewed Nursing Assessment Reviewed/Agree w Nursing PMH: Yes Family Medical History Significant Family History: Asthma, Cancer, Diabetes, Hypertension Family Hx: Arthritis 03 FATHER Asthma 03 MOTHER Cancer GRANDMOTHER, Onset:50's - 60 Family history: Alzheimer's disease GRANDFATHER, Onset:60 years & older Family history: Diabetes mellitus GRANDMOTHER, Onset:50's - 60 Family history: Hypertension 03 MOTHER, Onset:40's - 50 No Family History of: Stroke Constitutional: No chills, No fever, malaise weakness EENTM: hoarsenessNo throat swelling Respiratory: cough dyspnea on exertion phlegm short of breath wheezing Cardiovascular: No chest pain, edemaNo palpitations Gastrointestinal: abdominal pain Genitourinary: no symptoms reported Musculoskeletal: back pain Skin: no symptoms reported Psychiatric/Neurological: Depressed All Other Systems Reviewed Negative Unless Noted: Yes Physical Exam Vital Signs Vital Sign - Last 12Hours 11/12/16 11/12/16 11/12/16 14:59 17:35 20:07 Temp 98.4 Pulse 100 Resp 20 B/P 126/84 Pulse Ox 95 O2 Delivery Nasal Cannula O2 Flow Rate 3 Capillary Refill : Less Than 3 Seconds General Appearance: No Apparent Distress WD/WN Eyes: Bilateral Eye EOMI, Bilateral Eye Normal Inspection, Bilateral Eye PERRL HEENT: PERRL/EOMI Pharynx Normal Neck: Full Range of Motion Supple Respiratory: No Accessory Muscle Use Crackles (IN RIGHT BASE) Decreased Breath Sounds Cardiovascular: Regular Rate, Rhythm Systolic Murmur Rectal: Deferred Back: Normal Inspection No CVA Tenderness No Vertebral Tenderness Extremity: Pedal Edema (TRACE) Neurologic/Psychiatric: Alert Oriented x3 No Motor/Sensory Deficits Normal Mood/Affect relations coordinator II-XII Norm as Tested Skin: Normal Color Warm/Dry Lymphatic: No Adenopathy Assessment/Plan Assessment and Plan PNEUMONIA CONGESTIVE HEART FAILURE EXACERBATION CARDIOMYOPATHY UNCONTROLLED NAUSEA CHURG-CANELO ATRIAL FIBRILLATION CHRONIC IMMUNE SUPPRESSION THERAPY ESOPHAGEAL REFLUX CHRONIC PAIN SYNDROME STEROID INDUCED DIABETES MELLITUS CHRONIC OXYGEN THERAPY NOCTURNAL APNEA PNEUMONIA - TRIPLE ANTIBIOTIC THERAPY - MUCOMYST BREATHING TREATMENTS. CHF - ACUTE ON CHRONIC LEFT SIDED SYSTOLIC FAILURE - CONTINUE WITH IV LASIX, MONITOR BNP CLOSELY. 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 ATRIAL FIBRILLATION - RESTARTED DIGOXIN, CHECK DIGOXIN LEVEL, SUPPORTIVE CARE. NAUSEA - NAUSEA MEDICATION HAS NOT MADE MUCH OF A DIFFERENCE IN HER SYMPTOMS. SUPPORTIVE CARE, START IV ZOFRAN AND IV PHENERGAN. CHRONIC IMMUNOSUPPRESSION - AND ADRENAL SUPPRESSION WITH CHRONIC STEROID USE - DOSE WITH SOLUMEDROL. STEROID INDUCED DIABETES MELLITUS - CHECK FSBS, RESTART HOME INSULIN THERAPY. GERD - RESTART PROTONIX PO CHRONIC PAIN - START IV DILAUDID YESENIA WANTS TO BE A FULL CODE, SHE WILL BE ON ANTICOAGULATION, AND SCD'S Admission Diagnosis PNEUMONIA CONGESTIVE HEART FAILURE EXACERBATION CARDIOMYOPATHY UNCONTROLLED NAUSEA CHURG-CANELO ATRIAL FIBRILLATION CHRONIC IMMUNE SUPPRESSION THERAPY ESOPHAGEAL REFLUX CHRONIC PAIN SYNDROME STEROID INDUCED DIABETES MELLITUS CHRONIC OXYGEN THERAPY NOCTURNAL APNEA ALBER AGUILAR MD Nov 12, 2016 18:26
[2016-11-12] MEDS ORDERED: VANCOMYCIN 1250 MG/NS 250 ML IVPB IV NR ×2 (18:30)
[2016-11-12] MEDS: ONDANSETRON 4 MG/2 ML (SDV) Z0FRAN IV PRN (19:50)
[2016-11-12] MEDS: HYDROmorphone (DILAUDID) 2 MG/ML VIAL IV PRN ×2 (19:55→23:20)
[2016-11-12 20:00] VITALS: BP 112/79
[2016-11-12] MEDS ORDERED: LEVOFLOXACIN 750 MG/D5W 150 ML PRE-MIX IV SCH (20:00)
[2016-11-12] MEDS: PROMETHAZINE INJ 25 MG/ML (PHENERGAN) AMP IVP PRN (20:47)
[2016-11-12] MEDS: CATHETER FLUSH 10 ML SYR IV SCH (20:48)
[2016-11-12] MEDS ORDERED: RT-ALBUTEROL/IPRATROPIUM 3 ML (DUONEB) VIAL INH PRN (22:45)
[2016-11-12] MEDS: ENOXAPARIN 40 MG/0.4 ML (LOVENOX) SYR SC SCH (23:04)
[2016-11-12] MEDS: SACUBITRIL/VALSARTAN 24/26 MG (ENTRESTO) TABLET PO SCH (23:05)
[2016-11-12] MEDS: hydrOXYzine (VISTARIL) 25 MG CAP PO SCH (23:05)
[2016-11-12] MEDS: ALPRAZolam 0.25 MG (XANAX) TAB PO SCH (23:06)
[2016-11-12] MEDS: FUROSEMIDE 40 MG (LASIX) TAB PO SCH (23:06)
[2016-11-12] MEDS: meTOprolol TARTRATE 25 MG (LOPRESSOR) TABLET PO SCH (23:06)
[2016-11-13] VITALS: BP 120/55
[2016-11-13] MEDS: ONDANSETRON 4 MG/2 ML (SDV) Z0FRAN IV PRN ×3 (00:23→21:17)
[2016-11-13] MEDS: HYDROmorphone (DILAUDID) 2 MG/ML VIAL IV PRN ×8 (02:10→21:18)
[2016-11-13] MEDS: RT-ALBUTEROL/IPRATROPIUM 3 ML (DUONEB) VIAL INH SCH ×4 (02:28→20:53)
[2016-11-13] MEDS: aCETylcysteine 20% (MUCOMYST) 30ML SOLN VIAL INH SCH ×4 (02:28→20:53)
[2016-11-13] MEDS: PROMETHAZINE INJ 25 MG/ML (PHENERGAN) AMP IVP PRN (03:50)
[2016-11-13 04:00] VITALS: BP 110/56
[2016-11-13] MEDS: IBUPROFEN 600 MG (MOTRIN) TAB PO PRN ×3 (04:59→21:18)
[2016-11-13] MEDS: MEROPENEM 500 MG/NS 100 ML IVPB IV SCH ×8 (05:56→23:07)
[2016-11-13] MEDS: inSUlin (REGULAR) HUMAN 1 UNIT/0.01 ML (CHARGE PER UNIT) SC SCH ×4 (05:57→21:00)
[2016-11-13 06:46] LABS: BASOPHILS % (AUTO) 0 % (0-10); EOSINOPHILS # (AUTO) 0.4 10^3/uL (0.0-0.3); EOSINOPHILS % (AUTO) 5 % (0-10); LYMPHOCYTES # (AUTO) 0.3 X 10^3 (1.0-4.0); LYMPHOCYTES % (AUTO) 4 % (12-44); MEAN CORPUSCULAR HEMOGLOBIN 30 PG (25-34); MEAN CORPUSCULAR HGB CONC 32 G/DL (32-36); MEAN CORPUSCULAR VOLUME 92 FL (80-99); MEAN PLATELET VOLUME 11.8 FL (7.4-10.4); MONOCYTES # (AUTO) 0.6 X 10^3 (0.0-1.0); MONOCYTES % (AUTO) 9 % (0-12); NEUTROPHILS # (AUTO) 5.7 X 10^3 (1.8-7.8); NEUTROPHILS % (AUTO) 82 % (42-75); PLATELET COUNT 191 10^3/uL (130-400); RED BLOOD COUNT 3.54 10^6/uL (4.35-5.85); RED CELL DISTRIBUTION WIDTH 14.9 % (10.0-14.5)
[2016-11-13] MEDS: FOLIC ACID 1 MG TAB PO SCH (06:48)
[2016-11-13] MEDS: VANCOMYCIN 1 GM/NS 250 ML IVPB IV SCH ×4 (06:49→19:31)
[2016-11-13] MEDS: CATHETER FLUSH 10 ML SYR IV SCH ×3 (06:50→18:00)
[2016-11-13 07:14] LABS: ALBUMIN 3.9 G/DL (3.2-4.5); BILIRUBIN,TOTAL 1.8 MG/DL (0.1-1.0); CALCIUM 8.9 MG/DL (8.5-10.1); CREATININE SERUM 1.08 MG/DL (0.60-1.30); POTASSIUM 3.7 MMOL/L (3.6-5.0); TOTAL PROTEIN 6.2 G/DL (6.4-8.2)
[2016-11-13 07:24] LABS: BAND NEUTROPHILS 2 %; EOSINOPHILS % (MANUAL) 5 %; LYMPHOCYTES % (MANUAL) 4 %; NEUTROPHILS % (MANUAL) 81 %
[2016-11-13 07:25] LABS: BASOPHILS % (MANUAL) 0 %
[2016-11-13] MEDS: SACUBITRIL/VALSARTAN 24/26 MG (ENTRESTO) TABLET PO SCH ×2 (07:49→21:19)
[2016-11-13] MEDS: meTOprolol TARTRATE 25 MG (LOPRESSOR) TABLET PO SCH ×2 (07:49→21:19)
[2016-11-13] MEDS: ACETAMINOPHEN 500 MG TAB (TYLENOL) PO PRN (07:50)
[2016-11-13 08:00] VITALS: BP_SYST 100; BP_SYST 78; BP_DIAS 34; BP_DIAS 64
--- NOTE | 2016-11-13 09:35 | Progress Note (SOAP) ---
Subjective Subjective/Events-last exam PT REPORTS CONTINUED COUGHING, SHORTNESS OF BREATH, GENERALIZED PAIN, WEAKNESS. Review of Systems General: Fatigue Malaise HEENT: No Head Aches, No Visual Changes Pulmonary: Dyspnea Cough Cardiovascular: No: Chest Pain, Palpitations Gastrointestinal: : NauseaNo: Abdominal Pain Musculoskeletal: : back pain: leg pain: shoulder pain Neurological: : WeaknessNo: Confusion Objective Exam Vital Signs Date Time Temp Pulse Resp B/P Pulse Ox O2 Delivery O2 Flow Rate FiO2 11/13/16 09:00 94 Nasal Cannula 2.00 11/13/16 08:00 100.0 94 17 100/64 94 Nasal Cannula 2.00 11/13/16 04:00 101.0 95 20 110/56 95 Nasal Cannula 2.00 11/13/16 00:00 100.0 107 20 120/55 95 Nasal Cannula 2.00 11/12/16 22:54 96 3.00 11/12/16 20:10 Nasal Cannula 2.00 11/12/16 20:07 Nasal Cannula 3.00 11/12/16 20:00 100.1 116 18 112/79 95 Nasal Cannula 2.00 11/12/16 17:35 95 18 95 3 11/12/16 14:59 98.4 100 20 126/84 I & O 11/13/16 07:00 Intake Total 940 ml Output Total 1300 ml Balance -360 ml Capillary Refill : Less Than 3 Seconds General Appearance: WD/WN Mild Distress Neck: Supple Respiratory: Chest Non Tender Crackles (THROUGHOUT) Decreased Breath Sounds Wheezing Cardiovascular: Regular Rate, Rhythm Systolic Murmur Gastrointestinal: normal bowel sounds non tender soft no organomegaly no pulsatile mass Extremity: Pedal Edema (TRACE) Neurologic/Psychiatric: Alert Oriented x3 No Motor/Sensory Deficits Normal Mood/Affect Skin: Warm/Dry Lymphatic: No Adenopathy Results Lab Laboratory Tests 11/12/16 15:11: Alanine Aminotransferase (ALT/SGPT) 18, Albumin 4.1, Alkaline Phosphatase 143H, Anion Gap 15H, Aspartate Amino Transf (AST/SGOT) 28, BUN/Creatinine Ratio 16, Blood Urea Nitrogen 16, Calcium Level 9.4, Carbon Dioxide Level 18L, Chloride Level 104, Creatinine 0.97, Direct Bilirubin 0.9H, Estimat Glomerular Filtration Rate > 60, Glucose Level 89, Indirect Bilirubin 1.2, Potassium Level 4.5, Sodium Level 137, Total Bilirubin 2.1H, Total Protein 6.6 11/12/16 15:45: B-Type Natriuretic Peptide 2787.7H, Basophils # (Auto) 0.0, Basophils (%) (Auto ) 0, Eosinophils # (Auto) 0.4H, Eosinophils (%) (Auto) 6, Hematocrit 36, Hemoglobin 11.7, Lymphocytes # (Auto) 0.6L, Lymphocytes (%) (Auto) 8L, Mean Corpuscular Hemoglobin 30, Mean Corpuscular Hemoglobin Concent 33, Mean Corpuscular Volume 92, Mean Platelet Volume 12.1H, Monocytes # (Auto) 0.6, Monocytes (%) (Auto) 8, Neutrophils # (Auto) 6.0, Neutrophils (%) (Auto) 78H, Platelet Count 184, Red Blood Count 3.86L, Red Cell Distribution Width 14.8H, White Blood Count 7.7 11/12/16 16:30: Lactic Acid Level 1.5 11/13/16 05:23: Glucometer 78 11/13/16 06:20: Alanine Aminotransferase (ALT/SGPT) 18, Albumin 3.9, Alkaline Phosphatase 140H, Anion Gap 16H, Aspartate Amino Transf (AST/SGOT) 24, BUN/Creatinine Ratio 13, Band Neutrophils 2, Basophils # (Auto) 0.0, Basophils % (Manual) 0, Basophils (% ) (Auto) 0, Blood Morphology Comment NORMAL, Blood Urea Nitrogen 14, Calcium Level 8.9, Carbon Dioxide Level 20L, Chloride Level 99, Creatinine 1.08, Eosinophils # (Auto) 0.4H, Eosinophils % (Manual) 5, Eosinophils (%) (Auto) 5, Estimat Glomerular Filtration Rate 58, Glucose Level 79, Hematocrit 33L, Hemoglobin 10.5L, Lymphocytes # (Auto) 0.3L, Lymphocytes % (Manual) 4, Lymphocytes (%) (Auto) 4L, Mean Corpuscular Hemoglobin 30, Mean Corpuscular Hemoglobin Concent 32, Mean Corpuscular Volume 92, Mean Platelet Volume 11.8H, Monocytes # (Auto) 0.6, Monocytes % (Manual) 8, Monocytes (%) (Auto) 9, Neutrophils # (Auto) 5.7, Neutrophils % (Manual) 81, Neutrophils (%) (Auto) 82H , Platelet Count 191, Potassium Level 3.7, Red Blood Count 3.54L, Red Cell Distribution Width 14.9H, Sodium Level 135, Total Bilirubin 1.8H, Total Protein 6.2L, White Blood Count 7.0 Assessment/Plan Assessment/Plan Assess & Plan/Chief Complaint PNEUMONIA CONGESTIVE HEART FAILURE EXACERBATION CARDIOMYOPATHY UNCONTROLLED NAUSEA CHURG-CANELO ATRIAL FIBRILLATION CHRONIC IMMUNE SUPPRESSION THERAPY ESOPHAGEAL REFLUX CHRONIC PAIN SYNDROME STEROID INDUCED DIABETES MELLITUS CHRONIC OXYGEN THERAPY NOCTURNAL APNEA PNEUMONIA - TRIPLE ANTIBIOTIC THERAPY - MUCOMYST BREATHING TREATMENTS. CHF - ACUTE ON CHRONIC LEFT SIDED SYSTOLIC FAILURE - CONTINUE WITH IV LASIX, MONITOR BNP CLOSELY. 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 ATRIAL FIBRILLATION - RESTARTED DIGOXIN, CHECK DIGOXIN LEVEL, SUPPORTIVE CARE. NAUSEA - NAUSEA MEDICATION HAS NOT MADE MUCH OF A DIFFERENCE IN HER SYMPTOMS. SUPPORTIVE CARE, START IV ZOFRAN AND IV PHENERGAN. CHRONIC IMMUNOSUPPRESSION - AND ADRENAL SUPPRESSION WITH CHRONIC STEROID USE - DOSE WITH SOLUMEDROL. STEROID INDUCED DIABETES MELLITUS - CHECK FSBS, RESTART HOME INSULIN THERAPY. GERD - RESTARTED PROTONIX CHRONIC PAIN - START IV DILAUDID VIA VETERINARY ASSISTANT WHEN ABLE YESENIA WANTS TO BE A DNR/DNI Diagnosis/Problems: Clinical Quality Measures DVT/VTE Risk/Contraindication: Risk Factor Score Per Nursin RFS Level Per Nursing on Admit: 4+=Very High ALBER PHIPPS MD Nov 13, 2016 09:35
--- NOTE | 2016-11-13 10:16 | Diagnostic Imaging Report ---
EXAMINATION: PA and lateral views of the chest. INDICATION: Pneumonia. COMPARISON: 11/12/2016. FINDINGS: There is a right PICC line in place with the tip overlapping with pacemaker leads but most likely is in the right subclavian vein. Three pacemaker leads are seen. There is significant cardiomegaly. The right perihilar infiltrates appear minimally improved compared to 11/12/2016. No effusion or pneumothorax. IMPRESSION: 1. Slightly improved right perihilar infiltrate. 2. The right PICC line is in the right subclavian vein. Repositioning or replacement is recommended. 3. The report was called to Allie IV therapy by WALT at 10:15 AM. Dictated by: Dictated on workstation # [id number]
[2016-11-13] MEDS ORDERED: METO10TA3 PO (10:27)
[2016-11-13] MEDS ORDERED: ALPRAZolam 0.25 MG (XANAX) TAB PO SCH (12:00)
[2016-11-13] MEDS: ALPRAZolam 0.25 MG (XANAX) TAB PO SCH ×2 (12:30→21:18)
[2016-11-13 16:00] VITALS: BP 104/55
[2016-11-13] MEDS: LEVOFLOXACIN 750 MG/D5W 150 ML PRE-MIX IV SCH (16:29)
[2016-11-13] MEDS ORDERED: TROUGH ORDER-PHARMACY XX NR (18:00)
[2016-11-13] MEDS ORDERED: VANCOMYCIN 1 GM/NS 250 ML IVPB IV SCH ×2 (19:00)
[2016-11-13 20:00] VITALS: BP 106/67
[2016-11-13] MEDS ORDERED: FUROSEMIDE 40 MG (LASIX) TAB PO SCH (21:00)
[2016-11-13] MEDS: ENOXAPARIN 40 MG/0.4 ML (LOVENOX) SYR SC SCH (21:17)
[2016-11-13] MEDS: hydrOXYzine (VISTARIL) 25 MG CAP PO SCH (21:18)
[2016-11-13] MEDS: FUROSEMIDE 40 MG (LASIX) TAB PO SCH (21:19)
[2016-11-14] VITALS: BP 100/59
[2016-11-14] MEDS: HYDROmorphone (DILAUDID) 2 MG/ML VIAL IV PRN ×4 (00:28→08:15)
[2016-11-14] MEDS: aCETylcysteine 20% (MUCOMYST) 30ML SOLN VIAL INH SCH ×4 (03:13→20:16)
[2016-11-14] MEDS: RT-ALBUTEROL/IPRATROPIUM 3 ML (DUONEB) VIAL INH SCH ×4 (03:13→20:16)
[2016-11-14 04:35] VITALS: BP 114/70
[2016-11-14] MEDS: FOLIC ACID 1 MG TAB PO SCH (05:07)
[2016-11-14] MEDS: IBUPROFEN 600 MG (MOTRIN) TAB PO PRN ×2 (05:07→21:06)
[2016-11-14] MEDS: MEROPENEM 500 MG/NS 100 ML IVPB IV SCH ×6 (05:08→18:39)
[2016-11-14] MEDS: CATHETER FLUSH 10 ML SYR IV SCH ×3 (05:08→21:48)
[2016-11-14] MEDS: inSUlin (REGULAR) HUMAN 1 UNIT/0.01 ML (CHARGE PER UNIT) SC SCH ×4 (06:00→21:50)
[2016-11-14] MEDS: ACETAMINOPHEN 500 MG TAB (TYLENOL) PO PRN ×2 (06:53→15:50)
[2016-11-14 08:00] VITALS: BP 92/57
[2016-11-14] MEDS: SACUBITRIL/VALSARTAN 24/26 MG (ENTRESTO) TABLET PO SCH ×2 (08:14→20:52)
[2016-11-14] MEDS: meTOprolol TARTRATE 25 MG (LOPRESSOR) TABLET PO SCH ×2 (08:14→20:52)
[2016-11-14] MEDS ORDERED: fentaNYL PATCH 12 MCG (DURAGESIC) TD SCH (09:00)
[2016-11-14] MEDS ORDERED: PROMETHAZINE 25 MG (PHENERGAN) TAB PO PRN (09:00)
[2016-11-14] MEDS ORDERED: ONDANSETRON 4 MG (ZOFRAN) ORAL DISSOLVE TAB PO PRN (09:00)
--- NOTE | 2016-11-14 09:05 | Progress Note (SOAP) ---
Subjective Subjective/Events-last exam PT REPORTS THAT SHE IS STILL FATIGUED, WEAK, MUCUS APPEARS TO BE BREAKING UP A LITTLE BIT BETTER TODAY. Review of Systems General: Fatigue Malaise HEENT: No Head Aches Pulmonary: Dyspnea Cough Cardiovascular: No: Chest Pain Gastrointestinal: : Nausea Musculoskeletal: : back pain: leg pain: shoulder pain Neurological: : Weakness Objective Exam Vital Signs Date Time Temp Pulse Resp B/P Pulse Ox O2 Delivery O2 Flow Rate FiO2 11/14/16 08:22 100.8 11/14/16 08:22 100.8 11/14/16 07:20 92 3.00 11/14/16 04:35 101.3 101 18 114/70 94 Nasal Cannula 2.00 11/14/16 03:14 90 3.00 11/14/16 00:00 100.8 86 18 100/59 94 Nasal Cannula 2.00 11/13/16 21:00 94 Nasal Cannula 2.00 11/13/16 20:53 93 3.00 11/13/16 20:00 98.3 92 16 106/67 99 Nasal Cannula 2.00 11/13/16 16:05 97 3.00 11/13/16 16:00 97.6 95 20 104/55 95 Nasal Cannula 2.00 11/13/16 09:51 93 3.00 I & O 11/14/16 07:00 Intake Total 1930 ml Output Total 3200 ml Balance -1270 ml Capillary Refill : Less Than 3 Seconds General Appearance: No Apparent Distress WD/WN HEENT: PERRL/EOMI Neck: Full Range of Motion Supple Respiratory: Chest Non Tender Crackles Decreased Breath Sounds Cardiovascular: Regular Rate, Rhythm Gastrointestinal: normal bowel sounds non tender soft no organomegaly no pulsatile mass Neurologic/Psychiatric: Alert Oriented x3 No Motor/Sensory Deficits Normal Mood/Affect Skin: Warm/Dry Rash (ON DORSUM OF LEFT FOOT NEAR TOES 3-5) Lymphatic: No Adenopathy Results Lab Laboratory Tests 11/13/16 12:16: Glucometer 85 11/13/16 16:57: Glucometer 100 11/13/16 18:09: Vancomycin Level Trough 19.3 11/13/16 20:59: Glucometer 101 11/14/16 06:01: Glucometer 110 Microbiology 11/12/16 Blood Culture - Preliminary, Resulted No growth 11/12/16 Gram Stain - Final, Resulted 11/12/16 Sputum Culture - Preliminary, Resulted Moraxella Catarrhalis Assessment/Plan Assessment/Plan Assess & Plan/Chief Complaint PNEUMONIA CONGESTIVE HEART FAILURE EXACERBATION CARDIOMYOPATHY UNCONTROLLED NAUSEA CHURG-CANELO ATRIAL FIBRILLATION CHRONIC IMMUNE SUPPRESSION THERAPY ESOPHAGEAL REFLUX CHRONIC PAIN SYNDROME STEROID INDUCED DIABETES MELLITUS CHRONIC OXYGEN THERAPY NOCTURNAL APNEA PNEUMONIA - TRIPLE ANTIBIOTIC THERAPY - MUCOMYST BREATHING TREATMENTS. CHF - ACUTE ON CHRONIC LEFT SIDED SYSTOLIC FAILURE - CONTINUE WITH IV LASIX, MONITOR BNP CLOSELY. 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 ATRIAL FIBRILLATION - RESTARTED DIGOXIN, CHECK DIGOXIN LEVEL, SUPPORTIVE CARE. NAUSEA - NAUSEA MEDICATION HAS NOT MADE MUCH OF A DIFFERENCE IN HER SYMPTOMS. SUPPORTIVE CARE, START IV ZOFRAN AND IV PHENERGAN. CHRONIC IMMUNOSUPPRESSION - AND ADRENAL SUPPRESSION WITH CHRONIC STEROID USE - DOSE WITH SOLUMEDROL. STEROID INDUCED DIABETES MELLITUS - CHECK FSBS, RESTARTED HOME INSULIN THERAPY. 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
[2016-11-14] MEDS ORDERED: IMMUNE GLOBULIN SQ SCH ×2 (09:15→20:30)
[2016-11-14] MEDS ORDERED: METHOTREXATE 50 MG/2 ML PF SQ SCH ×2 (10:00→20:30)
[2016-11-14] MEDS ORDERED: PATIENT MAY USE OWN MEDS, ALL MC SCH (10:45)
[2016-11-14] MEDS ORDERED: NS IV 500 ML 500 ML ONE (10:55)
[2016-11-14] MEDS: HYDROmorphone PCA 0.2 MG/ML 30 ML (DILAUDID) IV PRN ×2 (11:05→19:33)
--- NOTE | 2016-11-14 11:25 | Physician Query ---
PQ-Further Specificity Admission/Discharge Admission Date: Nov 12, 2016 at 17:15 Discharge Date: The medical record reflects the following clinical scenario: History/Risk Factors: Pneumonia and cardiomyopathy. Clinical Findings: BNP on admit 2787.7, dyspnea. Treatment: 40mg Lasix increased to 80 mg Lasix on 11/14. Question: Can you further specify congestive heart failure per the clinical indicators above? Please document below. 1. Acute exacerbation of systolic heart failure /or acute exacerbation of diastolic heart failure/ or acute exacerbation of combined systolic and diastolic heart failure. 2. Acute exacerbation of congestive heart failure. 3. Other, with explanation of the clinical findings. 4. Clinically undetermined, no explanation for the clinical findings. Can you specify per above: 1 In responding to this query, please exercise your independent professional judgment. The purpose of this communication is to more accurately reflect the complexity of your patients condition. The fact that a question is asked does not imply that any particular answer is desired or expected. Thank you for your timely response to this clarification. Requestors name: Andria Alejandre [facility] Phone # ext [phone] or [phone] THIS PHYSICIAN QUERY FORM IS A PERMANENT PART OF THE MEDICAL RECORD ANDRIA ALEJANDRE Nov 14, 2016 11:25 ALBER PHIPPS MD Nov 14, 2016 13:06
--- NOTE | 2016-11-14 11:41 | Physician Query ---
PQ-Further Specificity Admission/Discharge Admission Date: Nov 12, 2016 at 17:15 Discharge Date: The medical record reflects the following clinical scenario: History/Risk Factors: Churg Ozzy and COPD with pneumonia. Clinical Findings: Positive sputum culture for Moraxella Catarrhalis Worsening perihilar infiltrates. Treatment: IV Levofloxacin 150ml, IV meropenem, IV Vancomycin HCL 1,250mg and Duoneb inhalation therapy. Question: Can you further specify diagnosis/condition per the clinical indicators above? Please document below. 1. Moraxella Catarrhalis pneumonia. 2. Pneumona, unspecified. 3. Other, with explanation of the clinical findings. 4. Clinically undetermined, no explanation for the clinical findings. Can you specify per above: 1 In responding to this query, please exercise your independent professional judgment. The purpose of this communication is to more accurately reflect the complexity of your patients condition. The fact that a question is asked does not imply that any particular answer is desired or expected. Thank you for your timely response to this clarification. Requestors name: Kp Alejandre [facility] Phone # ext [phone] or [phone] THIS PHYSICIAN QUERY FORM IS A PERMANENT PART OF THE MEDICAL RECORD KP ALEJANDRE Nov 14, 2016 11:41 ALBER PHIPPS MD Nov 14, 2016 13:07
[2016-11-14] MEDS: ALPRAZolam 0.25 MG (XANAX) TAB PO SCH ×2 (11:57→20:52)
[2016-11-14] MEDS: CALCIUM CARB + VIT D 600 MG (CALCARB + D) TAB PO SCH (11:57)
[2016-11-14] MEDS: KCL 20 MEQ TAB (K-DUR) PO SCH ×2 (11:57→20:52)
[2016-11-14] MEDS: inSUlin DETERMIR 1 UNIT/0.01 ML (LEVEMIR) CHARGE PER UNIT SQ SCH ×2 (11:57→21:50)
[2016-11-14] MEDS: MAGNESIUM OXIDE (MAG-OX)400 MG TAB PO SCH ×2 (11:59→20:52)
[2016-11-14] MEDS: TRIM/SULFAMETH 160/800 (SEPTRA DS) TAB PO SCH (11:59)
[2016-11-14] MEDS: DIGOXIN 0.125 MG (LANOXIN) TAB PO SCH (11:59)
[2016-11-14] MEDS: FUROSEMIDE 40 MG (LASIX) TAB PO SCH (11:59)
[2016-11-14] MEDS: ASCORBIC ACID (VIT C) 500 MG TABLET PO SCH (11:59)
[2016-11-14 12:00] VITALS: BP 106/63
[2016-11-14] MEDS: CLOTRIMAZOLE 1% CREAM (LOTRIMIN) 30 GM TOP SCH ×2 (12:02→20:54)
[2016-11-14] MEDS: BETAMETHASONE DIPRO (AUGMENTED) 0.05% CREAM 15 GM TOP SCH ×2 (12:02→20:54)
--- NOTE | 2016-11-14 12:02 | Physician Query ---
PQ-Further Specificity Admission/Discharge Admission Date: Nov 12, 2016 at 17:15 Discharge Date: The medical record reflects the following clinical scenario: History/Risk Factors: [list no more than 2] Clinical Findings: [list no more than 2] Treatment: [list no more than 2] Question: Can you further specify [diagnosis/condition] per the clinical indicators above? Please document below. 1. [list the #1 diagnosis/condition choice] 2. [list the diagnosis/condition already documented] 3. Other, with explanation of the clinical findings. 4. Clinically undetermined, no explanation for the clinical findings. Please remember a lack of response to the above will prompt a phone page by [facility]/ coding staff. In responding to this query, please exercise your independent professional judgment. The purpose of this communication is to more accurately reflect the complexity of your patients condition. The fact that a question is asked does not imply that any particular answer is desired or expected. Thank you for your timely response to this clarification. Requestors name: [ ] Phone # [ ] THIS PHYSICIAN QUERY FORM IS A PERMANENT PART OF THE MEDICAL RECORD KP ALEJANDRE Nov 14, 2016 12:02
[2016-11-14] MEDS: UMECLIDINIUM BRM IH SCH (12:14)
[2016-11-14] MEDS: VILANTEROL TR IH SCH (12:14)
[2016-11-14 16:00] VITALS: BP 98/61
[2016-11-14] MEDS: PANTOPRAZOLE 20 MG TABLET (PROTONIX) PO SCH (17:22)
[2016-11-14] MEDS: LEVOFLOXACIN 750 MG/D5W 150 ML PRE-MIX IV SCH (17:22)
[2016-11-14] MEDS ORDERED: TROUGH ORDER-PHARMACY XX NR (18:00)
[2016-11-14] MEDS: VANCOMYCIN 750 MG/NS 250 ML IVPB IV SCH ×2 (19:38)
[2016-11-14 20:00] VITALS: BP 95/68
[2016-11-14] MEDS: hydrOXYzine (VISTARIL) 25 MG CAP PO SCH (20:51)
[2016-11-14] MEDS: ENOXAPARIN 40 MG/0.4 ML (LOVENOX) SYR SC SCH (20:58)
[2016-11-15] MEDS: MEROPENEM 500 MG/NS 100 ML IVPB IV SCH ×8 (00:26→18:47)
[2016-11-15 00:40] VITALS: BP 100/58
[2016-11-15] MEDS: IBUPROFEN 600 MG (MOTRIN) TAB PO PRN ×2 (02:48→21:21)
[2016-11-15] MEDS: RT-ALBUTEROL/IPRATROPIUM 3 ML (DUONEB) VIAL INH SCH ×4 (02:58→21:47)
[2016-11-15] MEDS: aCETylcysteine 20% (MUCOMYST) 30ML SOLN VIAL INH SCH ×4 (02:59→21:00)
[2016-11-15 04:20] VITALS: BP 116/58
[2016-11-15] MEDS: inSUlin (REGULAR) HUMAN 1 UNIT/0.01 ML (CHARGE PER UNIT) SC SCH ×4 (05:28→21:00)
[2016-11-15] MEDS: FOLIC ACID 1 MG TAB PO SCH (05:31)
[2016-11-15] MEDS: CATHETER FLUSH 10 ML SYR IV SCH ×3 (05:32→20:34)
[2016-11-15] MEDS ORDERED: NS IV 500 ML 500 ML ONE (05:34)
[2016-11-15] MEDS: HYDROmorphone PCA 0.2 MG/ML 30 ML (DILAUDID) IV PRN ×2 (06:25→17:36)
[2016-11-15] MEDS: VANCOMYCIN 750 MG/NS 250 ML IVPB IV SCH ×2 (06:40)
[2016-11-15 08:00] VITALS: BP 118/76
[2016-11-15] MEDS: meTOprolol TARTRATE 25 MG (LOPRESSOR) TABLET PO SCH ×2 (09:57→20:30)
[2016-11-15] MEDS: CLOTRIMAZOLE 1% CREAM (LOTRIMIN) 30 GM TOP SCH ×2 (09:58→20:31)
[2016-11-15] MEDS: BETAMETHASONE DIPRO (AUGMENTED) 0.05% CREAM 15 GM TOP SCH ×2 (09:58→20:31)
[2016-11-15] MEDS: SACUBITRIL/VALSARTAN 24/26 MG (ENTRESTO) TABLET PO SCH ×2 (09:58→20:30)
[2016-11-15] MEDS: FUROSEMIDE 40 MG (LASIX) TAB PO SCH (09:58)
[2016-11-15] MEDS: KCL 20 MEQ TAB (K-DUR) PO SCH ×2 (09:58→20:30)
[2016-11-15] MEDS: MAGNESIUM OXIDE (MAG-OX)400 MG TAB PO SCH ×2 (09:58→20:30)
[2016-11-15] MEDS: DIGOXIN 0.125 MG (LANOXIN) TAB PO SCH (09:58)
[2016-11-15] MEDS: VILANTEROL TR IH SCH (09:59)
[2016-11-15] MEDS: UMECLIDINIUM BRM IH SCH (09:59)
[2016-11-15] MEDS: inSUlin DETERMIR 1 UNIT/0.01 ML (LEVEMIR) CHARGE PER UNIT SQ SCH ×2 (10:00→21:00)
[2016-11-15] MEDS: fluCOnazole (DIFLUCAN) 100 MG TAB PO SCH (10:10)
[2016-11-15] MEDS: ALPRAZolam 0.25 MG (XANAX) TAB PO SCH ×2 (11:19→20:30)
[2016-11-15] MEDS: CALCIUM CARB + VIT D 600 MG (CALCARB + D) TAB PO SCH (11:19)
[2016-11-15] MEDS: ASCORBIC ACID (VIT C) 500 MG TABLET PO SCH (11:19)
[2016-11-15 12:00] VITALS: BP 79/55
[2016-11-15 16:00] VITALS: BP 107/53
[2016-11-15] MEDS: PANTOPRAZOLE 20 MG TABLET (PROTONIX) PO SCH (17:37)
[2016-11-15] MEDS: LEVOFLOXACIN 750 MG/D5W 150 ML PRE-MIX IV SCH (17:37)
[2016-11-15] MEDS ORDERED: TROUGH ORDER-PHARMACY XX NR (18:00)
[2016-11-15 20:00] VITALS: BP 116/63
[2016-11-15] MEDS: ENOXAPARIN 40 MG/0.4 ML (LOVENOX) SYR SC SCH (20:29)
[2016-11-15] MEDS: hydrOXYzine (VISTARIL) 25 MG CAP PO SCH (20:30)
--- NOTE | 2016-11-15 22:00 | Progress Note (SOAP) ---
Subjective Subjective/Events-last exam PT REPORTS SIGNIFICANT FATIGUE TODAY - SHE REPORTS THAT SHE HAS SLEPT QUITE A BIT OVER THE DAY YESTERDAY AND THIS MORNING SHE IS PLANNING ON GOING BACK TO SLEEP AFTER MY EVALUATION. SHE REPORTS THAT SHE IS BRINGING UP A LOT OF MUCUS. Review of Systems General: No Chills, Fatigue Malaise Appetite (DECREASED) HEENT: No Head Aches Pulmonary: Dyspnea Cough Cardiovascular: No: Chest Pain Gastrointestinal: : NauseaNo: Abdominal Pain, Diarrhea Neurological: : Weakness Objective Exam Vital Signs Date Time Temp Pulse Resp B/P Pulse Ox O2 Delivery O2 Flow Rate FiO2 11/15/16 18:10 99.2 11/15/16 17:36 20 11/15/16 16:00 99.2 84 20 107/53 93 Nasal Cannula 3.00 11/15/16 14:54 99 5.00 11/15/16 12:00 99.4 71 20 79/55 95 Nasal Cannula 2.00 11/15/16 09:03 97 3.00 11/15/16 08:16 Nasal Cannula 3.00 11/15/16 08:00 99.0 151 20 118/76 99 Nasal Cannula 2.00 11/15/16 06:25 20 11/15/16 04:20 100.3 96 18 116/58 93 Nasal Cannula 3.00 11/15/16 02:59 92 3.00 11/15/16 00:40 101.2 98 20 100/58 95 Nasal Cannula 3.00 11/14/16 22:00 100.6 I & O 11/15/16 07:00 Intake Total 4310 ml Output Total 3600 ml Balance 710 ml Capillary Refill : Less Than 3 Seconds General Appearance: WD/WN Mild Distress (DUE TO FATIGUE) HEENT: PERRL/EOMI Pharynx Normal Neck: Full Range of Motion Supple Respiratory: Chest Non Tender Crackles Decreased Breath Sounds Wheezing Cardiovascular: Regular Rate, Rhythm Systolic Murmur Gastrointestinal: normal bowel sounds non tender soft no organomegaly no pulsatile mass Extremity: Pedal Edema (TRACE) Neurologic/Psychiatric: Alert Oriented x3 Normal Mood/Affect Skin: Warm/Dry Rash (ON DORSUM OF FOOT ON THE LEFT FROM DIGITS 3-5) Lymphatic: No Adenopathy Results Lab Laboratory Tests 11/15/16 04:59: Glucometer 111H 11/15/16 10:25: Glucometer 169H 11/15/16 16:23: Glucometer 80 11/15/16 21:12: Glucometer 75 Microbiology 11/12/16 Blood Culture - Preliminary, Resulted No growth 11/12/16 Gram Stain - Final, Complete 11/12/16 Sputum Culture - Final, Complete Moraxella Catarrhalis Assessment/Plan Assessment/Plan Assess & Plan/Chief Complaint PNEUMONIA CONGESTIVE HEART FAILURE EXACERBATION - ACUTE ON CHRONIC - EJECTION FRACTION OF 5% TO 10% CARDIOMYOPATHY UNCONTROLLED NAUSEA CHURG-CANELO ATRIAL FIBRILLATION CHRONIC IMMUNE SUPPRESSION THERAPY ESOPHAGEAL REFLUX CHRONIC PAIN SYNDROME STEROID INDUCED DIABETES MELLITUS CHRONIC OXYGEN THERAPY NOCTURNAL APNEA PNEUMONIA - TRIPLE ANTIBIOTIC THERAPY - MUCOMYST BREATHING TREATMENTS. CHF - ACUTE ON CHRONIC LEFT SIDED SYSTOLIC FAILURE - CONTINUE WITH IV LASIX, MONITOR BNP CLOSELY. 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 ATRIAL FIBRILLATION - RESTARTED DIGOXIN, CHECK DIGOXIN LEVEL, SUPPORTIVE CARE. NAUSEA - NAUSEA MEDICATION HAS NOT MADE MUCH OF A DIFFERENCE IN HER SYMPTOMS. SUPPORTIVE CARE, START IV ZOFRAN AND IV PHENERGAN. CHRONIC IMMUNOSUPPRESSION - AND ADRENAL SUPPRESSION WITH CHRONIC STEROID USE - DOSE WITH SOLUMEDROL. STEROID INDUCED DIABETES MELLITUS - CHECK FSBS, RESTARTED HOME INSULIN THERAPY. 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
[2016-11-16] MEDS: MEROPENEM 500 MG/NS 100 ML IVPB IV SCH ×4 (00:16→05:03)
[2016-11-16] MEDS: ACETAMINOPHEN 500 MG TAB (TYLENOL) PO PRN (00:19)
[2016-11-16 00:50] VITALS: BP 97/54
[2016-11-16] MEDS ORDERED: NS IV 500 ML 500 ML ONE (02:26)
[2016-11-16] MEDS: aCETylcysteine 20% (MUCOMYST) 30ML SOLN VIAL INH SCH (03:00)
[2016-11-16] MEDS: RT-ALBUTEROL/IPRATROPIUM 3 ML (DUONEB) VIAL INH SCH ×2 (03:08→07:30)
[2016-11-16 04:25] VITALS: BP 113/70
[2016-11-16] MEDS: FOLIC ACID 1 MG TAB PO SCH (05:03)
[2016-11-16] MEDS: HYDROmorphone PCA 0.2 MG/ML 30 ML (DILAUDID) IV PRN (05:07)
[2016-11-16] MEDS: inSUlin (REGULAR) HUMAN 1 UNIT/0.01 ML (CHARGE PER UNIT) SC SCH (06:11)
[2016-11-16] MEDS: CATHETER FLUSH 10 ML SYR IV SCH (06:11)
[2016-11-16] MEDS: VILANTEROL TR IH SCH (07:30)
[2016-11-16] MEDS: UMECLIDINIUM BRM IH SCH (07:30)
[2016-11-16] MEDS: TRIM/SULFAMETH 160/800 (SEPTRA DS) TAB PO SCH (08:16)
[2016-11-16] MEDS: DIGOXIN 0.125 MG (LANOXIN) TAB PO SCH (08:16)
[2016-11-16] MEDS: meTOprolol TARTRATE 25 MG (LOPRESSOR) TABLET PO SCH (08:17)
[2016-11-16] MEDS: SACUBITRIL/VALSARTAN 24/26 MG (ENTRESTO) TABLET PO SCH (08:18)
[2016-11-16] MEDS: KCL 20 MEQ TAB (K-DUR) PO SCH (08:18)
[2016-11-16] MEDS: inSUlin DETERMIR 1 UNIT/0.01 ML (LEVEMIR) CHARGE PER UNIT SQ SCH (08:18)
[2016-11-16] MEDS: FUROSEMIDE 40 MG (LASIX) TAB PO SCH (08:18)
[2016-11-16] MEDS: fluCOnazole (DIFLUCAN) 100 MG TAB PO SCH (08:18)
[2016-11-16] MEDS: MAGNESIUM OXIDE (MAG-OX)400 MG TAB PO SCH (08:18)
[2016-11-16] MEDS: BETAMETHASONE DIPRO (AUGMENTED) 0.05% CREAM 15 GM TOP SCH (08:23)
[2016-11-16] MEDS: CLOTRIMAZOLE 1% CREAM (LOTRIMIN) 30 GM TOP SCH (08:23)
[2016-11-16 08:50] VITALS: BP 108/62
--- NOTE | 2016-11-16 09:46 | Discharge Summary ---
Diagnosis/Chief Complaint Date of Admission Nov 12, 2016 at 17:15 Date of Discharge Admission Diagnosis Admission Diagnosis PNEUMONIA CONGESTIVE HEART FAILURE EXACERBATION CARDIOMYOPATHY UNCONTROLLED NAUSEA CHURG-CANELO ATRIAL FIBRILLATION CHRONIC IMMUNE SUPPRESSION THERAPY ESOPHAGEAL REFLUX CHRONIC PAIN SYNDROME STEROID INDUCED DIABETES MELLITUS CHRONIC OXYGEN THERAPY NOCTURNAL APNEA Discharge Diagnosis PNEUMONIA CONGESTIVE HEART FAILURE EXACERBATION CARDIOMYOPATHY UNCONTROLLED NAUSEA CHURG-CANELO ATRIAL FIBRILLATION CHRONIC IMMUNE SUPPRESSION THERAPY ESOPHAGEAL REFLUX CHRONIC PAIN SYNDROME STEROID INDUCED DIABETES MELLITUS CHRONIC OXYGEN THERAPY NOCTURNAL APNEA Reason Hospital Visit PT IS A 36 Y/O FEMALE WHO IS KNOWN TO ME FROM CLINIC. SHE PRESENTED TO THE HOSPITAL WITH DYSPNEA, COUGH, WEAKNESS. SHE HAS HISTORY OF CHURG CANELO AND HAS RECURRENT HOSPITALIZATIONS DUE TO HER CHRONIC ILLNESS OF EOSINOPHILIC VASCULITIS AND CARDIOMYOPATHY. CHEST XRAY FROM THE EMERGENCY DEPT SHOWS RIGHT BASILAR PNEUMONIA. Discharge Summary Discharge Physical Examination Allergies: Coded Allergies: influenza virus vaccine ts [id number] (36 mos+) (Unverified Allergy, Severe , ANAPHYLAXIS, 01/08/15) pneumococcal vaccine (Unverified Allergy, Severe, ANAPHYLAXIS, 01/08/15) Penicillins (Verified Allergy, Mild, PER PT RXN = HIVES, CAN TAKE ROCEPHIN , 01/08/15) clindamycin (Unverified Allergy, Unknown, 01/08/15) morphine (Verified Adverse Reaction, Intermediate, RASH, PT HAS RECEIVED HYDROMORPHONE W/O ISSUE, 04/26/16) MORPHINE IV GIVEN AT ED, PT DEVELOPED RASH AND POSSIBLE HIVES metoclopramide (Verified Adverse Reaction, Unknown, 10/02/15) INCREASED FLUID RETENTION AND BRUISING Vitals & I&Os General Appearance: Alert, Oriented X3, Cooperative, Mild Distress HEENT: Atraumatic, PERRLA Respiratory: Other (DECREASED AIR MOVEMENT WITH CRACKLES/RHONCHI) Cardiovascular: Other (IRREGULAR) Abdominal: Normal Bowel Sounds, Soft, No Tenderness Extremities: No Clubbing, No Cyanosis Skin: No Breakdown Neuro: Normal Speech, Strength at 5/5 X4 Ext, Cranial Nerves 3-12 NL Psych/Mental Status: Mental Status NL, Mood NL Hospital Course PNEUMONIA CONGESTIVE HEART FAILURE EXACERBATION CARDIOMYOPATHY UNCONTROLLED NAUSEA CHURG-CANELO ATRIAL FIBRILLATION CHRONIC IMMUNE SUPPRESSION THERAPY ESOPHAGEAL REFLUX CHRONIC PAIN SYNDROME STEROID INDUCED DIABETES MELLITUS CHRONIC OXYGEN THERAPY NOCTURNAL APNEA PNEUMONIA - TRIPLE ANTIBIOTIC THERAPY - MUCOMYST BREATHING TREATMENTS. CHF - ACUTE ON CHRONIC LEFT SIDED SYSTOLIC FAILURE - CONTINUE WITH IV LASIX, MONITOR BNP CLOSELY. 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 ATRIAL FIBRILLATION - RESTARTED DIGOXIN, CHECK DIGOXIN LEVEL, SUPPORTIVE CARE. NAUSEA - NAUSEA MEDICATION HAS NOT MADE MUCH OF A DIFFERENCE IN HER SYMPTOMS. SUPPORTIVE CARE, STARTED IV ZOFRAN AND IV PHENERGAN. CHRONIC IMMUNOSUPPRESSION - AND ADRENAL SUPPRESSION WITH CHRONIC STEROID USE - DOSE WITH SOLUMEDROL. STEROID INDUCED DIABETES MELLITUS - CHECK FSBS, RESTARTED HOME INSULIN THERAPY. 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 Discharge Medications Reviewed and agree with Discharge Medication list on patient's Discharge Instruction sheet Clinical Quality Measures DVT/VTE Risk/Contraindication: Risk Factor Score Per Nursin RFS Level Per Nursing on Admit: 4+=Very High ALBER PHIPPS MD Nov 16, 2016 09:46
== END 2016-11-16 09:48 | disposition swing bed (61) | DRG 190 ==
LOC: EDUNIT# 14:55 → ER 14:57 → 4TH 17:15
PROVIDERS: ADMIT Family Medicine; ATTEND Family Medicine
DX: J44.0 Chronic obstructive pulmonary disease with (acute) lower respiratory infection (principal); J15.6 Pneumonia due to other Gram-negative bacteria; I50.41 Acute combined systolic (congestive) and diastolic (congestive) heart failure; I42.9 Cardiomyopathy, unspecified; M30.1 Polyarteritis with lung involvement [Churg-Strauss]; E24.2 Drug-induced Cushing's syndrome; G72.0 Drug-induced myopathy; L97.229 Non-pressure chronic ulcer of left calf with unspecified severity; Z66 Do not resuscitate; I48.91 Unspecified atrial fibrillation; J45.909 Unspecified asthma, uncomplicated; G47.30 Sleep apnea, unspecified; K21.9 Gastro-esophageal reflux disease without esophagitis; E09.9 Drug or chemical induced diabetes mellitus without complications; M81.0 Age-related osteoporosis without current pathological fracture; G89.4 Chronic pain syndrome; F32.9 Major depressive disorder, single episode, unspecified; T38.0X5A Adverse effect of glucocorticoids and synthetic analogues, initial encounter; Z79.4 Long term (current) use of insulin; Z79.52 Long term (current) use of systemic steroids; Z99.81 Dependence on supplemental oxygen; Z95.810 Presence of automatic (implantable) cardiac defibrillator
CPT/HCPCS: 36415; 71020; 76937; 80048; 80053; 80076; 80202; 81000; 82962; 83605; 83735; 83880; 85007; 85025; 85027; 86141; 87040; 87070; 87077; 87205; 87804; 94640; 94760; 96361; 96365; 96374; 96375; 96376

== ENCOUNTER 2016-11-16 09:48 | Inpatient (IN) | payer MEDICARE, MEDICAID ==
[~2016-11-16] VITALS: Ht 162.6 cm; Wt 78.7 kg
[~2016-11-16 09:48] MED LIST changes: +METO10TA3 PO
[2016-11-16] MEDS ORDERED: IBUPROFEN 600 MG (MOTRIN) TAB PO PRN (10:00)
[2016-11-16] MEDS ORDERED: ENOXAPARIN 40 MG/0.4 ML (LOVENOX) SYR SC SCH (10:00)
[2016-11-16] MEDS ORDERED: HYDROmorphone PCA 0.2 MG/ML 30 ML (DILAUDID) IV PRN (10:00)
[2016-11-16] MEDS ORDERED: fentaNYL PATCH 12 MCG (DURAGESIC) TD SCH (10:00)
[2016-11-16] MEDS ORDERED: PATIENT MAY USE OWN MEDS, ALL MC SCH (10:00)
[2016-11-16] MEDS ORDERED: PROMETHAZINE 25 MG (PHENERGAN) TAB PO PRN (10:00)
[2016-11-16] MEDS ORDERED: CATHETER FLUSH 10 ML SYR IV PRN (10:15)
--- OUTSIDE RECORDS SUMMARY | 2016-11-16 10:15 | XMS REPORT | Continuity of Care Document ---
Author Author [facility] Organization [facility] Address Unknown Phone Unavailable Care Team Providers Care Apprentice Funeral Director Name Role Phone Thomas Aguilar PCP [phone] Source Comments Some departments are not documenting in the electronic medical record. If you do not see the information that you expected, contact Release of Information in the Health Information Management department at [phone] for further assistance in locating additional records.[facility] Active Allergies and Adverse Reactions Allergen Noted Date Severity Reactions Comments Clindamycin 12/09/2012 HIVES Patient states she received on last admission and after 1 day of treatment developed hives Influenza Virus Vaccine 12/09/2012 HIVES, ANGIOEDEMA, EDEMA Patient states she Trival [id number] (18 Yr received the flu vaccine +) [...] of cardiac pulse generator 08/03/2016 Overview: 2016 [facility] Advisory for Premature Battery Depletion Thrush [...] on MTX. DM (diabetes mellitus) (HCC) 06/10/2014 half-way current use of systemic steroids 12/28/2013 Abdominal pain 12/11/2013 Nausea & vomiting 12/11/2013 Overview: Associated with abdominal pain, worrisome for pancreatitis vs other give ongoing status. 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 Garrett ashley Assessment & Plan: [...] off Advair). - Continue management with her procedures tech. Dr. Avilez increased her prednisone back to [...] Brunson DO Prior Authorization - Rheumatology [facility] Immunizations Name Dates Previously [...] 2003 Hba1c 12/08/2014 06/10/2014, 04/09/2013 Influenza Vaccine 05/17/2017 11/04/2012 Pneumonia Vaccine (Dm) Completed 11/04/2012 Results from Last 3 Months Not on file
--- NOTE | 2016-11-16 12:04 | Physical Therapy Evaluation ---
PT Evaluation-General Medical Diagnosis Admission Date Nov 16, 2016 at 09:48 Medical Diagnosis: pneumonia Onset Date: Nov 16, 2016 Therapy Diagnosis Therapy Diagnosis: weakness Height/Weight Height (Feet): 5 Height (Inches): 4.00 Weight (Pounds): 170 Weight (Ounces): 11.2 Precautions Precautions/Isolations: Standard Precautions Referral Physician: dion Reason for Referral: Evaluation/Treatment Medical History Pertinent Medical History: Arthritis, COPD, DM, Heart Failure Current History Pt admitted to hospital and then transferred to [facility] due to dx of pneumonia and need for medical treatment. PT ordered for functional strengthening and mobility. Reviewed History: Yes Social History Home: Single Level Current Living Status: Other Family Entry Into Home: Stairs With Railing Prior/Core FIM Prior Level of Function Functional [place] Measure 0=Not Assessed/NA 4=Minimal Assistance 1=Total Assistance 5=Supervision or Setup 2=Maximal Assistance 6=Modified [place] 3=Moderate Assistance 7=Complete [place] Bed Mobility: 7 Transfers (B,C,W/C) (FIM): 7 Gait: 7 PT Evaluation-Current Subjective Agrees to PT. Reports she has been in the hospital almost a week. No complaints of pain. Reports she is up in her room without assist. Reports she will walk with family over the weekend. Pain Numeric Pain Scale: 0-No Pain Location: No Pain Reported Objective Patient Orientation: Person, Place, Time, Situation Problem Solving: Good Attachments: Oxygen, IV ROM/Strength ROM Lower Extremities WNL Strenght Lower Extremities grossly 4/5 throughout Integumentary/Posture Integumentary intact Bowel Incontinence: No Bladder Incontinence: No Posture normal and symmetrical Neuromuscular (Tone, Coordination, Reflexes) no noted functional deficit Sensory Vision: Functional Hearing: Functional Hand Dominance: Right Sensation Right Lower Extremit: Intact Sensation Left Lower Extremity: Intact Transfers Functional [place] Measure 0=Not Assessed/NA 4=Minimal Assistance 1=Total Assistance 5=Supervision or Setup 2=Maximal Assistance 6=Modified [place] 3=Moderate Assistance 7=Complete [place] Transfers (B, C, W/C) (FIM): 5 Supine to/from Sit: 5 Sit to/from Stand: 5 Sit to Lying (QC): 5 Lying to Sitting/Side of Bed(Q: 5 Sit to Stand (QC): 5 Chair/Gku-vs-Qcibf Xfer(QC): 5 SBA to assist with safety and perform assessment Gait Does the Patient Walk?: Yes Mode of Locomotion: Walk Anticipated Mode of Locomotion: Walk Gait (FIM): 5 Distance (FIM): 3=150 ft Walk 50 ft with 2 Turns(QC): 5 (in her room and in out of bathroom) Walk 150 ft (QC): 5 Gait Level of Assist: 5 Comments/Gait Description no AD required. Pt able to pull her own IV pole and manage it in her room as well as in the diamond. Wheelchair Training Does the Pt Use a Wheelchair?: No Balance Sitting Static: Good Sitting Dynamic: Good Standing Static: Good Standing Dynamic: Good Treatment Gait in room; toileted indep; gait in diamond. Assessment/Needs Pt presents with diagnosis of pneumonia with multiple medical issues that have been ongoing for several years. She is primarily SBA with moiblity but reports she is up in room ad mary kay. No safety concerns noted with her mobilizing in her room other than management of the IV pole. PT requested for functional strength and ambulation in the diamond. Pt to ambulate 2-3 x/day with family during the weekend with PT to follow through the week. She will benefit from upright mobility to increase strength and help to improve her medical status. Rehab Potential: Good PT [employer]ty [employer] Goals [employer]ty [employer] Goals PT [employer] Specialty [employer] Goals Time Frame: Nov 23, 2016 Transfers (B,C,W/C) (FIM): 6 Sit to Lying (QC): 6 Lying-Sitting on Side/Bed(QC): 6 Sit to Stand (QC): 6 Chair/Hgq-lm-Agibe Xfer(QC): 6 Does the Patient Walk: Yes Gait (FIM): 7 Gait distance (FIM): 3=150 ft Walk 50ft with 2 Turns (QC): 6 Walk 150 ft (QC): 6 PT Plan Problem List Problem List: Activity Tolerance, Functional Strength, Safety, Gait Treatment/Plan Treatment Plan: Continue Plan of Care Treatment Plan: Functional Activity Ted, Functional Strength, Gait, Safety, Therapeutic Exercise Treatment Duration: Nov 23, 2016 # of days/week 5 Visits Per Week: 5 Pt/Family Agrees w/Plan: Yes Safety Risks/Education Patient Education: Transfer Techniques, Safety Issues Teaching Recipient: Patient Teaching Methods: Discussion Response to Teaching: Verbalize Understanding Time/GCodes Time In: 1130 Time Out: 1200 Total Billed Treatment Time: 30 Total Billed Treatment visit EVM 15 GT 15 JACQUELINE COX PT Nov 16, 2016 12:04
[2016-11-16] MEDS: CALCIUM CARB + VIT D 600 MG (CALCARB + D) TAB PO SCH (12:16)
[2016-11-16] MEDS: ASCORBIC ACID (VIT C) 500 MG TABLET PO SCH (12:17)
[2016-11-16] MEDS: inSUlin (REGULAR) HUMAN 1 UNIT/0.01 ML (CHARGE PER UNIT) SC SCH ×3 (12:17→20:56)
[2016-11-16] MEDS: ALPRAZolam 0.25 MG (XANAX) TAB PO SCH ×2 (12:17→21:25)
[2016-11-16] MEDS: MEROPENEM 500 MG in NS (IVPB) 100 ML IV SCH ×2 (12:18→17:58)
[2016-11-16 12:57] VITALS: BP 105/64
--- NOTE | 2016-11-16 13:30 | Occupational Therapy Eval ---
OT Evaluation-General/PLF Medical Diagnosis Admission Date Nov 16, 2016 at 09:48 Medical Diagnosis: pneumonia Onset Date: Nov 12, 2016 Therapy Diagnosis Therapy Diagnosis: decreased activity tolerance, weakness Height/Weight Height (Feet): 5 Height (Inches): 4.00 Weight (Pounds): 170 Weight (Ounces): 11.2 Precautions Precautions/Isolations: Standard Precautions Referral Physician: dion Referral Reason: Evaluation/Treatment Medical History Pertinent Medical History: Atrial Fib, Arthritis, COPD, DM, GERD, Heart Failure Additional Medical History Craniotomy MRSA abscess, defibrillator, pacemaker, CHF, Churg Ozzy chronic vasculitis, cardiomyopathy, headaches, migraines, muscle myopathy, chronic pain , osteoporosis, chronic back pain, back injury, Cushings Syndrome, [place], anxiety Current History Admitted with pneumonia, nausea Reviewed History: Yes Social History Home: Single Level Current Living Status: Other Family (parents and children) Entry Into Home: Stairs With Railing ADL-Prior Level of Function ADL PLOF Comments Pt reported that she has been able to manage all of her basic self care needs. OT Current Status Subjective Pt seen in room, up in bed, agreeable to OT. 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 She reported that she has been taking herself to the bathroom here, feeding herself without difficulty and managing grooming/hygiene. She has been dressing herself and bathing and was able to manage her slipper socks. All ADLs take extra time Functional [place] Measure 0=Not Assessed/NA 4=Minimal Assistance 1=Total Assistance 5=Supervision or Setup 2=Maximal Assistance 6=Modified [place] 3=Moderate Assistance 7=Complete IndependenceIRFPAI Quality Coding Scale 6 Independent with activity with or without an assistive device 5 Patient requires set up or clean up by helper. Patient completes activity by themselves 4 Supervision or touching assist (CGA). [place] provide cues , steadying assist 3 The helper provides less than half the effort to complete the activity 2 The helper provides more than half the effort to complete the activity 1 Dependent. The helper does all the effort to complete an activity 7 Patient refused to complete or attempt activity 9 The patient did not perform the activity before the current illness or injury 88 Not attempted due to Medical conditions or safety concerns Eating (FIM): 7 Eating (QC): 6 Grooming (FIM): 6 Oral Hygiene (QC): 6 Bathing (FIM): 5 Toileting (FIM): 6 Toileting Hygiene (QC): 6 Toilet/Commode Transfer (FIM): 6 Toilet Transfer (QC): 6 Education OT Patient Education: Exercise program, Progress toward Goal/Update tx plan, Purpose of tx/functional activities, Rehab process Teaching Recipient: Patient Teaching Methods: Discussion Response to Teaching: Verbalize Understanding OT Manager Agency Goals Mcfp Goals Time Frame: Nov 23, 2016 Eating (FIM): 7 Eating (QC): 6 Groomin Oral Hygiene (QC): 6 Bathing(FIM): 6 Upper Body Dressing(FIM): 6 Lower Body Dressing(FIM): 6 Toileting(FIM): 6 Toileting Hygiene (QC): 6 Toilet/Commode Transfer(FIM): 6 Toilet/Commode Transfer (QC): 6 Shower Transfer(FIM): 6 Pt will be able to verbalize three ways that she can conserve her energy due to decreased activity tolerance Additional Goals: 2-Verbalize Understanding, 3-ImproveStrength/Ted 1=Demonstrate adherence to instructed precautions during ADL tasks. 2=Patient will verbalize/demonstrate understanding of assistive devices/ modifications for ADL. 3=Patient will improve strength/tolerance for activity to enable patient to perform ADL's. OT Education/Plan Problem List/Assessment Assessment: Decreased Activ Tolerance, Decreased UE Strength Pt would benefit from skilled OT to increase her activity tolerance and UE strength to allow her to safely return to her home with decrease risk of falling and increased independence Discharge Recommendations Plan/Recommendations: Continue POC Treatment Plan/Plan of Care Patient would benefit from OT for education, treatment and training to promote independence in ADL's, mobility, safety and/or upper extremity function for ADL' s. Plan of Care: UE Funct Exercise/Act, OTHER (energy conservation education) Treatment Duration: Nov 23, 2016 # of days/week 5 Visits Per Week: 5 Agreement: Yes Rehab Potential: Good Time/GCodes Start Time: 13:05 Stop Time: 13:20 Total Time Billed (hr/min): 15 Billed Treatment Time visit, 15 minutes evaluation low intensity YAMILA BRODY OT Nov 16, 2016 13:30
[2016-11-16 13:55] VITALS: BP 98/76
[2016-11-16] MEDS: CATHETER FLUSH 10 ML SYR IV SCH ×2 (14:00→21:26)
[2016-11-16] MEDS: aCETylcysteine 20% (MUCOMYST) 30ML SOLN VIAL INH SCH ×2 (14:36→21:00)
[2016-11-16] MEDS: RT-ALBUTEROL/IPRATROPIUM 3 ML (DUONEB) VIAL INH SCH ×2 (14:37→21:00)
[2016-11-16 15:45] VITALS: BP 109/67
[2016-11-16] MEDS: ONDANSETRON 4 MG (ZOFRAN) ORAL DISSOLVE TAB PO PRN (16:00)
[2016-11-16] MEDS: PANTOPRAZOLE 20 MG TABLET (PROTONIX) PO SCH (16:00)
[2016-11-16] MEDS: ACETAMINOPHEN 500 MG TAB (TYLENOL) PO PRN (16:01)
[2016-11-16] MEDS ORDERED: LEVOFLOXACIN 750 MG/150 ML IV 150 ML IV SCH (17:00)
[2016-11-16 20:00] VITALS: BP 119/73
[2016-11-16] MEDS: ENOXAPARIN 40 MG/0.4 ML (LOVENOX) SYR SC SCH (21:24)
[2016-11-16] MEDS: inSUlin DETERMIR 1 UNIT/0.01 ML (LEVEMIR) CHARGE PER UNIT SQ SCH (21:24)
[2016-11-16] MEDS: SACUBITRIL/VALSARTAN 24/26 MG (ENTRESTO) TABLET PO SCH (21:24)
[2016-11-16] MEDS: meTOprolol TARTRATE 25 MG (LOPRESSOR) TABLET PO SCH (21:25)
[2016-11-16] MEDS: hydrOXYzine (VISTARIL) 25 MG CAP PO SCH (21:25)
[2016-11-16] MEDS: KCL 20 MEQ TAB (K-DUR) PO SCH (21:25)
[2016-11-16] MEDS: MAGNESIUM OXIDE (MAG-OX)400 MG TAB PO SCH (21:25)
[2016-11-16] MEDS: LEVOFLOXACIN 750 MG TAB (LEVAQUIN) PO SCH (21:25)
[2016-11-16] MEDS: CLOTRIMAZOLE 1% CREAM (LOTRIMIN) 30 GM TOP SCH (21:27)
[2016-11-16] MEDS: BETAMETHASONE DIPRO (AUGMENTED) 0.05% CREAM 15 GM TOP SCH (21:28)
[2016-11-16] MEDS ORDERED: NS IV 500 ML 500 ML ONE (21:37)
[2016-11-17] VITALS: BP 132/96
[2016-11-17] MEDS: MEROPENEM 500 MG in NS (IVPB) 100 ML IV SCH ×5 (01:02→23:39)
[2016-11-17] MEDS: RT-ALBUTEROL/IPRATROPIUM 3 ML (DUONEB) VIAL INH SCH ×4 (02:32→21:51)
[2016-11-17] MEDS: aCETylcysteine 20% (MUCOMYST) 30ML SOLN VIAL INH SCH ×4 (02:32→21:51)
[2016-11-17 04:00] VITALS: BP 106/59
[2016-11-17] MEDS: inSUlin (REGULAR) HUMAN 1 UNIT/0.01 ML (CHARGE PER UNIT) SC SCH ×4 (06:00→21:06)
[2016-11-17] MEDS: CATHETER FLUSH 10 ML SYR IV SCH ×3 (06:22→21:07)
[2016-11-17] MEDS: FOLIC ACID 1 MG TAB PO SCH (06:24)
[2016-11-17 07:55] VITALS: BP 97/65
[2016-11-17] MEDS: fluCOnazole (DIFLUCAN) 100 MG TAB PO SCH (08:51)
[2016-11-17] MEDS: MAGNESIUM OXIDE (MAG-OX)400 MG TAB PO SCH ×2 (08:51→21:04)
[2016-11-17] MEDS: KCL 20 MEQ TAB (K-DUR) PO SCH ×2 (08:51→21:05)
[2016-11-17] MEDS: SACUBITRIL/VALSARTAN 24/26 MG (ENTRESTO) TABLET PO SCH ×2 (08:51→21:04)
[2016-11-17] MEDS: meTOprolol TARTRATE 25 MG (LOPRESSOR) TABLET PO SCH ×2 (08:52→21:05)
[2016-11-17] MEDS: DIGOXIN 0.125 MG (LANOXIN) TAB PO SCH (08:52)
[2016-11-17] MEDS: inSUlin DETERMIR 1 UNIT/0.01 ML (LEVEMIR) CHARGE PER UNIT SQ SCH ×2 (08:52→21:05)
[2016-11-17] MEDS: FUROSEMIDE 40 MG (LASIX) TAB PO SCH (08:52)
[2016-11-17] MEDS: BETAMETHASONE DIPRO (AUGMENTED) 0.05% CREAM 15 GM TOP SCH ×2 (08:57→21:06)
[2016-11-17] MEDS: CLOTRIMAZOLE 1% CREAM (LOTRIMIN) 30 GM TOP SCH ×2 (08:57→21:06)
[2016-11-17] MEDS: ONDANSETRON 4 MG (ZOFRAN) ORAL DISSOLVE TAB PO PRN ×2 (08:57→22:40)
[2016-11-17] MEDS: HYDROmorphone (DILAUDID) 2 MG/ML VIAL IVP PRN ×4 (08:58→16:56)
--- NOTE | 2016-11-17 11:29 | Occupational Ther Daily Note ---
OT Current Status-Daily Note Subjective Pt seen in room, up in bed, agreeable to OT. No pain mentioned. Appearance Alert, cooperative Mental Status/Objective Functional [place] Measure 0=Not Assessed/NA 4=Minimal Assistance 1=Total Assistance 5=Supervision or Setup 2=Maximal Assistance 6=Modified [place] 3=Moderate Assistance 7=Complete [place] ADL-Treatment Functional [place] Measure 0=Not Assessed/NA 4=Minimal Assistance 1=Total Assistance 5=Supervision or Setup 2=Maximal Assistance 6=Modified [place] 3=Moderate Assistance 7=Complete IndependenceIRFPAI Quality Coding Scale 6 Independent with activity with or without an assistive device 5 Patient requires set up or clean up by helper. Patient completes activity by themselves 4 Supervision or touching assist (CGA). [place] provide cues , steadying assist 3 The helper provides less than half the effort to complete the activity 2 The helper provides more than half the effort to complete the activity 1 Dependent. The helper does all the effort to complete an activity 7 Patient refused to complete or attempt activity 9 The patient did not perform the activity before the current illness or injury 88 Not attempted due to Medical conditions or safety concerns Toileting (FIM): 6 (tall toilet, grab bar) Toileting Hygiene (QC): 6 Toilet/Commode Transfer (FIM): 6 (tall toilet, grab bar) Toilet Transfer (QC): 6 Other Treatment Pt education on purpose of bilat UE exercises, to help increase activity tolerance. Pt did 5 different exercises x 10 reps each, red (medium) theraband, with skilled cues and physical assistance to do them correctly. Pt did 5 additional reps each one, working on recall, again with some skilled assistance. Exercises were written on her white board and she was able to demonstrate most of them but needed assistance with elbow flexion one. Pt encouraged to do these one more time today and 1-2 times tomorrow. Pt had new IV in R foot so provided with XXXL slipper socks which shouldn't press on IV. Pt left up in bed, all needs met. Education OT Patient Education: Exercise program Teaching Recipient: Patient Teaching Methods: Demonstration, Discussion Response to Teaching: Return Demonstration, Reinforcement Needed OT Short Term Goals Short Term Goals 1=Demonstrate adherence to instructed precautions during ADL tasks. 2=Patient will verbalize/demonstrate understanding of assistive devices/ modifications for ADL. 3=Patient will improve strength/tolerance for activity to enable patient to perform ADL's. OT Custodial Goals Custodial Goals Time Frame: Nov 23, 2016 Eating (FIM): 7 Eating (QC): 6 Groomin Oral Hygiene (QC): 6 Bathing(FIM): 6 Upper Body Dressing(FIM): 6 Lower Body Dressing(FIM): 6 Toileting(FIM): 6 Toileting Hygiene (QC): 6 Toilet/Commode Transfer(FIM): 6 Toilet/Commode Transfer (QC): 6 Shower Transfer(FIM): 6 Pt will be able to verbalize three ways that she can conserve her energy due to decreased activity tolerance Additional Goals: 2-Verbalize Understanding, 3-ImproveStrength/Ted 1=Demonstrate adherence to instructed precautions during ADL tasks. 2=Patient will verbalize/demonstrate understanding of assistive devices/ modifications for ADL. 3=Patient will improve strength/tolerance for activity to enable patient to perform ADL's. OT Education/Plan Problem List/Assessment Pt would benefit from skilled OT to increase her activity tolerance and UE strength to allow her to safely return to her home with decrease risk of falling and increased independence Discharge Recommendations Plan/Recommendations: Continue POC Treatment Plan/Plan of Care Patient would benefit from OT for education, treatment and training to promote independence in ADL's, mobility, safety and/or upper extremity function for ADL' s. Plan of Care: UE Funct Exercise/Act, OTHER (energy conservation education) Treatment Duration: Nov 23, 2016 Visits Per Week: 5 Agreement: Yes Rehab Potential: Good Time/GCodes Start Time: 10:42 Stop Time: 10:57 Total Time Billed (hr/min): 15 Billed Treatment Time visit, 15 minutes exercise YAMILA BRODY OT Nov 17, 2016 11:29
[2016-11-17 12:00] VITALS: BP 93/51
[2016-11-17] MEDS: fentaNYL PATCH 12 MCG (DURAGESIC) TD SCH (12:08)
[2016-11-17] MEDS: FENTANYL PATCH REMOVAL TP SCH (12:08)
[2016-11-17] MEDS: CALCIUM CARB + VIT D 600 MG (CALCARB + D) TAB PO SCH (12:08)
[2016-11-17] MEDS: ASCORBIC ACID (VIT C) 500 MG TABLET PO SCH (12:08)
[2016-11-17] MEDS: ALPRAZolam 0.25 MG (XANAX) TAB PO SCH ×2 (12:08→21:04)
[2016-11-17 16:00] VITALS: BP 103/61
--- NOTE | 2016-11-17 16:18 | Progress Note (SOAP) ---
Subjective Subjective/Events-last exam PT REPORTS THAT SHE IS FEELING SOMEWHAT BETTER TODAY. SHE DENIES CHEST PAIN, BUT IS STILL SHORT OF BREATH. SHE DENIES NAUSEA THIS MORNING. Review of Systems General: Fatigue HEENT: No Head Aches Pulmonary: Dyspnea Cough Cardiovascular: No: Chest Pain Gastrointestinal: No: Abdominal Pain, Nausea Neurological: : WeaknessNo: Confusion Objective Exam Vital Signs Date Time Temp Pulse Resp B/P Pulse Ox O2 Delivery O2 Flow Rate FiO2 11/17/16 14:24 93 4.00 11/17/16 14:17 93 4.00 11/17/16 12:00 98.7 88 22 93/51 92 Nasal Cannula 4.00 11/17/16 09:00 92 Nasal Cannula 4.00 11/17/16 08:45 99 4.00 11/17/16 08:40 92 4.00 11/17/16 07:55 98.2 97 24 97/65 95 Nasal Cannula 4.00 11/17/16 04:00 97.7 98 28 106/59 95 4.00 11/17/16 02:32 93 4.00 11/17/16 00:00 100.3 97 18 132/96 99 Nasal Cannula 4.00 11/16/16 21:00 Nasal Cannula 4.00 11/16/16 21:00 20 11/16/16 20:00 100.1 95 20 119/73 98 Nasal Cannula 4.00 11/16/16 17:58 21 11/16/16 16:59 100.2 11/16/16 16:59 100.2 11/16/16 16:50 21 I & O 11/17/16 07:00 Intake Total 2080 ml Output Total 2900 ml Balance -820 ml Capillary Refill : General Appearance: No Apparent Distress WD/WN HEENT: PERRL/EOMI Pharynx Normal Neck: Full Range of Motion Supple Respiratory: Normal Breath Sounds Crackles Decreased Breath Sounds Cardiovascular: Systolic Murmur (II/ MARINA) Gastrointestinal: normal bowel sounds non tender soft no organomegaly no pulsatile mass Neurologic/Psychiatric: Alert Oriented x3 No Motor/Sensory Deficits Normal Mood/Affect Skin: Warm/Dry Lymphatic: No Adenopathy Results Lab Laboratory Tests 11/16/16 18:16: Glucometer 128H 11/16/16 20:30: Glucometer 119H 11/17/16 06:23: Glucometer 84 11/17/16 10:59: Glucometer 104 Assessment/Plan Assessment/Plan Assess & Plan/Chief Complaint PNEUMONIA CONGESTIVE HEART FAILURE EXACERBATION - ACUTE ON CHRONIC - EJECTION FRACTION OF 5% TO 10% CARDIOMYOPATHY UNCONTROLLED NAUSEA CHURG-CANELO ATRIAL FIBRILLATION CHRONIC IMMUNE SUPPRESSION THERAPY ESOPHAGEAL REFLUX CHRONIC PAIN SYNDROME STEROID INDUCED DIABETES MELLITUS CHRONIC OXYGEN THERAPY NOCTURNAL APNEA PNEUMONIA - TRIPLE ANTIBIOTIC THERAPY - MUCOMYST BREATHING TREATMENTS. CHF - ACUTE ON CHRONIC LEFT SIDED SYSTOLIC FAILURE - CONTINUE WITH IV LASIX, MONITOR BNP CLOSELY. 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 ATRIAL FIBRILLATION - RESTARTED DIGOXIN, CHECK DIGOXIN LEVEL, SUPPORTIVE CARE. NAUSEA - NAUSEA MEDICATION HAS NOT MADE MUCH OF A DIFFERENCE IN HER SYMPTOMS. SUPPORTIVE CARE, START IV ZOFRAN AND IV PHENERGAN. CHRONIC IMMUNOSUPPRESSION - AND ADRENAL SUPPRESSION WITH CHRONIC STEROID USE - DOSE WITH SOLUMEDROL. STEROID INDUCED DIABETES MELLITUS - CHECK FSBS, RESTARTED HOME INSULIN THERAPY. GERD - RESTART PROTONIX CHRONIC PAIN - PRN DILAUDID CENTRAL LINE TODAY ALBER PHIPPS MD Nov 17, 2016 16:18
[2016-11-17] MEDS: PANTOPRAZOLE 20 MG TABLET (PROTONIX) PO SCH (17:16)
[2016-11-17] MEDS: NS IV 500 ML 500 ML IV SCH (17:17)
[2016-11-17] MEDS: HYDROmorphone PCA 0.2 MG/ML 30 ML (DILAUDID) IV PRN (17:36)
[2016-11-17 20:06] VITALS: BP 97/53
[2016-11-17] MEDS: hydrOXYzine (VISTARIL) 25 MG CAP PO SCH (21:04)
[2016-11-17] MEDS: LEVOFLOXACIN 750 MG TAB (LEVAQUIN) PO SCH (21:04)
[2016-11-17] MEDS: ENOXAPARIN 40 MG/0.4 ML (LOVENOX) SYR SC SCH (21:05)
--- NOTE | 2016-11-17 23:12 | PROCEDURE REPORT ---
PROCEDURE PHYSICIAN: ANAHY WHELAN DATE OF PROCEDURE: 11/17/2016 DIAGNOSES: 1. Poor venous access. 2. Congestive heart failure. PROCEDURE: 1. Ultrasound localization of right internal jugular vein. 2. Central venous catheter placement. SURGEON: Dr. Whelan. 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 I was asked to place a central venous catheter. Informed consent was obtained after reviewing the procedure in detail. DESCRIPTION OF PROCEDURE: She was placed in Trendelenburg position and the right side of her neck prepared and draped in the usual sterile manner. Internal jugular vein was localized using a 10 MHz ultrasound probe and a floppy guidewire introduced into the heart. Subcutaneous tract was gently dilated using a silastic sheath and a 16 cm long, 7.5-Kinyarwanda, triple-lumen central venous catheter advanced using Seldinger technique. All the channels were aspirated and flushed with heparinized saline. The catheter was then secured using a silk suture. A dressing was then applied. She tolerated the procedure reasonably well. Job ID: [id number] Dictated Date: 11/17/2016 13:44:20 Leadership Development Consultant Date: 11/17/2016 23:06:29 / funmi FLORES
[2016-11-18] VITALS: BP 89/56
[2016-11-18] MEDS: RT-ALBUTEROL/IPRATROPIUM 3 ML (DUONEB) VIAL INH SCH ×4 (02:35→20:14)
[2016-11-18] MEDS: aCETylcysteine 20% (MUCOMYST) 30ML SOLN VIAL INH SCH ×4 (02:38→20:14)
[2016-11-18 04:36] VITALS: BP 88/50
[2016-11-18 05:05] LABS: BASOPHILS % (AUTO) 0 % (0-10); EOSINOPHILS # (AUTO) 0.1 10^3/uL (0.0-0.3); EOSINOPHILS % (AUTO) 3 % (0-10); LYMPHOCYTES # (AUTO) 0.5 X 10^3 (1.0-4.0); LYMPHOCYTES % (AUTO) 23 % (12-44); MEAN CORPUSCULAR HEMOGLOBIN 29 PG (25-34); MEAN CORPUSCULAR HGB CONC 32 G/DL (32-36); MEAN CORPUSCULAR VOLUME 91 FL (80-99); MONOCYTES # (AUTO) 0.2 X 10^3 (0.0-1.0); MONOCYTES % (AUTO) 8 % (0-12); NEUTROPHILS # (AUTO) 1.3 X 10^3 (1.8-7.8); NEUTROPHILS % (AUTO) 65 % (42-75); PLATELET COUNT 144 10^3/uL (130-400); RED BLOOD COUNT 4.03 10^6/uL (4.35-5.85); RED CELL DISTRIBUTION WIDTH 14.9 % (10.0-14.5); WHITE BLOOD COUNT 2.1 10^3/uL (4.3-11.0)
[2016-11-18 05:24] LABS: ALANINE AMINOTRANSFERASE 16 U/L (0-55); ANION GAP 10 MMOL/L (5-14); ASPARTATE AMINO TRANSFERASE 48 U/L (5-34); BILIRUBIN,TOTAL 0.7 MG/DL (0.1-1.0); BLOOD UREA NITROGEN 12 MG/DL (7-18); BUN/CREATININE RATIO 14; CALCIUM 8.3 MG/DL (8.5-10.1); CARBON DIOXIDE 34 MMOL/L (21-32); CHLORIDE 93 MMOL/L (98-107); CREATININE SERUM 0.85 MG/DL (0.60-1.30); GFR ESTIMATED > 60; GLUCOSE 65 MG/DL (70-105); POTASSIUM 3.2 MMOL/L (3.6-5.0); SODIUM 137 MMOL/L (135-145); TOTAL PROTEIN 5.3 G/DL (6.4-8.2)
[2016-11-18] MEDS: inSUlin (REGULAR) HUMAN 1 UNIT/0.01 ML (CHARGE PER UNIT) SC SCH ×4 (05:51→21:15)
[2016-11-18] MEDS: FOLIC ACID 1 MG TAB PO SCH (06:04)
[2016-11-18] MEDS: CATHETER FLUSH 10 ML SYR IV SCH ×3 (06:04→21:17)
[2016-11-18] MEDS: MEROPENEM 500 MG in NS (IVPB) 100 ML IV SCH ×3 (06:04→18:25)
[2016-11-18] MEDS: HYDROmorphone PCA 0.2 MG/ML 30 ML (DILAUDID) IV PRN ×2 (06:25→15:54)
[2016-11-18 08:35] VITALS: BP 95/50
[2016-11-18] MEDS: SACUBITRIL/VALSARTAN 24/26 MG (ENTRESTO) TABLET PO SCH ×2 (09:20→21:16)
[2016-11-18] MEDS: DIGOXIN 0.125 MG (LANOXIN) TAB PO SCH (09:20)
[2016-11-18] MEDS: FUROSEMIDE 40 MG (LASIX) TAB PO SCH (09:20)
[2016-11-18] MEDS: meTOprolol TARTRATE 25 MG (LOPRESSOR) TABLET PO SCH ×2 (09:21→21:17)
[2016-11-18] MEDS: fluCOnazole (DIFLUCAN) 100 MG TAB PO SCH (09:21)
[2016-11-18] MEDS: MAGNESIUM OXIDE (MAG-OX)400 MG TAB PO SCH ×2 (09:21→21:17)
[2016-11-18] MEDS: KCL 20 MEQ TAB (K-DUR) PO SCH ×2 (09:21→21:16)
[2016-11-18] MEDS: inSUlin DETERMIR 1 UNIT/0.01 ML (LEVEMIR) CHARGE PER UNIT SQ SCH ×2 (09:21→21:16)
[2016-11-18] MEDS: CLOTRIMAZOLE 1% CREAM (LOTRIMIN) 30 GM TOP SCH ×2 (09:24→21:18)
[2016-11-18] MEDS: BETAMETHASONE DIPRO (AUGMENTED) 0.05% CREAM 15 GM TOP SCH ×2 (09:25→21:18)
--- NOTE | 2016-11-18 10:43 | Diagnostic Imaging Report ---
INDICATION: Pneumonia. Comparison is made with prior examination 11/13/16. FINDINGS: There is cardiomegaly. There is right perihilar infiltrate. Mediastinum is unremarkable. There is no pleural effusion. Pacemaker overlies the right hemithorax. IMPRESSION: Right perihilar infiltrate suspect for pneumonia. Cardiomegaly. Dictated by: Dictated on workstation # [id number]
[2016-11-18] MEDS: NS IV 500 ML 500 ML IV SCH (11:37)
[2016-11-18 11:44] VITALS: BP 96/66
--- NOTE | 2016-11-18 11:59 | Progress Note (SOAP) ---
Subjective Subjective/Events-last exam PT REPORTS QUITE A BIT OF PAIN THIS MORNING, SPECIFICALLY AROUND HER LIPS. PT REPORTS THAT YESTERDAY EVENING SHE HAD PAIN AROUND HER LIPS AND STARTED TO DEVELOP SORES. PT NOTES THAT SHE IS STILL HAVING TROUBLE TAKING A DEEP BREATH AND FEELS QUITE A BIT OF MUCUS IN HER LUNGS. Review of Systems General: No Chills, Fatigue Malaise HEENT: No Head Aches, Other (MOUTH PAIN) Cardiovascular: No: Palpitations Gastrointestinal: No: Abdominal Pain, Nausea Genitourinary: No Dysuria Musculoskeletal: : back pain: leg pain: shoulder pain Neurological: : WeaknessNo: Confusion Objective Exam Vital Signs Date Time Temp Pulse Resp B/P Pulse Ox O2 Delivery O2 Flow Rate FiO2 11/18/16 11:44 97.6 91 20 96/66 94 Nasal Cannula 4.00 11/18/16 09:00 Nasal Cannula 4.00 11/18/16 08:35 97.0 91 16 95/50 95 Nasal Cannula 4.00 11/18/16 08:00 16 11/18/16 07:26 94 4.00 11/18/16 07:14 94 4.00 11/18/16 06:25 14 11/18/16 06:00 16 11/18/16 04:36 97.2 74 14 88/50 94 Nasal Cannula 4.00 11/18/16 02:36 93 4.00 11/18/16 00:00 96.8 72 19 89/56 92 Nasal Cannula 4.00 11/17/16 21:51 90 4.00 11/17/16 21:00 91 Nasal Cannula 4.00 11/17/16 20:06 98.6 97 16 97/53 95 Nasal Cannula 4.00 11/17/16 18:00 16 11/17/16 17:44 16 11/17/16 17:36 16 11/17/16 16:00 99.5 90 16 103/61 93 Nasal Cannula 4.00 11/17/16 14:24 93 4.00 11/17/16 14:17 93 4.00 11/17/16 12:00 98.7 88 22 93/51 92 Nasal Cannula 4.00 I & O 11/18/16 06:59 Intake Total 1220 ml Output Total 2000 ml Balance -780 ml Capillary Refill : Less Than 3 Seconds General Appearance: No Apparent Distress WD/WN HEENT: PERRL/EOMI Pharynx Normal Neck: Full Range of Motion Respiratory: Chest Non Tender Crackles Decreased Breath Sounds Cardiovascular: Regular Rate, Rhythm Systolic Murmur (II/ MARINA) Gastrointestinal: normal bowel sounds non tender soft no organomegaly no pulsatile mass Extremity: Normal Capillary Refill Pedal Edema (TRACE) Neurologic/Psychiatric: Alert Oriented x3 No Motor/Sensory Deficits Normal Mood/Affect Skin: Warm/Dry Lymphatic: No Adenopathy Results Lab Laboratory Tests 11/17/16 16:50: Glucometer 218H 11/17/16 20:44: Glucometer 270H 11/18/16 04:55: Alanine Aminotransferase (ALT/SGPT) 16, Albumin 3.0L, Alkaline Phosphatase 163H , Anion Gap 10, Aspartate Amino Transf (AST/SGOT) 48H, BUN/Creatinine Ratio 14, Basophils # (Auto) 0.0, Basophils (%) (Auto) 0, Blood Urea Nitrogen 12, Calcium Level 8.3L, Carbon Dioxide Level 34H, Chloride Level 93L, Creatinine 0.85, Eosinophils # (Auto) 0.1, Eosinophils (%) (Auto) 3, Estimat Glomerular Filtration Rate > 60, Glucose Level 65L, Hematocrit 37, Hemoglobin 11.7, Lymphocytes # (Auto) 0.5L, Lymphocytes (%) (Auto) 23, Mean Corpuscular Hemoglobin 29, Mean Corpuscular Hemoglobin Concent 32, Mean Corpuscular Volume 91, Mean Platelet Volume 12.0H, Monocytes # (Auto) 0.2, Monocytes (%) (Auto) 8, Neutrophils # (Auto) 1.3L, Neutrophils (%) (Auto) 65, Platelet Count 144, Potassium Level 3.2L, Red Blood Count 4.03L, Red Cell Distribution Width 14.9H, Sodium Level 137, Total Bilirubin 0.7, Total Protein 5.3L, White Blood Count 2.1L 11/18/16 06:30: Glucometer 84 11/18/16 10:37: Glucometer 124H Assessment/Plan Assessment/Plan Assess & Plan/Chief Complaint PNEUMONIA CONGESTIVE HEART FAILURE EXACERBATION - ACUTE ON CHRONIC - EJECTION FRACTION OF 5% TO 10% CARDIOMYOPATHY UNCONTROLLED NAUSEA CHURG-CANELO ATRIAL FIBRILLATION CHRONIC IMMUNE SUPPRESSION THERAPY ESOPHAGEAL REFLUX CHRONIC PAIN SYNDROME STEROID INDUCED DIABETES MELLITUS CHRONIC OXYGEN THERAPY NOCTURNAL APNEA APHTHOUS ULCERS PNEUMONIA - TRIPLE ANTIBIOTIC THERAPY - MUCOMYST BREATHING TREATMENTS. CHF - ACUTE ON CHRONIC LEFT SIDED SYSTOLIC FAILURE - CONTINUE WITH IV LASIX, MONITOR BNP CLOSELY. 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 ATRIAL FIBRILLATION - RESTARTED DIGOXIN, CHECK DIGOXIN LEVEL, SUPPORTIVE CARE. NAUSEA - NAUSEA MEDICATION HAS NOT MADE MUCH OF A DIFFERENCE IN HER SYMPTOMS. SUPPORTIVE CARE, START IV ZOFRAN AND IV PHENERGAN. CHRONIC IMMUNOSUPPRESSION - AND ADRENAL SUPPRESSION WITH CHRONIC STEROID USE - DOSE WITH SOLUMEDROL. STEROID INDUCED DIABETES MELLITUS - CHECK FSBS, RESTARTED HOME INSULIN THERAPY. GERD - RESTART PROTONIX CHRONIC PAIN - PRN DILAUDID CENTRAL LINE PLACED YESTERDAY APHTHOUS ULCERS - CONTINUE WITH ACYCLOVIR AND TOPICAL TREATMENTS ALBER PHIPPS MD Nov 18, 2016 11:59
[2016-11-18] MEDS: methylPREDNISolone 40 MG/ML (Solu-MEDROL) VIAL IV SCH ×2 (13:12→18:25)
[2016-11-18] MEDS: ACYCLOVIR 400 MG TABLET (ZOVIRAX) PO SCH ×3 (13:13→21:16)
[2016-11-18] MEDS: ALPRAZolam 0.25 MG (XANAX) TAB PO SCH ×2 (13:13→21:17)
[2016-11-18] MEDS: CALCIUM CARB + VIT D 600 MG (CALCARB + D) TAB PO SCH (13:13)
[2016-11-18] MEDS: DOCOSANOL 10 % CREAM (ABREVA) 2 GM TP SCH ×3 (13:13→21:18)
[2016-11-18] MEDS: ASCORBIC ACID (VIT C) 500 MG TABLET PO SCH (13:13)
[2016-11-18 16:00] VITALS: BP 89/60
[2016-11-18] MEDS: PANTOPRAZOLE 20 MG TABLET (PROTONIX) PO SCH (16:25)
[2016-11-18 20:05] VITALS: BP 102/68
[2016-11-18] MEDS: ENOXAPARIN 40 MG/0.4 ML (LOVENOX) SYR SC SCH (21:15)
[2016-11-18] MEDS: hydrOXYzine (VISTARIL) 25 MG CAP PO SCH (21:16)
[2016-11-18] MEDS: LEVOFLOXACIN 750 MG TAB (LEVAQUIN) PO SCH (21:17)
[2016-11-19] VITALS: BP 90/63
[2016-11-19] MEDS: MEROPENEM 500 MG in NS (IVPB) 100 ML IV SCH ×5 (00:02→23:23)
[2016-11-19] MEDS: methylPREDNISolone 40 MG/ML (Solu-MEDROL) VIAL IV SCH ×5 (00:02→23:23)
[2016-11-19] MEDS: NS IV 500 ML 500 ML IV SCH ×3 (01:57→18:02)
[2016-11-19] MEDS: RT-ALBUTEROL/IPRATROPIUM 3 ML (DUONEB) VIAL INH SCH ×4 (02:32→20:33)
[2016-11-19] MEDS: HYDROmorphone PCA 0.2 MG/ML 30 ML (DILAUDID) IV PRN ×2 (03:21→14:44)
[2016-11-19 04:00] VITALS: BP 86/60
[2016-11-19] MEDS: CATHETER FLUSH 10 ML SYR IV SCH ×3 (06:23→21:52)
[2016-11-19] MEDS: inSUlin (REGULAR) HUMAN 1 UNIT/0.01 ML (CHARGE PER UNIT) SC SCH ×4 (06:23→21:51)
[2016-11-19] MEDS: FOLIC ACID 1 MG TAB PO SCH (06:24)
[2016-11-19] MEDS: ACYCLOVIR 400 MG TABLET (ZOVIRAX) PO SCH ×5 (06:24→20:18)
[2016-11-19] MEDS: DOCOSANOL 10 % CREAM (ABREVA) 2 GM TP SCH ×5 (06:25→21:51)
[2016-11-19 08:00] VITALS: BP 92/62
[2016-11-19] MEDS: RT-ALBUTEROL/IPRATROPIUM 3 ML (DUONEB) VIAL INH PRN (09:24)
[2016-11-19] MEDS: aCETylcysteine 20% (MUCOMYST) 30ML SOLN VIAL INH SCH ×3 (09:24→20:34)
--- NOTE | 2016-11-19 10:06 | Physical Therapy Daily Note ---
PT Daily Note-Current Subjective Patient is very agreeable to participate with PT. Pain Numeric Pain Scale: 0-No Pain Location: No Pain Reported Mental Status Patient Orientation: Normal For Age Attachments: Oxygen, IV Transfers Functional [place] Measure 0=Not Assessed/NA 4=Minimal Assistance 1=Total Assistance 5=Supervision or Setup 2=Maximal Assistance 6=Modified [place] 3=Moderate Assistance 7=Complete IndependenceIRFPAI Quality Coding Scale 6 Independent with activity with or without an assistive device 5 Patient requires set up or clean up by helper. Patient completes activity by themselves 4 Supervision or touching assist (CGA). [place] provide cues , steadying assist 3 The helper provides less than half the effort to complete the activity 2 The helper provides more than half the effort to complete the activity 1 Dependent. The helper does all the effort to complete an activity 7 Patient refused to complete or attempt activity 9 The patient did not perform the activity before the current illness or injury 88 Not attempted due to Medical conditions or safety concerns Transfers (B, C, W/C) (FIM): 6 Scootin Roll Left to Right (QC): 6 Supine to/from Sit: 6 Sit to/from Stand: 6 Sit to Lying (QC): 6 Sit to Stand (QC): 6 Gait Training Does the Patient Walk?: Yes Gait (FIM): 7 Distance (FIM): 3=150 ft Distance: 400' x 1; 200' x 1 Walk 50 ft with 2 Turns(QC): 6 Walk 150 ft (QC): 6 Gait Level of Assist: 7 Gait Assistive Device: None safe and functional Assessment Patient tolerated treatment well and returned to room with Dr. Aguilar present. Patient is up independent in room and with family in hallway PRN. PT Intermediate Frame Tender Goals Longterm Goals PT Longterm Goals Time Frame: Nov 23, 2016 Transfers (B,C,W/C) (FIM): 6 Sit to Lying (QC): 6 Lying-Sitting on Side/Bed(QC): 6 Sit to Stand (QC): 6 Chair/Nmo-tj-Cxbky Xfer(QC): 6 Does the Patient Walk: Yes Gait (FIM): 7 Gait distance (FIM): 3=150 ft Walk 50ft with 2 Turns (QC): 6 Walk 150 ft (QC): 6 PT Plan Treatment/Plan Treatment Plan: Continue Plan of Care Treatment Plan: Functional Activity Ted, Functional Strength, Gait, Safety, Therapeutic Exercise Treatment Duration: Nov 23, 2016 Visits Per Week: 5 Time/GCodes Time In: 845 Time Out: 908 Total Billed Treatment Time: 23 Total Billed Treatment 1 visit FA x 2 23 min JAXSON BEARD PT Nov 19, 2016 10:06
[2016-11-19] MEDS: fluCOnazole (DIFLUCAN) 100 MG TAB PO SCH (10:24)
[2016-11-19] MEDS: MAGNESIUM OXIDE (MAG-OX)400 MG TAB PO SCH ×2 (10:24→20:19)
[2016-11-19] MEDS: SACUBITRIL/VALSARTAN 24/26 MG (ENTRESTO) TABLET PO SCH ×2 (10:24→20:29)
[2016-11-19] MEDS: meTOprolol TARTRATE 25 MG (LOPRESSOR) TABLET PO SCH ×2 (10:24→20:29)
[2016-11-19] MEDS: DIGOXIN 0.125 MG (LANOXIN) TAB PO SCH (10:24)
[2016-11-19] MEDS: KCL 20 MEQ TAB (K-DUR) PO SCH ×2 (10:24→20:20)
[2016-11-19] MEDS: TRIM/SULFAMETH 160/800 (SEPTRA DS) TAB PO SCH (10:25)
[2016-11-19] MEDS: inSUlin DETERMIR 1 UNIT/0.01 ML (LEVEMIR) CHARGE PER UNIT SQ SCH ×2 (10:25→21:51)
[2016-11-19] MEDS: FUROSEMIDE 40 MG (LASIX) TAB PO SCH (10:25)
[2016-11-19] MEDS: CLOTRIMAZOLE 1% CREAM (LOTRIMIN) 30 GM TOP SCH ×2 (10:27→21:52)
[2016-11-19] MEDS: BETAMETHASONE DIPRO (AUGMENTED) 0.05% CREAM 15 GM TOP SCH ×2 (10:27→21:51)
--- NOTE | 2016-11-19 11:01 | Progress Note (SOAP) ---
Subjective Subjective/Events-last exam pt reports feeling fatigued, still having quite a bit of production of sputum - thick yellowish sputum. she states that she just does not feel well, she denies nausea, diarrhea. Review of Systems General: Fatigue Malaise HEENT: No Head Aches Pulmonary: Dyspnea Cough Cardiovascular: No: Chest Pain, Palpitations Gastrointestinal: No: Abdominal Pain, Nausea Genitourinary: Frequency Neurological: : WeaknessNo: Confusion Objective Exam Vital Signs Date Time Temp Pulse Resp B/P Pulse Ox O2 Delivery O2 Flow Rate FiO2 11/19/16 09:25 98 4.00 11/19/16 08:00 96.4 70 16 92/62 97 Nasal Cannula 4.00 11/19/16 08:00 96.4 70 16 92/62 97 Nasal Cannula 4.00 11/19/16 07:55 Nasal Cannula 4.00 11/19/16 07:51 16 11/19/16 06:00 16 11/19/16 04:00 96.2 75 18 86/60 98 Nasal Cannula 4.00 11/19/16 03:21 20 11/19/16 02:32 96 4.00 11/19/16 00:00 98.0 75 20 90/63 98 Nasal Cannula 4.00 11/18/16 22:00 20 11/18/16 21:00 Nasal Cannula 4.00 11/18/16 20:15 98 4.00 11/18/16 20:05 97.5 95 20 102/68 97 Nasal Cannula 4.00 11/18/16 16:00 98.6 93 20 89/60 94 Nasal Cannula 4.00 11/18/16 15:57 20 11/18/16 15:54 20 11/18/16 14:30 94 11/18/16 14:24 94 4.00 11/18/16 11:44 97.6 91 20 96/66 94 Nasal Cannula 4.00 I & O 11/19/16 07:00 Intake Total 2760 ml Output Total 3140 ml Balance -380 ml Capillary Refill : Less Than 3 Seconds General Appearance: WD/WN Chronically ill HEENT: PERRL/EOMI Pharynx Normal Other (sores on lips ) Neck: Full Range of Motion Supple Respiratory: Chest Non Tender Decreased Breath Sounds Rhonci Wheezing Cardiovascular: Regular Rate, Rhythm Systolic Murmur Gastrointestinal: normal bowel sounds non tender soft no organomegaly no pulsatile mass Extremity: Pedal Edema (trace) Neurologic/Psychiatric: Alert Oriented x3 No Motor/Sensory Deficits Normal Mood/Affect Skin: Warm/Dry Results Lab Laboratory Tests 11/18/16 16:05: Glucometer 188H 11/18/16 20:40: Glucometer 234H 11/19/16 05:32: Glucometer 229H Assessment/Plan Assessment/Plan Assess & Plan/Chief Complaint PNEUMONIA CONGESTIVE HEART FAILURE EXACERBATION - ACUTE ON CHRONIC - EJECTION FRACTION OF 5% TO 10% CARDIOMYOPATHY UNCONTROLLED NAUSEA CHURG-CANELO ATRIAL FIBRILLATION CHRONIC IMMUNE SUPPRESSION THERAPY ESOPHAGEAL REFLUX CHRONIC PAIN SYNDROME STEROID INDUCED DIABETES MELLITUS CHRONIC OXYGEN THERAPY NOCTURNAL APNEA APHTHOUS ULCERS PNEUMONIA - TRIPLE ANTIBIOTIC THERAPY - MUCOMYST BREATHING TREATMENTS. CHF - ACUTE ON CHRONIC LEFT SIDED SYSTOLIC FAILURE - CONTINUE WITH IV LASIX, MONITOR BNP CLOSELY. 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 ATRIAL FIBRILLATION - RESTARTED DIGOXIN, CHECK DIGOXIN LEVEL, SUPPORTIVE CARE. NAUSEA - NAUSEA MEDICATION HAS NOT MADE MUCH OF A DIFFERENCE IN HER SYMPTOMS. SUPPORTIVE CARE, START IV ZOFRAN AND IV PHENERGAN. CHRONIC IMMUNOSUPPRESSION - AND ADRENAL SUPPRESSION WITH CHRONIC STEROID USE - DOSE WITH SOLUMEDROL. STEROID INDUCED DIABETES MELLITUS - CHECK FSBS, RESTARTED HOME INSULIN THERAPY. GERD - RESTART PROTONIX CHRONIC PAIN - PRN DILAUDID CENTRAL LINE PLACED APHTHOUS ULCERS - CONTINUE WITH ACYCLOVIR AND TOPICAL TREATMENTS ALBER PHIPPS MD Nov 19, 2016 11:01
--- NOTE | 2016-11-19 11:24 | Occupational Ther Daily Note ---
OT Current Status-Daily Note Subjective Pt in bed, agrees to treatment. Pt reports 8/10 pain "all over" Mental Status/Objective Functional [place] Measure 0=Not Assessed/NA 4=Minimal Assistance 1=Total Assistance 5=Supervision or Setup 2=Maximal Assistance 6=Modified [place] 3=Moderate Assistance 7=Complete [place] ADL-Treatment Functional [place] Measure 0=Not Assessed/NA 4=Minimal Assistance 1=Total Assistance 5=Supervision or Setup 2=Maximal Assistance 6=Modified [place] 3=Moderate Assistance 7=Complete IndependenceIRFPAI Quality Coding Scale 6 Independent with activity with or without an assistive device 5 Patient requires set up or clean up by helper. Patient completes activity by themselves 4 Supervision or touching assist (CGA). [place] provide cues , steadying assist 3 The helper provides less than half the effort to complete the activity 2 The helper provides more than half the effort to complete the activity 1 Dependent. The helper does all the effort to complete an activity 7 Patient refused to complete or attempt activity 9 The patient did not perform the activity before the current illness or injury 88 Not attempted due to Medical conditions or safety concerns Other Treatment Pt participated in bilateral UE exercises to increase strength needed for ADLs and transfers. Pt performed 5 exercises x10 reps using medium resistance (red) theraband. Pt able to recall some of the exercises from Saturday, but required occasional skilled instruction for proper exercise technique. Rest breaks between exercises. Bilateral hand microfilm equipment inspector exercises x20 reps with blue resistance therapy foam. Pt in bed with needs met after session. OT Short Term Goals Short Term Goals 1=Demonstrate adherence to instructed precautions during ADL tasks. 2=Patient will verbalize/demonstrate understanding of assistive devices/ modifications for ADL. 3=Patient will improve strength/tolerance for activity to enable patient to perform ADL's. OT Real Estate Developer Goals Fdc Goals Time Frame: Nov 23, 2016 Eating (FIM): 7 Eating (QC): 6 Groomin Oral Hygiene (QC): 6 Bathing(FIM): 6 Upper Body Dressing(FIM): 6 Lower Body Dressing(FIM): 6 Toileting(FIM): 6 Toileting Hygiene (QC): 6 Toilet/Commode Transfer(FIM): 6 Toilet/Commode Transfer (QC): 6 Shower Transfer(FIM): 6 Pt will be able to verbalize three ways that she can conserve her energy due to decreased activity tolerance Additional Goals: 2-Verbalize Understanding, 3-ImproveStrength/Ted 1=Demonstrate adherence to instructed precautions during ADL tasks. 2=Patient will verbalize/demonstrate understanding of assistive devices/ modifications for ADL. 3=Patient will improve strength/tolerance for activity to enable patient to perform ADL's. OT Education/Plan Problem List/Assessment Pt would benefit from skilled OT to increase her activity tolerance and UE strength to allow her to safely return to her home with decrease risk of falling and increased independence Discharge Recommendations Plan/Recommendations: Continue POC Treatment Plan/Plan of Care Patient would benefit from OT for education, treatment and training to promote independence in ADL's, mobility, safety and/or upper extremity function for ADL' s. Plan of Care: UE Funct Exercise/Act, OTHER (energy conservation education) Treatment Duration: Nov 23, 2016 Visits Per Week: 5 Agreement: Yes Rehab Potential: Good Time/GCodes Start Time: 10:17 Stop Time: 10:35 Total Time Billed (hr/min): 18 Billed Treatment Time 1 visit, EX(18minutes) DEANGELO OJEDA OT Nov 19, 2016 11:24
[2016-11-19 12:00] VITALS: BP 90/58
[2016-11-19] MEDS: CALCIUM CARB + VIT D 600 MG (CALCARB + D) TAB PO SCH (12:27)
[2016-11-19] MEDS: ALPRAZolam 0.25 MG (XANAX) TAB PO SCH ×2 (12:27→21:50)
[2016-11-19] MEDS: ASCORBIC ACID (VIT C) 500 MG TABLET PO SCH (12:27)
[2016-11-19 16:33] VITALS: BP 89/55
[2016-11-19] MEDS: PANTOPRAZOLE 20 MG TABLET (PROTONIX) PO SCH (18:01)
[2016-11-19 20:14] VITALS: BP 89/55
[2016-11-19] MEDS: ENOXAPARIN 40 MG/0.4 ML (LOVENOX) SYR SC SCH (20:18)
[2016-11-19] MEDS: hydrOXYzine (VISTARIL) 25 MG CAP PO SCH (20:19)
[2016-11-19] MEDS: LEVOFLOXACIN 750 MG TAB (LEVAQUIN) PO SCH (20:19)
[2016-11-20] VITALS (7 sets, daily range): BP systolic 90–110; BP diastolic 56–75
[2016-11-20] MEDS: RT-ALBUTEROL/IPRATROPIUM 3 ML (DUONEB) VIAL INH SCH ×4 (02:29→20:03)
[2016-11-20] MEDS: aCETylcysteine 20% (MUCOMYST) 30ML SOLN VIAL INH SCH ×4 (02:29→20:04)
[2016-11-20] MEDS: NS IV 500 ML 500 ML IV SCH ×2 (03:40→23:00)
[2016-11-20] MEDS: HYDROmorphone PCA 0.2 MG/ML 30 ML (DILAUDID) IV PRN ×3 (03:44→23:01)
[2016-11-20 05:47] LABS: BASOPHILS % (AUTO) 0 % (0-10); EOSINOPHILS % (AUTO) 0 % (0-10); LYMPHOCYTES # (AUTO) 0.3 X 10^3 (1.0-4.0); LYMPHOCYTES % (AUTO) 10 % (12-44); MEAN CORPUSCULAR HEMOGLOBIN 29 PG (25-34); MEAN CORPUSCULAR HGB CONC 32 G/DL (32-36); MEAN CORPUSCULAR VOLUME 91 FL (80-99); MEAN PLATELET VOLUME 12.2 FL (7.4-10.4); MONOCYTES # (AUTO) 0.2 X 10^3 (0.0-1.0); MONOCYTES % (AUTO) 9 % (0-12); NEUTROPHILS # (AUTO) 2.1 X 10^3 (1.8-7.8); NEUTROPHILS % (AUTO) 81 % (42-75); PLATELET COUNT 139 10^3/uL (130-400); RED BLOOD COUNT 4.28 10^6/uL (4.35-5.85); RED CELL DISTRIBUTION WIDTH 14.9 % (10.0-14.5); WHITE BLOOD COUNT 2.6 10^3/uL (4.3-11.0)
[2016-11-20] MEDS: ACYCLOVIR 400 MG TABLET (ZOVIRAX) PO SCH ×5 (06:01→21:26)
[2016-11-20] MEDS: MEROPENEM 500 MG in NS (IVPB) 100 ML IV SCH ×4 (06:01→23:02)
[2016-11-20] MEDS: CATHETER FLUSH 10 ML SYR IV SCH ×3 (06:01→21:41)
[2016-11-20] MEDS: DOCOSANOL 10 % CREAM (ABREVA) 2 GM TP SCH ×5 (06:01→21:29)
[2016-11-20] MEDS: methylPREDNISolone 40 MG/ML (Solu-MEDROL) VIAL IV SCH ×4 (06:01→23:01)
[2016-11-20] MEDS: FOLIC ACID 1 MG TAB PO SCH (06:01)
[2016-11-20 06:22] LABS: ALANINE AMINOTRANSFERASE 36 U/L (0-55); ALBUMIN 3.2 G/DL (3.2-4.5); ANION GAP 12 MMOL/L (5-14); ASPARTATE AMINO TRANSFERASE 99 U/L (5-34); BILIRUBIN,TOTAL 0.6 MG/DL (0.1-1.0); BLOOD UREA NITROGEN 12 MG/DL (7-18); BUN/CREATININE RATIO 16; CALCIUM 8.4 MG/DL (8.5-10.1); CARBON DIOXIDE 29 MMOL/L (21-32); CHLORIDE 98 MMOL/L (98-107); CREATININE SERUM 0.75 MG/DL (0.60-1.30); GFR ESTIMATED > 60; GLUCOSE 181 MG/DL (70-105); POTASSIUM 3.9 MMOL/L (3.6-5.0); SODIUM 139 MMOL/L (135-145); TOTAL PROTEIN 5.6 G/DL (6.4-8.2)
[2016-11-20] MEDS: inSUlin (REGULAR) HUMAN 1 UNIT/0.01 ML (CHARGE PER UNIT) SC SCH ×4 (06:24→21:00)
[2016-11-20] MEDS: FUROSEMIDE 40 MG (LASIX) TAB PO SCH (09:05)
[2016-11-20] MEDS: DIGOXIN 0.125 MG (LANOXIN) TAB PO SCH (09:05)
[2016-11-20] MEDS: meTOprolol TARTRATE 25 MG (LOPRESSOR) TABLET PO SCH ×2 (09:06→21:27)
[2016-11-20] MEDS: fluCOnazole (DIFLUCAN) 100 MG TAB PO SCH (09:06)
[2016-11-20] MEDS: inSUlin DETERMIR 1 UNIT/0.01 ML (LEVEMIR) CHARGE PER UNIT SQ SCH ×2 (09:06→21:28)
[2016-11-20] MEDS: KCL 20 MEQ TAB (K-DUR) PO SCH ×2 (09:06→21:27)
[2016-11-20] MEDS: SACUBITRIL/VALSARTAN 24/26 MG (ENTRESTO) TABLET PO SCH ×2 (09:06→21:27)
[2016-11-20] MEDS: MAGNESIUM OXIDE (MAG-OX)400 MG TAB PO SCH ×2 (09:06→21:27)
[2016-11-20] MEDS: BETAMETHASONE DIPRO (AUGMENTED) 0.05% CREAM 15 GM TOP SCH ×2 (09:07→21:28)
[2016-11-20] MEDS: CLOTRIMAZOLE 1% CREAM (LOTRIMIN) 30 GM TOP SCH ×2 (09:07→21:29)
--- NOTE | 2016-11-20 11:43 | Occupational Ther Daily Note ---
OT Current Status-Daily Note Subjective Pt alert, sitting up in bed. Rec therapist in room. Pt agreed to therapy. No c/o pain. Mental Status/Objective Patient Orientation: Person, Place, Time, Situation Functional [place] Measure 0=Not Assessed/NA 4=Minimal Assistance 1=Total Assistance 5=Supervision or Setup 2=Maximal Assistance 6=Modified [place] 3=Moderate Assistance 7=Complete [place] ADL-Treatment Functional [place] Measure 0=Not Assessed/NA 4=Minimal Assistance 1=Total Assistance 5=Supervision or Setup 2=Maximal Assistance 6=Modified [place] 3=Moderate Assistance 7=Complete IndependenceIRFPAI Quality Coding Scale 6 Independent with activity with or without an assistive device 5 Patient requires set up or clean up by helper. Patient completes activity by themselves 4 Supervision or touching assist (CGA). [place] provide cues , steadying assist 3 The helper provides less than half the effort to complete the activity 2 The helper provides more than half the effort to complete the activity 1 Dependent. The helper does all the effort to complete an activity 7 Patient refused to complete or attempt activity 9 The patient did not perform the activity before the current illness or injury 88 Not attempted due to Medical conditions or safety concerns Other Treatment Pt was learning new card game from rec therapist. Pt was able to verbalize rules of games 90% of the time. Pt was able to manipulate cards well. Pt then completed medium (red) resistance theraband exercise. Pt was able to remember 4 of 5 exercises on own then with demonstration pt was able to remember 5th one. Pt tolerated exercises well. After therapy, pt left in care of PT. All needs met in room. OT Short Term Goals Short Term Goals 1=Demonstrate adherence to instructed precautions during ADL tasks. 2=Patient will verbalize/demonstrate understanding of assistive devices/ modifications for ADL. 3=Patient will improve strength/tolerance for activity to enable patient to perform ADL's. OT Senior Living Goals Senior Living Goals Time Frame: Nov 23, 2016 Eating (FIM): 7 Eating (QC): 6 Groomin Oral Hygiene (QC): 6 Bathing(FIM): 6 Upper Body Dressing(FIM): 6 Lower Body Dressing(FIM): 6 Toileting(FIM): 6 Toileting Hygiene (QC): 6 Toilet/Commode Transfer(FIM): 6 Toilet/Commode Transfer (QC): 6 Shower Transfer(FIM): 6 Pt will be able to verbalize three ways that she can conserve her energy due to decreased activity tolerance Additional Goals: 2-Verbalize Understanding, 3-ImproveStrength/Ted 1=Demonstrate adherence to instructed precautions during ADL tasks. 2=Patient will verbalize/demonstrate understanding of assistive devices/ modifications for ADL. 3=Patient will improve strength/tolerance for activity to enable patient to perform ADL's. OT Education/Plan Problem List/Assessment Pt would benefit from skilled OT to increase her activity tolerance and UE strength to allow her to safely return to her home with decrease risk of falling and increased independence Discharge Recommendations Plan/Recommendations: Continue POC Treatment Plan/Plan of Care Patient would benefit from OT for education, treatment and training to promote independence in ADL's, mobility, safety and/or upper extremity function for ADL' s. Plan of Care: UE Funct Exercise/Act, OTHER (energy conservation education) Treatment Duration: Nov 23, 2016 Visits Per Week: 5 Agreement: Yes Rehab Potential: Good Time/GCodes Start Time: 11:15 Stop Time: 11:30 Total Time Billed (hr/min): 15 Billed Treatment Time 1 visit-EX 1 (15 min) JACQUELINE FOSS Nov 20, 2016 11:43
[2016-11-20] MEDS: CALCIUM CARB + VIT D 600 MG (CALCARB + D) TAB PO SCH (11:46)
[2016-11-20] MEDS: ALPRAZolam 0.25 MG (XANAX) TAB PO SCH ×2 (11:46→21:27)
[2016-11-20] MEDS: ASCORBIC ACID (VIT C) 500 MG TABLET PO SCH (11:46)
[2016-11-20] MEDS: fentaNYL PATCH 12 MCG (DURAGESIC) TD SCH (11:47)
[2016-11-20] MEDS: FENTANYL PATCH REMOVAL TP SCH (11:47)
--- NOTE | 2016-11-20 12:00 | Physical Therapy Daily Note ---
PT Daily Note-Current Subjective Patient agrees to PT. Pain Numeric Pain Scale: 0-No Pain Location: No Pain Reported Mental Status Patient Orientation: Normal For Age Attachments: Oxygen, IV Transfers Functional [place] Measure 0=Not Assessed/NA 4=Minimal Assistance 1=Total Assistance 5=Supervision or Setup 2=Maximal Assistance 6=Modified [place] 3=Moderate Assistance 7=Complete IndependenceIRFPAI Quality Coding Scale 6 Independent with activity with or without an assistive device 5 Patient requires set up or clean up by helper. Patient completes activity by themselves 4 Supervision or touching assist (CGA). [place] provide cues , steadying assist 3 The helper provides less than half the effort to complete the activity 2 The helper provides more than half the effort to complete the activity 1 Dependent. The helper does all the effort to complete an activity 7 Patient refused to complete or attempt activity 9 The patient did not perform the activity before the current illness or injury 88 Not attempted due to Medical conditions or safety concerns Transfers (B, C, W/C) (FIM): 7 Scootin Roll Left to Right (QC): 6 Supine to/from Sit: 7 Sit to/from Stand: 7 Sit to Lying (QC): 6 Sit to Stand (QC): 6 Gait Training Does the Patient Walk?: Yes Gait (FIM): 7 Distance (FIM): 3=150 ft Distance: 800' Walk 50 ft with 2 Turns(QC): 7 Walk 150 ft (QC): 7 Gait Level of Assist: 7 Gait Assistive Device: None slow, steady Assessment Patient request that PT continue due to feeling weak. PT to increase activity as tolerated by patient. PT Mcfp Goals Mcfp Goals PT Clarity Developer Goals Time Frame: Nov 23, 2016 Transfers (B,C,W/C) (FIM): 6 Sit to Lying (QC): 6 Lying-Sitting on Side/Bed(QC): 6 Sit to Stand (QC): 6 Chair/Qhp-lv-Gfnbe Xfer(QC): 6 Does the Patient Walk: Yes Gait (FIM): 7 Gait distance (FIM): 3=150 ft Walk 50ft with 2 Turns (QC): 6 Walk 150 ft (QC): 6 PT Plan Treatment/Plan Treatment Plan: Continue Plan of Care Treatment Plan: Functional Activity Ted, Functional Strength, Gait, Safety, Therapeutic Exercise Treatment Duration: Nov 23, 2016 Visits Per Week: 5 Time/GCodes Time In: 1135 Time Out: 1150 Total Billed Treatment Time: 15 Total Billed Treatment 1 visit FA 15 min JAXSON BEARD PT Nov 20, 2016 12:00
[2016-11-20] MEDS: PANTOPRAZOLE 20 MG TABLET (PROTONIX) PO SCH (17:17)
[2016-11-20] MEDS: LEVOFLOXACIN 750 MG TAB (LEVAQUIN) PO SCH (21:27)
[2016-11-20] MEDS: hydrOXYzine (VISTARIL) 25 MG CAP PO SCH (21:27)
[2016-11-20] MEDS: ENOXAPARIN 40 MG/0.4 ML (LOVENOX) SYR SC SCH (21:28)
[2016-11-20] MEDS: ONDANSETRON 4 MG (ZOFRAN) ORAL DISSOLVE TAB PO PRN (23:47)
[2016-11-21] VITALS (7 sets, daily range): BP systolic 100–119; BP diastolic 66–76
[2016-11-21] MEDS: RT-ALBUTEROL/IPRATROPIUM 3 ML (DUONEB) VIAL INH SCH ×4 (03:00→20:18)
[2016-11-21] MEDS: inSUlin (REGULAR) HUMAN 1 UNIT/0.01 ML (CHARGE PER UNIT) SC SCH ×4 (06:00→21:04)
[2016-11-21] MEDS: FOLIC ACID 1 MG TAB PO SCH (06:00)
[2016-11-21] MEDS: MEROPENEM 500 MG in NS (IVPB) 100 ML IV SCH ×4 (06:00→23:50)
[2016-11-21] MEDS: methylPREDNISolone 40 MG/ML (Solu-MEDROL) VIAL IV SCH ×4 (06:00→23:50)
[2016-11-21] MEDS: DOCOSANOL 10 % CREAM (ABREVA) 2 GM TP SCH ×5 (06:01→21:12)
[2016-11-21] MEDS: ACYCLOVIR 400 MG TABLET (ZOVIRAX) PO SCH ×5 (06:01→21:05)
[2016-11-21] MEDS: CATHETER FLUSH 10 ML SYR IV SCH ×3 (06:01→22:00)
[2016-11-21] MEDS: inSUlin DETERMIR 1 UNIT/0.01 ML (LEVEMIR) CHARGE PER UNIT SQ SCH ×2 (08:37→21:04)
[2016-11-21] MEDS: TRIM/SULFAMETH 160/800 (SEPTRA DS) TAB PO SCH (08:37)
[2016-11-21] MEDS: fluCOnazole (DIFLUCAN) 100 MG TAB PO SCH (08:37)
[2016-11-21] MEDS: FUROSEMIDE 40 MG (LASIX) TAB PO SCH (08:37)
[2016-11-21] MEDS: DIGOXIN 0.125 MG (LANOXIN) TAB PO SCH (08:37)
[2016-11-21] MEDS: meTOprolol TARTRATE 25 MG (LOPRESSOR) TABLET PO SCH ×2 (08:37→21:05)
[2016-11-21] MEDS: SACUBITRIL/VALSARTAN 24/26 MG (ENTRESTO) TABLET PO SCH ×2 (08:38→21:05)
[2016-11-21] MEDS: MAGNESIUM OXIDE (MAG-OX)400 MG TAB PO SCH ×2 (08:38→21:05)
[2016-11-21] MEDS: KCL 20 MEQ TAB (K-DUR) PO SCH ×2 (08:38→21:04)
[2016-11-21] MEDS: BETAMETHASONE DIPRO (AUGMENTED) 0.05% CREAM 15 GM TOP SCH ×2 (08:38→21:03)
[2016-11-21] MEDS: CLOTRIMAZOLE 1% CREAM (LOTRIMIN) 30 GM TOP SCH (08:38)
[2016-11-21] MEDS: ONDANSETRON 4 MG (ZOFRAN) ORAL DISSOLVE TAB PO PRN (08:49)
--- NOTE | 2016-11-21 09:34 | Progress Note (SOAP) ---
Subjective Subjective/Events-last exam pt reports feeling essentially unchanged over the past few days. physical therapist states that she is working fairly well with them, ambulating in the [place], however they note pt appears more fatigued than on previous admissions. Review of Systems General: No Chills, Fatigue Malaise HEENT: No Head Aches Pulmonary: Dyspnea Cough Cardiovascular: No: Chest Pain Gastrointestinal: No: Abdominal Pain, Nausea Genitourinary: Frequency Musculoskeletal: : back pain: leg pain Neurological: : Weakness Objective Exam Vital Signs Date Time Temp Pulse Resp B/P Pulse Ox O2 Delivery O2 Flow Rate FiO2 11/21/16 09:00 Nasal Cannula 4.00 11/21/16 08:20 96.9 88 12 109/68 98 Nasal Cannula 4.00 11/21/16 06:16 20 11/21/16 04:13 96.0 72 16 113/76 95 Nasal Cannula 4.00 11/21/16 00:07 96.5 74 20 102/72 97 Nasal Cannula 4.00 11/20/16 23:02 18 11/20/16 23:01 20 11/20/16 20:40 Nasal Cannula 4.00 11/20/16 20:04 4.00 97 11/20/16 20:00 96.8 81 20 100/64 99 Nasal Cannula 4.00 11/20/16 16:00 97.0 77 20 92/61 100 Nasal Cannula 4.00 11/20/16 14:53 20 11/20/16 14:44 4.00 11/20/16 12:00 96.8 85 20 110/75 97 Nasal Cannula 4.00 11/20/16 11:57 20 I & O 11/21/16 06:59 Intake Total 4150 ml Output Total 3150 ml Balance 1000 ml Capillary Refill : Less Than 3 Seconds General Appearance: WD/WN Chronically ill HEENT: PERRL/EOMI Other (improved lip lesions on lower lips, less tender to touch) Respiratory: Chest Non Tender Decreased Breath Sounds Rhonci Cardiovascular: Regular Rate, Rhythm Systolic Murmur Gastrointestinal: normal bowel sounds non tender soft Extremity: Normal Capillary Refill No Pedal Edema Neurologic/Psychiatric: Alert Oriented x3 No Motor/Sensory Deficits Normal Mood/Affect Skin: Warm/Dry Rash (on dorsum of foot on left - improved) Lymphatic: No Adenopathy Results Lab Laboratory Tests 11/20/16 10:53: Glucometer 164H 11/20/16 16:21: Glucometer 272H 11/20/16 21:17: Glucometer 119H 11/21/16 05:20: Glucometer 187H Assessment/Plan Assessment/Plan Assess & Plan/Chief Complaint PNEUMONIA CONGESTIVE HEART FAILURE EXACERBATION - ACUTE ON CHRONIC - EJECTION FRACTION OF 5% TO 10% CARDIOMYOPATHY UNCONTROLLED NAUSEA CHURG-CANELO ATRIAL FIBRILLATION CHRONIC IMMUNE SUPPRESSION THERAPY ESOPHAGEAL REFLUX CHRONIC PAIN SYNDROME STEROID INDUCED DIABETES MELLITUS CHRONIC OXYGEN THERAPY NOCTURNAL APNEA APHTHOUS ULCERS PNEUMONIA - ANTIBIOTIC THERAPY - MUCOMYST BREATHING TREATMENTS. - HOPEFULLY WILL BE ABLE TO DISCHARGE PT TO HOME IN THE NEXT FEW DAYS. CHF - ACUTE ON CHRONIC LEFT SIDED SYSTOLIC FAILURE - CONTINUE WITH LASIX, MONITOR BNP CLOSELY. 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 - SUPPORTIVE CARE, IVIG, METHOTREXATE ATRIAL FIBRILLATION - RESTARTED DIGOXIN, SUPPORTIVE CARE. NAUSEA - IMPROVED SUPPORTIVE CARE, STARTED IV ZOFRAN AND IV PHENERGAN. CHRONIC IMMUNOSUPPRESSION AND ADRENAL SUPPRESSION WITH CHRONIC STEROID USE - DOSE WITH SOLUMEDROL. STEROID INDUCED DIABETES MELLITUS - CHECK FSBS, RESTARTED HOME INSULIN THERAPY. GERD - RESTART PROTONIX CHRONIC PAIN - DILAUDID IV WITH BUTCHER CENTRAL LINE PLACED APHTHOUS ULCERS - CONTINUE WITH ACYCLOVIR AND TOPICAL TREATMENTS ALBER PHIPPS MD Nov 21, 2016 09:34
[2016-11-21] MEDS ORDERED: IVIG SQ SCH (10:00)
[2016-11-21] MEDS ORDERED: METHOTREXATE 50 MG/2 ML PF SQ SCH (10:00)
[2016-11-21] MEDS: aCETylcysteine 20% (MUCOMYST) 30ML SOLN VIAL INH SCH ×3 (10:08→22:18)
[2016-11-21] MEDS: ALPRAZolam 0.25 MG (XANAX) TAB PO SCH ×2 (11:19→21:05)
[2016-11-21] MEDS: CALCIUM CARB + VIT D 600 MG (CALCARB + D) TAB PO SCH (11:19)
[2016-11-21] MEDS: ASCORBIC ACID (VIT C) 500 MG TABLET PO SCH (11:19)
[2016-11-21] MEDS: HYDROmorphone PCA 0.2 MG/ML 30 ML (DILAUDID) IV PRN ×2 (11:27→20:49)
--- NOTE | 2016-11-21 13:49 | Occupational Ther Daily Note ---
OT Current Status-Daily Note Subjective Pt seen ini room, resting. Agreeable to OT. No pain mentioned. Pt reported she thought she was going home on Saturday Appearance Alert, cooperative Mental Status/Objective Functional [place] Measure 0=Not Assessed/NA 4=Minimal Assistance 1=Total Assistance 5=Supervision or Setup 2=Maximal Assistance 6=Modified [place] 3=Moderate Assistance 7=Complete [place] ADL-Treatment Functional [place] Measure 0=Not Assessed/NA 4=Minimal Assistance 1=Total Assistance 5=Supervision or Setup 2=Maximal Assistance 6=Modified [place] 3=Moderate Assistance 7=Complete IndependenceIRFPAI Quality Coding Scale 6 Independent with activity with or without an assistive device 5 Patient requires set up or clean up by helper. Patient completes activity by themselves 4 Supervision or touching assist (CGA). [place] provide cues , steadying assist 3 The helper provides less than half the effort to complete the activity 2 The helper provides more than half the effort to complete the activity 1 Dependent. The helper does all the effort to complete an activity 7 Patient refused to complete or attempt activity 9 The patient did not perform the activity before the current illness or injury 88 Not attempted due to Medical conditions or safety concerns Other Treatment Pt did 15 reps bilat UE exercise with red theraband. Pt needed skilled physical or verbal assistance or cues to do movements correctly on two exercises. Pt provided with longer theraband to do a modified version of one of the exercises. pt prefers to do these standing up. Pt education/discussion on pacing herself and adjusting repetitions based on how she is feeling each day. Pt left up in room with PT. OT Short Term Goals Short Term Goals 1=Demonstrate adherence to instructed precautions during ADL tasks. 2=Patient will verbalize/demonstrate understanding of assistive devices/ modifications for ADL. 3=Patient will improve strength/tolerance for activity to enable patient to perform ADL's. OT Chief Operating Officer Goals Fpc Goals Time Frame: Nov 23, 2016 Eating (FIM): 7 Eating (QC): 6 Groomin Oral Hygiene (QC): 6 Bathing(FIM): 6 Upper Body Dressing(FIM): 6 Lower Body Dressing(FIM): 6 Toileting(FIM): 6 Toileting Hygiene (QC): 6 Toilet/Commode Transfer(FIM): 6 Toilet/Commode Transfer (QC): 6 Shower Transfer(FIM): 6 Pt will be able to verbalize three ways that she can conserve her energy due to decreased activity tolerance Additional Goals: 2-Verbalize Understanding, 3-ImproveStrength/Ted 1=Demonstrate adherence to instructed precautions during ADL tasks. 2=Patient will verbalize/demonstrate understanding of assistive devices/ modifications for ADL. 3=Patient will improve strength/tolerance for activity to enable patient to perform ADL's. OT Education/Plan Problem List/Assessment Pt would benefit from skilled OT to increase her activity tolerance and UE strength to allow her to safely return to her home with decrease risk of falling and increased independence Discharge Recommendations Plan/Recommendations: Continue POC Treatment Plan/Plan of Care Patient would benefit from OT for education, treatment and training to promote independence in ADL's, mobility, safety and/or upper extremity function for ADL' s. Plan of Care: UE Funct Exercise/Act, OTHER (energy conservation education) Treatment Duration: Nov 23, 2016 Visits Per Week: 5 Agreement: Yes Rehab Potential: Good Time/GCodes Start Time: 13:10 Stop Time: 13:30 Total Time Billed (hr/min): 20 Billed Treatment Time visit, 20 minutes exercise YAMILA BRODY OT Nov 21, 2016 13:49
--- NOTE | 2016-11-21 16:12 | Physical Therapy Daily Note ---
PT Daily Note-Current Subjective Ursula is very talkative - talking throughout her walks without shortness of breath. Denies pain. Admitted she felt a little sweaty at the end of the walk. Her HR on the portable oximeter was 89bpm but the plugin fingertip monitor was 170 bpm. O2 sats at 96%. Mental Status Patient Orientation: Person, Place, Time, Situation Attachments: Oxygen O2 at 4L, IV, portable oximeter Transfers Functional [facility] Measure 0=Not Assessed/NA 4=Minimal Assistance 1=Total Assistance 5=Supervision or Setup 2=Maximal Assistance 6=Modified [facility] 3=Moderate Assistance 7=Complete IndependenceIRFPAI Quality Coding Scale 6 Independent with activity with or without an assistive device 5 Patient requires set up or clean up by helper. Patient completes activity by themselves 4 Supervision or touching assist (CGA). [place] provide cues , steadying assist 3 The helper provides less than half the effort to complete the activity 2 The helper provides more than half the effort to complete the activity 1 Dependent. The helper does all the effort to complete an activity 7 Patient refused to complete or attempt activity 9 The patient did not perform the activity before the current illness or injury 88 Not attempted due to Medical conditions or safety concerns Transfers (B, C, W/C) (FIM): 6 Scootin Roll Left to Right (QC): 6 Supine to/from Sit: 6 Sit to/from Stand: 6 Sit to Lying (QC): 6 Sit to Stand (QC): 6 Weight Bearing Weight Bearing Restriction: Weight Bearing/Tolerated Gait Training Does the Patient Walk?: Yes Gait (FIM): 5 (Assist for portable O2 and IV pole) Distance: 300 ft, 2 times with a rest break. Gait Assistive Device: None Assessment Current Status: Good Progress Moves fluidly and safely. Amb well without A device. Elevated HR after walk - returned to WNL (80 bpm) within 4 min. PT Geodetic Surveyor Goals Detention Goals PT Detention Goals Time Frame: Nov 23, 2016 Transfers (B,C,W/C) (FIM): 6 Sit to Lying (QC): 6 Lying-Sitting on Side/Bed(QC): 6 Sit to Stand (QC): 6 Chair/Nud-ze-Ykcfp Xfer(QC): 6 Does the Patient Walk: Yes Gait (FIM): 7 Gait distance (FIM): 3=150 ft Walk 50ft with 2 Turns (QC): 6 Walk 150 ft (QC): 6 PT Plan Problem List Problem List: Activity Tolerance Treatment/Plan Treatment Plan: Continue Plan of Care Treatment Plan: Functional Activity Ted, Functional Strength, Gait, Safety, Therapeutic Exercise Treatment Duration: Nov 23, 2016 Visits Per Week: 5 Time/GCodes Time In: 145 Time Out: 215 Total Billed Treatment Time: 30 Total Billed Treatment Visit, gait x 2. G Codes Necessary: JAXON Edge PT Nov 21, 2016 16:12
[2016-11-21] MEDS: PANTOPRAZOLE 20 MG TABLET (PROTONIX) PO SCH (17:45)
[2016-11-21] MEDS: NS IV 500 ML 500 ML IV SCH (19:25)
[2016-11-21] MEDS: IVIG SQ SCH (21:03)
[2016-11-21] MEDS: ENOXAPARIN 40 MG/0.4 ML (LOVENOX) SYR SC SCH (21:04)
[2016-11-21] MEDS: hydrOXYzine (VISTARIL) 25 MG CAP PO SCH (21:04)
[2016-11-21] MEDS: METHOTREXATE 50 MG/2 ML PF SQ SCH (21:06)
[2016-11-22] VITALS: BP 101/65
[2016-11-22] MEDS: ONDANSETRON 4 MG (ZOFRAN) ORAL DISSOLVE TAB PO PRN ×2 (00:51→18:10)
[2016-11-22] MEDS: aCETylcysteine 20% (MUCOMYST) 30ML SOLN VIAL INH SCH ×4 (02:30→14:51)
[2016-11-22] MEDS: RT-ALBUTEROL/IPRATROPIUM 3 ML (DUONEB) VIAL INH SCH ×4 (02:33→20:17)
[2016-11-22 04:00] VITALS: BP 112/65
[2016-11-22] MEDS: MEROPENEM 500 MG in NS (IVPB) 100 ML IV SCH ×4 (05:45→23:03)
[2016-11-22 05:52] LABS: BASOPHILS % (AUTO) 0 % (0-10); EOSINOPHILS % (AUTO) 0 % (0-10); LYMPHOCYTES # (AUTO) 0.4 X 10^3 (1.0-4.0); LYMPHOCYTES % (AUTO) 7 % (12-44); MEAN CORPUSCULAR HEMOGLOBIN 29 PG (25-34); MEAN CORPUSCULAR HGB CONC 32 G/DL (32-36); MEAN CORPUSCULAR VOLUME 91 FL (80-99); MEAN PLATELET VOLUME 11.7 FL (7.4-10.4); MONOCYTES # (AUTO) 0.2 X 10^3 (0.0-1.0); MONOCYTES % (AUTO) 5 % (0-12); NEUTROPHILS # (AUTO) 4.4 X 10^3 (1.8-7.8); NEUTROPHILS % (AUTO) 88 % (42-75); PLATELET COUNT 163 10^3/uL (130-400); RED BLOOD COUNT 3.93 10^6/uL (4.35-5.85); RED CELL DISTRIBUTION WIDTH 14.7 % (10.0-14.5)
[2016-11-22] MEDS: CATHETER FLUSH 10 ML SYR IV SCH ×3 (06:00→23:15)
[2016-11-22] MEDS: inSUlin (REGULAR) HUMAN 1 UNIT/0.01 ML (CHARGE PER UNIT) SC SCH ×4 (06:00→23:01)
[2016-11-22] MEDS: FOLIC ACID 1 MG TAB PO SCH (06:07)
[2016-11-22] MEDS: ACYCLOVIR 400 MG TABLET (ZOVIRAX) PO SCH ×5 (06:07→23:03)
[2016-11-22] MEDS: methylPREDNISolone 40 MG/ML (Solu-MEDROL) VIAL IV SCH ×4 (06:08→23:03)
[2016-11-22] MEDS: DOCOSANOL 10 % CREAM (ABREVA) 2 GM TP SCH ×5 (06:09→23:05)
[2016-11-22 06:17] LABS: ALANINE AMINOTRANSFERASE 76 U/L (0-55); ALBUMIN 2.9 G/DL (3.2-4.5); ANION GAP 8 MMOL/L (5-14); ASPARTATE AMINO TRANSFERASE 113 U/L (5-34); BILIRUBIN,TOTAL 0.5 MG/DL (0.1-1.0); BLOOD UREA NITROGEN 18 MG/DL (7-18); BUN/CREATININE RATIO 28; CALCIUM 8.1 MG/DL (8.5-10.1); CARBON DIOXIDE 29 MMOL/L (21-32); CHLORIDE 103 MMOL/L (98-107); CREATININE SERUM 0.65 MG/DL (0.60-1.30); GFR ESTIMATED > 60; GLUCOSE 146 MG/DL (70-105); POTASSIUM 3.7 MMOL/L (3.6-5.0); SODIUM 140 MMOL/L (135-145); TOTAL PROTEIN 4.9 G/DL (6.4-8.2)
[2016-11-22 07:27] LABS: ANISOCYTOSIS SLIGHT; BAND NEUTROPHILS 4 %; BASOPHILS % (MANUAL) 0 %; EOSINOPHILS % (MANUAL) 0 %; LYMPHOCYTES % (MANUAL) 7 %; NEUTROPHILS % (MANUAL) 87 %
[2016-11-22] MEDS: HYDROmorphone PCA 0.2 MG/ML 30 ML (DILAUDID) IV PRN ×2 (08:36→16:18)
--- NOTE | 2016-11-22 08:51 | Diagnostic Imaging Report ---
INDICATION: Followup pneumonia Comparison study: Chest from 11/18. Findings: Frontal and lateral views of the chest demonstrates stable cardiomegaly and cardiac defibrillator. A right jugular catheter remains in place. A right perihilar infiltrate has nearly resolved. IMPRESSION: 1. The right perihilar infiltrate has nearly resolved. 2. Stable cardiomegaly. Dictated by: Dictated on workstation # [id number]
[2016-11-22 08:53] VITALS: BP 114/77
--- NOTE | 2016-11-22 09:29 | Progress Note (SOAP) ---
Subjective Subjective/Events-last exam PT REPORTS THAT HER BREATHING IS BETTER, BUT STILL HAVING THICK MUCUS WITH COUGHING. SHE REPORTS THAT SHE IS FATIGUED. SHE IS WORRIED ABOUT GOING HOME TO AN ILL HOUSE. Review of Systems General: Fatigue Malaise HEENT: No Head Aches Pulmonary: Dyspnea Cough Cardiovascular: No: Chest Pain Gastrointestinal: No: Abdominal Pain, Nausea Genitourinary: Frequency Neurological: : Weakness Objective Exam Vital Signs Date Time Temp Pulse Resp B/P Pulse Ox O2 Delivery O2 Flow Rate FiO2 11/22/16 08:53 98.7 88 20 114/77 96 Nasal Cannula 4.00 11/22/16 08:36 24 11/22/16 07:16 98 4.00 11/22/16 07:13 98 4.00 11/22/16 05:44 24 11/22/16 04:00 97.9 74 20 112/65 98 Nasal Cannula 4.00 11/22/16 02:33 98 4.00 11/22/16 00:00 97.9 79 18 101/65 98 Nasal Cannula 4.00 11/21/16 22:19 99 4.00 11/21/16 22:18 99 4.00 11/21/16 21:00 98 Nasal Cannula 4.00 11/21/16 20:00 98.0 17 119/70 98 Nasal Cannula 4.00 11/21/16 18:17 98 4.00 11/21/16 16:22 100 4.00 11/21/16 15:15 98.2 76 20 103/66 100 Nasal Cannula 4.00 11/21/16 13:51 22 11/21/16 12:00 96.7 78 16 100/70 97 Nasal Cannula 4.00 11/21/16 11:27 12 11/21/16 10:08 98 11/21/16 10:08 98 4.00 I & O 11/22/16 07:00 Intake Total 3140 ml Output Total 1600 ml Balance 1540 ml Capillary Refill : Less Than 3 Seconds General Appearance: WD/WN Chronically ill Neck: Supple Respiratory: Chest Non Tender Rhonci Wheezing Cardiovascular: Regular Rate, Rhythm Systolic Murmur Gastrointestinal: normal bowel sounds non tender soft no organomegaly no pulsatile mass Extremity: Normal Capillary Refill No Pedal Edema Neurologic/Psychiatric: Alert Oriented x3 No Motor/Sensory Deficits Normal Mood/Affect Skin: Warm/Dry Lymphatic: No Adenopathy Results Lab Laboratory Tests 11/21/16 10:39: Glucometer 190H 11/21/16 15:49: Glucometer 194H 11/21/16 20:25: Glucometer 151H 11/22/16 05:41: Glucometer 137H 11/22/16 05:42: Alanine Aminotransferase (ALT/SGPT) 76H, Albumin 2.9L, Alkaline Phosphatase 223H , Anion Gap 8, Anisocytosis SLIGHT, Aspartate Amino Transf (AST/SGOT) 113H, BUN/ Creatinine Ratio 28, Band Neutrophils 4, Basophils # (Auto) 0.0, Basophils % ( Manual) 0, Basophils (%) (Auto) 0, Blood Urea Nitrogen 18, Calcium Level 8.1L, Carbon Dioxide Level 29, Chloride Level 103, Creatinine 0.65, Elliptocytes SLIGHT, Eosinophils # (Auto) 0.0, Eosinophils % (Manual) 0, Eosinophils (%) ( Auto) 0, Estimat Glomerular Filtration Rate > 60, Glucose Level 146H, Hematocrit 36, Hemoglobin 11.4L, Lymphocytes # (Auto) 0.4L, Lymphocytes % ( Manual) 7, Lymphocytes (%) (Auto) 7L, Mean Corpuscular Hemoglobin 29, Mean Corpuscular Hemoglobin Concent 32, Mean Corpuscular Volume 91, Mean Platelet Volume 11.7H, Monocytes # (Auto) 0.2, Monocytes % (Manual) 2, Monocytes (%) ( Auto) 5, Neutrophils # (Auto) 4.4, Neutrophils % (Manual) 87, Neutrophils (%) ( Auto) 88H, Platelet Count 163, Potassium Level 3.7, Red Blood Count 3.93L, Red Cell Distribution Width 14.7H, Sodium Level 140, Total Bilirubin 0.5, Total Protein 4.9L, White Blood Count 5.0 Assessment/Plan Assessment/Plan Assess & Plan/Chief Complaint PNEUMONIA CONGESTIVE HEART FAILURE EXACERBATION - ACUTE ON CHRONIC - EJECTION FRACTION OF 5% TO 10% CARDIOMYOPATHY UNCONTROLLED NAUSEA CHURG-CANELO ATRIAL FIBRILLATION CHRONIC IMMUNE SUPPRESSION THERAPY ESOPHAGEAL REFLUX CHRONIC PAIN SYNDROME STEROID INDUCED DIABETES MELLITUS CHRONIC OXYGEN THERAPY NOCTURNAL APNEA APHTHOUS ULCERS PNEUMONIA - ANTIBIOTIC THERAPY - MUCOMYST BREATHING TREATMENTS. CHF - ACUTE ON CHRONIC LEFT SIDED SYSTOLIC FAILURE - CONTINUE WITH LASIX, MONITOR BNP CLOSELY. 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 ATRIAL FIBRILLATION - RESTARTED DIGOXIN - SUPPORTIVE CARE. NAUSEA - SUPPORTIVE CARE, START IV ZOFRAN AND IV PHENERGAN. CHRONIC IMMUNOSUPPRESSION - AND ADRENAL SUPPRESSION WITH CHRONIC STEROID USE - DOSE WITH SOLUMEDROL. STEROID INDUCED DIABETES MELLITUS - CHECK FSBS, RESTARTED HOME INSULIN THERAPY. GERD - RESTART PROTONIX CHRONIC PAIN - SODA DRIER FEEDER DILAUDID APHTHOUS ULCERS - CONTINUE WITH ACYCLOVIR AND TOPICAL TREATMENTS ALBER PHIPPS MD Nov 22, 2016 09:29
[2016-11-22] MEDS: KCL 20 MEQ TAB (K-DUR) PO SCH ×2 (10:18→23:03)
[2016-11-22] MEDS: SACUBITRIL/VALSARTAN 24/26 MG (ENTRESTO) TABLET PO SCH ×2 (10:18→23:02)
[2016-11-22] MEDS: DIGOXIN 0.125 MG (LANOXIN) TAB PO SCH (10:18)
[2016-11-22] MEDS: MAGNESIUM OXIDE (MAG-OX)400 MG TAB PO SCH ×2 (10:18→23:02)
[2016-11-22] MEDS: meTOprolol TARTRATE 25 MG (LOPRESSOR) TABLET PO SCH ×2 (10:19→23:02)
[2016-11-22] MEDS: FUROSEMIDE 40 MG (LASIX) TAB PO SCH (10:19)
[2016-11-22] MEDS: BETAMETHASONE DIPRO (AUGMENTED) 0.05% CREAM 15 GM TOP SCH ×2 (10:23→23:17)
[2016-11-22] MEDS: inSUlin DETERMIR 1 UNIT/0.01 ML (LEVEMIR) CHARGE PER UNIT SQ SCH ×2 (10:23→23:00)
--- NOTE | 2016-11-22 10:59 | Physical Therapy Daily Note ---
PT Daily Note-Current Subjective Patient just complete with OT and agrees to PT. Pain Numeric Pain Scale: 0-No Pain Location: No Pain Reported Mental Status Patient Orientation: Normal For Age Attachments: Oxygen Transfers Functional [place] Measure 0=Not Assessed/NA 4=Minimal Assistance 1=Total Assistance 5=Supervision or Setup 2=Maximal Assistance 6=Modified [place] 3=Moderate Assistance 7=Complete IndependenceIRFPAI Quality Coding Scale 6 Independent with activity with or without an assistive device 5 Patient requires set up or clean up by helper. Patient completes activity by themselves 4 Supervision or touching assist (CGA). [place] provide cues , steadying assist 3 The helper provides less than half the effort to complete the activity 2 The helper provides more than half the effort to complete the activity 1 Dependent. The helper does all the effort to complete an activity 7 Patient refused to complete or attempt activity 9 The patient did not perform the activity before the current illness or injury 88 Not attempted due to Medical conditions or safety concerns Transfers (B, C, W/C) (FIM): 7 Scootin Roll Left to Right (QC): 6 Supine to/from Sit: 7 Sit to/from Stand: 7 Sit to Lying (QC): 6 Sit to Stand (QC): 6 Gait Training Does the Patient Walk?: Yes Gait (FIM): 7 Distance (FIM): 3=150 ft Distance: 1000' Walk 50 ft with 2 Turns(QC): 6 Walk 150 ft (QC): 6 Gait Level of Assist: 7 Gait Assistive Device: None slow, steady Assessment Patient tolerated treatment and returned to room and bed with needs met. Patient is currently at independent LOF (PL) with all gross motor skills. PT Residential Goals Residential Goals PT Slat Basket Maker Goals Time Frame: Nov 23, 2016 Transfers (B,C,W/C) (FIM): 6 Sit to Lying (QC): 6 Lying-Sitting on Side/Bed(QC): 6 Sit to Stand (QC): 6 Chair/Yhk-pk-Gehou Xfer(QC): 6 Does the Patient Walk: Yes Gait (FIM): 7 Gait distance (FIM): 3=150 ft Walk 50ft with 2 Turns (QC): 6 Walk 150 ft (QC): 6 PT Plan Treatment/Plan Treatment Plan: Continue Plan of Care Treatment Plan: Functional Activity Ted, Functional Strength, Gait, Safety, Therapeutic Exercise Treatment Duration: Nov 23, 2016 Visits Per Week: 5 Time/GCodes Time In: 950 Time Out: 1005 Total Billed Treatment Time: 15 Total Billed Treatment 1 visit FA 15 min JAXSON BEARD PT Nov 22, 2016 10:58
--- NOTE | 2016-11-22 11:11 | Occupational Ther Daily Note ---
OT Current Status-Daily Note Subjective Pt sleeping in bed, woke easily to knock at door. Pt agreed to therapy. No c/ o pain. Mental Status/Objective Functional [place] Measure 0=Not Assessed/NA 4=Minimal Assistance 1=Total Assistance 5=Supervision or Setup 2=Maximal Assistance 6=Modified [place] 3=Moderate Assistance 7=Complete [place] ADL-Treatment Functional [place] Measure 0=Not Assessed/NA 4=Minimal Assistance 1=Total Assistance 5=Supervision or Setup 2=Maximal Assistance 6=Modified [place] 3=Moderate Assistance 7=Complete IndependenceIRFPAI Quality Coding Scale 6 Independent with activity with or without an assistive device 5 Patient requires set up or clean up by helper. Patient completes activity by themselves 4 Supervision or touching assist (CGA). [place] provide cues , steadying assist 3 The helper provides less than half the effort to complete the activity 2 The helper provides more than half the effort to complete the activity 1 Dependent. The helper does all the effort to complete an activity 7 Patient refused to complete or attempt activity 9 The patient did not perform the activity before the current illness or injury 88 Not attempted due to Medical conditions or safety concerns Other Treatment Pt completed 5 medium (red) resistance theraband exercises in standing. Pt uses an acronym to remember exercises, 2 verbal cues for positioning theraband correctly for exercise. Pt then was able to remember directions to fine motor coordination activity using written directions then pt will ask questions to confirm. After therapy, pt in care of PT. Call light/phone in reach. All needs met in room. OT Short Term Goals Short Term Goals 1=Demonstrate adherence to instructed precautions during ADL tasks. 2=Patient will verbalize/demonstrate understanding of assistive devices/ modifications for ADL. 3=Patient will improve strength/tolerance for activity to enable patient to perform ADL's. OT Jail Goals Tapper Shank Goals Time Frame: Nov 23, 2016 Eating (FIM): 7 Eating (QC): 6 Groomin Oral Hygiene (QC): 6 Bathing(FIM): 6 Upper Body Dressing(FIM): 6 Lower Body Dressing(FIM): 6 Toileting(FIM): 6 Toileting Hygiene (QC): 6 Toilet/Commode Transfer(FIM): 6 Toilet/Commode Transfer (QC): 6 Shower Transfer(FIM): 6 Pt will be able to verbalize three ways that she can conserve her energy due to decreased activity tolerance Additional Goals: 2-Verbalize Understanding, 3-ImproveStrength/Ted 1=Demonstrate adherence to instructed precautions during ADL tasks. 2=Patient will verbalize/demonstrate understanding of assistive devices/ modifications for ADL. 3=Patient will improve strength/tolerance for activity to enable patient to perform ADL's. OT Education/Plan Problem List/Assessment Pt would benefit from skilled OT to increase her activity tolerance and UE strength to allow her to safely return to her home with decrease risk of falling and increased independence Discharge Recommendations Plan/Recommendations: Continue POC Treatment Plan/Plan of Care Patient would benefit from OT for education, treatment and training to promote independence in ADL's, mobility, safety and/or upper extremity function for ADL' s. Plan of Care: UE Funct Exercise/Act, OTHER (energy conservation education) Treatment Duration: Nov 23, 2016 Visits Per Week: 5 Agreement: Yes Rehab Potential: Good Time/GCodes Start Time: 09:30 Stop Time: 09:50 Total Time Billed (hr/min): 20 Billed Treatment Time 1 visit-EX 1 (20 min) JACQUELINE OFSS Nov 22, 2016 11:11
[2016-11-22] MEDS: CALCIUM CARB + VIT D 600 MG (CALCARB + D) TAB PO SCH (11:54)
[2016-11-22] MEDS: ALPRAZolam 0.25 MG (XANAX) TAB PO SCH ×2 (11:54→23:02)
[2016-11-22] MEDS: ASCORBIC ACID (VIT C) 500 MG TABLET PO SCH (11:55)
[2016-11-22 12:48] VITALS: BP 114/69
[2016-11-22] MEDS: NS IV 500 ML 500 ML IV SCH (14:42)
[2016-11-22 16:00] VITALS: BP 102/72
[2016-11-22] MEDS: PANTOPRAZOLE 20 MG TABLET (PROTONIX) PO SCH (18:07)
[2016-11-22 20:23] VITALS: BP 105/71
[2016-11-22] MEDS: hydrOXYzine (VISTARIL) 25 MG CAP PO SCH (23:01)
[2016-11-22] MEDS: ENOXAPARIN 40 MG/0.4 ML (LOVENOX) SYR SC SCH (23:01)
[2016-11-23 00:48] VITALS: BP 118/66
[2016-11-23] MEDS: RT-ALBUTEROL/IPRATROPIUM 3 ML (DUONEB) VIAL INH SCH ×4 (02:35→21:04)
[2016-11-23] MEDS: aCETylcysteine 20% (MUCOMYST) 30ML SOLN VIAL INH SCH ×4 (02:36→21:04)
[2016-11-23] MEDS: ONDANSETRON 4 MG (ZOFRAN) ORAL DISSOLVE TAB PO PRN ×2 (03:36→22:38)
[2016-11-23] MEDS: HYDROmorphone PCA 0.2 MG/ML 30 ML (DILAUDID) IV PRN ×3 (03:38→23:53)
[2016-11-23 04:00] VITALS: BP 110/72
[2016-11-23] MEDS: inSUlin (REGULAR) HUMAN 1 UNIT/0.01 ML (CHARGE PER UNIT) SC SCH ×4 (06:00→22:28)
[2016-11-23] MEDS: methylPREDNISolone 40 MG/ML (Solu-MEDROL) VIAL IV SCH ×4 (06:53→23:43)
[2016-11-23] MEDS: ACYCLOVIR 400 MG TABLET (ZOVIRAX) PO SCH ×5 (06:53→22:30)
[2016-11-23] MEDS: FOLIC ACID 1 MG TAB PO SCH (06:53)
[2016-11-23] MEDS: MEROPENEM 500 MG in NS (IVPB) 100 ML IV SCH ×4 (06:55→23:42)
[2016-11-23] MEDS: CATHETER FLUSH 10 ML SYR IV SCH ×3 (06:56→22:43)
[2016-11-23] MEDS: DOCOSANOL 10 % CREAM (ABREVA) 2 GM TP SCH ×5 (06:59→22:27)
[2016-11-23 07:15] LABS: MEAN PLATELET VOLUME 11.6 FL (7.4-10.4); RED BLOOD COUNT 4.3 10^6/uL (4.35-5.85); RED CELL DISTRIBUTION WIDTH 14.8 % (10.0-14.5)
[2016-11-23 07:33] LABS: ALANINE AMINOTRANSFERASE 83 U/L (0-55); ALBUMIN 3.2 G/DL (3.2-4.5); ANION GAP 6 MMOL/L (5-14); ASPARTATE AMINO TRANSFERASE 90 U/L (5-34); BILIRUBIN,TOTAL 0.7 MG/DL (0.1-1.0); BLOOD UREA NITROGEN 22 MG/DL (7-18); BUN/CREATININE RATIO 33; CALCIUM 8.4 MG/DL (8.5-10.1); CARBON DIOXIDE 33 MMOL/L (21-32); CHLORIDE 101 MMOL/L (98-107); CREATININE SERUM 0.67 MG/DL (0.60-1.30); GFR ESTIMATED > 60; GLUCOSE 87 MG/DL (70-105); POTASSIUM 3.9 MMOL/L (3.6-5.0); SODIUM 140 MMOL/L (135-145); TOTAL PROTEIN 5.2 G/DL (6.4-8.2)
[2016-11-23 08:00] VITALS: BP 119/77
[2016-11-23] MEDS: NS IV 500 ML 500 ML IV SCH (08:09)
[2016-11-23] MEDS: TRIM/SULFAMETH 160/800 (SEPTRA DS) TAB PO SCH (08:21)
[2016-11-23] MEDS: SACUBITRIL/VALSARTAN 24/26 MG (ENTRESTO) TABLET PO SCH ×2 (08:22→22:30)
[2016-11-23] MEDS: DIGOXIN 0.125 MG (LANOXIN) TAB PO SCH (08:22)
[2016-11-23] MEDS: inSUlin DETERMIR 1 UNIT/0.01 ML (LEVEMIR) CHARGE PER UNIT SQ SCH ×2 (08:22→22:28)
[2016-11-23] MEDS: FUROSEMIDE 40 MG (LASIX) TAB PO SCH (08:22)
[2016-11-23] MEDS: MAGNESIUM OXIDE (MAG-OX)400 MG TAB PO SCH ×2 (08:22→22:30)
[2016-11-23] MEDS: KCL 20 MEQ TAB (K-DUR) PO SCH ×2 (08:22→22:30)
[2016-11-23] MEDS: meTOprolol TARTRATE 25 MG (LOPRESSOR) TABLET PO SCH ×2 (08:22→22:29)
[2016-11-23] MEDS: BETAMETHASONE DIPRO (AUGMENTED) 0.05% CREAM 15 GM TOP SCH ×2 (08:28→22:27)
[2016-11-23] MEDS ORDERED: guaiFENesin (MUCINEX) 600 MG TAB PO NR (11:00)
--- NOTE | 2016-11-23 11:12 | Progress Note (SOAP) ---
Subjective Subjective/Events-last exam PT REPORTS THAT THIS MORNING SHE FEELS BAD AGAIN, HAVING CENTRAL STERNAL CHEST PAIN WITH COUGHING, THICK MUCUS IN HER COUGH SECRETIONS, YELLOWISH SPUTUM. PT STATES THAT SHE IS FEELING WORSE TODAY. SHE REPORTS THAT HER KIDS HAVE BEEN SICK AND THEY WILL BE AT HER PARENTS [facility] AND THEIR DAD'S SATURDAY AND SATURDAY. Review of Systems General: Fatigue Malaise HEENT: No Head Aches, No Sore Throat, Other (SORES ON MOUTH FEEL BETTER) Pulmonary: Dyspnea Cough Pleuritic Chest Pain Cardiovascular: No: Chest Pain Gastrointestinal: No: Abdominal Pain, Nausea Genitourinary: No Dysuria Musculoskeletal: : back pain Neurological: : Weakness Objective Exam Vital Signs Date Time Temp Pulse Resp B/P Pulse Ox O2 Delivery O2 Flow Rate FiO2 11/23/16 09:06 98 4.00 11/23/16 08:57 97 4.00 11/23/16 08:00 97.9 74 24 119/77 100 Nasal Cannula 4.00 11/23/16 04:00 98.7 65 22 110/72 100 Nasal Cannula 4.00 11/23/16 03:38 18 11/23/16 02:36 98 4.00 11/23/16 00:48 97.4 62 18 118/66 96 Nasal Cannula 4.00 11/22/16 21:00 Nasal Cannula 4.00 11/22/16 20:23 97.3 82 16 105/71 99 Nasal Cannula 4.00 11/22/16 20:19 99 4.00 11/22/16 16:20 20 11/22/16 16:18 20 11/22/16 16:00 97.3 73 22 102/72 100 Nasal Cannula 4.00 11/22/16 14:52 100 4.00 11/22/16 12:48 97.3 70 20 114/69 97 Nasal Cannula 4.00 I & O 11/23/16 07:00 Intake Total 2730 ml Output Total 4550 ml Balance -1820 ml Capillary Refill : Less Than 3 Seconds General Appearance: WD/WN Chronically ill HEENT: PERRL/EOMI Pharynx Normal Neck: Full Range of Motion Supple Respiratory: Chest Non Tender Crackles Decreased Breath Sounds Rhonci Wheezing Cardiovascular: Regular Rate, Rhythm Systolic Murmur Gastrointestinal: normal bowel sounds non tender soft Extremity: Normal Capillary Refill No Calf Tenderness No Pedal Edema Neurologic/Psychiatric: Alert Oriented x3 No Motor/Sensory Deficits Normal Mood/Affect Skin: Rash (ON DORSUM OF FOOT ON LEFT) Lymphatic: No Adenopathy Results Lab Laboratory Tests 11/22/16 15:51: Glucometer 198H 11/22/16 22:07: Glucometer 211H 11/23/16 06:17: Glucometer 103 11/23/16 06:45: Alanine Aminotransferase (ALT/SGPT) 83H, Albumin 3.2, Alkaline Phosphatase 202H , Anion Gap 6, Aspartate Amino Transf (AST/SGOT) 90H, BUN/Creatinine Ratio 33, Blood Urea Nitrogen 22H, Calcium Level 8.4L, Carbon Dioxide Level 33H, Chloride Level 101, Creatinine 0.67, Estimat Glomerular Filtration Rate > 60, Glucose Level 87, Hematocrit 39, Hemoglobin 12.4, Mean Corpuscular Hemoglobin 29, Mean Corpuscular Hemoglobin Concent 32, Mean Corpuscular Volume 90, Mean Platelet Volume 11.6H, Platelet Count 243, Potassium Level 3.9, Red Blood Count 4.30L, Red Cell Distribution Width 14.8H, Sodium Level 140, Total Bilirubin 0.7, Total Protein 5.2L, White Blood Count 6.0 Assessment/Plan Assessment/Plan Assess & Plan/Chief Complaint PNEUMONIA CONGESTIVE HEART FAILURE EXACERBATION - ACUTE ON CHRONIC - EJECTION FRACTION OF 5% TO 10% CARDIOMYOPATHY UNCONTROLLED NAUSEA CHURG-CANELO ATRIAL FIBRILLATION CHRONIC IMMUNE SUPPRESSION THERAPY ESOPHAGEAL REFLUX CHRONIC PAIN SYNDROME STEROID INDUCED DIABETES MELLITUS CHRONIC OXYGEN THERAPY NOCTURNAL APNEA APHTHOUS ULCERS PNEUMONIA - ANTIBIOTIC THERAPY - MUCOMYST BREATHING TREATMENTS. - PUSH ANTIBIOTICS OUT TO MIDDLE OF NEXT WEEK- CHECK CHEST XRAY TOMORROW. HER XRAY TODAY LOOKED BETTER, BUT SHE SOUNDS WORSE TODAY THAN YESTERDAY. START GUAIFENESIN CHF - ACUTE ON CHRONIC LEFT SIDED SYSTOLIC FAILURE - CONTINUE WITH LASIX, MONITOR BNP CLOSELY. 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 CONTINUE WITH METHOTREXATE, IVIG ATRIAL FIBRILLATION - RESTARTED DIGOXIN - SUPPORTIVE CARE. NAUSEA - SUPPORTIVE CARE, START IV ZOFRAN AND IV PHENERGAN. CHRONIC IMMUNOSUPPRESSION - AND ADRENAL SUPPRESSION WITH CHRONIC STEROID USE - DOSE WITH SOLUMEDROL. - INCREASE DOSE TODAY STEROID INDUCED DIABETES MELLITUS - CHECK FSBS, RESTARTED HOME INSULIN THERAPY. GERD - RESTARTED PROTONIX CHRONIC PAIN - SHOPPER'S AIDE DILAUDID APHTHOUS ULCERS - CONTINUE WITH ACYCLOVIR AND TOPICAL TREATMENTS ALBER PHIPPS MD Nov 23, 2016 11:12
--- NOTE | 2016-11-23 11:34 | Occupational Ther Daily Note ---
OT Current Status-Daily Note Subjective Pt seen in room, up in bed, agreeable to OT. No pain mentioned Appearance Alert, cooperative Mental Status/Objective Functional [place] Measure 0=Not Assessed/NA 4=Minimal Assistance 1=Total Assistance 5=Supervision or Setup 2=Maximal Assistance 6=Modified [place] 3=Moderate Assistance 7=Complete [place] ADL-Treatment Functional [place] Measure 0=Not Assessed/NA 4=Minimal Assistance 1=Total Assistance 5=Supervision or Setup 2=Maximal Assistance 6=Modified [place] 3=Moderate Assistance 7=Complete IndependenceIRFPAI Quality Coding Scale 6 Independent with activity with or without an assistive device 5 Patient requires set up or clean up by helper. Patient completes activity by themselves 4 Supervision or touching assist (CGA). [place] provide cues , steadying assist 3 The helper provides less than half the effort to complete the activity 2 The helper provides more than half the effort to complete the activity 1 Dependent. The helper does all the effort to complete an activity 7 Patient refused to complete or attempt activity 9 The patient did not perform the activity before the current illness or injury 88 Not attempted due to Medical conditions or safety concerns Eating (FIM): 6 (Able to cut food and feed herself without help) Eating (QC): 6 Grooming (FIM): 6 (Able to wash hands and face, brush teeth, comb hair standing at sink, may take extra time) Oral Hygiene (QC): 6 Upper Body (FIM): 6 (Pt report) Lower Body Dressing (FIM): 6 (Pt report) Toileting (FIM): 6 (Tall toilet, grab bars. ABle to manage clothing and hygiene ) Toileting Hygiene (QC): 6 Toilet/Commode Transfer (FIM): 6 (Tall toilet, grab bars. Pt unplugged IV and took it into bathroom with her) Toilet Transfer (QC): 6 Other Treatment Pt demonstrated independence in home exercise program with red theraband. She uses an acronym to remember them and has verbal cues written on her white board. Pt left up in bed, all needs met. She reported she is not going home until Saturday. DC OT with goals met Education OT Patient Education: Home exercise program, Modified ADL techniques, Progress toward Goal/Update tx plan, Purpose of tx/functional activities Teaching Recipient: Patient Teaching Methods: Demonstration, Discussion Response to Teaching: Return Demonstration OT Short Term Goals Short Term Goals 1=Demonstrate adherence to instructed precautions during ADL tasks. 2=Patient will verbalize/demonstrate understanding of assistive devices/ modifications for ADL. 3=Patient will improve strength/tolerance for activity to enable patient to perform ADL's. OT Penitentiary Goals Green Ware Caster Goals Time Frame: Nov 23, 2016 Eating (FIM): 7 (met 3-10-17) Eating (QC): 6 (met 3-10-17) Groomin (met 3--17) Oral Hygiene (QC): 6 (met --17) Bathing(FIM): 6 Upper Body Dressing(FIM): 6 (met 3--17 pt report) Lower Body Dressing(FIM): 6 (met 3-10-17 pt report) Toileting(FIM): 6 (met --17) Toileting Hygiene (QC): 6 (met --17) Toilet/Commode Transfer(FIM): 6 (met 11-23-17) Toilet/Commode Transfer (QC): 6 (met 11-23-17) Shower Transfer(FIM): 6 Pt will be able to verbalize three ways that she can conserve her energy due to decreased activity tolerance Additional Goals: 2-Verbalize Understanding, 3-ImproveStrength/Ted 1=Demonstrate adherence to instructed precautions during ADL tasks. 2=Patient will verbalize/demonstrate understanding of assistive devices/ modifications for ADL. 3=Patient will improve strength/tolerance for activity to enable patient to perform ADL's. OT Education/Plan Problem List/Assessment Pt would benefit from skilled OT to increase her activity tolerance and UE strength to allow her to safely return to her home with decrease risk of falling and increased independence Discharge Recommendations Plan/Recommendations: Discharge/Goals Met Treatment Plan/Plan of Care Patient would benefit from OT for education, treatment and training to promote independence in ADL's, mobility, safety and/or upper extremity function for ADL' s. Plan of Care: UE Funct Exercise/Act, OTHER (energy conservation education) Treatment Duration: Nov 23, 2016 Visits Per Week: 5 Agreement: Yes Rehab Potential: Good Time/GCodes Start Time: 11:10 Stop Time: 11:25 Total Time Billed (hr/min): 15 Billed Treatment Time visit, 10 minutes exercise, 5 minutes ADL YAMILA BRDOY OT Nov 23, 2016 11:34
--- NOTE | 2016-11-23 11:43 | Therapy Team Discharge Summary ---
Therapy Discharge Summary Discharge Recommendations Date of Discharge Occupational Therapy Pt was seen for skilled OT to increase her independence and safety with ADLs and HEP. On admission she was independent to modified independent with ADLs but demonstrated decreased UE strength and activity tolerance. By discharge she continued to be independent to modified independent with ADLs and was also independent with UE home exercise program. Goals met. No continued OT recommended. DC OT. PT Program Analyst Goals Program Analyst Goals PT [facility]dc Goals Time Frame: Nov 23, 2016 Transfers (B,C,W/C) (FIM): 6 Sit to Lying (QC): 6 Lying-Sitting on Side/Bed(QC): 6 Sit to Stand (QC): 6 Chair/Lmv-ul-Oneoi Xfer(QC): 6 Does the Patient Walk: Yes Gait (FIM): 7 Gait distance (FIM): 3=150 ft Walk 50ft with 2 Turns (QC): 6 Walk 150 ft (QC): 6 OT [facility]dc Goals Program Analyst Goals Time Frame: Nov 23, 2016 Eating (FIM): 7 (met 3-10-17) Eating (QC): 6 (met 3-10-17) Groomin (met 3-10-17) Oral Hygiene (QC): 6 (met 3-10-17) Bathing(FIM): 6 Upper Body Dressing(FIM): 6 (met 3-10-17 pt report) Lower Body Dressing(FIM): 6 (met 3-10-17 pt report) Toileting(FIM): 6 (met 3-10-17) Toileting Hygiene (QC): 6 (met 3-10-17) Toilet/Commode Transfer(FIM): 6 (met 3-10-17) Toilet/Commode Transfer (QC): 6 (met 3-10-17) Shower Transfer(FIM): 6 Pt will be able to verbalize three ways that she can conserve her energy due to decreased activity tolerance Additional Goals: 2-Verbalize Understanding, 3-ImproveStrength/Ted 1=Demonstrate adherence to instructed precautions during ADL tasks. 2=Patient will verbalize/demonstrate understanding of assistive devices/ modifications for ADL. 3=Patient will improve strength/tolerance for activity to enable patient to perform ADL's. YAMILA BRODY OT Nov 23, 2016 11:43
[2016-11-23 12:00] VITALS: BP 122/76
--- NOTE | 2016-11-23 12:12 | Physical Therapy Daily Note ---
PT Daily Note-Current Subjective Patient agrees to PT. Pain Numeric Pain Scale: 0-No Pain Location: No Pain Reported Mental Status Patient Orientation: Normal For Age Attachments: Oxygen, IV Transfers Functional Hale Measure 0=Not Assessed/NA 4=Minimal Assistance 1=Total Assistance 5=Supervision or Setup 2=Maximal Assistance 6=Modified Hale 3=Moderate Assistance 7=Complete IndependenceIRFPAI Quality Coding Scale 6 Independent with activity with or without an assistive device 5 Patient requires set up or clean up by helper. Patient completes activity by themselves 4 Supervision or touching assist (CGA). [place] provide cues , steadying assist 3 The helper provides less than half the effort to complete the activity 2 The helper provides more than half the effort to complete the activity 1 Dependent. The helper does all the effort to complete an activity 7 Patient refused to complete or attempt activity 9 The patient did not perform the activity before the current illness or injury 88 Not attempted due to Medical conditions or safety concerns Transfers (B, C, W/C) (FIM): 7 Scootin Roll Left to Right (QC): 6 Supine to/from Sit: 7 Sit to/from Stand: 7 Sit to Lying (QC): 6 Sit to Stand (QC): 6 Chair/Ujj-gh-Bvilb Xfer(QC): 6 Gait Training Does the Patient Walk?: Yes Gait (FIM): 7 Distance (FIM): 3=150 ft Distance: 1000' Walk 50 ft with 2 Turns(QC): 6 Walk 150 ft (QC): 6 Gait Level of Assist: 7 Gait Assistive Device: None slow, functional; assist for O2 tank and IV Assessment Patient tolerated treatment and is up PRN in hallway with family and/or staff. Patient plans dismissal on 11/26/16 PT Skilled Nursing Goals Skilled Nursing Goals PT Skilled Nursing Goals Time Frame: Nov 23, 2016 Transfers (B,C,W/C) (FIM): 6 Sit to Lying (QC): 6 Lying-Sitting on Side/Bed(QC): 6 Sit to Stand (QC): 6 Chair/Oxt-xj-Lpgad Xfer(QC): 6 Does the Patient Walk: Yes Gait (FIM): 7 Gait distance (FIM): 3=150 ft Walk 50ft with 2 Turns (QC): 6 Walk 150 ft (QC): 6 PT Plan Treatment/Plan Treatment Plan: Continue Plan of Care Treatment Plan: Functional Activity Ted, Functional Strength, Gait, Safety, Therapeutic Exercise Treatment Duration: Nov 23, 2016 Visits Per Week: 5 Time/GCodes Time In: 1135 Time Out: 1200 Total Billed Treatment Time: 25 Total Billed Treatment 1 visit FA x 2 25 min JAXSON BEARD PT Nov 23, 2016 12:12
[2016-11-23] MEDS: FENTANYL PATCH REMOVAL TP SCH (12:21)
[2016-11-23] MEDS: fentaNYL PATCH 12 MCG (DURAGESIC) TD SCH (12:36)
[2016-11-23] MEDS: ALPRAZolam 0.25 MG (XANAX) TAB PO SCH ×2 (12:36→22:30)
[2016-11-23] MEDS: ASCORBIC ACID (VIT C) 500 MG TABLET PO SCH (12:36)
[2016-11-23] MEDS: CALCIUM CARB + VIT D 600 MG (CALCARB + D) TAB PO SCH (12:36)
[2016-11-23 16:00] VITALS: BP 116/75
[2016-11-23] MEDS: PANTOPRAZOLE 20 MG TABLET (PROTONIX) PO SCH (17:05)
[2016-11-23 20:39] VITALS: BP 124/77
[2016-11-23] MEDS: ENOXAPARIN 40 MG/0.4 ML (LOVENOX) SYR SC SCH (22:27)
[2016-11-23] MEDS: guaiFENesin (MUCINEX) 600 MG TAB PO SCH (22:28)
[2016-11-23] MEDS: hydrOXYzine (VISTARIL) 25 MG CAP PO SCH (22:30)
[2016-11-24] VITALS: BP 126/72
[2016-11-24] MEDS: NS IV 500 ML 500 ML IV SCH ×2 (02:21→15:22)
[2016-11-24] MEDS: aCETylcysteine 20% (MUCOMYST) 30ML SOLN VIAL INH SCH ×4 (03:12→20:55)
[2016-11-24] MEDS: RT-ALBUTEROL/IPRATROPIUM 3 ML (DUONEB) VIAL INH SCH ×4 (03:12→20:56)
[2016-11-24 04:00] VITALS: BP 126/73
[2016-11-24] MEDS: inSUlin (REGULAR) HUMAN 1 UNIT/0.01 ML (CHARGE PER UNIT) SC SCH ×4 (06:00→20:56)
[2016-11-24] MEDS: CATHETER FLUSH 10 ML SYR IV SCH ×3 (06:00→20:57)
[2016-11-24] MEDS: ACYCLOVIR 400 MG TABLET (ZOVIRAX) PO SCH ×5 (06:15→20:52)
[2016-11-24] MEDS: FOLIC ACID 1 MG TAB PO SCH (06:15)
[2016-11-24] MEDS: methylPREDNISolone 40 MG/ML (Solu-MEDROL) VIAL IV SCH ×4 (06:16→23:36)
[2016-11-24] MEDS: MEROPENEM 500 MG in NS (IVPB) 100 ML IV SCH ×4 (06:16→23:34)
[2016-11-24] MEDS: DOCOSANOL 10 % CREAM (ABREVA) 2 GM TP SCH ×5 (06:24→20:56)
[2016-11-24 06:41] LABS: MEAN PLATELET VOLUME 11.2 FL (7.4-10.4); RED BLOOD COUNT 4.17 10^6/uL (4.35-5.85); RED CELL DISTRIBUTION WIDTH 14.6 % (10.0-14.5); WHITE BLOOD COUNT 4.7 10^3/uL (4.3-11.0)
[2016-11-24 07:14] LABS: ALANINE AMINOTRANSFERASE 74 U/L (0-55); ANION GAP 9 MMOL/L (5-14); ASPARTATE AMINO TRANSFERASE 58 U/L (5-34); BILIRUBIN,TOTAL 0.8 MG/DL (0.1-1.0); BLOOD UREA NITROGEN 25 MG/DL (7-18); BUN/CREATININE RATIO 38; CALCIUM 8.3 MG/DL (8.5-10.1); CARBON DIOXIDE 33 MMOL/L (21-32); CHLORIDE 98 MMOL/L (98-107); CREATININE SERUM 0.65 MG/DL (0.60-1.30); GFR ESTIMATED > 60; GLUCOSE 127 MG/DL (70-105); POTASSIUM 3.7 MMOL/L (3.6-5.0); SODIUM 140 MMOL/L (135-145); TOTAL PROTEIN 4.9 G/DL (6.4-8.2)
[2016-11-24 08:00] VITALS: BP 117/84
--- NOTE | 2016-11-24 09:27 | Diagnostic Imaging Report ---
INDICATION: Pneumonia. Comparison made with prior examination from 11/22/16. FINDINGS: There's cardiomegaly. The mediastinum is unremarkable. Pacemaker overlies right hemithorax. There is no pleural effusion, pneumothorax or pneumonia. IMPRESSION: No acute cardiopulmonary abnormality. Cardiomegaly. Dictated by: Dictated on workstation # [id number]
[2016-11-24] MEDS: meTOprolol TARTRATE 25 MG (LOPRESSOR) TABLET PO SCH ×2 (09:29→20:53)
[2016-11-24] MEDS: inSUlin DETERMIR 1 UNIT/0.01 ML (LEVEMIR) CHARGE PER UNIT SQ SCH ×2 (09:29→20:56)
[2016-11-24] MEDS: FUROSEMIDE 40 MG (LASIX) TAB PO SCH (09:30)
[2016-11-24] MEDS: DIGOXIN 0.125 MG (LANOXIN) TAB PO SCH (09:30)
[2016-11-24] MEDS: SACUBITRIL/VALSARTAN 24/26 MG (ENTRESTO) TABLET PO SCH ×2 (09:30→20:55)
[2016-11-24] MEDS: guaiFENesin (MUCINEX) 600 MG TAB PO SCH ×2 (09:30→20:52)
[2016-11-24] MEDS: MAGNESIUM OXIDE (MAG-OX)400 MG TAB PO SCH ×2 (09:31→20:52)
[2016-11-24] MEDS: KCL 20 MEQ TAB (K-DUR) PO SCH ×2 (09:31→20:52)
[2016-11-24] MEDS: BETAMETHASONE DIPRO (AUGMENTED) 0.05% CREAM 15 GM TOP SCH ×2 (10:50→20:57)
[2016-11-24 12:00] VITALS: BP 127/81
[2016-11-24] MEDS: HYDROmorphone PCA 0.2 MG/ML 30 ML (DILAUDID) IV PRN ×2 (12:05→20:51)
[2016-11-24] MEDS: ASCORBIC ACID (VIT C) 500 MG TABLET PO SCH (12:52)
[2016-11-24] MEDS: ALPRAZolam 0.25 MG (XANAX) TAB PO SCH ×2 (12:52→20:53)
[2016-11-24] MEDS: CALCIUM CARB + VIT D 600 MG (CALCARB + D) TAB PO SCH (12:52)
[2016-11-24] MEDS: ONDANSETRON 4 MG (ZOFRAN) ORAL DISSOLVE TAB PO PRN ×2 (14:02→20:53)
[2016-11-24 16:00] VITALS: BP 128/71
[2016-11-24] MEDS: PANTOPRAZOLE 20 MG TABLET (PROTONIX) PO SCH (17:57)
[2016-11-24 20:49] VITALS: BP 117/72
[2016-11-24] MEDS: ENOXAPARIN 40 MG/0.4 ML (LOVENOX) SYR SC SCH (20:52)
[2016-11-24] MEDS: hydrOXYzine (VISTARIL) 25 MG CAP PO SCH (20:54)
[2016-11-25] VITALS: BP 116/67
[2016-11-25] MEDS: aCETylcysteine 20% (MUCOMYST) 30ML SOLN VIAL INH SCH ×4 (03:00→22:08)
[2016-11-25] MEDS: RT-ALBUTEROL/IPRATROPIUM 3 ML (DUONEB) VIAL INH SCH ×4 (03:23→22:08)
[2016-11-25 04:00] VITALS: BP 130/68
[2016-11-25] MEDS: HYDROmorphone PCA 0.2 MG/ML 30 ML (DILAUDID) IV PRN ×3 (05:42→21:44)
[2016-11-25] MEDS: methylPREDNISolone 40 MG/ML (Solu-MEDROL) VIAL IV SCH ×3 (05:45→18:11)
[2016-11-25] MEDS: FOLIC ACID 1 MG TAB PO SCH (05:49)
[2016-11-25] MEDS: MEROPENEM 500 MG in NS (IVPB) 100 ML IV SCH ×3 (05:50→18:11)
[2016-11-25] MEDS: CATHETER FLUSH 10 ML SYR IV SCH ×3 (05:51→22:09)
[2016-11-25] MEDS: inSUlin (REGULAR) HUMAN 1 UNIT/0.01 ML (CHARGE PER UNIT) SC SCH ×4 (05:53→21:00)
[2016-11-25] MEDS: ACYCLOVIR 400 MG TABLET (ZOVIRAX) PO SCH ×5 (05:55→21:57)
[2016-11-25] MEDS: DOCOSANOL 10 % CREAM (ABREVA) 2 GM TP SCH ×5 (05:55→21:00)
[2016-11-25 06:09] LABS: RED BLOOD COUNT 3.83 10^6/uL (4.35-5.85); RED CELL DISTRIBUTION WIDTH 14.5 % (10.0-14.5); WHITE BLOOD COUNT 5.1 10^3/uL (4.3-11.0)
[2016-11-25 06:38] LABS: ALANINE AMINOTRANSFERASE 65 U/L (0-55); ANION GAP 10 MMOL/L (5-14); ASPARTATE AMINO TRANSFERASE 42 U/L (5-34); BILIRUBIN,TOTAL 0.9 MG/DL (0.1-1.0); BLOOD UREA NITROGEN 31 MG/DL (7-18); BUN/CREATININE RATIO 42; CALCIUM 8.2 MG/DL (8.5-10.1); CARBON DIOXIDE 29 MMOL/L (21-32); CHLORIDE 100 MMOL/L (98-107); CREATININE SERUM 0.74 MG/DL (0.60-1.30); GFR ESTIMATED > 60; GLUCOSE 266 MG/DL (70-105); POTASSIUM 3.6 MMOL/L (3.6-5.0); SODIUM 139 MMOL/L (135-145); TOTAL PROTEIN 4.9 G/DL (6.4-8.2)
[2016-11-25] MEDS: meTOprolol TARTRATE 25 MG (LOPRESSOR) TABLET PO SCH ×2 (09:53→22:00)
[2016-11-25] MEDS: NS IV 500 ML 500 ML IV SCH (09:53)
[2016-11-25] MEDS: FUROSEMIDE 40 MG (LASIX) TAB PO SCH (09:54)
[2016-11-25] MEDS: guaiFENesin (MUCINEX) 600 MG TAB PO SCH ×2 (09:54→21:58)
[2016-11-25] MEDS: SACUBITRIL/VALSARTAN 24/26 MG (ENTRESTO) TABLET PO SCH ×2 (09:54→21:57)
[2016-11-25] MEDS: KCL 20 MEQ TAB (K-DUR) PO SCH ×2 (09:54→21:56)
[2016-11-25] MEDS: MAGNESIUM OXIDE (MAG-OX)400 MG TAB PO SCH ×2 (09:54→21:57)
[2016-11-25] MEDS: DIGOXIN 0.125 MG (LANOXIN) TAB PO SCH (09:54)
[2016-11-25] MEDS: inSUlin DETERMIR 1 UNIT/0.01 ML (LEVEMIR) CHARGE PER UNIT SQ SCH ×2 (09:55→21:59)
[2016-11-25] MEDS: BETAMETHASONE DIPRO (AUGMENTED) 0.05% CREAM 15 GM TOP SCH ×2 (10:49→22:02)
[2016-11-25 12:00] VITALS: BP 134/74
[2016-11-25] MEDS: CALCIUM CARB + VIT D 600 MG (CALCARB + D) TAB PO SCH (13:22)
[2016-11-25] MEDS: ASCORBIC ACID (VIT C) 500 MG TABLET PO SCH (13:22)
[2016-11-25] MEDS: ALPRAZolam 0.25 MG (XANAX) TAB PO SCH ×2 (13:22→21:58)
[2016-11-25] MEDS: ONDANSETRON 4 MG (ZOFRAN) ORAL DISSOLVE TAB PO PRN (13:22)
[2016-11-25 16:00] VITALS: BP 121/59
[2016-11-25] MEDS: PANTOPRAZOLE 20 MG TABLET (PROTONIX) PO SCH (18:11)
[2016-11-25 20:00] VITALS: BP 94/66
[2016-11-25] MEDS: hydrOXYzine (VISTARIL) 25 MG CAP PO SCH (21:57)
[2016-11-25] MEDS: ENOXAPARIN 40 MG/0.4 ML (LOVENOX) SYR SC SCH (21:59)
[2016-11-25 22:01] VITALS: BP 109/57
[2016-11-26 00:14] VITALS: BP 102/55
[2016-11-26] MEDS: MEROPENEM 500 MG in NS (IVPB) 100 ML IV SCH ×4 (01:16→17:27)
[2016-11-26] MEDS: NS IV 500 ML 500 ML IV SCH ×2 (01:17→20:29)
[2016-11-26] MEDS: methylPREDNISolone 40 MG/ML (Solu-MEDROL) VIAL IV SCH ×4 (01:17→17:26)
[2016-11-26] MEDS: aCETylcysteine 20% (MUCOMYST) 30ML SOLN VIAL INH SCH ×3 (02:24→13:44)
[2016-11-26] MEDS: RT-ALBUTEROL/IPRATROPIUM 3 ML (DUONEB) VIAL INH SCH ×4 (02:24→22:25)
[2016-11-26 05:31] VITALS: BP 111/67
[2016-11-26 05:35] LABS: MEAN PLATELET VOLUME 11.1 FL (7.4-10.4); RED BLOOD COUNT 3.87 10^6/uL (4.35-5.85); RED CELL DISTRIBUTION WIDTH 14.7 % (10.0-14.5); WHITE BLOOD COUNT 6.7 10^3/uL (4.3-11.0)
[2016-11-26 05:55] LABS: ALANINE AMINOTRANSFERASE 53 U/L (0-55); ALBUMIN 2.9 G/DL (3.2-4.5); ANION GAP 9 MMOL/L (5-14); ASPARTATE AMINO TRANSFERASE 26 U/L (5-34); BILIRUBIN,TOTAL 0.7 MG/DL (0.1-1.0); BLOOD UREA NITROGEN 28 MG/DL (7-18); BUN/CREATININE RATIO 37; CALCIUM 8.1 MG/DL (8.5-10.1); CARBON DIOXIDE 33 MMOL/L (21-32); CHLORIDE 97 MMOL/L (98-107); CREATININE SERUM 0.76 MG/DL (0.60-1.30); GFR ESTIMATED > 60; GLUCOSE 230 MG/DL (70-105); POTASSIUM 3.7 MMOL/L (3.6-5.0); SODIUM 139 MMOL/L (135-145); TOTAL PROTEIN 4.6 G/DL (6.4-8.2)
[2016-11-26] MEDS: CATHETER FLUSH 10 ML SYR IV SCH ×3 (06:05→21:59)
[2016-11-26] MEDS: ACYCLOVIR 400 MG TABLET (ZOVIRAX) PO SCH ×5 (06:05→21:55)
[2016-11-26] MEDS: FOLIC ACID 1 MG TAB PO SCH (06:05)
[2016-11-26] MEDS: inSUlin (REGULAR) HUMAN 1 UNIT/0.01 ML (CHARGE PER UNIT) SC SCH ×4 (06:06→22:29)
[2016-11-26] MEDS: DOCOSANOL 10 % CREAM (ABREVA) 2 GM TP SCH ×5 (06:39→21:58)
[2016-11-26] MEDS: HYDROmorphone PCA 0.2 MG/ML 30 ML (DILAUDID) IV PRN ×3 (07:06→22:33)
[2016-11-26] MEDS: RT-ALBUTEROL/IPRATROPIUM 3 ML (DUONEB) VIAL INH PRN (08:55)
[2016-11-26] MEDS ORDERED: aCETylcysteine 20% (MUCOMYST) 30ML SOLN VIAL INH NR (09:00)
--- NOTE | 2016-11-26 09:18 | Diagnostic Imaging Report ---
INDICATION: Pneumonia. Cough. COMPARISON: 11/24/2016. FINDINGS: Stable right IJ central venous catheter. Stable right pectoral transvenous pacemaker/ICD. The lungs are clear. No pleural effusion or pneumothorax. Stable cardiomegaly. Normal pulmonary vasculature. IMPRESSION: 1. Stable examination from 11/24/2016. No focal pulmonic consolidation to indicate pneumonia. Dictated by: Dictated on workstation # [id number]
--- NOTE | 2016-11-26 09:27 | Progress Note (SOAP) ---
Subjective Subjective/Events-last exam PT REPORTS FEELING MORE CONGESTED THIS MORNING. SHE REPORTS THAT SHE IS COUGHING, BUT CANNOT SEEM TO GET UP ENOUGH SPUTUM TO CLEAR HER LUNGS. Review of Systems General: Fatigue Pulmonary: Dyspnea Cough Cardiovascular: No: Chest Pain Gastrointestinal: No: Abdominal Pain, Nausea Genitourinary: No Dysuria, No Frequency Musculoskeletal: : back pain: leg pain: shoulder pain Neurological: : WeaknessNo: Confusion Objective Exam Vital Signs Date Time Temp Pulse Resp B/P Pulse Ox O2 Delivery O2 Flow Rate FiO2 11/26/16 09:03 3.00 11/26/16 08:50 97 2.00 11/26/16 07:06 18 11/26/16 07:01 100 3.00 11/26/16 06:53 100 3.00 11/26/16 06:00 16 11/26/16 05:31 97.6 61 16 111/67 100 Nasal Cannula 2.50 11/26/16 02:25 100 3.00 11/26/16 02:24 100 3.00 11/26/16 00:14 98.4 71 20 102/55 97 Nasal Cannula 3.00 11/25/16 22:10 97 3.00 11/25/16 22:09 97 3.00 11/25/16 22:01 109/57 88 11/25/16 21:45 16 11/25/16 21:44 16 11/25/16 21:15 Nasal Cannula 3.00 11/25/16 20:00 98.0 86 23 94/66 97 Nasal Cannula 3.00 11/25/16 18:45 98 3.00 11/25/16 16:00 98.3 78 18 121/59 98 Room Air 11/25/16 15:46 98 3.00 11/25/16 15:10 98.7 11/25/16 14:36 17 11/25/16 14:34 18 11/25/16 12:00 98.7 83 18 134/74 91 Room Air I & O 11/26/16 07:00 Intake Total 3890 ml Output Total 3650 ml Balance 240 ml Capillary Refill : Less Than 3 Seconds General Appearance: No Apparent Distress WD/WN HEENT: PERRL/EOMI Pharynx Normal Neck: Supple Respiratory: Chest Non Tender Decreased Breath Sounds Rhonci Wheezing Cardiovascular: Regular Rate, Rhythm Systolic Murmur Gastrointestinal: normal bowel sounds non tender soft no organomegaly no pulsatile mass Extremity: Normal Range of Motion Non Tender No Calf Tenderness No Pedal Edema Neurologic/Psychiatric: Alert Oriented x3 No Motor/Sensory Deficits Normal Mood/Affect Skin: Warm/Dry Other (HEALED SCAR ON POSERIOR LEFT CALF, HEALING RASH OVER DORSUM OF LEFT FOOT) Results Lab Laboratory Tests 11/25/16 11:35: Glucometer 241H 11/25/16 16:03: Glucometer 216H 11/25/16 21:10: Glucometer 115H 11/26/16 05:30: Alanine Aminotransferase (ALT/SGPT) 53, Albumin 2.9L, Alkaline Phosphatase 139H , Anion Gap 9, Aspartate Amino Transf (AST/SGOT) 26, BUN/Creatinine Ratio 37, Blood Urea Nitrogen 28H, Calcium Level 8.1L, Carbon Dioxide Level 33H, Chloride Level 97L, Creatinine 0.76, Estimat Glomerular Filtration Rate > 60, Glucose Level 230H, Hematocrit 35, Hemoglobin 11.1L, Mean Corpuscular Hemoglobin 29, Mean Corpuscular Hemoglobin Concent 32, Mean Corpuscular Volume 89, Mean Platelet Volume 11.1H, Platelet Count 241, Potassium Level 3.7, Red Blood Count 3.87L, Red Cell Distribution Width 14.7H, Sodium Level 139, Total Bilirubin 0.7 , Total Protein 4.6L, White Blood Count 6.7 Assessment/Plan Assessment/Plan Assess & Plan/Chief Complaint PNEUMONIA CONGESTIVE HEART FAILURE EXACERBATION - ACUTE ON CHRONIC - EJECTION FRACTION OF 5% TO 10% CARDIOMYOPATHY UNCONTROLLED NAUSEA CHURG-CANELO ATRIAL FIBRILLATION CHRONIC IMMUNE SUPPRESSION THERAPY ESOPHAGEAL REFLUX CHRONIC PAIN SYNDROME STEROID INDUCED DIABETES MELLITUS CHRONIC OXYGEN THERAPY NOCTURNAL APNEA APHTHOUS ULCERS PNEUMONIA - ANTIBIOTIC THERAPY - MUCOMYST BREATHING TREATMENTS. - PUSH ANTIBIOTICS OUT TO MIDDLE OF NEXT WEEK- CHECK CHEST XRAY TODAY DID LOOK BETTER WHEN COMPARED TO 11/24/16 XRAY. DISCUSSED WITH RESPIRATORY THERAPY - GIVE EXTRA DOSE OF MUCOMYST THIS MORNING TO SEE IF THIS HELPS TO IMPROVE HER AIR FLOW CHF - ACUTE ON CHRONIC LEFT SIDED SYSTOLIC FAILURE - CONTINUE WITH LASIX, MONITOR BNP CLOSELY. 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 CONTINUE WITH METHOTREXATE, IVIG ATRIAL FIBRILLATION - RESTARTED DIGOXIN - SUPPORTIVE CARE. NAUSEA - SUPPORTIVE CARE, START IV ZOFRAN AND IV PHENERGAN. CHRONIC IMMUNOSUPPRESSION - AND ADRENAL SUPPRESSION WITH CHRONIC STEROID USE - DOSE WITH SOLUMEDROL. - INCREASE DOSE TODAY STEROID INDUCED DIABETES MELLITUS - CHECK FSBS, RESTARTED HOME INSULIN THERAPY. GERD - RESTARTED PROTONIX CHRONIC PAIN - MANAGER STATE DILAUDID APHTHOUS ULCERS - CONTINUE WITH ACYCLOVIR AND TOPICAL TREATMENTS ALBER PHIPPS MD Nov 26, 2016 09:27
[2016-11-26] MEDS: guaiFENesin (MUCINEX) 600 MG TAB PO SCH ×2 (09:32→21:55)
[2016-11-26] MEDS: DIGOXIN 0.125 MG (LANOXIN) TAB PO SCH (09:32)
[2016-11-26] MEDS: MAGNESIUM OXIDE (MAG-OX)400 MG TAB PO SCH ×2 (09:32→21:55)
[2016-11-26] MEDS: SACUBITRIL/VALSARTAN 24/26 MG (ENTRESTO) TABLET PO SCH ×2 (09:32→21:55)
[2016-11-26] MEDS: meTOprolol TARTRATE 25 MG (LOPRESSOR) TABLET PO SCH ×2 (09:33→21:56)
[2016-11-26] MEDS: FUROSEMIDE 40 MG (LASIX) TAB PO SCH (09:33)
[2016-11-26] MEDS: TRIM/SULFAMETH 160/800 (SEPTRA DS) TAB PO SCH (09:33)
[2016-11-26] MEDS: BETAMETHASONE DIPRO (AUGMENTED) 0.05% CREAM 15 GM TOP SCH ×2 (09:34→21:58)
[2016-11-26] MEDS: inSUlin DETERMIR 1 UNIT/0.01 ML (LEVEMIR) CHARGE PER UNIT SQ SCH ×2 (09:35→22:30)
[2016-11-26] MEDS: KCL 20 MEQ TAB (K-DUR) PO SCH ×2 (09:39→21:55)
--- NOTE | 2016-11-26 11:48 | Therapy Team Discharge Summary ---
Therapy Discharge Summary Discharge Recommendations Date of Discharge Physical Therapy Patient continues to be independent with all gross motor skills safely and has been ambulating with nursing and family PRN independent in hallway with assist for O2 tank and IV pole only. No skilled PT indicated at this time. SWB coordinator and PT maid supervisor, as well as nursing and patient, all notified of POC. PT Skip Miner Goals Custodial Goals PT Custodial Goals Time Frame: Nov 23, 2016 Transfers (B,C,W/C) (FIM): 6 Sit to Lying (QC): 6 Lying-Sitting on Side/Bed(QC): 6 Sit to Stand (QC): 6 Chair/Xwb-bn-Yxvlt Xfer(QC): 6 Does the Patient Walk: Yes Gait (FIM): 7 Gait distance (FIM): 3=150 ft Walk 50ft with 2 Turns (QC): 6 Walk 150 ft (QC): 6 OT Skip Miner Goals Custodial Goals Time Frame: Nov 23, 2016 Eating (FIM): 7 (met 3-10-17) Eating (QC): 6 (met 3-10-17) Groomin (met 3-10-17) Oral Hygiene (QC): 6 (met 3-10-17) Bathing(FIM): 6 Upper Body Dressing(FIM): 6 (met 3-10-17 pt report) Lower Body Dressing(FIM): 6 (met 3-10-17 pt report) Toileting(FIM): 6 (met 3-10-17) Toileting Hygiene (QC): 6 (met 3-10-17) Toilet/Commode Transfer(FIM): 6 (met 3-10-17) Toilet/Commode Transfer (QC): 6 (met 3-10-17) Shower Transfer(FIM): 6 Pt will be able to verbalize three ways that she can conserve her energy due to decreased activity tolerance Additional Goals: 2-Verbalize Understanding, 3-ImproveStrength/Ted 1=Demonstrate adherence to instructed precautions during ADL tasks. 2=Patient will verbalize/demonstrate understanding of assistive devices/ modifications for ADL. 3=Patient will improve strength/tolerance for activity to enable patient to perform ADL's. JAXSON BEARD PT Nov 26, 2016 11:48
[2016-11-26] MEDS: ALPRAZolam 0.25 MG (XANAX) TAB PO SCH ×2 (12:10→21:56)
[2016-11-26] MEDS: ASCORBIC ACID (VIT C) 500 MG TABLET PO SCH (12:10)
[2016-11-26] MEDS: CALCIUM CARB + VIT D 600 MG (CALCARB + D) TAB PO SCH (12:10)
[2016-11-26] MEDS: FENTANYL PATCH REMOVAL TP SCH (12:11)
[2016-11-26] MEDS: fentaNYL PATCH 12 MCG (DURAGESIC) TD SCH (12:11)
[2016-11-26 16:20] VITALS: BP 102/63
[2016-11-26] MEDS: PANTOPRAZOLE 20 MG TABLET (PROTONIX) PO SCH (16:42)
[2016-11-26 20:00] VITALS: BP 126/82
[2016-11-26] MEDS: ONDANSETRON 4 MG (ZOFRAN) ORAL DISSOLVE TAB PO PRN (20:29)
[2016-11-26] MEDS: hydrOXYzine (VISTARIL) 25 MG CAP PO SCH (21:56)
[2016-11-26] MEDS: ENOXAPARIN 40 MG/0.4 ML (LOVENOX) SYR SC SCH (21:56)
[2016-11-27] VITALS: BP 118/71
[2016-11-27] MEDS: MEROPENEM 500 MG in NS (IVPB) 100 ML IV SCH ×5 (01:22→23:57)
[2016-11-27] MEDS: methylPREDNISolone 40 MG/ML (Solu-MEDROL) VIAL IV SCH ×5 (01:22→23:57)
[2016-11-27] MEDS: RT-ALBUTEROL/IPRATROPIUM 3 ML (DUONEB) VIAL INH SCH ×4 (03:12→21:48)
[2016-11-27 04:00] VITALS: BP 111/60
[2016-11-27] MEDS: HYDROmorphone PCA 0.2 MG/ML 30 ML (DILAUDID) IV PRN (05:12)
[2016-11-27] MEDS: inSUlin (REGULAR) HUMAN 1 UNIT/0.01 ML (CHARGE PER UNIT) SC SCH ×4 (06:12→21:42)
[2016-11-27] MEDS: ACYCLOVIR 400 MG TABLET (ZOVIRAX) PO SCH ×5 (06:13→21:43)
[2016-11-27] MEDS: CATHETER FLUSH 10 ML SYR IV SCH ×3 (06:13→21:46)
[2016-11-27] MEDS: FOLIC ACID 1 MG TAB PO SCH (06:13)
[2016-11-27] MEDS: DOCOSANOL 10 % CREAM (ABREVA) 2 GM TP SCH ×5 (06:15→21:44)
[2016-11-27 08:53] VITALS: BP 127/58
[2016-11-27] MEDS: meTOprolol TARTRATE 25 MG (LOPRESSOR) TABLET PO SCH ×2 (08:58→21:43)
[2016-11-27] MEDS: inSUlin DETERMIR 1 UNIT/0.01 ML (LEVEMIR) CHARGE PER UNIT SQ SCH ×2 (08:58→21:42)
[2016-11-27] MEDS: DIGOXIN 0.125 MG (LANOXIN) TAB PO SCH (08:58)
[2016-11-27] MEDS: KCL 20 MEQ TAB (K-DUR) PO SCH ×2 (08:58→21:43)
[2016-11-27] MEDS: MAGNESIUM OXIDE (MAG-OX)400 MG TAB PO SCH ×2 (08:59→21:43)
[2016-11-27] MEDS: FUROSEMIDE 40 MG (LASIX) TAB PO SCH (08:59)
[2016-11-27] MEDS: SACUBITRIL/VALSARTAN 24/26 MG (ENTRESTO) TABLET PO SCH ×2 (08:59→21:43)
[2016-11-27] MEDS: guaiFENesin (MUCINEX) 600 MG TAB PO SCH ×2 (08:59→21:43)
[2016-11-27] MEDS: BETAMETHASONE DIPRO (AUGMENTED) 0.05% CREAM 15 GM TOP SCH ×2 (09:02→21:45)
--- NOTE | 2016-11-27 09:17 | Progress Note (SOAP) ---
Subjective Subjective/Events-last exam PT'S DAD IN ROOM TODAY - WONDERING HOW YESENIA IS DOING. HE REPORTS THAT HER USUAL TEMPERATURE IS AROUND 97.6F - THINKS THAT SHE HAS A LOW GRADE FEVER. SHE STATES THAT SHE IS FEELING A LITTLE BETTER TODAY. RT NOTES THAT SHE DID NOT SEEM TO IMPROVE MUCH WITH THE EXTRA MUCOMYST YESTERDAY. SHE THINKS THAT SHE WOULD BE ABLE TO PRODUCE A SPUTUM FOR RE-EVAL/RECULTURE. Review of Systems General: Fatigue Malaise HEENT: No Head Aches Pulmonary: Dyspnea Cough Cardiovascular: No: Chest Pain Gastrointestinal: No: Abdominal Pain, Nausea Musculoskeletal: : back pain: leg pain: shoulder pain Neurological: : Weakness Objective Exam Vital Signs Date Time Temp Pulse Resp B/P Pulse Ox O2 Delivery O2 Flow Rate FiO2 11/27/16 08:53 97.3 88 16 127/58 98 Nasal Cannula 3.00 11/27/16 07:40 98 3.00 11/27/16 07:37 98 3.00 11/27/16 04:00 98.9 89 18 111/60 98 Nasal Cannula 3.00 3.00 11/27/16 03:12 97 3.00 11/27/16 00:00 97.9 70 20 118/71 98 Nasal Cannula 3.00 11/26/16 22:26 95 3.00 11/26/16 21:00 Nasal Cannula 3.00 11/26/16 20:00 99.0 70 18 126/82 97 Nasal Cannula 2.50 11/26/16 19:37 98 3.00 11/26/16 18:00 20 11/26/16 16:20 98.0 89 20 102/63 98 Nasal Cannula 2.50 11/26/16 14:50 18 11/26/16 13:44 100 3.00 I & O 11/27/16 07:00 Intake Total 2250 ml Output Total 1200 ml Balance 1050 ml Capillary Refill : Less Than 3 Seconds General Appearance: No Apparent Distress WD/WN HEENT: PERRL/EOMI Pharynx Normal Neck: Full Range of Motion Supple Respiratory: Chest Non Tender Crackles Decreased Breath Sounds Rhonci Cardiovascular: Regular Rate, Rhythm Gastrointestinal: normal bowel sounds non tender soft Extremity: No Pedal Edema Neurologic/Psychiatric: Alert Oriented x3 Normal Mood/Affect Skin: Normal Color Warm/Dry Lymphatic: No Adenopathy Results Lab Laboratory Tests 11/26/16 11:29: Glucometer 196H 11/26/16 16:24: Glucometer 178H 11/26/16 22:28: Glucometer 132H 11/27/16 05:28: Glucometer 216H Assessment/Plan Assessment/Plan Assess & Plan/Chief Complaint PNEUMONIA CONGESTIVE HEART FAILURE EXACERBATION - ACUTE ON CHRONIC - EJECTION FRACTION OF 5% TO 10% CARDIOMYOPATHY UNCONTROLLED NAUSEA CHURG-CANELO ATRIAL FIBRILLATION CHRONIC IMMUNE SUPPRESSION THERAPY ESOPHAGEAL REFLUX CHRONIC PAIN SYNDROME STEROID INDUCED DIABETES MELLITUS CHRONIC OXYGEN THERAPY NOCTURNAL APNEA APHTHOUS ULCERS PNEUMONIA - ANTIBIOTIC THERAPY - MUCOMYST BREATHING TREATMENTS. - PUSH ANTIBIOTICS OUT TO MIDDLE OF THIS WEEK- CHECK CHEST XRAY TOMORROW . DISCUSSED WITH RESPIRATORY THERAPY WILL CONTINUE WITH MUCOMYST AND CHECK REPEAT CULTURE OF SPUTUM. CHF - ACUTE ON CHRONIC LEFT SIDED SYSTOLIC FAILURE - CONTINUE WITH LASIX, MONITOR BNP CLOSELY. 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 CONTINUE WITH METHOTREXATE, IVIG ATRIAL FIBRILLATION - RESTARTED DIGOXIN - SUPPORTIVE CARE. NAUSEA - SUPPORTIVE CARE, START IV ZOFRAN AND IV PHENERGAN. CHRONIC IMMUNOSUPPRESSION - AND ADRENAL SUPPRESSION WITH CHRONIC STEROID USE - DOSE WITH SOLUMEDROL. - INCREASE DOSE TODAY STEROID INDUCED DIABETES MELLITUS - CHECK FSBS, RESTARTED HOME INSULIN THERAPY. 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
[2016-11-27 12:00] VITALS: BP 115/63
[2016-11-27] MEDS: ONDANSETRON 4 MG (ZOFRAN) ORAL DISSOLVE TAB PO PRN (12:00)
[2016-11-27] MEDS: ALPRAZolam 0.25 MG (XANAX) TAB PO SCH ×2 (12:00→21:43)
[2016-11-27] MEDS: ASCORBIC ACID (VIT C) 500 MG TABLET PO SCH (12:00)
[2016-11-27] MEDS: CALCIUM CARB + VIT D 600 MG (CALCARB + D) TAB PO SCH (12:00)
[2016-11-27] MEDS: NS IV 500 ML 500 ML IV SCH (12:01)
[2016-11-27] MEDS: HYDROmorphone PCA 20 MG/100 ML NS IV SCH ×2 (14:12)
[2016-11-27 16:39] VITALS: BP 107/61
[2016-11-27] MEDS: PANTOPRAZOLE 20 MG TABLET (PROTONIX) PO SCH (17:32)
[2016-11-27 20:00] VITALS: BP 103/62
[2016-11-27] MEDS: ENOXAPARIN 40 MG/0.4 ML (LOVENOX) SYR SC SCH (21:42)
[2016-11-27] MEDS: hydrOXYzine (VISTARIL) 25 MG CAP PO SCH (21:43)
[2016-11-28] VITALS: BP 117/60
[2016-11-28] MEDS: RT-ALBUTEROL/IPRATROPIUM 3 ML (DUONEB) VIAL INH SCH ×4 (02:40→22:35)
[2016-11-28] MEDS: NS IV 500 ML 500 ML IV SCH ×2 (03:00→08:30)
[2016-11-28 03:40] VITALS: BP 102/58
[2016-11-28] MEDS: CATHETER FLUSH 10 ML SYR IV SCH ×3 (06:16→21:19)
[2016-11-28] MEDS: ACYCLOVIR 400 MG TABLET (ZOVIRAX) PO SCH ×2 (06:17→08:35)
[2016-11-28] MEDS: methylPREDNISolone 40 MG/ML (Solu-MEDROL) VIAL IV SCH ×4 (06:17→23:04)
[2016-11-28] MEDS: MEROPENEM 500 MG in NS (IVPB) 100 ML IV SCH ×2 (06:17→11:39)
[2016-11-28] MEDS: FOLIC ACID 1 MG TAB PO SCH (06:17)
[2016-11-28] MEDS: inSUlin (REGULAR) HUMAN 1 UNIT/0.01 ML (CHARGE PER UNIT) SC SCH ×4 (06:17→21:39)
[2016-11-28] MEDS: DOCOSANOL 10 % CREAM (ABREVA) 2 GM TP SCH ×5 (06:18→21:19)
[2016-11-28 08:00] VITALS: BP 118/75
[2016-11-28] MEDS: inSUlin DETERMIR 1 UNIT/0.01 ML (LEVEMIR) CHARGE PER UNIT SQ SCH ×2 (08:32→21:07)
[2016-11-28] MEDS: TRIM/SULFAMETH 160/800 (SEPTRA DS) TAB PO SCH (08:34)
[2016-11-28] MEDS: guaiFENesin (MUCINEX) 600 MG TAB PO SCH ×2 (08:34→21:07)
[2016-11-28] MEDS: FUROSEMIDE 40 MG (LASIX) TAB PO SCH (08:34)
[2016-11-28] MEDS: MAGNESIUM OXIDE (MAG-OX)400 MG TAB PO SCH ×2 (08:34→21:08)
[2016-11-28] MEDS: KCL 20 MEQ TAB (K-DUR) PO SCH ×2 (08:34→21:08)
[2016-11-28] MEDS: meTOprolol TARTRATE 25 MG (LOPRESSOR) TABLET PO SCH ×2 (08:34→21:08)
[2016-11-28] MEDS: SACUBITRIL/VALSARTAN 24/26 MG (ENTRESTO) TABLET PO SCH ×2 (08:34→21:08)
[2016-11-28] MEDS: DIGOXIN 0.125 MG (LANOXIN) TAB PO SCH (08:34)
[2016-11-28] MEDS: BETAMETHASONE DIPRO (AUGMENTED) 0.05% CREAM 15 GM TOP SCH ×2 (08:40→21:20)
--- NOTE | 2016-11-28 08:45 | Progress Note (SOAP) ---
Subjective Subjective/Events-last exam PT REPORTS THAT HER BREATHING IS NOT MUCH BETTER THAN YESTERDAY - SHE REPORTS THAT SHE IS STILL FEELING WHEEZING DEEP IN HER CHEST. STILL COUGHING AND HAVING TROUBLE GETTING UP THE MUCUS. Review of Systems General: Fatigue Malaise Pulmonary: Dyspnea Cough Cardiovascular: No: Chest Pain Gastrointestinal: No: Abdominal Pain, Nausea Musculoskeletal: : back pain: leg pain Neurological: : Weakness Objective Exam Vital Signs Date Time Temp Pulse Resp B/P Pulse Ox O2 Delivery O2 Flow Rate FiO2 11/28/16 06:00 18 11/28/16 03:40 97.0 72 22 102/58 98 Nasal Cannula 3.00 11/28/16 02:40 98 3.00 11/28/16 00:00 97.8 67 21 117/60 94 Nasal Cannula 3.00 11/27/16 21:48 94 3.00 11/27/16 21:00 Nasal Cannula 3.00 11/27/16 20:00 98.9 63 20 103/62 100 Nasal Cannula 3.00 11/27/16 18:00 18 11/27/16 16:39 98.1 89 18 107/61 95 Nasal Cannula 3.00 11/27/16 14:53 98 3.00 11/27/16 14:17 16 11/27/16 12:00 98.1 60 16 115/63 96 Nasal Cannula 3.00 11/27/16 09:00 Nasal Cannula 3.00 11/27/16 08:53 97.3 88 16 127/58 98 Nasal Cannula 3.00 I & O 11/28/16 07:00 Intake Total 3390 ml Output Total 1710 ml Balance 1680 ml Capillary Refill : Less Than 3 Seconds General Appearance: No Apparent Distress WD/WN HEENT: PERRL/EOMI Pharynx Normal Neck: Full Range of Motion Supple Respiratory: Chest Non Tender Decreased Breath Sounds Rhonci Wheezing Cardiovascular: Regular Rate, Rhythm Systolic Murmur Gastrointestinal: normal bowel sounds non tender soft Extremity: No Pedal Edema Neurologic/Psychiatric: Alert Oriented x3 No Motor/Sensory Deficits Normal Mood/Affect Skin: Warm/Dry Results Lab Laboratory Tests 11/27/16 11:21: Glucometer 171H 11/27/16 16:01: Glucometer 121H 11/27/16 20:41: Glucometer 222H 11/28/16 06:06: Glucometer 234H Microbiology 11/27/16 Gram Stain - Final, Resulted 11/27/16 Sputum Culture - Preliminary, Resulted Usual/normal milind isolated. Assessment/Plan Assessment/Plan Assess & Plan/Chief Complaint PNEUMONIA CONGESTIVE HEART FAILURE EXACERBATION - ACUTE ON CHRONIC - EJECTION FRACTION OF 5% TO 10% CARDIOMYOPATHY UNCONTROLLED NAUSEA CHURG-CANELO ATRIAL FIBRILLATION CHRONIC IMMUNE SUPPRESSION THERAPY ESOPHAGEAL REFLUX CHRONIC PAIN SYNDROME STEROID INDUCED DIABETES MELLITUS CHRONIC OXYGEN THERAPY NOCTURNAL APNEA APHTHOUS ULCERS PNEUMONIA - ANTIBIOTIC THERAPY - MUCOMYST BREATHING TREATMENTS. - PUSH ANTIBIOTICS OUT TO MIDDLE OF THIS WEEK- CHECK CHEST XRAY TODAY . DISCUSSED WITH RESPIRATORY THERAPY WILL CONTINUE WITH MUCOMYST - CULTURE PENDING - SO FAR NEGATIVE CHF - ACUTE ON CHRONIC LEFT SIDED SYSTOLIC FAILURE - CONTINUE WITH LASIX, MONITOR BNP CLOSELY. 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 CONTINUE WITH METHOTREXATE, IVIG ATRIAL FIBRILLATION - RESTARTED DIGOXIN - SUPPORTIVE CARE. NAUSEA - SUPPORTIVE CARE, START IV ZOFRAN AND IV PHENERGAN. CHRONIC IMMUNOSUPPRESSION - AND ADRENAL SUPPRESSION WITH CHRONIC STEROID USE - DOSE WITH SOLUMEDROL. - INCREASE DOSE TODAY STEROID INDUCED DIABETES MELLITUS - CHECK FSBS, RESTARTED HOME INSULIN THERAPY. GERD - RESTARTED PROTONIX CHRONIC PAIN - PROPERTY COORDINATOR DILAUDID APHTHOUS ULCERS -RESOLVED. ALBER PHIPPS MD Nov 28, 2016 08:45
--- NOTE | 2016-11-28 09:05 | Diagnostic Imaging Report ---
Clinical indication: Followup pneumonia. Patient has no chest complaints just has her usual shortness of air. Exam: Chest x-ray PA and lateral views. Comparisons: Chest x-ray dated 11/26/2016. Findings: Lungs/pleura: Lungs are clear. There is no pneumothorax. There is no pleural effusion. Mediastinum: Unremarkable. Pulmonary vasculature: Unremarkable. Heart: Stable cardiomegaly. Again seen cardiac pacemaker/AICD overlying the right chest with 3 leads projecting over the heart which appear intact. Bones/extrathoracic soft tissue: Stable anterior wedge compression deformity of a lower thoracic vertebra with associated kyphosis. Surgical clips are seen overlying the right upper quadrant which could be related to cholecystectomy changes. Impression: 1: Stable chest x-ray exam with no interval radiographic evidence of acute cardiopulmonary process. There is no interval lung infiltrate. 2: Cardiomegaly with no significant pulmonary vascular congestion. Dictated by: Dictated on workstation # [id number]
[2016-11-28] MEDS: ASCORBIC ACID (VIT C) 500 MG TABLET PO SCH (11:39)
[2016-11-28] MEDS: CALCIUM CARB + VIT D 600 MG (CALCARB + D) TAB PO SCH (11:39)
[2016-11-28] MEDS: ALPRAZolam 0.25 MG (XANAX) TAB PO SCH ×2 (11:39→21:08)
[2016-11-28 12:00] VITALS: BP 99/64
[2016-11-28] MEDS: ONDANSETRON 4 MG (ZOFRAN) ORAL DISSOLVE TAB PO PRN (15:05)
[2016-11-28 16:42] VITALS: BP 112/68
[2016-11-28] MEDS: PANTOPRAZOLE 20 MG TABLET (PROTONIX) PO SCH (17:11)
[2016-11-28] MEDS: ACETAMINOPHEN 500 MG TAB (TYLENOL) PO PRN (18:50)
[2016-11-28 20:20] VITALS: BP 116/67
[2016-11-28] MEDS: HYDROmorphone PCA 20 MG/100 ML NS IV SCH ×2 (21:03)
[2016-11-28] MEDS: ENOXAPARIN 40 MG/0.4 ML (LOVENOX) SYR SC SCH (21:07)
[2016-11-28] MEDS: hydrOXYzine (VISTARIL) 25 MG CAP PO SCH (21:07)
[2016-11-28] MEDS: METHOTREXATE 50 MG/2 ML PF SQ SCH (21:09)
[2016-11-28] MEDS: IVIG SQ SCH (21:39)
[2016-11-29] VITALS (7 sets, daily range): BP systolic 113–124; BP diastolic 61–72
[2016-11-29] MEDS: NS IV 500 ML 500 ML IV SCH ×2 (01:56→18:35)
[2016-11-29] MEDS: RT-ALBUTEROL/IPRATROPIUM 3 ML (DUONEB) VIAL INH SCH ×4 (02:42→21:27)
[2016-11-29] MEDS: ONDANSETRON 4 MG (ZOFRAN) ORAL DISSOLVE TAB PO PRN ×2 (04:39→22:33)
[2016-11-29] MEDS: inSUlin (REGULAR) HUMAN 1 UNIT/0.01 ML (CHARGE PER UNIT) SC SCH ×4 (06:38→22:08)
[2016-11-29] MEDS: FOLIC ACID 1 MG TAB PO SCH (06:38)
[2016-11-29] MEDS: methylPREDNISolone 40 MG/ML (Solu-MEDROL) VIAL IV SCH (06:38)
[2016-11-29] MEDS: CATHETER FLUSH 10 ML SYR IV SCH ×3 (06:39→22:00)
[2016-11-29] MEDS: DOCOSANOL 10 % CREAM (ABREVA) 2 GM TP SCH ×5 (06:39→22:25)
[2016-11-29] MEDS: FUROSEMIDE 40 MG (LASIX) TAB PO SCH (09:46)
[2016-11-29] MEDS: meTOprolol TARTRATE 25 MG (LOPRESSOR) TABLET PO SCH ×2 (09:46→22:26)
[2016-11-29] MEDS: SACUBITRIL/VALSARTAN 24/26 MG (ENTRESTO) TABLET PO SCH ×2 (09:46→22:21)
[2016-11-29] MEDS: DIGOXIN 0.125 MG (LANOXIN) TAB PO SCH (09:46)
[2016-11-29] MEDS: MAGNESIUM OXIDE (MAG-OX)400 MG TAB PO SCH ×2 (09:47→22:22)
[2016-11-29] MEDS: guaiFENesin (MUCINEX) 600 MG TAB PO SCH ×2 (09:47→22:22)
[2016-11-29] MEDS: KCL 20 MEQ TAB (K-DUR) PO SCH ×2 (09:47→22:22)
[2016-11-29] MEDS: inSUlin DETERMIR 1 UNIT/0.01 ML (LEVEMIR) CHARGE PER UNIT SQ SCH ×2 (09:48→22:23)
[2016-11-29] MEDS: BETAMETHASONE DIPRO (AUGMENTED) 0.05% CREAM 15 GM TOP SCH ×2 (09:48→22:24)
[2016-11-29] MEDS: predniSONE 20 MG TAB PO SCH ×2 (10:44→22:22)
[2016-11-29] MEDS: ASCORBIC ACID (VIT C) 500 MG TABLET PO SCH (11:34)
[2016-11-29] MEDS: ALPRAZolam 0.25 MG (XANAX) TAB PO SCH ×2 (11:34→22:21)
[2016-11-29] MEDS: CALCIUM CARB + VIT D 600 MG (CALCARB + D) TAB PO SCH (11:34)
[2016-11-29] MEDS: fentaNYL PATCH 12 MCG (DURAGESIC) TD SCH (11:34)
[2016-11-29] MEDS: FENTANYL PATCH REMOVAL TP SCH (11:34)
[2016-11-29] MEDS: PANTOPRAZOLE 20 MG TABLET (PROTONIX) PO SCH (16:28)
[2016-11-29] MEDS: hydrOXYzine (VISTARIL) 25 MG CAP PO SCH (22:22)
[2016-11-29] MEDS: ENOXAPARIN 40 MG/0.4 ML (LOVENOX) SYR SC SCH (22:23)
[2016-11-30 00:44] VITALS: BP 109/56
[2016-11-30] MEDS: RT-ALBUTEROL/IPRATROPIUM 3 ML (DUONEB) VIAL INH SCH ×2 (02:31→08:23)
[2016-11-30 04:55] VITALS: BP 108/56
[2016-11-30] MEDS: inSUlin (REGULAR) HUMAN 1 UNIT/0.01 ML (CHARGE PER UNIT) SC SCH ×2 (06:07→11:00)
[2016-11-30] MEDS: CATHETER FLUSH 10 ML SYR IV SCH ×2 (06:07→11:21)
[2016-11-30] MEDS: FOLIC ACID 1 MG TAB PO SCH (06:07)
[2016-11-30] MEDS: DOCOSANOL 10 % CREAM (ABREVA) 2 GM TP SCH ×3 (06:08→11:23)
[2016-11-30] MEDS: ONDANSETRON 4 MG (ZOFRAN) ORAL DISSOLVE TAB PO PRN (06:22)
[2016-11-30] MEDS: guaiFENesin (MUCINEX) 600 MG TAB PO SCH (09:01)
[2016-11-30] MEDS: DIGOXIN 0.125 MG (LANOXIN) TAB PO SCH (09:01)
[2016-11-30] MEDS: TRIM/SULFAMETH 160/800 (SEPTRA DS) TAB PO SCH (09:02)
[2016-11-30] MEDS: MAGNESIUM OXIDE (MAG-OX)400 MG TAB PO SCH (09:02)
[2016-11-30] MEDS: SACUBITRIL/VALSARTAN 24/26 MG (ENTRESTO) TABLET PO SCH (09:02)
[2016-11-30] MEDS: inSUlin DETERMIR 1 UNIT/0.01 ML (LEVEMIR) CHARGE PER UNIT SQ SCH (09:02)
[2016-11-30] MEDS: KCL 20 MEQ TAB (K-DUR) PO SCH (09:02)
[2016-11-30] MEDS: predniSONE 20 MG TAB PO SCH (09:02)
[2016-11-30] MEDS: FUROSEMIDE 40 MG (LASIX) TAB PO SCH (09:03)
[2016-11-30] MEDS: BETAMETHASONE DIPRO (AUGMENTED) 0.05% CREAM 15 GM TOP SCH (09:03)
[2016-11-30] MEDS: meTOprolol TARTRATE 25 MG (LOPRESSOR) TABLET PO SCH (09:03)
[2016-11-30] MEDS ORDERED: FENT1PAT6 TD (09:48)
[2016-11-30] MEDS ORDERED: PRD10T PO (09:48)
[2016-11-30] MEDS ORDERED: BETA15CR37 TOP (09:48)
[2016-11-30] MEDS ORDERED: OXYC5TAB71 PO (09:48)
[2016-11-30] MEDS ORDERED: INSU100V3 SC (09:48)
--- NOTE | 2016-11-30 09:50 | Discharge Inst-Complex ---
PDI Med Rec & Follow Up Appt. New Medications: Betamethasone/Propylene Glyc (Betamethasone Dp Aug 0.05% Crm) 15 Gm Cream..g. 0 GM TOP BID #10 TUBE Insulin Regular, Human (Humulin R) 1,000 Units/10 Ml Soln 0 UNIT SC ACHS FSBS 151-200 4U REG INSULIN, 201-250 6U REG, 251-300 8U REG, 301- 350 10U REG, 351-400 12U REG INSULIN, >400 CALL #1 EA Changed Medications: Prednisone (Prednisone) 10 Mg Tab 1 EA PO DAILY 60MG DAILY X1WEEK, THEN 40MG DAILY X1WK, THEN DECREASE BY 5MG WEEKLY TO A TOTAL OF 25MG DAILY #120 Ref 3 TAB (Changed from: 20 MG; Refills: ; TAKES 2 (10MG) TABLETS) Continued Medications: Acetylcysteine (Acetylcysteine) 200 Mg/1 Ml Vial 0 ML INH RTQ6HR #120 Ref 11 VIAL Albuterol/Ipratropium (Duoneb Rt) 3 Ml Nebu 3 ML INH Q6H PRN WHEEZING Alprazolam (Xanax) 0.25 Mg Tablet 0.25 MG PO BID PRN ANXIETY TAB Alprazolam (Alprazolam) 0.25 Mg Tablet 0.25 MG PO 1200,2100 ONE TWICE DAILY AND BID PRN UNCONTROLLED ANXIETY OR AIR HUNGER #90 TAB Ascorbic Acid (Vitamin C) 500 Mg Tablet 500 MG PO 1200 TAB Calcium Carbonate/Vitamin D3 (Calcium 600 + D Caplet) 1 Each Tablet 1 TAB PO 1200 TAB Digoxin (Digoxin) 125 Mcg Tablet 125 MCG PO DAILY TAB Fentanyl (Fentanyl Patch 12 MCG) 1 Each Patch.td72 12 MCG TD EVERY 72 HOURS #10 PATCH (This prescription has been renewed) Folic Acid (Folic Acid) 0.4 Mg Tablet 0.4 MG PO HS TAB Furosemide (Furosemide) 40 Mg Tablet 80 MG PO DAILY TAKES 2 (40 MG) TABLETS Furosemide (Furosemide) 40 Mg Tablet 40 MG PO HS PRN WEIGHT GAIN Hydroxyzine HCl (Hydroxyzine HCl) 25 Mg Tablet 50 MG PO HS TAKES 2 (25MG) TABLETS TAB Immune Globulin,Gamma(IgG) (Hizentra) 10 Gm/50 Ml Vial IV We PATIENT TAKES WEDNESDAYS AT 20:30 EA Insulin Detemir (Levemir Flextouch) 100 Unit/1 Ml Insuln.pen 10 UNITS SC BID EA Lactobacillus Combo No.10 (Probiotic) 1 Each Capsule 1 CAP PO 1200 CAP Magnesium Oxide (Magnesium Oxide) 400 Mg Tablet 400 MG PO BID TAB Methotrexate Sodium (Methotrexate) 25 Mg/1 Ml Vial 1 ML SQ We PATIENT TAKES WEDNESDAYS AT 20:30 EA Metoclopramide HCl (Metoclopramide HCl) 10 Mg Tablet 10 MG PO TID PRN STOMACH UPSET TAB Metoprolol Tartrate (Metoprolol Tartrate) 25 Mg Tablet 12.5 MG PO BID TAKES 1/2 (25MG) TABLET TAB Omeprazole (Omeprazole) 20 Mg Capsule.dr 20 MG PO 1700 CAP Ondansetron (Ondansetron Odt) 4 Mg Tab.rapdis 4 MG PO Q6H PRN NAUSEA TAB Oxycodone HCl (Oxycodone HCl) 5 Mg Tablet 5-10 MG PO EVERY 4-6 HOURS PRN PAIN #180 TAB (This prescription has been renewed ) Pnv with Ca,No.74/Iron/FA (Vol-Plus Tablet) 1 Each Tablet 1 TAB PO HS TAB Potassium Chloride (Potassium Chloride) 20 Meq Tab.er.prt 20 MEQ PO BID TAB Promethazine HCl (Promethazine Tablet) 25 Mg Tablet 25 MG PO TID PRN NAUSEA TAB Sacubitril/Valsartan (Entresto 49 mg-51 mg Tablet) 1 Each Tablet 1 TAB PO BID TAB Scopolamine (Transderm-Scop) 1 Each Patch.td72 1 PATCH TD Q72H PATCH Sulfamethoxazole/Trimethoprim (Sulfamethoxazole-Tmp Ds Tablet) 1 Each Tablet 1 TAB PO MoWeFr TAB Umeclidinium Brm/Vilanterol Tr (Anoro Ellipta 62.5-25 Mcg INH) 1 Each Blst.w.dev 1 PUFF IH DAILY Prescription: Transmitted to Pharmacy Activity, Diet and PDI Resume Normal Activity: Yes Discharge Diet: Other Diet (RESUME PREVIOUS DIET) Driving Instructions: No Driving/Refer to Symptoms to Reoprt to : Appetite Changes, Swelling Increased, Bleeding Excessive, Fever Over 101 Degrees F, Pain/Pressure in Chest, Cough Up/Vomit Blood, Shortness of Breath (WORSE THAN USUAL) For Problems or Questions: Contact Your Physician, Go to Emergency Room Infection Signs and Symptoms: Temperature Above 101 F ALBER PHIPPS MD Nov 30, 2016 09:50
--- NOTE | 2016-11-30 09:52 | Discharge Summary ---
Diagnosis/Chief Complaint Date of Admission Nov 16, 2016 at 09:48 Date of Discharge Discharge Date: Nov 30, 2016 Discharge Time: 1100 Admission Diagnosis Admission Diagnosis PNEUMONIA CONGESTIVE HEART FAILURE EXACERBATION - ACUTE ON CHRONIC - EJECTION FRACTION OF 5% TO 10% CARDIOMYOPATHY UNCONTROLLED NAUSEA CHURG-CANELO ATRIAL FIBRILLATION CHRONIC IMMUNE SUPPRESSION THERAPY ESOPHAGEAL REFLUX CHRONIC PAIN SYNDROME STEROID INDUCED DIABETES MELLITUS CHRONIC OXYGEN THERAPY NOCTURNAL APNEA Discharge Diagnosis PNEUMONIA CONGESTIVE HEART FAILURE EXACERBATION - ACUTE ON CHRONIC - EJECTION FRACTION OF 5% TO 10% CARDIOMYOPATHY UNCONTROLLED NAUSEA CHURG-CANELO ATRIAL FIBRILLATION CHRONIC IMMUNE SUPPRESSION THERAPY ESOPHAGEAL REFLUX CHRONIC PAIN SYNDROME STEROID INDUCED DIABETES MELLITUS CHRONIC OXYGEN THERAPY NOCTURNAL APNEA Reason Hospital Visit PT IS A 36 Y/O FEMALE WHO IS KNOWN TO ME FROM CLINIC. SHE PRESENTED TO THE HOSPITAL WITH DYSPNEA, COUGH, WEAKNESS. SHE HAS HISTORY OF CHURG CANELO AND HAS RECURRENT HOSPITALIZATIONS DUE TO HER CHRONIC ILLNESS OF EOSINOPHILIC VASCULITIS AND CARDIOMYOPATHY. CHEST XRAY FROM THE EMERGENCY DEPT SHOWS RIGHT BASILAR PNEUMONIA. Discharge Summary Discharge Physical Examination Allergies: Coded Allergies: influenza virus vaccine ts [id number] (36 mos+) (Unverified Allergy, Severe , ANAPHYLAXIS, 01/08/15) pneumococcal vaccine (Unverified Allergy, Severe, ANAPHYLAXIS, 01/08/15) Penicillins (Verified Allergy, Mild, PER PT RXN = HIVES, CAN TAKE ROCEPHIN , 01/08/15) clindamycin (Unverified Allergy, Unknown, 01/08/15) morphine (Verified Adverse Reaction, Intermediate, RASH, PT HAS RECEIVED HYDROMORPHONE W/O ISSUE, 04/26/16) MORPHINE IV GIVEN AT ED, PT DEVELOPED RASH AND POSSIBLE HIVES metoclopramide (Verified Adverse Reaction, Unknown, 10/02/15) INCREASED FLUID RETENTION AND BRUISING Vitals & I&Os General Appearance: Alert, Oriented X3, Cooperative, No Acute Distress HEENT: Atraumatic, PERRLA Respiratory: Clear to Auscultation Cardiovascular: Regular Rate Abdominal: Normal Bowel Sounds, Soft, No Tenderness Extremities: No Clubbing, No Cyanosis Skin: No Rashes Neuro: Normal Gait, Strength at 5/5 X4 Ext, Cranial Nerves 3-12 NL Psych/Mental Status: Mental Status NL, Mood NL Hospital Course PNEUMONIA CONGESTIVE HEART FAILURE EXACERBATION - ACUTE ON CHRONIC - EJECTION FRACTION OF 5% TO 10% CARDIOMYOPATHY UNCONTROLLED NAUSEA CHURG-CANELO ATRIAL FIBRILLATION CHRONIC IMMUNE SUPPRESSION THERAPY ESOPHAGEAL REFLUX CHRONIC PAIN SYNDROME STEROID INDUCED DIABETES MELLITUS CHRONIC OXYGEN THERAPY NOCTURNAL APNEA APHTHOUS ULCERS PNEUMONIA - ANTIBIOTIC THERAPY - MUCOMYST BREATHING TREATMENTS. - PUSH ANTIBIOTICS OUT TO MIDDLE OF THIS WEEK- CHECK CHEST XRAY TODAY . DISCUSSED WITH RESPIRATORY THERAPY WILL CONTINUE WITH MUCOMYST - CULTURE PENDING - SO FAR NEGATIVE CHF - ACUTE ON CHRONIC LEFT SIDED SYSTOLIC FAILURE - CONTINUE WITH LASIX, MONITOR BNP CLOSELY. 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 CONTINUE WITH METHOTREXATE, IVIG ATRIAL FIBRILLATION - RESTARTED DIGOXIN - SUPPORTIVE CARE. NAUSEA - SUPPORTIVE CARE, START IV ZOFRAN AND IV PHENERGAN. CHRONIC IMMUNOSUPPRESSION - AND ADRENAL SUPPRESSION WITH CHRONIC STEROID USE - DOSE WITH SOLUMEDROL. - CHANGED TO ORAL STEROID INDUCED DIABETES MELLITUS - CHECK FSBS, RESTARTED HOME INSULIN THERAPY. GERD - RESTARTED PROTONIX CHRONIC PAIN - [employer] DILAUDID - SWITCHED BACK TO HOME MEDICATIONS APHTHOUS ULCERS -RESOLVED. Pending Labs Discharge Condition at discharge improved Instructions to patient/family Please see electonic discharge instructions given to patient. Discharge Medications Reviewed and agree with Discharge Medication list on patient's Discharge Instruction sheet ALBER PHIPPS MD Nov 30, 2016 09:52
[2016-11-30] MEDS: NS IV 500 ML 500 ML IV SCH (11:21)
[2016-11-30] MEDS: ASCORBIC ACID (VIT C) 500 MG TABLET PO SCH (11:21)
[2016-11-30] MEDS: CALCIUM CARB + VIT D 600 MG (CALCARB + D) TAB PO SCH (11:21)
[2016-11-30] MEDS: ALPRAZolam 0.25 MG (XANAX) TAB PO SCH (11:21)
[2016-11-30 14:09] VITALS: BP 108/56
[2016-11-30] MEDS ORDERED: aCETylcysteine 20% (MUCOMYST) 30ML SOLN VIAL INH SCH (15:00)
== END 2016-11-30 14:28 | disposition home or self-care (01) | DRG 190 ==
LOC: 4TH 09:48
PROVIDERS: ADMIT Family Medicine; ATTEND Family Medicine
PROC: 02H633Z Insertion of Infusion Device into Right Atrium, Percutaneous Approach (ICD-10-PCS; principal; 2016-11-17)
DX: J44.0 Chronic obstructive pulmonary disease with (acute) lower respiratory infection (principal); J15.6 Pneumonia due to other Gram-negative bacteria; I50.23 Acute on chronic systolic (congestive) heart failure; I42.9 Cardiomyopathy, unspecified; M30.1 Polyarteritis with lung involvement [Churg-Strauss]; E24.2 Drug-induced Cushing's syndrome; G72.0 Drug-induced myopathy; L97.229 Non-pressure chronic ulcer of left calf with unspecified severity; Z66 Do not resuscitate; I48.91 Unspecified atrial fibrillation; J45.909 Unspecified asthma, uncomplicated; G47.30 Sleep apnea, unspecified; K21.9 Gastro-esophageal reflux disease without esophagitis; E09.9 Drug or chemical induced diabetes mellitus without complications; M81.0 Age-related osteoporosis without current pathological fracture; G89.4 Chronic pain syndrome; F32.9 Major depressive disorder, single episode, unspecified; T38.0X5A Adverse effect of glucocorticoids and synthetic analogues, initial encounter; Z79.4 Long term (current) use of insulin; Z79.52 Long term (current) use of systemic steroids; Z99.81 Dependence on supplemental oxygen; Z95.810 Presence of automatic (implantable) cardiac defibrillator; K12.0 Recurrent oral aphthae
CPT/HCPCS: 36415; 71020; 80053; 82784; 82962; 85007; 85025; 85027; 87070; 87205; 94640; 94668; 94760

== ENCOUNTER → 2016-12-10 | Outpatient (CLI) | payer MEDICARE, MEDICAID ==
[~2016-12-10] MED LIST changes: +BETA15CR37 TOP
--- NOTE | 2016-12-10 16:40 | Diagnostic Imaging Report ---
INDICATION: Forearm pain. AP and lateral views of the left forearm are obtained. FINDINGS: No acute fracture or dislocation is identified. No abnormal lytic or sclerotic focus is seen, and there is no radiopaque foreign body. IMPRESSION: No acute abnormality. Dictated by: Dictated on workstation # [id number]
== END ==
LOC: RAD 16:16
PROVIDERS: ATTEND Nurse Practitioner Family
DX: M79.632 Pain in left forearm (principal)
CPT/HCPCS: 73090

== ENCOUNTER → 2016-12-11 | Outpatient (CLI) | payer MEDICARE, MEDICAID ==
--- NOTE | 2016-12-11 20:29 | Diagnostic Imaging Report ---
INDICATION: Severe forearm pain FINDINGS: Right upper quadrant venous Doppler with color-flow Doppler, compression, augmentation and grayscale imaging demonstrates no evidence of a DVT. No fluid collections are identified. Pictures along the dorsal aspect of the forearm appear unremarkable. IMPRESSION: Negative right upper extremity venous Doppler. Dictated by: Dictated on workstation # [id number]
== END ==
LOC: RAD 15:33
PROVIDERS: ATTEND Nurse Practitioner Family
DX: M79.632 Pain in left forearm (principal)

== ENCOUNTER 2017-02-21 11:46 | Outpatient (RCR) | payer MEDICARE, MEDICAID ==
[2017-02-19 13:09] LABS: MEAN CORPUSCULAR HEMOGLOBIN 30 PG (25-34); MEAN CORPUSCULAR HGB CONC 33 G/DL (32-36); MEAN CORPUSCULAR VOLUME 90 FL (80-99); PLATELET COUNT 105 10^3/uL (130-400); RED BLOOD COUNT 4.11 10^6/uL (4.35-5.85); RED CELL DISTRIBUTION WIDTH 21.6 % (10.0-14.5); WHITE BLOOD COUNT 1.8 10^3/uL (4.3-11.0)
[2017-02-19 13:27] LABS: ERYTHROCYTE SEDIMENTATION RATE 14 MM/HR (0-20)
[2017-02-19 13:33] LABS: ALBUMIN 4.2 G/DL (3.2-4.5); BILIRUBIN,TOTAL 3.9 MG/DL (0.1-1.0); CALCIUM 9.7 MG/DL (8.5-10.1); CREATININE SERUM 1.32 MG/DL (0.60-1.30); POTASSIUM 2.6 MMOL/L (3.6-5.0); TOTAL PROTEIN 7.2 G/DL (6.4-8.2); hs C REACTIVE PROTEIN 5.7 MG/DL (0.00-0.50)
[2017-02-19 14:37] VITALS: BP 86/63
[2017-02-19 15:13] LABS: BILIRUBIN,URINE NEGATIVE (NEGATIVE); KETONES,URINE NEGATIVE (NEGATIVE); LEUKOCYTE ESTERASE ,URINE 2+ (NEGATIVE); NITRITE,URINE NEGATIVE (NEGATIVE); PH,URINE 6 (5-9); PROTEIN,URINE 2+ (NEGATIVE); UROBILINOGEN,URINE 4 MG/DL (NORMAL)
[2017-02-19 15:25] LABS: HYALINE CASTS, URINE 0-2 /LPF
[2017-02-19 16:25] VITALS: BP 96/62
[2017-02-19 16:30] LABS: BAND NEUTROPHILS 0 %; NEUTROPHILS % (MANUAL) 69 %
[2017-02-19 16:31] LABS: ANISOCYTOSIS SLIGHT; BASOPHILS % (MANUAL) 0 %; EOSINOPHILS % (MANUAL) 5 %; LYMPHOCYTES % (MANUAL) 25 %; POIKILOCYTOSIS SLIGHT; SPHEROCYTES SLIGHT
[2017-02-19 20:00] VITALS: BP 86/63
[2017-02-20 10:38] VITALS: BP 81/50
[2017-02-20 10:46] LABS: ANION GAP 13 MMOL/L (5-14); BLOOD UREA NITROGEN 23 MG/DL (7-18); BUN/CREATININE RATIO 27; CALCIUM 8.9 MG/DL (8.5-10.1); CARBON DIOXIDE 35 MMOL/L (21-32); CHLORIDE 91 MMOL/L (98-107); CREATININE SERUM 0.86 MG/DL (0.60-1.30); GFR ESTIMATED > 60; GLUCOSE 169 MG/DL (70-105); POTASSIUM 2.7 MMOL/L (3.6-5.0); SODIUM 139 MMOL/L (135-145)
[2017-02-20] MEDS: POTASSIUM CL 10MEQ/50ML IVPB 50 ML IV SCH ×6 (13:26→18:48)
[2017-02-20 20:05] VITALS: BP 88/60
[2017-02-20 20:24] VITALS: BP 81/50
[~2017-02-21] VITALS: Ht 162.6 cm; Wt 59.9 kg
[~2017-02-21 11:46] MED LIST changes: +CATHETER FLUSH 10 ML SYR IV PRN; +DOXYCYCLINE 100 MG/NS 100 ML IVPB IV ONE; +DOXYCYCLINE INJECTION 100 MG in NS (IVPB) 100 ML IV ONE; +FUROSEMIDE 40 MG/4 ML INJ (LASIX) IV ONE; +FUROSEMIDE 40 MG/4 ML INJ (LASIX) IVP ONE; +NS IV 1000 ML 1,000 ML IV ONE; +NS IV 1000 ML 1,000 ML ONE; +methylPREDNISolone 125 MG (Solu-MEDROL) VIAL IV ONE; +methylPREDNISolone 125 MG (Solu-MEDROL) VIAL IV SCH; +methylPREDNISolone 125 MG (Solu-MEDROL) VIAL ONE
== END 2017-05-20 | disposition home or self-care (01) ==
LOC: SDC 11:46
PROVIDERS: ATTEND Nurse Practitioner Family
DX: L03.90 Cellulitis, unspecified (principal)
CPT/HCPCS: 36415; 36592; 76937; 80048; 80053; 81000; 85007; 85027; 85652; 86141; 96360; 96361; 96365; 96366; 96367; 96374; 96375